=== PATIENT | female | born 1945 | race African-American/Black ===

== ENCOUNTER 2019-05-02 15:03 | Observation (INO) | payer OTHER ==
--- NOTE | 2019-05-02 17:39 | RAD REPORT ---
EXAM DESCRIPTION: US - Extremity Venous Uni Ltd - 05/02/2019 4:59 pm CLINICAL HISTORY: PAIN Leg swelling and edema. COMPARISON: <Comparisons> FINDINGS: Left lower extremity venous system was interrogated with Doppler technique. Thrombus is pr esent in the popliteal vein. Superficial venous thrombus is also present in the upper calf IMPRESSION: Positive for popliteal vein DVT. Superficial venous thrombus is also seen in the calf region the area of patient pain.
--- NOTE | 2019-05-02 17:57 | ER ---
Nurse's Notes [facility] Name: Patti Frey Age: 73 yrs Sex: Female : 1945 Arrival Date: 05/02/2019 Time: 15:03 Bed 8 Private MD: Jesu Vallecillo E Diagnosis: Acute embolism and thrombosis of other specified deep vein of right lower extremity Presentation: 05/02 15:59 Presenting complaint: Patient states: Pain and swelling to R posterior knee x 2-3 days, ph denies fever or injury. Transition of care: patient was not received from another setting of care. Onset of symptoms was May 02, 2019. Risk Assessment: Do you want to hurt yourself or someone else? Patient reports no desire to harm self or others. Initial Sepsis Screen: Does the patient meet any 2 criteria? No. Patient's initial sepsis screen is negative. Does the patient have a suspected source of infection? No. Patient's initial sepsis screen is negative. Care prior to arrival: None. 15:59 Method Of Arrival: Wheelchair ph 15:59 Acuity: EMELIA 4 ph Historical: - Allergies: 16:00 Codeine; ph 16:00 Iodine; ph - PMHx: 16:00 Arthritis; BURSITIS; Diabetes - NIDDM; Gout; Hypertension; ph - Immunization history:: Adult Immunizations up to date. - Social history:: Smoking status: Patient/guardian denies using tobacco. - Ebola Screening: : Patient negative for fever greater than or equal to 101.5 degrees Fahrenheit, and additional compatible Ebola Virus Disease symptoms Patient denies exposure to infectious person Patient denies travel to an Ebola-affected area in the 21 days before illness onset No symptoms or risks identified at this time. Screenin:20 Abuse screen: Denies threats or abuse. Denies injuries from another. Nutritional sg screening: No deficits noted. Tuberculosis screening: No symptoms or risk factors identified. Never had TB. Fall Risk None identified. Assessment: 18:20 Reassessment: Patient appears in no apparent distress at this time. Patient and/or sg family updated on plan of care and expected duration. Pain level reassessed. Patient is alert, oriented x 3, equal unlabored respirations, skin warm/dry/pink. General: Appears in no apparent distress. well groomed, well developed, well nourished, Behavior is calm, cooperative, appropriate for age. Pain: Complains of pain in posterior aspect of right knee and right calf. Neuro: Level of Consciousness is awake, alert, obeys commands, Oriented to person, place, time, situation, Speech is normal, Facial symmetry appears normal. Cardiovascular: Capillary refill is brisk in bilateral fingers Patient's skin is warm and dry. Chest pain is denied. Respiratory: Airway is patent Respiratory effort is even, unlabored, Respiratory pattern is regular, symmetrical. GI: Abdomen is round non-distended. : No signs and/or symptoms were reported regarding the genitourinary system. EENT: No signs and/or symptoms were reported regarding the EENT system. Derm: Skin is pink, warm \T\ dry. Musculoskeletal: Circulation, motion, and sensation intact. Range of motion: intact in all extremities, Swelling absent. 18:20 Reassessment: strict bed rest precautions implemented. sg 20:05 Reassessment: Dr. Craranza at bedside, will discuss if patient is ready to be tl2 transported to floor at this time. 20:09 Reassessment: Dr. Carranza reviewed lab results and stated that she could be sent to tl2 floor without further interventions in the ER. 20:23 Reassessment: Patient is alert, oriented x 3, equal unlabored respirations, skin bb warm/dry/pink. IV site intact with no erythema or edema noted, report called to Dipti BOOKER for room 416. Vital Signs: 16:00 BP 140 / 60; Pulse 67; Resp 18; Temp 97.4; Pulse Ox 100% on R/A; Weight 90.26 kg; ph Height 5 ft. 8 in. (172.72 cm); Pain 6/10; 20:06 BP 162 / 79; Pulse 65; Resp 18; Pulse Ox 100% on R/A; tl2 16:00 Body Mass Index 30.26 (90.26 kg, 172.72 cm) ph ED Course: 15:03 Patient arrived in ED. as 15:04 Jesu Vallecillo MD is Private Physician. as 16:00 Triage completed. ph 16:01 Arm band placed on Patient placed in waiting room, Patient notified of wait time. ph 16:23 Tessa Frey, ADE is Primary Nurse. iw 16:26 Vj Aldana MD is Attending Physician. snw 16:26 Mirna Juan FNP-C is PHCP. snw 16:59 US Extremity Venous Unilateral Ltd In Process Unspecified. EDMS 17:56 Lynne Greenberg MD is Hospitalizing Provider. snw 18:08 Chest Single View XRAY In Process Unspecified. EDMS 18:20 Patient has correct armband on for positive identification. Bed in low position. Call sg light in reach. Side rails up X2. Pulse ox on. NIBP on. Warm blanket given. Head of bed elevated. 18:20 No provider procedures requiring assistance completed. sg 18:28 CT Chest Wo Con In Process Unspecified. EDMS 19:00 unable to obtain labs, phlebotomy to be contacted. Inserted saline lock: 22 gauge in sg right antecubital area, using aseptic technique. IV inserted by Zoila BOOKER. 20:25 Patient admitted, IV remains in place. bb Administered Medications: 19:56 Drug: Xarelto 15 mg Route: PO; tl2 20:26 Follow up: Response: No adverse reaction bb Outcome: 17:56 Decision to Hospitalize by Provider. snw 20:24 Admitted to Tele accompanied by tech, via stretcher, room 416, with chart, Report bb called to Aziza BOOKER 20:24 Condition: stable 20:24 Instructed on the need for admit. 20:33 Patient left the ED. ao Signatures: Dispatcher [employer] EDDavid Barahona, RN ADE Mirna Juan FNP-C FNP-Arcelia Escalante Brenda, RN RN bb Williams, Irene, Radha Rand RN, RN RN ph Ortiz, Alex, RN RN ao Knox, Taylor, RN RN tl2
--- NOTE | 2019-05-02 17:57 | EDPHYS ---
Physician Documentation [facility] Name: Patti Frey Age: 73 yrs Sex: Female : 1945 Arrival Date: 05/02/2019 Time: 15:03 Bed 8 Private MD: Jesu Vallecillo E ED Physician Vj Aldana HPI: 05/02 16:44 This 73 yrs old Black Female presents to ER via Wheelchair with complaints of Leg Pain. snw 16:44 The patient presents with pain, that is acute. The complaints affect the right calf. snw Context: The problem was sustained at an unknown site, resulted from an unknown cause, the patient can partially bear weight, the patient is able to ambulate. Onset: The symptoms/episode began/occurred suddenly, this morning. Associated signs and symptoms: The patient has no apparent associated signs or symptoms. Severity of symptoms: At their worst the symptoms were moderate. The patient has not experienced similar symptoms in the past. The patient has not recently seen a physician, had A1C drawn per home health today. Historical: - Allergies: 16:00 Codeine; ph 16:00 Iodine; ph - PMHx: 16:00 Arthritis; BURSITIS; Diabetes - NIDDM; Gout; Hypertension; ph - Immunization history:: Adult Immunizations up to date. - Social history:: Smoking status: Patient/guardian denies using tobacco. - Ebola Screening: : Patient negative for fever greater than or equal to 101.5 degrees Fahrenheit, and additional compatible Ebola Virus Disease symptoms Patient denies exposure to infectious person Patient denies travel to an Ebola-affected area in the 21 days before illness onset No symptoms or risks identified at this time. ROS: 16:44 Constitutional: Negative for fever, chills, and weight loss, Eyes: Negative for injury, snw pain, redness, and discharge, ENT: Negative for injury, pain, and discharge, Neck: Negative for injury, pain, and swelling, Cardiovascular: Negative for chest pain, palpitations, and edema, Respiratory: Negative for shortness of breath, cough, wheezing, and pleuritic chest pain, Abdomen/GI: Negative for abdominal pain, nausea, vomiting, diarrhea, and constipation, Back: Negative for injury and pain, : Negative for injury, bleeding, discharge, and swelling, Skin: Negative for injury, rash, and discoloration, Neuro: Negative for headache, weakness, numbness, tingling, and seizure. 16:44 MS/extremity: Positive for pain, tenderness, of the right calf. Exam: 16:43 Constitutional: This is a well developed, well nourished patient who is awake, alert, snw and in no acute distress. Head/Face: Normocephalic, atraumatic. Eyes: Pupils equal round and reactive to light, extra-ocular motions intact. Lids and lashes normal. Conjunctiva and sclera are non-icteric and not injected. Cornea within normal limits. Periorbital areas with no swelling, redness, or edema. ENT: Nares patent. No nasal discharge, no septal abnormalities noted. Tympanic membranes are normal and external auditory canals are clear. Oropharynx with no redness, swelling, or masses, exudates, or evidence of obstruction, uvula midline. Mucous membranes moist. Neck: Trachea midline, no thyromegaly or masses palpated, and no cervical lymphadenopathy. Supple, full range of motion without nuchal rigidity, or vertebral point tenderness. No Meningismus. Chest/axilla: Normal chest wall appearance and motion. Nontender with no deformity. No lesions are appreciated. Cardiovascular: Regular rate and rhythm with a normal S1 and S2. No gallops, murmurs, or rubs. Normal PMI, no JVD. No pulse deficits. Respiratory: Lungs have equal breath sounds bilaterally, clear to auscultation and percussion. No rales, rhonchi or wheezes noted. No increased work of breathing, no retractions or nasal flaring. Abdomen/GI: Soft, non-tender, with normal bowel sounds. No distension or tympany. No guarding or rebound. No evidence of tenderness throughout. Back: No spinal tenderness. No costovertebral tenderness. Full range of motion. Skin: Warm, dry with normal turgor. Normal color with no rashes, no lesions, and no evidence of cellulitis. Neuro: Awake and alert, GCS 15, oriented to person, place, time, and situation. Cranial nerves II-XII grossly intact. Motor strength 5/5 in all extremities. Sensory grossly intact. Cerebellar exam normal. Normal gait. Psych: Awake, alert, with orientation to person, place and time. Behavior, mood, and affect are within normal limits. 16:43 Musculoskeletal/extremity: Extremities: grossly normal except: noted in the right calf: pain, tenderness, Circulation is intact in all extremities. Sensation intact. Vital Signs: 16:00 BP 140 / 60; Pulse 67; Resp 18; Temp 97.4; Pulse Ox 100% on R/A; Weight 90.26 kg; ph Height 5 ft. 8 in. (172.72 cm); Pain 6/10; 20:06 BP 162 / 79; Pulse 65; Resp 18; Pulse Ox 100% on R/A; tl2 16:00 Body Mass Index 30.26 (90.26 kg, 172.72 cm) ph MDM: 16:26 Patient medically screened. snw 17:54 Data reviewed: vital signs, nurses notes. Data interpreted: Pulse oximetry: on room air snw is 100 %. Interpretation: normal. Counseling: I had a detailed discussion with the patient and/or guardian regarding: the historical points, exam findings, and any diagnostic results supporting the discharge/admit diagnosis, the presence of at least one elevated blood pressure reading (>120/80) during this emergency department visit, radiology results, the need for outpatient follow up, to return to the emergency department if symptoms worsen or persist or if there are any questions or concerns that arise at home. Physician consultation: Lynne Greenberg MD was called at 17:55, was contacted at 17:55, regarding admission, to the telemetry unit. Special discussion:. 05/02 17:54 Order name: CBC with Diff; Complete Time: 12:17 snw 05/02 17:54 Order name: Chem 7; Complete Time: 12:17 snw 05/02 16:32 Order name: US Extremity Venous Unilateral Ltd; Complete Time: 17:42 snw 05/02 17:54 Order name: PT-INR; Complete Time: 12:17 snw 05/02 17:54 Order name: Ptt, Activated; Complete Time: 12:17 snw 05/02 17:54 Order name: Troponin (emerg Dept Use Only); Complete Time: 12:17 snw 05/02 17:54 Order name: Chest Single View XRAY; Complete Time: 12:17 snw 05/02 17:54 Order name: EKG; Complete Time: 17:55 snw 05/02 17:54 Order name: EKG - Nurse/Tech; Complete Time: 19:23 snw 05/02 17:54 Order name: SL; Complete Time: 19:19 snw 05/02 18:08 Order name: CT Chest Wo Con; Complete Time: 12:17 snw Administered Medications: 19:56 Drug: Xarelto 15 mg Route: PO; tl2 20:26 Follow up: Response: No adverse reaction bb Disposition: 05/03 07:53 Co-signature as Attending Physician, Vj Aldana MD I agree with the assessment and kdr plan of care. Disposition: 05/02/19 17:56 Hospitalization ordered by Lynne Greenberg for Observation. Preliminary diagnosis is Acute embolism and thrombosis of other specified deep vein of right lower extremity. - Bed requested for Telemetry/MedSurg (observation). - Status is Observation. ao - Condition is Stable. - Problem is new. - Symptoms are unchanged. UTI on Admission? No Signatures: Dispatcher [employer] EDMS David Lynch, RN RN Vj Aldana MD MD [facility] Mirna Juan, FLAKER OPERATOR-C FLAKER OPERATOR-Csnw Radha Soni, RN RN Judit Medina RN RN Ross Smart, RN RN Lizbet Magana RN RN tl2 Haley Bond RN bb Corrections: (The following items were deleted from the chart) 05/02 19:10 17:56 Hospitalization Ordered by Lynne Greenberg MD for Observation. Preliminary diagnosis cg is Acute embolism and thrombosis of other specified deep vein of right lower extremity. Bed requested for Telemetry/MedSurg (observation). Status is Observation. Condition is Stable. Problem is new. Symptoms are unchanged. UTI on Admission? No. snw 20:33 19:10 05/02/2019 17:56 Hospitalization Ordered by Lynne Greenberg MD for Observation. ao Preliminary diagnosis is Acute embolism and thrombosis of other specified deep vein of right lower extremity. Bed requested for Telemetry/MedSurg (observation). Status is Observation. Condition is Stable. Problem is new. Symptoms are unchanged. UTI on Admission? No. cg
--- NOTE | 2019-05-02 18:15 | RAD REPORT ---
EXAM DESCRIPTION: RAD - Chest Single View - 05/02/2019 6:08 pm CLINICAL HISTORY: DVT Chest pain. COMPARISON: <Comparisons> FINDINGS: Portable technique limits examination quality. The lungs are grossly clear. The heart is mildly enlarged in size. No displaced fractures.
--- NOTE | 2019-05-02 18:52 | RAD REPORT ---
EXAM DESCRIPTION: CT - Thorax Wo Con CLINICAL HISTORY: Chest pain +DVT/allergy to iodine COMPARISON: <Comparisons> FINDINGS: The lungs are clear. No pleural thickening or pleural effusion. No pneumothorax. No axillary, mediastinal or hilar adenopathy. Cardiac size is mildly prominent. No concerning bony finding. No gross upper abdominal finding. All CT scans are performed using dose optimization technique as appropriate and may include automated exposure control or mA/KV adjustment according to patient size. IMPRESSION: Negative study.
[2019-05-02 19:37] LABS: Absolute Lymphocytes (CBC) 2.3 K/uL (0.7-4.9); Basophils % 0.9 % (0-1.3); Eosinophils % 0.9 % (0-4.4); Hematocrit 32.5 % (36.0-45.0); Lymphocytes % 32.6 % (15.3-44.8); MPV 9.5 fL (7.6-11.3); Monocytes % 6.3 % (3.3-12.3); RBC Red Blood Cell Count 3.81 M/uL (3.86-4.86)
[2019-05-02 19:48] LABS: Protime INR 1.01
[2019-05-02 19:56] LABS: Potassium 5.4 mmol/L (3.5-5.1); Troponin (Emerg Dept Use Only) 0.03 ng/mL (0.0-0.045)
[2019-05-02] MEDS ORDERED: RIVAROXABAN 10 MG TABLET ONE (19:56)
[2019-05-02] MEDS ORDERED: TRAMADOL HCL 50 MG TAB PO PRN (20:23)
[2019-05-02] MEDS ORDERED: GLUCAGON 1 MG/VIAL IM PRN (20:23)
[2019-05-02] MEDS ORDERED: ONDANSETRON 4 MG/2 ML VIAL IV PRN (20:23)
[2019-05-02] MEDS ORDERED: SOD POLYSTYREN SUL 15 GM/60 ML UCUP PO ONE (20:23)
[2019-05-02] MEDS ORDERED: ACETAMINOPHEN 500 MG TAB PO PRN (20:23)
[2019-05-02] MEDS ORDERED: D50W 25 GM/50 ML SYRINGE IV PRN (20:23)
--- NOTE | 2019-05-02 20:28 | P.HP ---
Certification for Inpatient Patient admitted to: Observation With expected LOS: <2 Midnights Practitioner: I am a practitioner with admitting privileges, knowledge of patient current condition, hospital course, and medical plan of care. Services: Services provided to patient in accordance with Admission requirements found in Title 42 Section 412.3 of the Code of Federal Regulations Patient History Date of Service: 05/02/19 Reason for admission: DVT History of Present Illness: Ms Frey is a 73 years old woman with history of HTN, CKD, DM II, neuropahty , who start about 2-3 days ago with right calf pain, it was constant and mostly on the external area. She denied fever, chills, SOB, chest pain or dizziness. The patient says that she usually spent several hours in her couch. She has never had this symptoms in the past. Lab work remarkable for normal WBC count, mild hyperkalemia, elevated creatinine 2.31 which is worse than previous records. Venous Doppler of LE, was remarkable for DVT on popliteal vein of her right leg. Allergies codeine [Codeine] Allergy (Intermediate, Verified 08/29/13 03:21) SHAKY iodine Allergy (Unverified 08/30/17 17:15) Unknown Home medications list reviewed: Yes Home Medications: Linagliptin [Tradjenta] 5 mg PO DAILY 08/29/13 Tramadol HCl 50 mg PO Q6HR PRN 08/29/13 Amlodipine Besylate 5 mg PO BEDTIME 02/16/15 Aspirin [Yolande Chewable Aspirin] 81 mg PO DAILY 02/16/15 Atorvastatin Calcium [Lipitor*] 10 mg PO BEDTIME 02/16/15 Esomeprazole Magnesium [Nexium] 40 mg PO DAILY 02/16/15 Febuxostat [Uloric] 40 mg PO DAILY 02/16/15 Gabapentin 300 mg PO BID 02/16/15 Multivit with Calcium,Iron,Min [Women's One Daily] 1 tab PO DAILY 02/16/15 Nebivolol HCl [Bystolic] 10 mg PO BEDTIME 02/16/15 - Past Medical/Surgical History Diabetic: Yes -: [place] -: BACK PAIN -: GOUT -: HTN -: DM- NIDDM -: ARTHRITIS -: NEUROPATHY -: Surgical menopause -: Hysterectomy -: APPENDECTOMY -: EYE SURGERY- LEFT EYRITIS UVITIS Psychosocial/ Personal History: - Family History Father -: Hypertension, Lung disease, Cancer Mother -: Heart disease, Hypertension, Other (see notes) Notes: of heart attack Brother -: Diabetes Sister -: Diabetes, Other (see notes) Notes: 2 heart transplant - Social History Smoking Status: Former smoker Alcohol use: No CD- Drugs: No Caffeine use: Yes Place of Residence: Home Physical Examination - Physical Exam General: Alert, In no apparent distress HEENT: Atraumatic, PERRLA, Mucous membr. moist/pink, EOMI, Sclerae nonicteric Neck: Supple, 2+ carotid pulse no bruit, No LAD, Without JVD or thyroid abnormality Respiratory: Clear to auscultation bilaterally, Normal air movement Cardiovascular: Regular rate/rhythm, Normal S1 S2 Gastrointestinal: Normal bowel sounds, No tenderness Musculoskeletal: Tenderness (right calf) Integumentary: No rashes Neurological: Normal speech, Normal strength at 5/5 x4 extr, Normal tone, Normal affect Lymphatics: No axilla or inguinal lymphadenopathy Assessment and Plan - Problems (Diagnosis) (1) DVT (deep venous thrombosis) Current Visit: Yes Status: Acute Qualifiers: DVT location: lower extremity Affected thrombotic vein of extremity: unspecified lower extremity distal vein Chronicity: acute Laterality: right Qualified Code(s): I82.4Z1 - Acute embolism and thrombosis of unspecified deep veins of right distal lower extremity (2) HTN (hypertension) Current Visit: Yes Status: Acute Qualifiers: Hypertension type: essential hypertension Qualified Code(s): I10 - Essential (primary) hypertension (3) Diabetes mellitus Current Visit: Yes Status: Acute Qualifiers: Diabetes mellitus type: type 2 Diabetes mellitus alf insulin use: without anvilsmith use Diabetes mellitus complication status: with neurologic complications Diabetes mellitus complication detail: with polyneuropathy Qualified Code(s): E11.42 - Type 2 diabetes mellitus with diabetic polyneuropathy (4) Hyperkalemia Current Visit: Yes Status: Acute (5) CKD (chronic kidney disease) stage 3, GFR 30-59 ml/min Current Visit: Yes Status: Acute - Plan Will admit the patient for observation due to acute right lower extremity DVT. She already received a dose of Xarelto, however, due to her worsening kidney fuction, I think Eliquis will be better option. Will start in the morning. She may go home in AM if remain stable. No clinical signs of PE. - Advance Directives Does patient have a Living Will: No Does patient have a Durable POA for Healthcare: No - Code Status/Comfort Care Code Status Assessed: Yes Code Status: Full Code
[2019-05-02] MEDS: INSULIN -REGULAR HUMAN 50 UNIT/0.5 ML ML SQ SCH (21:00)
[2019-05-02] MEDS: NA CHLORIDE 0.9% 1,000 ML IV SCH (21:17)
[2019-05-02 22:32] VITALS: BMI 30.2
[2019-05-03 05:49] LABS: Basophils % 0.4 % (0-1.3); Eosinophils % 1.1 % (0-4.4); Lymphocytes % 33.5 % (15.3-44.8); MPV 9.7 fL (7.6-11.3); Monocytes % 6.7 % (3.3-12.3); RBC Red Blood Cell Count 3.47 M/uL (3.86-4.86)
[2019-05-03 06:00] LABS: Albumin 3.3 g/dL (3.4-5.0); Bilirubin Total 0.2 mg/dL (0.2-1.0); Potassium 4.3 mmol/L (3.5-5.1); Protein, Total 6.9 g/dL (6.4-8.2)
[2019-05-03] MEDS: NA CHLORIDE 0.9% 1,000 ML IV SCH (06:18)
[2019-05-03] MEDS: INSULIN -REGULAR HUMAN 50 UNIT/0.5 ML ML SQ SCH ×2 (07:30→11:30)
--- NOTE | 2019-05-03 07:34 | EKG ---
Test Date: 2019-05-02 Test Time: 19:02:41 Manager Mechanical: LIA MEASUREMENT RESULTS: Intervals: Rate: 59 MD: 170 QRSD: 120 QT: 450 QTc: 445 [place]: P: 18 MD: 170 QRS: -29 T: 5 INTERPRETIVE STATEMENTS: Sinus bradycardia Left ventricular hypertrophy with QRS widening Nonspecific T wave abnormality Abnormal ECG Compared to ECG 08/30/2017 12:34:48 T-wave abnormality now present Left-axis deviation no longer present Right bundle-branch block no longer present Electronically Signed On 05-03-19 07:33:57 CDT by Chapito Tesfaye
[2019-05-03] MEDS ORDERED: PNEUMOCOCCAL VACCINE 0.5 ML IMVAC ONE (08:00)
[2019-05-03 08:50] VITALS: O2SAT 96
[2019-05-03] MEDS ORDERED: APIXABAN 5 MG TABLET PO SCH (09:00)
[2019-05-03 10:21] VITALS: BP 150/70; TEMP 98.2
--- NOTE | 2019-05-04 05:12 | DS ---
Date of Discharge: 05/03/2019 Discharge Diagnoses: 1.Acute DVT, right lower extremity popliteal vein. 2.Essential hypertension. 3.Diabetes mellitus, type 2, without long-term use of insulin with polyneuropathy. 4.Hyperkalemia, corrected. 5.Chronic kidney disease, stage 3. 6.Obesity. 7.Hyperlipidemia, mixed. 8.Gout. 9.Osteoarthritis, generalized. 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 The pat ient was found to have acute DVT in the popliteal vein. She had significant amount of pain. CT yanelis o was negative for PE. The patient was started on anticoagulation and this was thought to be provoke d event as the patient is largely nonmobile due to her blindness. She denies any previous history of thromboembolism. The patient will need outpatient workup with Hematology for hypercoagulable studie s. She will need to be on anticoagulation for at least 3-4 months and to follow up with her PCP in H ematology for further continuation depending on her hypercoagulable workup. The patient did not have any shortness of breath. Her pain improved with treatment. Regarding her hyperkalemia, potassium i mproved as did her kidney function. She does have chronic kidney disease. She will need to follow u p with her traffic warehouse supervisor as scheduled. The patient was then cleared for discharge, sent home in a sta ble condition. Activity: As tolerated. Medications: As per medication reconciliation list. Followup: Follow up with primary care physician in 2-3 days. Follow up with traffic warehouse supervisor in 2 weeks . Follow up with Hematology in 1 week. Return to ER for worsening condition. Diet: Renal diet. Physical Examination: General: Awake, alert, oriented x3. Elderly female, obese. CV: S1, S2. Respiratory: Moving air well bilaterally. Abdomen: Soft, nontender, nondistended. Positive bowel sounds. Extremities: No clubbing, cyanosis. The patient has edema of the right lower extremity. Neuro: Nonfocal. Code Status: Full. SA/MODL Voice ID: [id number] Report ID: [id number]
== END 2019-05-03 15:46 | disposition home health service (06) ==
LOC: ER 15:03 → ERHOLD 18:32 → 4TH 20:23
PROVIDERS: ADMIT Family Medicine; ATTEND Family Medicine
DX: I82.431 Acute embolism and thrombosis of right popliteal vein (principal); E11.22 Type 2 diabetes mellitus with diabetic chronic kidney disease; I12.9 Hypertensive chronic kidney disease with stage 1 through stage 4 chronic kidney disease, or unspecified chronic kidney disease; N18.3 Chronic kidney disease, stage 3 (moderate); E11.42 Type 2 diabetes mellitus with diabetic polyneuropathy; E87.5 Hyperkalemia; E78.2 Mixed hyperlipidemia; M15.0 Primary generalized (osteo)arthritis; I25.2 Old myocardial infarction; M10.9 Gout, unspecified; I51.7 Cardiomegaly; R94.31 Abnormal electrocardiogram [ECG] [EKG]; R00.0 Tachycardia, unspecified; E66.9 Obesity, unspecified; Z68.30 Body mass index [BMI] 30.0-30.9, adult; Z79.82 Long term (current) use of aspirin; Z79.899 Other long term (current) drug therapy; Z87.891 Personal history of nicotine dependence
CPT/HCPCS: 93005; 85025 ×2; 80048; 36415; 85610; 82962 ×3; 85730; 84484; 80053; 71250; 71045; 93971; 94760 ×2; 99285; J7030 ×2; G0378 ×2; 83036

== ENCOUNTER 2019-06-15 12:44 | Observation (INO) | payer OTHER ==
[2019-06-15 13:49] LABS: Protime INR 1.2
[2019-06-15 14:08] LABS: ALT/SGPT 19 U/L (12-78); AST/SGOT 14 U/L (15-37); Albumin 3.9 g/dL (3.4-5.0); Alkaline Phosphatase 134 U/L (45-117); BUN Blood Urea Nitrogen 31 mg/dL (7-18); Bicarbonate 23 mmol/L (21-32); Bilirubin Direct < 0.1 mg/dL (0-0.2); Bilirubin Total 0.3 mg/dL (0.2-1.0); Glucose Level 115 mg/dL (74-106); Magnesium 1.9 mg/dL (1.8-2.4); NT PRO-BNP 179 pg/mL (<125); Potassium 4.7 mmol/L (3.5-5.1); Protein, Total 8.6 g/dL (6.4-8.2); Sodium Level 143 mmol/L (136-145); Troponin (Emerg Dept Use Only) < 0.02 ng/mL (0.0-0.045)
--- NOTE | 2019-06-15 14:22 | RAD REPORT ---
EXAM DESCRIPTION: RAD - Chest Single View - 06/15/2019 1:26 pm CLINICAL HISTORY: Chest pain COMPARISON: May 02, 2019 TECHNIQUE: AP portable chest image was obtained 1324 hours . FINDINGS: Lung volumes are low. Shallow inspiration and large body habitus accentuate chest findings on portable imaging. No peripheral mass or consolidations seen. Cardiac silhouette is enlarged, accentuated further by exam limitations in body habitus affects. Hear t size and mediastinum are not clearly different from the [place] imaging. A [place] CT chest study showed no mediastinal or hilar mass. Heart and vasculature are normal. No measurable pleural effusion and no pneumothorax. No acute bony abnormality seen. No acute aortic findings suspected. IMPRESSION: No acute cardiopulmonary process.
[2019-06-15] MEDS ORDERED: ACETAMINOPHEN 500 MG TAB ONE (14:44)
--- NOTE | 2019-06-15 15:38 | EKG ---
Test Date: 2019-06-15 Test Time: 12:47:45 Rn Maternal Child: GRISELDA MEASUREMENT RESULTS: Intervals: Rate: 61 SC: 160 QRSD: 134 QT: 446 QTc: 448 [place]: P: 31 SC: 160 QRS: -38 T: -58 INTERPRETIVE STATEMENTS: Normal sinus rhythm Left axis deviation Right bundle branch block Voltage criteria for left ventricular hypertrophy T wave abnormality, consider inferolateral ischemia Abnormal ECG Compared to ECG 05/02/2019 19:02:41 Left-axis deviation now present Right bundle-branch block now present Sinus bradycardia no longer present Electronically Signed On 06-15-19 15:37:37 CDT by Jalil Solis
--- NOTE | 2019-06-15 17:17 | RAD REPORT ---
EXAM DESCRIPTION: CT - Head Brain Wo Cont - 06/15/2019 4:58 pm CLINICAL HISTORY: Headache, weakness COMPARISON: August 2017 CT head TECHNIQUE: Axial 5 mm thick images of the head were obtained without IV contrast. All CT scans are performed using dose optimization technique as appropriate and may include automated exposure control or mA/KV adjustment according to patient size. FINDINGS: No intracranial hemorrhage, mass, edema or shift of mid-line structures. No acute cortical based infarction seen. No cortical edema or sulcal effacement. Atrophy changes are minimal. Ventricl es are normal. No abnormal extra-axial fluid collections. Chronic ischemic changes are present in the cerebral white matter most notable in the left parietal lobe. Arterial and physiologic calcification s are present. Intracranial findings are similar to comparison. Mastoid air cells and visualized portions of the paranasal sinuses are clear. No acute bony findings. IMPRESSION: No mass, hemorrhage or acute intracranial finding. Chronic ischemic changes are present similar to 2017.
--- NOTE | 2019-06-15 17:44 | EDPHYS ---
Physician Documentation [facility] Name: Patti Frey Age: 73 yrs Sex: Female : 1945 Arrival Date: 06/15/2019 Time: 12:47 Bed 8 Private MD: ED Physician Victor Hugo Lilly HPI: 06/15 13:07 This 73 yrs old Black Female presents to ER via EMS with complaints of chest pain. jmm 13:07 The patient or guardian reports chest pain that is located primarily in the substernal [facility] area. Onset: gradually, 2 day(s) ago. The pain does not radiate. Associated signs and symptoms: Pertinent positives: shortness of breath. The chest pain is described as aching. This is a 73 year old female with no chronic medical conditions that presents to the ED with complaints of chest pain shortness of breath. Patient was recently diagnosed with a DVT and is currently taking Eliquis. . Historical: - Allergies: 12:52 Codeine; rv 12:52 Iodine; rv - Home Meds: 12:52 amlodipine oral [Active]; Aspirin Oral [Active]; Bystolic Oral [Active]; trajenza rv [Active]; Nexium Oral [Active]; atorvastatin Oral [Active]; gabapentin Oral [Active]; Uloric Oral [Active]; Bystolic oral oral [Active]; Eliquis oral oral [Active]; Lorazepam Oral [Active]; meloxicam oral oral [Active]; Lisinopril Oral [Active]; - PMHx: 12:52 Arthritis; BURSITIS; Gout; Diabetes - NIDDM; Hypertension; rv - PSHx: 12:52 Unable to obtain; rv - Immunization history:: Adult Immunizations unknown. - Social history:: Smoking status: Patient/guardian denies using tobacco. - Ebola Screening: : No symptoms or risks identified at this time. ROS: 13:07 Constitutional: Negative for fever, chills, and weight loss. jmm 13:07 Cardiovascular: Positive for chest pain. 13:07 Respiratory: Positive for shortness of breath. 13:07 All other systems are negative. Exam: 13:07 Constitutional: This is a well developed, well nourished patient who is awake, alert, jmm and in no acute distress. Head/Face: atraumatic. Eyes: EOMI, no conjunctival erythema appreciated ENT: Moist Mucus Membranes Neck: Trachea midline, Supple Chest/axilla: Normal chest wall appearance and motion. 13:07 Abdomen/GI: Non distended, soft Back: Normal ROM Skin: General appearance color normal MS/ Extremity: Moves all extremities, no obvious deformities appreciated, no edema noted to the lower extremities Neuro: Awake and alert, normal gait Psych: Behavior is normal, Mood is normal, Patient is cooperative and pleasant 13:07 Cardiovascular: Rate: normal, Rhythm: regular. 13:07 Respiratory: the patient does not display signs of respiratory distress, Respirations: normal, Breath sounds: are clear throughout. Vital Signs: 12:48 BP 170 / 92; Pulse 67; Resp 16; Temp 97.9; Pulse Ox 100% on R/A; Weight 90.26 kg; rv Height 5 ft. (152.40 cm); Pain 7/10; 14:09 BP 150 / 100; Pulse 71; Resp 15; Pulse Ox 100% ; bp 15:00 BP 161 / 88; Pulse 71; Resp 18; Pulse Ox 99% on R/A; rv 16:00 BP 142 / 80; Pulse 61; Resp 20; Pulse Ox 96% on R/A; Pain 0/10; rv 17:31 BP 141 / 63; Pulse 78; Resp 15; Pulse Ox 98% ; bp 19:06 BP 138 / 81; Pulse 76; Resp 16; Pulse Ox 97% ; tl1 19:55 BP 144 / 74; Pulse 68; Resp 15; Pulse Ox 98% on R/A; Pain 0/10; tl1 21:18 BP 136 / 70; Pulse 70; Resp 17; Pulse Ox 100% ; Pain 0/10; tl1 22:22 BP 130 / 72; Pulse 68; Resp 18; Pulse Ox 100% on R/A; Pain 0/10; tl1 23:04 BP 127 / 64; Pulse 66; Resp 16; Temp 98; Pulse Ox 99% on R/A; Pain 0/10; tl1 12:48 Body Mass Index 38.86 (90.26 kg, 152.40 cm) rv MDM: 13:07 Patient medically screened. zaria 17:40 The patient was not given aspirin in the Emergency Department. Data reviewed: vital jmm signs, nurses notes, lab test result(s), EKG, radiologic studies, CT scan, plain films. ED course: I discussed the patient with Dr. Wynne whom accepted the patient for ACS rule out. . 06/15 12:54 Order name: Basic Metabolic Panel rv 06/15 12:54 Order name: CBC with Diff rv 06/15 12:54 Order name: LFT's; Complete Time: 14:36 06/15 12:54 Order name: Magnesium; Complete Time: 14:36 06/15 12:54 Order name: NT PRO-BNP; Complete Time: 14:36 06/15 12:54 Order name: PT-INR; Complete Time: 14:36 06/15 12:54 Order name: Troponin (emerg Dept Use Only); Complete Time: 14:36 06/15 12:54 Order name: XRAY Chest (1 view); Complete Time: 14:36 06/15 12:55 Order name: Basic Metabolic Panel; Complete Time: 14:36 EDMS 06/15 12:55 Order name: CBC with Automated Diff; Complete Time: 21:13 EDDC 06/15 16:41 Order name: CT Head Brain wo Cont; Complete Time: 17:31 [facility] 06/15 18:25 Order name: Troponin (emerg Dept Use Only) rv 06/15 21:00 Order name: Troponin (Emerg Dept Use Only); Complete Time: 21:13 EDMS 06/15 12:54 Order name: EKG; Complete Time: 12:56 06/15 12:54 Order name: Cardiac monitoring; Complete Time: 12:58 06/15 12:54 Order name: EKG - Nurse/Tech; Complete Time: 12:58 06/15 12:54 Order name: IV Saline Lock; Complete Time: 14:16 06/15 12:54 Order name: Labs collected and sent; Complete Time: 13:35 06/15 12:54 Order name: O2 Per Protocol; Complete Time: 12:58 06/15 12:54 Order name: O2 Sat Monitoring; Complete Time: 12:59 rv Administered Medications: 15:00 Drug: Tylenol 650 mg Route: PO; rv 16:07 Follow up: Response: Marked relief of symptoms rv 18:02 Drug: Zofran 4 mg Route: IVP; Site: right forearm; bp 18:32 Follow up: Response: No adverse reaction; Marked relief of symptoms; Nausea is decreasedtl1 18:03 Drug: morphine 2 mg Route: IVP; Site: right forearm; bp 18:45 Follow up: Response: No adverse reaction; Marked relief of symptoms; Pain is decreased tl1 Disposition: 06/15/19 17:42 Hospitalization ordered by Princess Wynne for Observation. Preliminary diagnosis is Chest pain, unspecified. - Bed requested for Telemetry/MedSurg (observation). - Status is Observation. tl1 - Condition is Stable. - Problem is new. - Symptoms have improved. UTI on Admission? No Addendum: 06/18/2019 08:30 Co-signature as Attending Physician, Victor Hugo Lilly MD I agree with the assessment and c lugo plan of care. Signatures: Dispatcher [employer] EDMS Victor Hugo Lilly MD MD cha Mickail, Joel, PA PA jmm Lasagna, Tonya, RN RN tl1 Judit Medina RN RN cg Mat Garay, RN RN bp Memo Arguelles, RN RN rv Corrections: (The following items were deleted from the chart) 06/15 22:53 17:42 Hospitalization Ordered by Princess Wynne MD for Observation. Preliminary diagnosis cg is Chest pain, unspecified. Bed requested for Telemetry/MedSurg (observation). Status is Observation. Condition is Stable. Problem is new. Symptoms have improved. UTI on Admission? No. [facility] 23:53 22:53 06/15/2019 17:42 Hospitalization Ordered by Princess Wynne MD for Observation. tl1 Preliminary diagnosis is Chest pain, unspecified. Bed requested for Telemetry/MedSurg (observation). Status is Observation. Condition is Stable. Problem is new. Symptoms have improved. UTI on Admission? No. cg
--- NOTE | 2019-06-15 17:44 | ER ---
Nurse's Notes [facility] Name: Patti Frey Age: 73 yrs Sex: Female : 1945 Arrival Date: 06/15/2019 Time: 12:47 Bed 8 Private MD: Diagnosis: Chest pain, unspecified Presentation: 06/15 12:47 Presenting complaint: EMS states: complaining of chest pain. she has been on pain for rv two days now. constant dull pain, 7/10. denies any SOB/. also complains of weakness, with history of DM. blood sugar was 146. Transition of care: patient was not received from another setting of care. Onset of symptoms was June 14, 2019 at 08:00. Risk Assessment: Do you want to hurt yourself or someone else? Patient reports no desire to harm self or others. Initial Sepsis Screen: Does the patient meet any 2 criteria? No. Patient's initial sepsis screen is negative. Does the patient have a suspected source of infection? No. Patient's initial sepsis screen is negative. Care prior to arrival: None. 12:47 Method Of Arrival: EMS: [facility] rv 12:47 Acuity: EMELIA 3 rv Triage Assessment: 12:50 General: Appears in no apparent distress. comfortable, Behavior is cooperative, bp appropriate for age, anxious. Pain: Complains of pain in chest. EENT: No deficits noted. Neuro: No deficits noted. Cardiovascular: Chest pain is described as Pain is 7 out of 10 on a pain scale. Respiratory: Reports shortness of breath. GI: No signs and/or symptoms were reported involving the gastrointestinal system. : No signs and/or symptoms were reported regarding the genitourinary system. Derm: No deficits noted. Musculoskeletal: No deficits noted. Historical: - Allergies: 12:52 Codeine; rv 12:52 Iodine; rv - Home Meds: 12:52 amlodipine oral [Active]; Aspirin Oral [Active]; Bystolic Oral [Active]; trajenza rv [Active]; Nexium Oral [Active]; atorvastatin Oral [Active]; gabapentin Oral [Active]; Uloric Oral [Active]; Bystolic oral oral [Active]; Eliquis oral oral [Active]; Lorazepam Oral [Active]; meloxicam oral oral [Active]; Lisinopril Oral [Active]; - PMHx: 12:52 Arthritis; BURSITIS; Gout; Diabetes - NIDDM; Hypertension; rv - PSHx: 12:52 Unable to obtain; rv - Immunization history:: Adult Immunizations unknown. - Social history:: Smoking status: Patient/guardian denies using tobacco. - Ebola Screening: : No symptoms or risks identified at this time. Screenin:53 Abuse screen: Denies threats or abuse. Denies injuries from another. Nutritional rv screening: No deficits noted. Tuberculosis screening: No symptoms or risk factors identified. Fall Risk None identified. Assessment: 12:52 General: Appears in no apparent distress. uncomfortable, Behavior is calm, cooperative. rv Pain: Complains of pain in chest. Pain: Pain does not radiate. Pain currently is 7 out of 10 on a pain scale. Quality of pain is described as dull, Pain began 2-3 days ago. Neuro: Level of Consciousness is awake, alert, obeys commands, Oriented to person, place, time, situation. Cardiovascular: Patient's skin is warm and dry. Cardiovascular: Rhythm is regular. Respiratory: Airway is patent. GI: No signs and/or symptoms were reported involving the gastrointestinal system. : No signs and/or symptoms were reported regarding the genitourinary system. EENT: No signs and/or symptoms were reported regarding the EENT system. Derm: Skin is intact. Musculoskeletal: No signs and/or symptoms reported regarding the musculoskeletal system. 14:09 Reassessment: ALL CURRENT ORDERS COMPLETED, RESULTS PENDING. bp 16:07 Reassessment: Patient appears in no apparent distress at this time. Patient and/or rv family updated on plan of care and expected duration. Pain level reassessed. Patient is alert, oriented x 3, equal unlabored respirations, skin warm/dry/pink. 17:31 Reassessment: VS STABLE ON MONITOR, DISPO PENDING. bp 17:58 Reassessment: ADMIT MD AT B/S, ADMIT IN PROCESS. bp 18:29 Reassessment: PHLEBOTOMY CONTACTED FOR REPEAT LABS. bp Vital Signs: 12:48 BP 170 / 92; Pulse 67; Resp 16; Temp 97.9; Pulse Ox 100% on R/A; Weight 90.26 kg; rv Height 5 ft. (152.40 cm); Pain 7/10; 14:09 BP 150 / 100; Pulse 71; Resp 15; Pulse Ox 100% ; bp 15:00 BP 161 / 88; Pulse 71; Resp 18; Pulse Ox 99% on R/A; rv 16:00 BP 142 / 80; Pulse 61; Resp 20; Pulse Ox 96% on R/A; Pain 0/10; rv 17:31 BP 141 / 63; Pulse 78; Resp 15; Pulse Ox 98% ; bp 19:06 BP 138 / 81; Pulse 76; Resp 16; Pulse Ox 97% ; tl1 19:55 BP 144 / 74; Pulse 68; Resp 15; Pulse Ox 98% on R/A; Pain 0/10; tl1 21:18 BP 136 / 70; Pulse 70; Resp 17; Pulse Ox 100% ; Pain 0/10; tl1 22:22 BP 130 / 72; Pulse 68; Resp 18; Pulse Ox 100% on R/A; Pain 0/10; tl1 23:04 BP 127 / 64; Pulse 66; Resp 16; Temp 98; Pulse Ox 99% on R/A; Pain 0/10; tl1 12:48 Body Mass Index 38.86 (90.26 kg, 152.40 cm) rv ED Course: 12:47 Patient arrived in ED. rv 12:48 Triage completed. rv 12:53 Patient has correct armband on for positive identification. Placed in gown. Bed in low rv position. Call light in reach. Side rails up X 1. playground monitor on. Pulse ox on. NIBP on. 12:53 Arm band placed on right wrist. Patient placed in the treatment room, on a stretcher, rv on quality assurance monitor body, on pulse oximetry, Patient notified of wait time. EKG completed in triage. Results shown to MD. 13:02 EKG done, by ED staff, reviewed by Victor Hugo Lilly MD. em1 13:05 Abdullahi Cooper PA is PHCP. jmm 13:05 Victor Hugo Lilly MD is Attending Physician. jmm 13:25 XRAY Chest (1 view) In Process Unspecified. EDMS 14:00 Inserted saline lock: 24 gauge in right forearm, using aseptic technique. Blood bp collected. 14:10 Mat Garay, RN is Primary Nurse. bp 16:57 CT completed. Patient tolerated procedure well. Patient moved back from CT. mw3 16:59 CT Head Brain wo Cont In Process Unspecified. EDMS 17:42 Princess Wnyne MD is Hospitalizing Provider. m 23:12 No provider procedures requiring assistance completed. Patient admitted, IV remains in tl1 place. Administered Medications: 15:00 Drug: Tylenol 650 mg Route: PO; rv 16:07 Follow up: Response: Marked relief of symptoms rv 18:02 Drug: Zofran 4 mg Route: IVP; Site: right forearm; bp 18:32 Follow up: Response: No adverse reaction; Marked relief of symptoms; Nausea is decreasedtl1 18:03 Drug: morphine 2 mg Route: IVP; Site: right forearm; bp 18:45 Follow up: Response: No adverse reaction; Marked relief of symptoms; Pain is decreased tl1 Outcome: 17:42 Decision to Hospitalize by Provider. m 23:11 Admitted to Tele accompanied by tech, via stretcher, with chart, Report called to tl1 Torrie BOOKER 23:11 Condition: stable 23:11 Instructed on the need for admit. 23:53 Patient left the ED. tl1 Signatures: Dispatcher [employer] EDMS Abdullahi Cooper PA PA jmm Martinez, Eric em1 Martha Shah RN RN tl1 Mat Garay RN RN Delfina George mw3 Memo Arguelles, RN RN rv Corrections: (The following items were deleted from the chart) 12:50 12:47 Presenting complaint: EMS states: complaining of chest pain. she has been on pain rv for two days now. constant dull pain, 05/01. denies any SOB/. rv
[2019-06-15] MEDS ORDERED: MORPHINE 2 MG/ML SYR ONE (17:52)
[2019-06-15] MEDS ORDERED: ONDANSETRON 4 MG/2 ML VIAL ONE (17:52)
--- NOTE | 2019-06-15 19:25 | P.HP ---
Certification for Inpatient Patient admitted to: Observation With expected LOS: <2 Midnights Practitioner: I am a practitioner with admitting privileges, knowledge of patient current condition, hospital course, and medical plan of care. Services: Services provided to patient in accordance with Admission requirements found in Title 42 Section 412.3 of the Code of Federal Regulations Patient History Date of Service: 06/15/19 Reason for admission: Chest pain History of Present Illness: This is a 73-year-old female with past medical history of hypertension, diabetes type 2, hyperlipidemia, gout, legal blindness, CKD stage 3 admitted for chest pain. Per patient, she has had constant dull substernal chest pain for the past 2-3 days. She denies any radiation of the pain. No alleviating or exacerbating factors. She rates it as 8/10 at its worst, currently 3/10. Associated with the headache. Patient was recently discharged about 2 weeks ago after a DVT. Denies any shortness of breath, nausea, vomiting, arm pain, numbness, tingling, dizziness, vision changes, speech changes, GI or complaints. In the ER, she was hemodynamically stable. Labs were fairly unremarkable, troponins negative x1. CT of the head was negative for any acute abnormalities. Chest x-ray was normal. At the time of my exam, she was alert oriented x3, in no acute distress. Stated chest pain had improved from her initial admission . She was hemodynamically stable. Allergies codeine [Codeine] Allergy (Intermediate, Verified 05/03/19 00:28) SHAKY iodine Allergy (Verified 05/03/19 00:28) Unknown Home medications list reviewed: Yes Home Medications: Linagliptin [Tradjenta] 5 mg PO DAILY 08/29/13 Tramadol HCl 50 mg PO Q6HR PRN 08/29/13 Amlodipine Besylate 5 mg PO BEDTIME 02/16/15 Aspirin [Yolande Chewable Aspirin] 81 mg PO DAILY 02/16/15 Atorvastatin Calcium [Lipitor*] 10 mg PO BEDTIME 02/16/15 Esomeprazole Magnesium [Nexium] 40 mg PO DAILY 02/16/15 Febuxostat [Uloric] 40 mg PO DAILY 02/16/15 Gabapentin 300 mg PO BID 02/16/15 Multivit with Calcium,Iron,Min [Women's One Daily] 1 tab PO DAILY 02/16/15 Nebivolol HCl [Bystolic] 10 mg PO BEDTIME 02/16/15 Apixaban [Eliquis] 10 mg PO BID #70 tablet 05/03/19 - Past Medical/Surgical History Diabetic: Yes -: [place] -: BACK PAIN -: GOUT -: HTN -: DM- NIDDM -: ARTHRITIS -: NEUROPATHY -: Surgical menopause -: Hysterectomy -: APPENDECTOMY -: EYE SURGERY- LEFT EYRITIS UVITIS Psychosocial/ Personal History: - Family History Father -: Hypertension, Lung disease, Cancer Mother -: Heart disease, Hypertension, Other (see notes) Notes: of heart attack Brother -: Diabetes, Other (see notes) Notes: heart defibrillator Sister -: Diabetes, Other (see notes) Notes: 2 heart transplant - Social History Alcohol use: No CD- Drugs: No Caffeine use: Yes Review of Systems 10-point ROS is otherwise unremarkable Physical Examination - Physical Exam General: Alert, In no apparent distress, Oriented x3 HEENT: Atraumatic, PERRLA, Mucous membr. moist/pink, Other (Legally blind), EOMI , Sclerae nonicteric Neck: Supple, 2+ carotid pulse no bruit, No LAD, Without JVD or thyroid abnormality Respiratory: Clear to auscultation bilaterally, Normal air movement Cardiovascular: Regular rate/rhythm, Normal S1 S2 Gastrointestinal: Normal bowel sounds, No tenderness Musculoskeletal: No tenderness Integumentary: No rashes Neurological: Normal gait, Normal speech, Normal strength at 5/5 x4 extr, Normal tone, Normal affect Lymphatics: No axilla or inguinal lymphadenopathy - Studies Laboratory Data (last 24 hrs) 06/15/19 13:38: PT 14.1 H, INR 1.20 06/15/19 13:38: Sodium 143, Potassium 4.7, BUN 31 H, Creatinine 1.76 H, Glucose 115 H, Magnesium 1.9, Total Bilirubin 0.3, AST 14 L, ALT 19, Alkaline Phosphatase 134 H Assessment and Plan - Problems (Diagnosis) (1) Chest pain Onset Date: 02/17/15 Current Visit: No Status: Acute Plan: Heart score of 4: Age greater than 65, greater than 3 risk factors. -Troponin negative x1 -EKG with no acute changes -Risk factors: Hypertension, hyperlipidemia, obesity, -Chest pain guidelines: Beta-negro, lisinopril, statin. -Nitro sublingual as needed for pain; morphine as needed for pain -Cardiology consult, awaiting recommendations Qualifiers: Chest pain type: unspecified Qualified Code(s): R07.9 - Chest pain, unspecified (2) CKD (chronic kidney disease) stage 3, GFR 30-59 ml/min Current Visit: No Status: Chronic (3) Diabetes mellitus Current Visit: No Status: Acute Qualifiers: Diabetes mellitus type: type 2 Diabetes mellitus detention insulin use: without detention use Diabetes mellitus complication status: with kidney complications Diabetes mellitus complication detail: with chronic kidney disease Chronic kidney disease stage: stage 3 (moderate) Qualified Code(s): E11.22 - Type 2 diabetes mellitus with diabetic chronic kidney disease; N18.3 - Chronic kidney disease, stage 3 (moderate) (4) HTN (hypertension) Current Visit: No Status: Chronic Plan: Stable, continue home medications once reconciled Qualifiers: Hypertension type: essential hypertension (5) DVT (deep venous thrombosis) Current Visit: No Status: Chronic Plan: Recent history of DVT. -Stable -will continue anticoagulation of Eliquis Qualifiers: DVT location: lower extremity Chronicity: chronic Laterality: right (6) Gout Current Visit: No Status: Chronic Qualifiers: Gout site: unspecified site Gout etiology: unspecified cause Chronicity: unspecified Qualified Code(s): M10.9 - Gout, unspecified (7) Osteoarthritis Current Visit: No Status: Chronic Qualifiers: Osteoarthritis location: unspecified site Osteoarthritis type: unspecified Qualified Code(s): M19.90 - Unspecified osteoarthritis, unspecified site (8) Legally blind Current Visit: No Status: Chronic - Plan DVT prophylaxis: Treated as above GI prophylaxis: Protonix Diet: Diabetic Disposition: Admit to floor, with tele. Pending symptomatic improvement and cardiology evaluation. - Advance Directives Does patient have a Living Will: No Does patient have a Durable POA for Healthcare: No
[2019-06-15 20:41] LABS: Absolute Lymphocytes (CBC) 2.4 K/uL (0.7-4.9); Basophils % 1.1 % (0-1.3); Hematocrit 36.5 % (36.0-45.0); Lymphocytes % 35.1 % (15.3-44.8); MPV 9.5 fL (7.6-11.3); RBC Red Blood Cell Count 4.25 M/uL (3.86-4.86)
[2019-06-15] MEDS ORDERED: NITROGLYCERIN 0.4 MG/TAB SL PRN (23:40)
[2019-06-15] MEDS: INSULIN -REGULAR HUMAN 50 UNIT/0.5 ML ML SQ SCH (23:40)
[2019-06-15] MEDS ORDERED: ATORVASTATIN 40 MG TAB PO SCH (23:40)
[2019-06-16] MEDS: APIXABAN 5 MG TABLET PO SCH ×2 (01:17→09:35)
[2019-06-16 01:32] VITALS: BMI 38.2
[2019-06-16] MEDS ORDERED: METOPROLOL TAR 25 MG TAB PO SCH (06:00)
[2019-06-16 07:09] LABS: Absolute Lymphocytes (CBC) 2.2 K/uL (0.7-4.9); Basophils % 0.8 % (0-1.3); Hematocrit 33.2 % (36.0-45.0); Lymphocytes % 35.6 % (15.3-44.8); MPV 9.7 fL (7.6-11.3); RBC Red Blood Cell Count 3.87 M/uL (3.86-4.86)
[2019-06-16 07:13] LABS: Potassium 4.5 mmol/L (3.5-5.1); Troponin I 0.02 ng/mL (0.0-0.045)
[2019-06-16] MEDS: INSULIN -REGULAR HUMAN 50 UNIT/0.5 ML ML SQ SCH ×2 (07:30→11:30)
[2019-06-16] MEDS ORDERED: LISINOPRIL 10 MG TAB PO SCH (09:00)
[2019-06-16] MEDS ORDERED: ASPIRIN EC 81 MG TAB PO SCH (09:00)
[2019-06-16 09:31] VITALS: TEMP 97
[2019-06-16 11:24] VITALS: O2SAT 98
--- NOTE | 2019-06-16 11:38 | P.SSS ---
Patient History Date of Service: 06/16/19 Reason for admission: Chest pain History of Present Illness: This is a 73-year-old female with past medical history of hypertension, diabetes type 2, hyperlipidemia, gout, legal blindness, CKD stage 3 admitted for chest pain. Per patient, she has had constant dull substernal chest pain for the past 2-3 days. She denies any radiation of the pain. No alleviating or exacerbating factors. She rates it as 8/10 at its worst, currently 3/10. Associated with the headache. Patient was recently discharged about 2 weeks ago after a DVT. Denies any shortness of breath, nausea, vomiting, arm pain, numbness, tingling, dizziness, vision changes, speech changes, GI or complaints. In the ER, she was hemodynamically stable. Labs were fairly unremarkable, troponins negative x1. CT of the head was negative for any acute abnormalities. Chest x-ray was normal. At the time of my exam, she was alert oriented x3, in no acute distress. Stated chest pain had improved from her initial admission . She was hemodynamically stable. Allergies codeine [Codeine] Allergy (Intermediate, Verified 05/03/19 00:28) SHAKY iodine Allergy (Verified 05/03/19 00:28) Unknown Home medications list reviewed: Yes - Past Medical/Surgical History Diabetic: Yes -: AR -: BACK PAIN -: GOUT -: HTN -: DM- NIDDM -: ARTHRITIS -: NEUROPATHY -: Surgical menopause -: Hysterectomy -: APPENDECTOMY -: EYE SURGERY- LEFT EYRITIS UVITIS Psychosocial/ Personal History: - Family History Father -: Hypertension, Lung disease, Cancer Mother -: Heart disease, Hypertension, Other (see notes) Notes: of heart attack Brother -: Diabetes, Other (see notes) Notes: heart defibrillator Sister -: Diabetes, Other (see notes) Notes: 2 heart transplant - Social History Smoking Status: Former smoker Alcohol use: No CD- Drugs: No Caffeine use: Yes Place of Residence: Home Review of Systems 10-point ROS is otherwise unremarkable Physical Examination - Vital Signs Temperature: 97 F Blood Pressure: 146/67 Pulse: 60 Respirations: 18 Pulse Ox (%): 96 - Physical Exam General: Alert, In no apparent distress, Oriented x3 HEENT: Atraumatic, PERRLA, Mucous membr. moist/pink, Other (Legally blind), EOMI , Sclerae nonicteric Neck: Supple, 2+ carotid pulse no bruit, No LAD, Without JVD or thyroid abnormality Respiratory: Clear to auscultation bilaterally, Normal air movement Cardiovascular: Regular rate/rhythm, Normal S1 S2 Gastrointestinal: Normal bowel sounds, No tenderness Musculoskeletal: No tenderness Integumentary: No rashes Neurological: Normal gait, Normal speech, Normal strength at 5/5 x4 extr, Normal tone, Normal affect Lymphatics: No axilla or inguinal lymphadenopathy - Studies Laboratory Data (last 24 hrs) 06/15/19 13:38: PT 14.1 H, INR 1.20 06/15/19 13:38: Sodium 143, Potassium 4.7, BUN 31 H, Creatinine 1.76 H, Glucose 115 H, Magnesium 1.9, Total Bilirubin 0.3, AST 14 L, ALT 19, Alkaline Phosphatase 134 H - Diagnosis (Problem(s)) (1) Chest pain Onset Date: 02/17/15 Current Visit: No Status: Acute Plan: chest pain resolved. States she is feeling great. No complaints prior to discharge. -Troponin negative x3, VSS, labs stable. -EKG with no acute changes -Cardiology cleared patient for discharge. 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 -Patient already on beta negro, statin, asa/eliquis. She is to continue on it after discharge. Qualifiers: Chest pain type: unspecified Qualified Code(s): R07.9 - Chest pain, unspecified (2) CKD (chronic kidney disease) stage 3, GFR 30-59 ml/min Current Visit: No Status: Chronic (3) Diabetes mellitus Current Visit: No Status: Acute Qualifiers: Diabetes mellitus type: type 2 Diabetes mellitus shelter insulin use: without shelter use Diabetes mellitus complication status: with kidney complications Diabetes mellitus complication detail: with chronic kidney disease Chronic kidney disease stage: stage 3 (moderate) Qualified Code(s): E11.22 - Type 2 diabetes mellitus with diabetic chronic kidney disease; N18.3 - Chronic kidney disease, stage 3 (moderate) (4) HTN (hypertension) Current Visit: No Status: Chronic Qualifiers: Hypertension type: essential hypertension (5) DVT (deep venous thrombosis) Current Visit: No Status: Chronic Plan: Recent history of DVT. -Stable -will continue anticoagulation of Eliquis Qualifiers: DVT location: lower extremity Chronicity: chronic Laterality: right (6) Gout Current Visit: No Status: Chronic Qualifiers: Gout site: unspecified site Gout etiology: unspecified cause Chronicity: unspecified Qualified Code(s): M10.9 - Gout, unspecified (7) Osteoarthritis Current Visit: No Status: Chronic Qualifiers: Osteoarthritis location: unspecified site Osteoarthritis type: unspecified Qualified Code(s): M19.90 - Unspecified osteoarthritis, unspecified site (8) Legally blind Current Visit: No Status: Chronic - Disposition Discharge Date: 06/16/19 Disposition: ROUTINE DISCHARGE Condition: GOOD Consultations: Cardiology Patient Discharge Instructions: Please follow up with your primary care physician in 2-3 days. Please follow up with cardiology in 2 weeks. Please return to the emergency room for worsening symptoms. Diet: AHA Activity: Ad cleopatra Time Spent Managing Pts Care (In Minutes): 45
[2019-06-16 15:12] VITALS: BP 127/59
--- NOTE | 2019-06-16 15:58 | CON ---
Age: A 73-year-old woman. Chief Complaint: Chest pain. History Of Present Illness: Mrs. Frey felt like she was having a sinus headache, took a double d ose of a sinus medication, later felt ill. There was some kind of chest discomfort she describes it vaguely. In the past, Mrs. Frey has had numerous workups for heart disease and have all been neg ative. She is normally a patient of Dr. Patel and she is being treated for diabetes, hypertension, dyslipidemia. She uses no tobacco. Never used illegal drugs. We do not seem to have an accurate l ist of her home medicines anywhere and in our chart. More than 4 years ago, she was in our hospital. At that time, she was taking tramadol, Tradjenta, atorvastatin, amlodipine, nebivolol, gabapentin, Nexium, aspirin, and Uloric. She has never used any tobacco. Physical Examination: General: She is 5 feet tall, 195 pounds, obese, alert, oriented, pleasant, not in distress. Vital signs: Blood pressure 146/67, pulse 60, O2 saturation 98% on room air. Lungs: Clear. No carotid bruit. Heart: Normal. Abdomen: Soft. Extremities: Normal. Impression: Mrs. Frey is probably not having an acute coronary syndrome. I believe she could be discharged and see Dr. Patel and see if another stress test might be needed. CHAD/ISA Voice ID: [id number] Report ID: [id number]
== END 2019-06-16 14:51 | disposition home or self-care (01) ==
LOC: ER 12:44 → ERHOLD 17:48 → 2ND 23:14
PROVIDERS: ADMIT Family Medicine; ATTEND Family Medicine
DX: R07.9 Chest pain, unspecified (principal); E78.5 Hyperlipidemia, unspecified; E66.9 Obesity, unspecified; N18.3 Chronic kidney disease, stage 3 (moderate); I12.9 Hypertensive chronic kidney disease with stage 1 through stage 4 chronic kidney disease, or unspecified chronic kidney disease; E11.22 Type 2 diabetes mellitus with diabetic chronic kidney disease; M10.9 Gout, unspecified; M19.90 Unspecified osteoarthritis, unspecified site; I82.501 Chronic embolism and thrombosis of unspecified deep veins of right lower extremity; H54.8 Legal blindness, as defined in USA; I25.2 Old myocardial infarction; Z87.891 Personal history of nicotine dependence; Z68.38 Body mass index [BMI] 38.0-38.9, adult
CPT/HCPCS: 36415; 70450; 71045; 80048; 80061; 80076; 82962; 83735; 83880; 84484; 85025; 85610; 93005; 96374; 96375; 99285; G0378; J2270; J2405

== ENCOUNTER 2019-11-28 11:09 | Emergency (ER) | payer OTHER ==
--- NOTE | 2019-11-28 12:30 | RAD REPORT ---
EXAM DESCRIPTION: CT - Head C Spine Mpr Wo Con - 11/28/2019 12:13 pm CLINICAL HISTORY: Head and neck injury status post fall. Head and neck pain COMPARISON: None. TECHNIQUE: Computed axial tomography of the head and cervical spine was obtained. Sagittal and coronal reconstruction was performed. All CT scans are performed using dose optimization technique as appropriate and may include automated exposure control or mA/KV adjustment according to patient size. FINDINGS: Low-density within the white matter of the left parietal lobe unchanged. This may be an ol d infarct or area of ischemia secondary to small vessel disease. An intracranial bleed is not seen. The ventricles are normal in caliber. An extra-axial fluid collect ion is not noted.Fluid within the visualized sinuses and mastoids is not seen A cervical fracture is not visualized. No dislocation is noted. IMPRESSION: No acute intracranial abnormality is seen. A cervical fracture is not visualized. If the patient continues to have symptoms to suggest intracra nial /spinal cord pathology then MRI would be recommended
--- NOTE | 2019-11-28 12:56 | RAD REPORT ---
EXAM DESCRIPTION: Shoulder Right 2 View - 11/28/2019 12:35 pm CLINICAL HISTORY: fall, right shoulder pain COMPARISON: Shoulder Right 2 View dated 04/17/2013 TECHNIQUE: Internal and external rotation views of the right shoulder were obtained. FINDINGS: There is no fracture or dislocation. No AC separation and no significant degenerative zaria nge at the AC joint. There is minimal degenerative change to the undersurface of the acromion. Acromi al humeral joint space is normal. Patient has minimal spurring at the articular margins of the humeru s. No acute or suspicious findings. IMPRESSION: Negative two-view right shoulder examination for acute finding. Minimal degenerative zaria nge present as detailed.
--- NOTE | 2019-11-28 12:57 | RAD REPORT ---
EXAM DESCRIPTION: RAD - Chest Single View - 11/28/2019 12:35 pm CLINICAL HISTORY: fall, chest, arm and shoulder pain COMPARISON: Chest Single View dated 06/15/2019 TECHNIQUE: AP portable chest image was obtained 11/28/2019 12:35 pm . FINDINGS: No pulmonary contusion, mass, infiltrate or focal lung parenchymal process. Cardiomegaly i s present not substantially different from comparison. Central vasculature and interstitial pattern i s increased fractionally. Trachea is midline. No measurable pleural effusion and no pneumothorax. No acute bony abnormality seen. No acute aortic findings suspected. IMPRESSION: No pneumothorax, focal lung parenchymal process or acute traumatic injury to the chest. Cardiomegaly is present similar to comparison. Lung markings and central vasculature are slightly inc reased. Patient can be evaluated for possible early failure or volume overload.
--- NOTE | 2019-11-28 13:01 | RAD REPORT ---
EXAM DESCRIPTION: RAD - Foot Right 3 View - 11/28/2019 12:35 pm CLINICAL HISTORY: fall, soft tissue laceration location not specified COMPARISON: No comparisons FINDINGS: No fracture, dislocation or periosteal reaction. No acute or destructive bone process is i dentifiable. Patient has large plantar and Achilles spurs. No air or foreign body in the soft tissues. IMPRESSION: Large plantar and Achilles spurs. No acute bone finding.
--- NOTE | 2019-11-28 13:57 | ER ---
Nurse's Notes [facility] Name: Patti Frey Age: 74 yrs Sex: Female : 1945 Arrival Date: 11/28/2019 Time: 11:10 Bed 25 Private MD: Diagnosis: Other sprain of shoulder joint;Laceration of foot Presentation: 11/28 11:23 Presenting complaint: Patient states: i fell on Monday, i busted my lip and i put a tw2 gash in my right foot, and from my neck and collar bone down my RIGHT arm it hurts real bad. i was trying to move something i had no business doing, im legally blind and it fell then i fell on top of it. i got sorer and sorer and my daughter has been taking care of my foot the best she can but since i am a diabetic i figured i better come in. Transition of care: patient was not received from another setting of care. Onset of symptoms was November 28, 2019. Risk Assessment: Do you want to hurt yourself or someone else? Patient reports no desire to harm self or others. Initial Sepsis Screen: Does the patient meet any 2 criteria? No. Patient's initial sepsis screen is negative. Does the patient have a suspected source of infection? No. Patient's initial sepsis screen is negative. Care prior to arrival: None. 11:23 Method Of Arrival: Wheelchair tw2 11:23 Acuity: EMELIA 3 tw2 Triage Assessment: 11:27 General: Appears in no apparent distress. obese, well groomed, Behavior is calm, tw2 cooperative, appropriate for age. Pain: Complains of pain in right side of neck, collar bone and down right arm. Musculoskeletal: Circulation, motion, and sensation intact. Range of motion: intact in all extremities. 11:49 General: Appears in no apparent distress. well groomed, Behavior is cooperative, tw2 appropriate for age. Historical: - Allergies: 11:27 Codeine; tw2 11:27 Iodine; tw2 - Home Meds: 11:27 amlodipine oral [Active]; Aspirin Oral [Active]; atorvastatin Oral [Active]; Bystolic tw2 Oral [Active]; Bystolic Oral [Active]; Eliquis Oral [Active]; gabapentin Oral [Active]; lisinopril Oral [Active]; Lorazepam Oral [Active]; meloxicam Oral [Active]; Nexium Oral [Active]; trajenza [Active]; Uloric Oral [Active]; Iron CR Oral [Active]; - PMHx: 11:27 Hypertension; Diabetes - NIDDM; BURSITIS; Arthritis; Gout; tw2 - Immunization history:: Adult Immunizations. - Coronavirus screen:: The patient has NOT traveled to [place], [place], or [place] in the past 14 days. - Social history:: Smoking status: . - Ebola Screening: : Patient denies travel to an Ebola-affected area in the 21 days before illness onset. Screenin:28 Abuse screen: Denies threats or abuse. Nutritional screening: No deficits noted. tw2 Tuberculosis screening: No symptoms or risk factors identified. Fall Risk Secondary diagnosis (15 points) impaired mobility, blindness. Assessment: 12:05 Reassessment: patient sent to ct scan. General: Appears in no apparent distress. mg2 comfortable, Behavior is calm, cooperative. Pain: Complains of pain in neck, shoulder. Neuro: Level of Consciousness is awake, alert, obeys commands, Oriented to person, place, time, situation. Cardiovascular: Capillary refill < 3 seconds Patient's skin is warm and dry. Respiratory: Airway is patent Respiratory effort is even, unlabored, Respiratory pattern is regular, symmetrical. GI: No signs and/or symptoms were reported involving the gastrointestinal system. : No signs and/or symptoms were reported regarding the genitourinary system. EENT: No signs and/or symptoms were reported regarding the EENT system. 12:05 Derm: Skin is intact, is healthy with good turgor, Skin is pink, warm \T\ dry. normal. mg2 Musculoskeletal: Circulation, motion, and sensation intact. Capillary refill < 3 seconds, Reports pain in shoulder, neck. Vital Signs: 11:24 BP 114 / 90; Pulse 74; Resp 16; Temp 97.9(TE); Pulse Ox 98% on R/A; Weight 87.54 kg tw2 (R); Height 5 ft. 0 in. (152.40 cm); Pain 9/10; 13:48 BP 154 / 70; Pulse 58; Resp 17; Temp 97.6(O); Pulse Ox 100% on R/A; mh5 11:24 Body Mass Index 37.69 (87.54 kg, 152.40 cm) tw2 ED Course: 11:10 Patient arrived in ED. rg4 11:24 Triage completed. tw2 11:24 Arm band placed on. tw2 11:50 Call light in reach. pt chooses to remain in w/c at this time with rollator in front of tw2 pt. 11:51 Abdullahi Cooper PA is PHCP. [facility] 11:51 Jax Ruvalcaba MD is Attending Physician. [facility] 12:03 Matheus Damon, RN is Primary Nurse. mg2 14:13 Patient did not have IV access during this emergency room visit. mg2 14:14 No provider procedures requiring assistance completed. mg2 Administered Medications: 14:10 Drug: Tetanus-Diphtheria Toxoid Adult 0.5 ml {Hand Ii Thermal Cutter: [employer]. Exp: mg2 11/07/2021. Lot #: [id number]. } Route: IM; Site: left deltoid; 14:11 Follow up: Response: No adverse reaction; Medication administered at discharge. mg2 Outcome: 13:56 Discharge ordered by MD. [facility] 14:13 Discharged to home via wheelchair. mg2 14:13 Condition: stable 14:13 Discharge instructions given to patient, family, Instructed on discharge instructions, follow up and referral plans. Demonstrated understanding of instructions, follow-up care. 14:14 Patient left the ED. mg2 Signatures: Abdullahi Cooper PA PA [facility] Nikki Leung, RN RN tw2 Cristina Medina rg4 Mamie Sams 5 Matheus Damon, RN RN mg2 Corrections: (The following items were deleted from the chart) 11:27 11:23 Presenting complaint: Patient states: i fell on Monday, i busted my lip and i tw2 put a gash in my right foot, and from my neck and collar bone down my RIGHT arm it hurts real bad. i was trying to move something i had no business doing, im legally blind and it fell then i fell on top of it. tw2
--- NOTE | 2019-11-28 13:58 | EDPHYS ---
Physician Documentation [facility] Name: Patti Frey Age: 74 yrs Sex: Female : 1945 Arrival Date: 11/28/2019 Time: 11:10 Bed 25 Private MD: ED Physician Jax Ruvalcaba HPI: 11/28 12:00 This 74 yrs old Black Female presents to ER via Wheelchair with complaints of Neck jmm Pain, <24hrs Old, Shoulder Pain, Foot Laceration. 12:00 The patient or guardian complains of an injury, pain. Onset: The symptoms/episode jmm began/occurred acutely, 2 day(s) ago. Associated signs and symptoms:. The pain does not radiate. This is a 74 year old female with a history of dm, htn, that presents to the ED with complaints of right shoulder pain, clavicular pain, right foot pain after a fall which occurred 2 days ago when a patient states she fell while moving a cabinet. Patient denies head injury but states she takes Eliquis. . Historical: - Allergies: 11:27 Codeine; tw2 11:27 Iodine; tw2 - Home Meds: 11:27 amlodipine oral [Active]; Aspirin Oral [Active]; atorvastatin Oral [Active]; Bystolic tw2 Oral [Active]; Bystolic Oral [Active]; Eliquis Oral [Active]; gabapentin Oral [Active]; lisinopril Oral [Active]; Lorazepam Oral [Active]; meloxicam Oral [Active]; Nexium Oral [Active]; trajenza [Active]; Uloric Oral [Active]; Iron CR Oral [Active]; - PMHx: 11:27 Hypertension; Diabetes - NIDDM; BURSITIS; Arthritis; Gout; tw2 - Immunization history:: Adult Immunizations. - Coronavirus screen:: The patient has NOT traveled to [place], [place], or [place] in the past 14 days. - Social history:: Smoking status: . - Ebola Screening: : Patient denies travel to an Ebola-affected area in the 21 days before illness onset. ROS: 12:00 Constitutional: Negative for fever, chills, and weight loss, Cardiovascular: Negative jmm for chest pain, palpitations, and edema, Respiratory: Negative for shortness of breath, cough, wheezing, and pleuritic chest pain. 12:00 MS/extremity: Positive for injury or acute deformity. 12:00 Skin: Positive for laceration(s). 12:00 Neuro: Negative for dizziness, headache. 12:00 All other systems are negative. Exam: 12:00 Constitutional: This is a well developed, well nourished patient who is awake, alert, jmm and in no acute distress. Head/Face: atraumatic. Eyes: EOMI, no conjunctival erythema appreciated ENT: Moist Mucus Membranes Neck: Trachea midline, Supple 12:00 Cardiovascular: Regular rate and rhythm. No edema appreciated Respiratory: Normal respirations, no respiratory distress appreciated Abdomen/GI: Non distended, soft Back: Normal ROM 12:00 Chest/axilla: right clavicular pain on palpation. 12:00 Musculoskeletal/extremity: Right shoulder is diffusely tender to palpation, full bulldogger strength, full radial pulse, compartments are soft, NVI. 12:00 Skin: stellate 2 cm laceration noted to the right dorsal surface of the foot. 12:00 Neuro: Orientation: is normal, Mentation: is normal, Memory: is normal. 12:00 Psych: Behavior/mood is pleasant, cooperative. Vital Signs: 11:24 BP 114 / 90; Pulse 74; Resp 16; Temp 97.9(TE); Pulse Ox 98% on R/A; Weight 87.54 kg tw2 (R); Height 5 ft. 0 in. (152.40 cm); Pain 9/10; 13:48 BP 154 / 70; Pulse 58; Resp 17; Temp 97.6(O); Pulse Ox 100% on R/A; mh5 11:24 Body Mass Index 37.69 (87.54 kg, 152.40 cm) tw2 MDM: 11:55 Patient medically screened. [facility] 13:55 Data reviewed: vital signs, nurses notes. Counseling: I had a detailed discussion with [facility] the patient and/or guardian regarding: the historical points, exam findings, and any diagnostic results supporting the discharge/admit diagnosis, radiology results, the need for outpatient follow up, to return to the emergency department if symptoms worsen or persist or if there are any questions or concerns that arise at home. ED course: Imaging studies are negative. Patient advised to follow up with pcp for reevaluation. Patient given wound infection return precautions. Patient understood and agrees with the plan of care. . 11/28 11:59 Order name: Shoulder Right (2 View) XRAY [facility] 11/28 11:59 Order name: Chest Single View XRAY [facility] 11/28 11:59 Order name: Foot Right 3 View XRAY [facility] 11/28 11:59 Order name: CT Head C Spine [facility] Administered Medications: 14:10 Drug: Tetanus-Diphtheria Toxoid Adult 0.5 ml {Design Agent: [employer]. Exp: mg2 11/07/2021. Lot #: [id number]. } Route: IM; Site: left deltoid; 14:11 Follow up: Response: No adverse reaction; Medication administered at discharge. mg2 Disposition: 16:34 Co-signature as Attending Physician, Jax Ruvalcaba MD. rn Disposition: 11/28/19 13:56 Discharged to Home. Impression: Other sprain of shoulder joint, Laceration of foot. - Condition is Stable. - Discharge Instructions: Nonsutured Laceration Care, Shoulder Sprain. - Medication Reconciliation Form, Thank You Letter, Antibiotic Education, Prescription Opioid Use form. - Follow up: Private Physician; When: 2 - 3 days; Reason: Recheck today's complaints, Continuance of care, Re-evaluation by your physician. Signatures: Dispatcher [employer] EDMS Abdullahi Cooper PA PA Jax Camarena MD MD rn Wise, Tara, RN RN tw2 Matheus Damon RN RN mg2 Corrections: (The following items were deleted from the chart) 14:14 13:56 11/28/2019 13:56 Discharged to Home. Impression: Other sprain of shoulder joint; mg2 Laceration of foot. Condition is Stable. Forms are Medication Reconciliation Form, Thank You Letter, Antibiotic Education, Prescription Opioid Use. Follow up: Private Physician; When: 2 - 3 days; Reason: Recheck today's complaints, Continuance of care, Re-evaluation by your physician. [facility]
[2019-11-28] MEDS ORDERED: TETANUS & DIPHTHERIA TOX,ADULT 0.5 ML VIAL ONE (14:09)
[2019-11-28 14:36] VITALS: BP 154/70; TEMP 97.6; O2SAT 100
== END 2019-11-28 14:14 | disposition home or self-care (01) ==
LOC: ER 11:09
DX: S43.401A Unspecified sprain of right shoulder joint, initial encounter (principal); S91.311A Laceration without foreign body, right foot, initial encounter; W18.30XA Fall on same level, unspecified, initial encounter; X50.0XXA Overexertion from strenuous movement or load, initial encounter; Y93.89 Activity, other specified; Y92.9 Unspecified place or not applicable; I10 Essential (primary) hypertension; E11.9 Type 2 diabetes mellitus without complications; Z88.6 Allergy status to analgesic agent; Z91.09 Other allergy status, other than to drugs and biological substances; Z23 Encounter for immunization
CPT/HCPCS: 70450; 71045; 72125; 90471; 90714; 99283

== ENCOUNTER 2019-12-21 10:11 | Emergency (ER) | payer OTHER ==
--- NOTE | 2019-12-21 10:57 | RAD REPORT ---
EXAM DESCRIPTION: RAD - Chest Single View - 12/21/2019 10:50 am CLINICAL HISTORY: epigastric pain Chest pain. COMPARISON: Chest Single View dated 11/28/2019; Chest Single View dated 06/15/2019; Chest Single View d ated 05/02/2019; Chest Single View dated 08/30/2017 FINDINGS: Portable technique limits examination quality. The lungs are grossly clear. The heart mildly enlarged in size. No displaced fractures. IMPRESSION: Mild cardiomegaly.
[2019-12-21 11:04] LABS: Absolute Lymphocytes (CBC) 1.9 K/uL (0.7-4.9); Basophils % 1.2 % (0-1.3); Hematocrit 32.8 % (36.0-45.0); Lymphocytes % 30.8 % (15.3-44.8); MPV 9.7 fL (7.6-11.3); RBC Red Blood Cell Count 3.94 M/uL (3.86-4.86)
[2019-12-21 11:12] LABS: ALT/SGPT 16 U/L (12-78); AST/SGOT 17 U/L (15-37); Albumin 3.7 g/dL (3.4-5.0); Alkaline Phosphatase 135 U/L (45-117); BUN Blood Urea Nitrogen 33 mg/dL (7-18); Bicarbonate 22 mmol/L (21-32); Bilirubin Direct < 0.1 mg/dL (0-0.2); Bilirubin Total 0.2 mg/dL (0.2-1.0); Glucose Level 116 mg/dL (74-106); Lipase 196 U/L (73-393); Magnesium 1.7 mg/dL (1.8-2.4); NT PRO-BNP 244 pg/mL (<125); Protein, Total 8.2 g/dL (6.4-8.2); Sodium Level 141 mmol/L (136-145); Troponin (Emerg Dept Use Only) 0.02 ng/mL (0.0-0.045)
--- NOTE | 2019-12-21 11:13 | RAD REPORT ---
EXAM DESCRIPTION: CT - Abdomen Pelvis Wo Contrast - 12/21/2019 11:01 am CLINICAL HISTORY: Abdominal pain. ABD PAIN COMPARISON: CT ABDOMEN PELVIS WO CONTRAST dated 08/28/2013 TECHNIQUE: CT imaging of the abdomen and pelvis was performed without contrast. Solid organ, bowel a nd vascular assessment is limited due to lack of IV and oral contrast. All CT scans are performed using dose optimization technique as appropriate and may include automated exposure control or mA/KV adjustment according to patient size. FINDINGS: The lower lung rivera are clear. The liver, spleen, pancreas, adrenal glands and kidneys are within normal limits for a limited non-co ntrast examination. No bowel obstruction, free air, free fluid or abscess. Mild sigmoid diverticulosis is present without diverticulitis. The appendix is normal. Moderate rectosigmoid fecal retention. The osseous structures are within normal limits. IMPRESSION: No acute intra-abdominal or pelvic findings. A limited non-contrast examination was performed as detailed.
[2019-12-21] MEDS ORDERED: ONDANSETRON 4 MG (ODT) TAB ONE (12:05)
[2019-12-21 12:45] LABS: Blood Morphology Comment NOT SEEN (NOT SEEN); Platelet Estimate ADEQ; Urine White Blood Cell Casts OK
--- NOTE | 2019-12-21 12:45 | ER ---
Nurse's Notes [facility] Name: Patti Frey Age: 74 yrs Sex: Female : 1945 Arrival Date: 12/21/2019 Time: 10:13 Bed 25 Private MD: Diagnosis: Abdominal and pelvic pain;Nausea and vomiting Presentation: 10:14 Chief complaint: Patient states: Epigastric pain, nausea, and dizziness since 0830 this aj1 morning. Denies V/D. Denies fever. Patient also reports headache. Coronavirus screen: The patient has NOT traveled to [place] in the past 14 days. Ebola Screen: Patient denies travel to an Ebola-affected area in the 21 days before illness onset. Initial Sepsis Screen: Does the patient meet any 2 criteria? No. Patient's initial sepsis screen is negative. Does the patient have a suspected source of infection? No. Patient's initial sepsis screen is negative. Risk Assessment: Do you want to hurt yourself or someone else? Patient reports no desire to harm self or others. 10:14 Method Of Arrival: EMS: [facility] aj1 10:14 Acuity: EMELIA 3 aj1 Triage Assessment: 10:19 General: Appears in no apparent distress. uncomfortable, Behavior is calm, cooperative, aj1 appropriate for age. Pain: Complains of pain in top of head and epigastric area Pain does not radiate. Pain currently is 8 out of 10 on a pain scale. Pain began 2 hours ago. Is continuous. EENT: No signs and/or symptoms were reported regarding the EENT system. Neuro: Level of Consciousness is awake, alert, obeys commands, Oriented to person, place, time, situation. Cardiovascular: Patient's skin is warm and dry. Respiratory: Airway is patent Respiratory effort is even, unlabored, Respiratory pattern is regular, symmetrical. GI: Abdomen is non-distended, Bowel sounds present X 4 quads. Abd is soft X 4 quads Abdomen is tender to palpation in right upper quadrant and left upper quadrant Reports nausea. : No signs and/or symptoms were reported regarding the genitourinary system. Derm: No signs and/or symptoms reported regarding the dermatologic system. Skin is pink, warm \T\ dry. normal. Musculoskeletal: No signs and/or symptoms reported regarding the musculoskeletal system. Circulation, motion, and sensation intact. Historical: - Allergies: 10:19 Codeine; aj1 10:19 Iodine; aj1 - Home Meds: 10:19 amlodipine oral [Active]; Aspirin Oral [Active]; atorvastatin Oral [Active]; Bystolic aj1 Oral [Active]; Eliquis Oral [Active]; gabapentin Oral [Active]; Iron CR Oral [Active]; lisinopril Oral [Active]; Lorazepam Oral [Active]; meloxicam Oral [Active]; Nexium Oral [Active]; trajenza [Active]; Uloric Oral [Active]; - PMHx: 10:19 Arthritis; BURSITIS; Diabetes - NIDDM; Gout; Hypertension; Atrial Fib; aj1 - Immunization history:: Flu vaccine is not up to date. - Social history:: Smoking status: Patient/guardian denies using tobacco. Screenin:23 Abuse screen: Denies threats or abuse. Denies injuries from another. Nutritional aj1 screening: No deficits noted. Tuberculosis screening: No symptoms or risk factors identified. Assessment: 10:23 Reassessment: see triage assessment. aj1 11:30 Reassessment: Patient appears in no apparent distress at this time. No changes from aj1 previously documented assessment. Patient and/or family updated on plan of care and expected duration. Pain level reassessed. Patient is alert, oriented x 3, equal unlabored respirations, skin warm/dry/pink. 12:34 Reassessment: Patient appears in no apparent distress at this time. No changes from aj1 previously documented assessment. Patient and/or family updated on plan of care and expected duration. Pain level reassessed. Patient is alert, oriented x 3, equal unlabored respirations, skin warm/dry/pink. Vital Signs: 10:14 BP 147 / 77; Pulse 60; Resp 18; Temp 97.6; Pulse Ox 98% on R/A; Weight 90.26 kg (R); aj1 Height 5 ft. 8 in. (172.72 cm) (R); Pain 8/10; 11:56 BP 152 / 70; Pulse 61; Resp 13; Pulse Ox 98% on R/A; aj1 12:34 BP 150 / 73; Pulse 63; Resp 18; Pulse Ox 100% on R/A; aj1 10:14 Body Mass Index 30.26 (90.26 kg, 172.72 cm) aj1 ED Course: 10:13 Patient arrived in ED. aj1 10:13 Jeremiah Tapia FNP-C [facility] la1 10:13 Victor Hugo Lilly MD is Attending Physician. la1 10:15 Triage completed. aj1 10:19 Arm band placed on. aj1 10:23 Patient has correct armband on for positive identification. Bed in low position. Call aj1 light in reach. Side rails up X 1. front desk monitor on. Pulse ox on. NIBP on. 10:23 No provider procedures requiring assistance completed. aj1 10:27 Ana Saldana, RN is Primary Nurse. aj1 10:33 EKG done, by ED staff, reviewed by Jeremiah LAMAS. jb1 10:36 Radiology exam delayed due to IV insertion attempt and/or patient not having mw3 appropriate IV at this time. 10:50 XRAY Chest (1 view) In Process Unspecified. EDMS 10:51 Missed attempt(s): 22 gauge in right forearm. Bleeding controlled, band aid applied, iw catheter tip intact. 11:01 CT completed. Patient tolerated procedure well. Patient moved back from CT. mw3 11:02 CT Abd/Pelvis - Without Contrast In Process Unspecified. EDMS 13:05 Patient did not have IV access during this emergency room visit. aj1 Administered Medications: 11:58 CANCELLED (Other Intervention Used): Zofran (Ondansetron) 4 mg IVP once; over 2 minutes aj1 11:59 CANCELLED (Other Intervention Used): NS 0.9% 500 ml IV at bolus once aj1 12:01 Drug: Ondansetron (Zofran) 4 mg Route: PO; aj1 Outcome: 12:44 Discharge ordered by . la1 13:05 Discharged to home ambulatory. aj1 13:05 Condition: good 13:05 Discharge instructions given to patient, Instructed on discharge instructions, follow up and referral plans. medication usage, Demonstrated understanding of instructions, follow-up care, medications, Prescriptions given X 1. 13:06 Patient left the ED. aj1 Signatures: Dispatcher [employer] EDMS Rashawn Mcmahon jb1 Ana Saldana RN RN aj1 Tessa Frey RN RN iw Jeremiah Tapia FNP-C [facility]NP-[facility] Delfina Turner mw3
--- NOTE | 2019-12-21 12:45 | EDPHYS ---
Physician Documentation [facility] Name: Patti Frey Age: 74 yrs Sex: Female : 1945 Arrival Date: 12/21/2019 Time: 10:13 Bed 25 Private MD: ED Physician Victor Hugo Lilly HPI: 10:43 This 74 yrs old Black Female presents to ER via EMS with complaints of Abdominal Pain. la1 10:43 The patient presents with abdominal pain in the epigastric area. Onset: The la1 symptoms/episode began/occurred this morning. The symptoms do not radiate. Associated signs and symptoms: Pertinent positives: nausea and vomiting, Pertinent negatives: blood in stools, chest pain, shortness of breath, vomiting blood. The symptoms are described as achy. Modifying factors: The symptoms are alleviated by nothing, the symptoms are aggravated by pressure. Severity of pain: At its worst the pain was moderate. The patient has not experienced similar symptoms in the past. Historical: - Allergies: 10:19 Codeine; aj1 10:19 Iodine; aj1 - Home Meds: 10:19 amlodipine oral [Active]; Aspirin Oral [Active]; atorvastatin Oral [Active]; Bystolic aj1 Oral [Active]; Eliquis Oral [Active]; gabapentin Oral [Active]; Iron CR Oral [Active]; lisinopril Oral [Active]; Lorazepam Oral [Active]; meloxicam Oral [Active]; Nexium Oral [Active]; trajenza [Active]; Uloric Oral [Active]; - PMHx: 10:19 Arthritis; BURSITIS; Diabetes - NIDDM; Gout; Hypertension; Atrial Fib; aj1 - Immunization history:: Flu vaccine is not up to date. - Social history:: Smoking status: Patient/guardian denies using tobacco. ROS: 10:44 Constitutional: Negative for fever, chills, and weight loss, Eyes: Negative for injury, la1 pain, redness, and discharge, ENT: Negative for injury, pain, and discharge, Neck: Negative for injury, pain, and swelling, Cardiovascular: Negative for chest pain, palpitations, and edema, Respiratory: Negative for shortness of breath, cough, wheezing, and pleuritic chest pain. 10:44 Back: Negative for injury and pain, : Negative for injury, bleeding, discharge, and swelling, MS/Extremity: Negative for injury and deformity, Skin: Negative for injury, rash, and discoloration, Neuro: Negative for headache, weakness, numbness, tingling, and seizure. 10:44 Abdomen/GI: Positive for abdominal pain, nausea and vomiting. Exam: 10:44 Constitutional: This is a well developed, well nourished patient who is awake, alert, la1 and in no acute distress. Head/Face: Normocephalic, atraumatic. Eyes: Pupils equal round and reactive to light, extra-ocular motions intact. Lids and lashes normal. Conjunctiva and sclera are non-icteric and not injected. Cornea within normal limits. Periorbital areas with no swelling, redness, or edema. ENT: Nares patent. No nasal discharge, no septal abnormalities noted. Tympanic membranes are normal and external auditory canals are clear. Oropharynx with no redness, swelling, or masses, exudates, or evidence of obstruction, uvula midline. Mucous membranes moist. Neck: Trachea midline, Supple, full range of motion without nuchal rigidity, or vertebral point tenderness. No Meningismus. Chest/axilla: Normal chest wall appearance and motion. Nontender with no deformity. No lesions are appreciated. Cardiovascular: Regular rate and rhythm with a normal S1 and S2. No gallops, murmurs, or rubs. Normal PMI, no JVD. No pulse deficits. Respiratory: Lungs have equal breath sounds bilaterally, clear to auscultation. No rales, rhonchi or wheezes noted. No increased work of breathing, no retractions or nasal flaring. 10:44 Back: No spinal tenderness. No costovertebral tenderness. Full range of motion. Skin: Warm, dry with normal turgor. Normal color with no rashes, no lesions, and no evidence of cellulitis. 10:44 Abdomen/GI: Inspection: obese Bowel sounds: Palpation: soft, in all quadrants, mild abdominal tenderness, in the epigastric area, right upper quadrant and left upper quadrant. Vital Signs: 10:14 BP 147 / 77; Pulse 60; Resp 18; Temp 97.6; Pulse Ox 98% on R/A; Weight 90.26 kg (R); aj1 Height 5 ft. 8 in. (172.72 cm) (R); Pain 8/10; 11:56 BP 152 / 70; Pulse 61; Resp 13; Pulse Ox 98% on R/A; aj1 12:34 BP 150 / 73; Pulse 63; Resp 18; Pulse Ox 100% on R/A; aj1 10:14 Body Mass Index 30.26 (90.26 kg, 172.72 cm) aj1 MDM: 10:14 Patient medically screened. zaria 12:42 Data reviewed: vital signs, nurses notes, lab test result(s), EKG, radiologic studies, la1 I have discussed the patient's presentation/case with the attending Emergency Department Physician; and as a result, I will discharge patient. Counseling: I had a detailed discussion with the patient and/or guardian regarding: the historical points, exam findings, and any diagnostic results supporting the discharge/admit diagnosis, the presence of at least one elevated blood pressure reading (>120/80) during this emergency department visit, lab results, radiology results, the need for outpatient follow up, a family practitioner, to return to the emergency department if symptoms worsen or persist or if there are any questions or concerns that arise at home. Medication response: Zofran relieved the patient's nausea. Special discussion: Based on the patient's Hx, exam, and Dx evaluation, there is no indication for emergent surgery or inpatient Tx. It is understood by the patient/guardian that if the Sx's persist or worsen they need to return immediately for re-evaluation. ED course: pt pain free and tolerating PO fluids, states she feels much better, renal function is elevated but no major interval change from visit in 2018. I believe pt is safe to FU with PCP. Strict return precautions given, pt verbalizes understanding. 10:25 Order name: Basic Metabolic Panel; Complete Time: 11:15 10:25 Order name: CBC with Diff 10:25 Order name: LFT's; Complete Time: 11:15 10:25 Order name: Magnesium; Complete Time: 11:15 10:25 Order name: NT PRO-BNP; Complete Time: 11:15 10:25 Order name: Troponin (emerg Dept Use Only); Complete Time: 11: 10:25 Order name: XRAY Chest (1 view); Complete Time: 11:15 10:25 Order name: Lipase; Complete Time: 11:15 10:25 Order name: CT Abd/Pelvis - Without Contrast; Complete Time: 11:15 12:45 Order name: CBC Smear Scan [facility] 10:25 Order name: EKG; Complete Time: 10: 10:25 Order name: Cardiac monitoring; Complete Time: 10: 10:25 Order name: EKG - Nurse/Tech; Complete Time: 10: 10:25 Order name: O2 Per Protocol; Complete Time: 10: 10:25 Order name: O2 Sat Monitoring; Complete Time: 10: 11:47 Order name: PO challenge; Complete Time: 12:02 nv Administered Medications: 11:58 CANCELLED (Other Intervention Used): Zofran (Ondansetron) 4 mg IVP once; over 2 minutes [facility] 11:59 CANCELLED (Other Intervention Used): NS 0.9% 500 ml IV at bolus once aj 12:01 Drug: Ondansetron (Zofran) 4 mg Route: PO; aj1 Disposition: 12/21/19 12:44 Discharged to Home. Impression: Abdominal and pelvic pain, Nausea and vomiting. - Condition is Stable. - Discharge Instructions: Abdominal Pain, Adult, Nausea and Vomiting, Adult, Abdominal Pain, Adult, [id number]. - Prescriptions for Zofran 4 mg Oral Tablet - take 1 tablet by ORAL route every 12 hours As needed; 6 tablet. - Medication Reconciliation Form, Thank You Letter form. - Follow up: Private Physician; When: 2 - 3 days; Reason: Recheck today's complaints, Re-evaluation by your physician. - Problem is new. - Symptoms have improved. Addendum: 12/22/2019 17:56 Co-signature as Attending Physician, Victor Hugo Lilly MD I agree with the assessment and c lugo plan of care. Signatures: Dispatcher [employer] [facility] Ana Saldana RN RN aj1 Victor Hugo Lilly MD MD cha Attema, Lee, PROPERTY ASSESSMENT MONITOR-C PROPERTY ASSESSMENT MONITOR-Cla1 Corrections: (The following items were deleted from the chart) 11:58 10:25 Zofran (Ondansetron) 4 mg IVP once; over 2 minutes ordered. la1 aj1 11:59 10:25 NS 0.9% 500 ml IV at bolus once ordered. la1 aj1 12:02 10:25 IV Saline Lock ordered. la1 aj1 12:03 10:25 Labs collected and sent ordered. la1 aj1 13:06 12:44 12/21/2019 12:44 Discharged to Home. Impression: Abdominal and pelvic pain; aj1 Nausea and vomiting. Condition is Stable. Forms are Medication Reconciliation Form, Thank You Letter, Antibiotic Education, Prescription Opioid Use. Follow up: Private Physician; When: 2 - 3 days; Reason: Recheck today's complaints, Re-evaluation by your physician. Problem is new. Symptoms have improved. la1
[2019-12-21 13:17] VITALS: TEMP 97.6
[2019-12-21 13:19] VITALS: BP 150/73; O2SAT 100
--- NOTE | 2019-12-23 15:39 | EKG ---
Test Date: 2019-12-21 Test Time: 10:17:44 Tie Up Worker: KOFFI MEASUREMENT RESULTS: Intervals: Rate: 63 SD: 184 QRSD: 140 QT: 452 QTc: 462 [place]: P: 49 SD: 184 QRS: -33 T: -69 INTERPRETIVE STATEMENTS: Sinus rhythm with premature supraventricular complexes Left axis deviation Right bundle branch block Cannot rule out Septal infarct, age undetermined T wave abnormality, consider inferolateral ischemia Abnormal ECG Compared to ECG 06/15/2019 12:47:45 Atrial premature complex(es) now present questionable Myocardial infarct finding now present Electronically Signed On 12-23-19 15:39:04 FOUNDER by Jalil Solis
== END 2019-12-21 13:06 | disposition home or self-care (01) ==
LOC: ER 10:11
DX: R11.2 Nausea with vomiting, unspecified (principal); R10.2 Pelvic and perineal pain; I10 Essential (primary) hypertension; E11.9 Type 2 diabetes mellitus without complications; I48.91 Unspecified atrial fibrillation; Z79.01 Long term (current) use of anticoagulants; Z79.82 Long term (current) use of aspirin; Z88.5 Allergy status to narcotic agent; Z91.048 Other nonmedicinal substance allergy status
CPT/HCPCS: 36415; 71045; 74176; 80048; 80076; 83690; 83735; 83880; 84484; 85025; 93005; 99285

== ENCOUNTER 2021-05-30 13:16 | Inpatient (IN) | payer OTHER ==
[2021-05-30 14:02] LABS: Basophils % 0.8 % (0-1.3); Hematocrit 25.1 % (36.0-45.0); Lymphocytes % 17.7 % (15.3-44.8); MPV 9.2 fL (7.6-11.3)
[2021-05-30 14:07] LABS: Protime INR 2.11
[2021-05-30 14:19] LABS: ALT/SGPT 33 U/L (12-78); AST/SGOT 25 U/L (15-37); Alkaline Phosphatase 93 U/L (45-117); BUN Blood Urea Nitrogen 58 mg/dL (7-18); Bicarbonate 22 mmol/L (21-32); Bilirubin Direct < 0.1 mg/dL (0-0.2); Bilirubin Total 0.2 mg/dL (0.2-1.0); Glucose Level 127 mg/dL (74-106); Lipase 233 U/L (73-393); Magnesium 2.3 mg/dL (1.8-2.4); NT PRO-BNP 282 pg/mL (<125); Protein, Total 8.1 g/dL (6.4-8.2); Sodium Level 141 mmol/L (136-145); Troponin (Emerg Dept Use Only) < 0.02 ng/mL (0.0-0.045)
[2021-05-30 14:21] LABS: Potassium 6.4 mmol/L (3.5-5.1)
[2021-05-30] MEDS ORDERED: NA CHLORIDE 0.9% 1,000 ML ONE ×2 (14:32→21:16)
[2021-05-30] MEDS ORDERED: ASPIRIN 81 MG CHEWABLE TABLET ONE (14:32)
--- NOTE | 2021-05-30 14:56 | EDPHYS ---
Physician Documentation [facility] Name: Patti Frey Age: 75 yrs Sex: Female : 1945 Arrival Date: 05/30/2021 Time: :22 Bed 3 Private MD: Victor Hugo Cullen HPI: 05/30 14:33 This 75 yrs old Black Female presents to ER via EMS with complaints of Chest Pain. zaria 14:33 The patient or guardian reports chest pain that is located primarily in the anterior [facility] chest wall, bilaterally. Onset: today. 14:33 The patient has shortness of breath with light activity. Onset: The symptoms/episode zaria began/occurred just prior to arrival. Duration: The symptoms are continuous, and are steadily getting worse. The patient's shortness of breath has no apparent modifying factors. The patient presents with abdominal pain in the upper abdomen, in the lower abdomen, abdominal distention in the upper abdomen, in the lower abdomen. Onset: The symptoms/episode began/occurred 2 month(s) ago. The patient presents with dizziness. Onset: The symptoms/episode began/occurred 2 day(s) ago. Context: occurred yarsani in the [facility]. Historical: - Allergies: 13:24 Codeine; zb 13:24 Iodine; zb - Home Meds: 13:24 amlodipine oral [Active]; Aspirin Oral [Active]; atorvastatin Oral [Active]; Bystolic zb Oral [Active]; Eliquis Oral [Active]; gabapentin Oral [Active]; Iron CR Oral [Active]; Lorazepam Oral [Active]; Uloric Oral [Active]; lisinopril Oral [Active]; meloxicam Oral [Active]; Nexium Oral [Active]; trajenza [Active]; - PMHx: 13:24 Arthritis; Atrial Fib; BURSITIS; Diabetes - NIDDM; Gout; Hypertension; zb - PSHx: 13:24 Total abdominal hysterectomy; zb - Immunization history:: Adult Immunizations up to date, Client reports receiving the 2nd dose of the Covid vaccine, Date received: December 2020. - Social history:: Smoking status: Patient/guardian denies using tobacco, but has a distant history of tobacco abuse. - Family history:: not pertinent. ROS: 14:33 Constitutional: Negative for fever, chills, and weight loss, Eyes: Negative for injury, zaria pain, redness, and discharge, ENT: Negative for injury, pain, and discharge, Neck: Negative for injury, pain, and swelling, Back: Negative for injury and pain, : Negative for injury, bleeding, discharge, and swelling, MS/Extremity: Negative for injury and deformity, Skin: Negative for injury, rash, and discoloration, Psych: Negative for depression, anxiety, suicide ideation, homicidal ideation, and hallucinations, Allergy/Immunology: Negative for hives, rash, and allergies, Endocrine: Negative for neck swelling, polydipsia, polyuria, polyphagia, and marked weight changes, Hematologic/Lymphatic: Negative for swollen nodes, abnormal bleeding, and unusual bruising. 14:33 Cardiovascular: Positive for chest pain, of the chest, palpitations. 14:33 Respiratory: Positive for cough, shortness of breath. 14:33 Abdomen/GI: Positive for abdominal pain, of the right upper quadrant, left upper quadrant, right lower quadrant and left lower quadrant. 14:33 Back: Negative for injury or acute deformity, decreased range of motion, pain at rest. 14:33 : Negative for injury or acute deformity. 14:33 MS/extremity: Negative for acute changes. 14:33 Skin: Negative for abrasions, diaphoresis, discoloration, erythema, pallor. Exam: 14:33 Constitutional: This is a well developed, well nourished patient who is awake, alert, zaria and in no acute distress. Head/Face: Normocephalic, atraumatic. Eyes: Pupils equal round and reactive to light, extra-ocular motions intact. Lids and lashes normal. Conjunctiva and sclera are non-icteric and not injected. Cornea within normal limits. Periorbital areas with no swelling, redness, or edema. ENT: Nares patent. No nasal discharge, no septal abnormalities noted. Tympanic membranes are normal and external auditory canals are clear. Oropharynx with no redness, swelling, or masses, exudates, or evidence of obstruction, uvula midline. Mucous membranes moist. Neck: Trachea midline, no thyromegaly or masses palpated, and no cervical lymphadenopathy. Supple, full range of motion without nuchal rigidity, or vertebral point tenderness. No Meningismus. Chest/axilla: Normal chest wall appearance and motion. Nontender with no deformity. No lesions are appreciated. Respiratory: Lungs have equal breath sounds bilaterally, clear to auscultation and percussion. No rales, rhonchi or wheezes noted. No increased work of breathing, no retractions or nasal flaring. Abdomen/GI: Soft, non-tender, with normal bowel sounds. No distension or tympany. No guarding or rebound. No evidence of tenderness throughout. Back: No spinal tenderness. No costovertebral tenderness. Full range of motion. Female : Normal external genitalia. Skin: Warm, dry with normal turgor. Normal color with no rashes, no lesions, and no evidence of cellulitis. MS/ Extremity: Pulses equal, no cyanosis. Neurovascular intact. Full, normal range of motion. Psych: Awake, alert, with orientation to person, place and time. Behavior, mood, and affect are within normal limits. 14:33 Cardiovascular: Rate: bradycardic, Rhythm: regular, Pulses: Pulses are 4+ in bilateral radial, brachial, femoral, popliteal, posterior tibial and and dorsalis pedis arteries.. Heart sounds: normal, normal S1and S2, no S3 or S4, no murmur, no rub, no gallop, Edema: is not appreciated, JVD: is not appreciated. 14:33 ECG was reviewed by the Attending Physician. Vital Signs: 13:22 BP 144 / 55; Pulse 47; Resp 15; Temp 98.8; Pulse Ox 100% on R/A; Weight 85.73 kg; zb Height 5 ft. 4 in. (162.56 cm); Pain 10/10; 13:30 BP 144 / 55; Pulse 43; Resp 17; Pulse Ox 100% ; kg 14:00 BP 146 / 60; Pulse 55; Resp 12; Pulse Ox 100% ; kg 15:00 BP 133 / 67; Pulse 56; Resp 16; Pulse Ox 100% ; kg 16:00 BP 146 / 65; Pulse 55; Resp 12; Pulse Ox 100% ; kg 17:00 BP 123 / 70; Pulse 65; Resp 16; Pulse Ox 100% on R/A; zb 19:58 BP 119 / 101; Pulse 68; Resp 13; Pulse Ox 99% on R/A; zb 13:22 Body Mass Index 32.44 (85.73 kg, 162.56 cm) zb MDM: 13:26 Patient medically screened. [facility] 14:37 Antibiotic administration: Not indicated. Differential diagnosis: Anemia Anxiety zaria Reaction Bronchitis abnormal EKG, anxiety, coronary artery disease chest wall pain, congestive heart failure pancreatitis, pulmonary embolus, unstable angina, cholecystitis, Cholelithiasis, diverticulitis, gastritis, Hepatitis, non-specific abd pain, pancreatitis, Peptic Ulcer Disease, urinary tract infection. HEART Score: History: Moderately Suspicious (1), ECG: Non specific repolarization disturbance / LBTB / PM (1), Age: > or = 65 years (2), Risk Factors: > or = 3 Risk factors for atherosclerotic disease (2), [Hypertension] [DM] [+ Family HX] [Obesity] Troponin: < or = 1 x Normal Limit (0). Differential diagnosis: cardiac arrhythmia, CVA, generalized weakness, hypovolemia, idiopathic dizziness, near-syncope, vertigo. The patient was not given aspirin in the Emergency Department. Not indicated due to patient's past medical history. The patient's deep vein thrombosis risk score was calculated as follows: Total Score: 0. This patient was found to be at low risk for a deep vein thrombosis by using the Well's assessment criteria Total Score: 0-2 Pts- Low Risk. The patient's pulmonary embolism risk score was calculated as follows: Total Score: 0-2 points. This patient was found to be at low risk for a pulmonary embolism by using the Well's assessment criteria Total Score: 0-2 points. This patient was found to be at low risk for a pulmonary embolism by using the Well's assessment criteria. JAMARCUS Risk Score: 1 - patient's age is greater or equal to 65 years, 1 - Three or more CAD risk factors, 1- Known CAD, 1 - ASA use in past 7 days, 1 - Recent [<24hrs] Severe Angina, TOTAL SCORE = 5. Immunization status: Pneumococcal vaccine: Influenza vaccine: Data reviewed: vital signs, nurses notes, lab test result(s), EKG, radiologic studies, CT scan, plain films. 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 Test interpretation: by ED physician or midlevel provider: ECG, plain radiologic studies. 05/30 13:25 Order name: Basic Metabolic Panel [facility] 05/30 13:25 Order name: CBC with Diff [facility] 05/30 13:25 Order name: LFT's [facility] 05/30 13:25 Order name: Magnesium [facility] 05/30 13:25 Order name: NT PRO-BNP [facility] 05/30 13:25 Order name: PT-INR [facility] 05/30 13:25 Order name: Troponin (emerg Dept Use Only); Complete Time: 14:24 [facility] 05/30 13:25 Order name: Lipase; Complete Time: 14:24 [facility] 05/30 13:26 Order name: Basic Metabolic Panel; Complete Time: 14:24 EDMS 05/30 14:31 Interpretation: Abnormal: K 6.4. [facility] 05/30 13:26 Order name: CBC with Automated Diff; Complete Time: 14:24 EDMS 05/30 13:26 Order name: Liver (Hepatic) Function; Complete Time: 14:24 EDMS 05/30 13:26 Order name: Magnesium; Complete Time: 14:24 EDMS 05/30 13:26 Order name: NT PRO-BNP; Complete Time: 14:24 EDMD 05/30 13:25 Order name: XRAY Chest (1 view); Complete Time: 16:39 [facility] 05/30 13:26 Order name: Protime (+INR); Complete Time: 16:00 EDMD 05/30 14:31 Order name: Potassium [facility] 05/30 14:31 Order name: CT Chest Abdomen Pelvis W/O Contrast: no iv, no oral; Complete Time: 16:00 [facility] 05/30 14:32 Order name: Type And Screen [facility] 05/30 14:32 Order name: Potassium [facility] 05/30 16:23 Order name: SARS-COV-2 RT PCR; Complete Time: 16:29 EDMD 05/30 18:55 Order name: Urine Dipstick-Ancillary; Complete Time: 19:42 [facility] 05/30 13:25 Order name: EKG; Complete Time: 13:26 [facility] 05/30 13:25 Order name: Cardiac monitoring; Complete Time: 14:05 [facility] 05/30 13:25 Order name: EKG - Nurse/Tech; Complete Time: 14:05 [facility] 05/30 13:25 Order name: IV Saline Lock; Complete Time: 14:05 [facility] 05/30 13:25 Order name: Labs collected and sent; Complete Time: 14:05 [facility] 05/30 13:25 Order name: O2 Per Protocol; Complete Time: 14:05 [facility] 05/30 13:25 Order name: O2 Sat Monitoring; Complete Time: 14:05 zaria 05/30 16:01 Order name: Dejesus; Complete Time: 19:52 zaria EC:33 Rate is 50 beats/min. Rhythm is regular. QRS [place] is Normal. [place] interval is normal. QRS zaria interval is normal. QT interval is normal. No Q waves. T waves are Normal. No ST changes noted. Clinical impression: Sinus bradycardia and No evidence of ischemia. Interpreted by me. Reviewed by me. Administered Medications: 14:00 Drug: Aspirin Chewable Tablet 162 mg Route: PO; zb 19:20 Follow up: Response: No adverse reaction zb 14:33 Drug: NS 0.9% 1000 ml Route: IV; Rate: 75 ml/hr; Site: left forearm; zb 18:00 Follow up: Response: No adverse reaction; IV Status: Completed infusion; IV Intake: zb 300ml 15:30 Drug: Pepcid (famotidine) 20 mg Route: IVP; Site: left forearm; zb 19:21 Follow up: Response: No adverse reaction zb 15:30 Drug: Albuterol - atroVENT (ipratropium) (3:1) (2.5 mg - 0.5 mg) 3 ml Route: Nebulizer; zb 19:20 Follow up: Response: No adverse reaction zb 15:30 Drug: Calcium Gluconate 1 grams Route: IVPB; Infused Over: 20 mins; Site: left forearm; zb 19:20 Follow up: IV Status: Completed infusion zb 15:30 Drug: Kayexalate (polystyrene) 30 grams Route: PO; zb 19:20 Follow up: Response: No adverse reaction zb 15:30 Drug: D50W 50 ml Route: IVP; Site: right forearm; zb 19:21 Follow up: Response: No adverse reaction zb 15:30 Drug: Insulin Regular Human 10 units {Co-Signature: kg (Charla Douglas RN).} Route: zb IVP; Site: left forearm; 19:21 Follow up: Response: No adverse reaction zb Disposition Summary: 05/30/21 14:55 Hospitalization Ordered Hospitalization Status: Inpatient Admission zaria Provider: Saul James cha Condition: Serious zaria Problem: new zaria Symptoms: have improved zaria Bed/Room Type: Standard zaria Location: Telemetry/MedSurg (Inpatient)(05/30/21 22:17) cg Room [facility]ignment: [facility](05/30/21 22:17) cg Diagnosis - Anemia, unspecified zaria - Acute kidney failure, unspecified - on Chronic zaria - Palpitations zaria - Type 2 diabetes mellitus with hyperglycemia zaria - Hyperkalemia zaria Forms: - Medication Reconciliation Form zaria - SBAR form zaria Signatures: Dispatcher [employer] EDVictor Hugo Valladares MD MD cha Attema, Lee, RECEPTIONIST NURSE-C RECEPTIONIST NURSE-Cla1 Judit Medina, RN RN cg Ashley Britton RN RN zb Charla Douglas RN kg Corrections: (The following items were deleted from the chart) 15:26 13:26 CORONAVIRUS+MR.LAB.BRZ ordered. [facility] EDMD 22:17 14:55 Telemetry/MedSurg (Inpatient) [facility] 22:17 14:55 zaria cg
--- NOTE | 2021-05-30 14:56 | ER ---
Nurse's Notes [facility] Name: Patti Frey Age: 75 yrs Sex: Female : 1945 Arrival Date: 05/30/2021 Time: 13:22 Bed 3 Private MD: Diagnosis: Anemia, unspecified;Acute kidney failure, unspecified-on Chronic;Palpitations;Type 2 diabetes mellitus with hyperglycemia;Hyperkalemia Presentation: 05/30 13:22 Chief complaint: EMS states: Patient called EMS c/o of chest pain, palpation, chest zb heaviness, dizziness, and nausea, and bradycardia heart rate within between 38-47. Coronavirus screen: At this time, the client does not indicate any symptoms associated with coronavirus-19. Ebola Screen: No symptoms or risks identified at this time. Initial Sepsis Screen: Does the patient meet any 2 criteria? No. Patient's initial sepsis screen is negative. Does the patient have a suspected source of infection? No. Patient's initial sepsis screen is negative. Risk Assessment: Do you want to hurt yourself or someone else? Patient reports no desire to harm self or others. Onset of symptoms was May 30, 2021. 13:22 Method Of Arrival: EMS: [facility] zb 13:22 Acuity: EMELIA 2 zb Triage Assessment: 13:27 General: Appears uncomfortable, Behavior is calm, cooperative. Pain: Complains of pain zb in xiphoid area and mid-sternal area Pain radiates to back, right supraclavicular area, right clavicle and anterior aspect of right upper chest Pain currently is 10 out of 10 on a pain scale. Quality of pain is described as dull, heavy. Neuro: Level of Consciousness is awake, alert, obeys commands, Oriented to person, place, time, situation. Cardiovascular: Reports chest pain, fatigue, lightheadedness, nausea, palpitations, shortness of breath, Heart tones S1 S2 present Patient's skin is warm and dry. Chest pain is described as severe, quality is heaviness, pressure, is located in right substernal area radiates to right back neck episodes are continuous. Respiratory: Airway is patent Respiratory effort is even, unlabored, Respiratory pattern is regular, symmetrical, Breath sounds are coarse in left posterior lower lobe and right posterior lower lobe. GI: Abdomen is flat, Derm: Skin is intact, is healthy with good turgor. Musculoskeletal:. Historical: - Allergies: 13:24 Codeine; zb 13:24 Iodine; zb - Home Meds: 13:24 amlodipine oral [Active]; Aspirin Oral [Active]; atorvastatin Oral [Active]; Bystolic zb Oral [Active]; Eliquis Oral [Active]; gabapentin Oral [Active]; Iron CR Oral [Active]; Lorazepam Oral [Active]; Uloric Oral [Active]; lisinopril Oral [Active]; meloxicam Oral [Active]; Nexium Oral [Active]; trajenza [Active]; - PMHx: 13:24 Arthritis; Atrial Fib; BURSITIS; Diabetes - NIDDM; Gout; Hypertension; zb - PSHx: 13:24 Total abdominal hysterectomy; zb - Immunization history:: Adult Immunizations up to date, Client reports receiving the 2nd dose of the Covid vaccine, Date received: December 2020. - Social history:: Smoking status: Patient/guardian denies using tobacco, but has a distant history of tobacco abuse. - Family history:: not pertinent. Screenin:30 Abuse screen: Denies threats or abuse. Denies injuries from another. Nutritional zb screening: No deficits noted. Tuberculosis screening: No symptoms or risk factors identified. Fall Risk No fall in past 12 months (0 pts). Secondary diagnosis (15 points) impaired mobility, IV access (20 points). Ambulatory Aid- Crutches/Cane/Walker (15 pts). Gait- Weak (10 pts.). Mental Status- Oriented to own ability (0 pts). Total Mahmood Fall Scale indicates High Risk Score (45 or more points). Fall prevention measures have been instituted. Side Rails Up X 2 Placed Close to Nursing Station Frequent Obs/Assessments Occuring As available patient and family educated on Fall Prevention Program and Strategies. Assessment: 13:30 Reassessment: see triage assessment. zb 13:30 Pain: Pain began suddenly, today. zb 14:30 Reassessment: Patient appears in no apparent distress at this time. Patient and/or zb family updated on plan of care and expected duration. Pain level reassessed. family at bedside. 15:30 Reassessment: Patient appears in no apparent distress at this time. Patient and/or zb family updated on plan of care and expected duration. Pain level reassessed. IV fluid infusing. 16:30 Reassessment: Patient appears in no apparent distress at this time. Patient and/or zb family updated on plan of care and expected duration. Pain level reassessed. 17:30 Reassessment: Patient appears in no apparent distress at this time. Patient and/or zb family updated on plan of care and expected duration. Pain level reassessed. 18:30 Reassessment: Patient appears in no apparent distress at this time. Patient and/or zb family updated on plan of care and expected duration. Pain level reassessed. 19:58 Reassessment: Patient appears in no apparent distress at this time. Patient and/or zb family updated on plan of care and expected duration. Pain level reassessed. Dejesus placed. patient tolerated well. assured comfort. 21:11 Reassessment: Ilana (daughter) [phone]. ea Vital Signs: 13:22 BP 144 / 55; Pulse 47; Resp 15; Temp 98.8; Pulse Ox 100% on R/A; Weight 85.73 kg; zb Height 5 ft. 4 in. (162.56 cm); Pain 10/10; 13:30 BP 144 / 55; Pulse 43; Resp 17; Pulse Ox 100% ; kg 14:00 BP 146 / 60; Pulse 55; Resp 12; Pulse Ox 100% ; kg 15:00 BP 133 / 67; Pulse 56; Resp 16; Pulse Ox 100% ; kg 16:00 BP 146 / 65; Pulse 55; Resp 12; Pulse Ox 100% ; kg 17:00 BP 123 / 70; Pulse 65; Resp 16; Pulse Ox 100% on R/A; zb 19:58 BP 119 / 101; Pulse 68; Resp 13; Pulse Ox 99% on R/A; zb 13:22 Body Mass Index 32.44 (85.73 kg, 162.56 cm) zb ED Course: 13:22 Patient arrived in ED. zb 13:24 Triage completed. zb 13:26 Victor Hugo Lilly MD is Attending Physician. zaria 13:30 Patient has correct armband on for positive identification. library monitor on. Pulse zb ox on. NIBP on. Door closed. Noise minimized. 13:30 Arm band placed on. zb 13:31 Inserted saline lock: 20 gauge in left forearm, using aseptic technique. Blood zb collected. Patient maintains SpO2 saturation greater than 95% on room air. 14:02 XRAY Chest (1 view) In Process Unspecified. EDMS 14:05 Ashley Britton, ADE is Primary Nurse. zb 14:40 Saul James DO is Hospitalizing Provider. zaria 14:53 CT Chest Abdomen Pelvis W/O Contrast: no iv, no oral In Process Unspecified. EDMS 19:53 Dejesus cath inserted, using sterile technique, 16 Fr., by pr, balloon inflated, to zb gravity drainage, Patient tolerated well. 20:00 No provider procedures requiring assistance completed. Patient admitted, IV remains in zb place. 08 00:05 Potassium Sent. zb Administered Medications: 08 14:00 Drug: Aspirin Chewable Tablet 162 mg Route: PO; zb 19:20 Follow up: Response: No adverse reaction zb 14:33 Drug: NS 0.9% 1000 ml Route: IV; Rate: 75 ml/hr; Site: left forearm; zb 18:00 Follow up: Response: No adverse reaction; IV Status: Completed infusion; IV Intake: zb 300ml 15:30 Drug: Pepcid (famotidine) 20 mg Route: IVP; Site: left forearm; zb 19:21 Follow up: Response: No adverse reaction zb 15:30 Drug: Albuterol - atroVENT (ipratropium) (3:1) (2.5 mg - 0.5 mg) 3 ml Route: Nebulizer; zb 19:20 Follow up: Response: No adverse reaction zb 15:30 Drug: Calcium Gluconate 1 grams Route: IVPB; Infused Over: 20 mins; Site: left forearm; zb 19:20 Follow up: IV Status: Completed infusion zb 15:30 Drug: Kayexalate (polystyrene) 30 grams Route: PO; zb 19:20 Follow up: Response: No adverse reaction zb 15:30 Drug: D50W 50 ml Route: IVP; Site: right forearm; zb 19:21 Follow up: Response: No adverse reaction zb 15:30 Drug: Insulin Regular Human 10 units {Co-Signature: kg (Charla Douglas RN).} Route: zb IVP; Site: left forearm; 19:21 Follow up: Response: No adverse reaction zb Intake: 18:00 IV: 300ml; Total: 300ml. zb Outcome: 14:55 Decision to Hospitalize by Provider. zaria 20:00 Admitted to ER Hold. Please see [facility] for further documentation. zb 20:00 Condition: stable 20:00 Instructed on the need for admit, Demonstrated understanding of instructions. 22:56 Patient left the ED. gordo Signatures: Dispatcher [employer] Victor Hugo Gilman MD MD cha Antunez, Elena, RN Ashley Rangel ea RN RN Charla Azul RN RN kg Charla Douglas RN kg
[2021-05-30] MEDS ORDERED: ALBUTEROL 2.5 MG/3 ML NEB SOL ONE (15:03)
--- NOTE | 2021-05-30 15:03 | RAD REPORT ---
EXAM DESCRIPTION: CT - Chest Abd Pelvis Wo Con - 05/30/2021 2:53 pm CLINICAL HISTORY: Chest and abdomen pain. Cough;Abdominal distention COMPARISON: <Comparisons> TECHNIQUE: Approximately 100 mL nonionic IV contrast was administered to the patient. All CT scans are performed using dose optimization technique as appropriate and may include automated exposure control or mA/KV adjustment according to patient size. FINDINGS: The lungs are clear.No pleural or pericardial effusion.No intrathoracic adenopathy.17 mill imeter low-density left thyroid nodule. Multi-vessel coronary artery disease. Mild cardiomegaly. Aort ic valve calcifications. Multiple renal lesion which is likely a cyst. No focal liver lesions are identified. Pancreas spleen unremarkable. No bowel obstruction is identified. No evidence of appendicitis. Atherosclerosis. Diver ticulosis without diverticulitis. No worrisome osseous finding. IMPRESSION: No acute findings within the chest, abdomen, or pelvis. Incidental findings as noted abo ve.
[2021-05-30] MEDS ORDERED: IPRATROPIUM BROM 0.5MG/2.5ML ONE (15:04)
[2021-05-30] MEDS ORDERED: SOD POLYSTYREN SUL 15 GM/60 ML UCUP ONE (15:04)
[2021-05-30] MEDS ORDERED: CALCIUM GLUCONATE 1 GM IVPB 1 GM/50 ML BAG IV ONE (15:04)
[2021-05-30] MEDS ORDERED: INSULIN -REGULAR HUMAN 50 UNIT/0.5 ML ML ONE (15:04)
[2021-05-30] MEDS ORDERED: FAMOTIDINE 20 MG/2 ML VIAL IV ONE (15:04)
[2021-05-30] MEDS ORDERED: D50W 25 GM/50 ML SYRINGE IV ONE (15:05)
--- NOTE | 2021-05-30 16:33 | RAD REPORT ---
EXAM DESCRIPTION: RAD - Chest Single View - 05/30/2021 2:02 pm CLINICAL HISTORY: CHEST PAIN COMPARISON: No comparisonsChest Single View dated 12/21/2019; Chest Single View dated 11/28/2019; Chest Single View dated 06/15/2019; Chest Single View dated 05/02/2019 FINDINGS: No evidence of edema or pneumonia. Cardiomegaly.No acute osseous abnormality. No significa nt pleural effusions or pneumothorax. IMPRESSION: No acute cardiopulmonary disease.
[2021-05-30] MEDS ORDERED: ONDANSETRON 4 MG/2 ML VIAL IV PRN (18:15)
[2021-05-30] MEDS ORDERED: ACETAMINOPHEN 500 MG TAB PO PRN (18:15)
[2021-05-30] MEDS ORDERED: HYDROCODONE/APAP 5/325 MG TAB PO PRN (18:30)
--- NOTE | 2021-05-30 18:35 | P.HP ---
Certification for Inpatient Patient admitted to: Inpatient With expected LOS: >2 Midnights Patient will require the following post-hospital care: None Practitioner: I am a practitioner with admitting privileges, knowledge of patient current condition, hospital course, and medical plan of care. Services: Services provided to patient in accordance with Admission requirements found in Title 42 Section 412.3 of the Code of Federal Regulations Patient History Date of Service: 05/30/21 Reason for admission: JERRY, chest pain History of Present Illness: Patient is a 75-year-old female with a past medical history significant for A. fib, DC, DM 2 neuropathy, gout, hypertension, CKD who presents with complaint of chest pain located in the left chest area. Patient rated pain as 10/10 and described pain as pressure in quality. Patient also reports epigastric pain that has been going for the past 2 months but became worse in the 2 days ago. Patient rated pain as 7/10 in severity and described pain as aching in quality. Patient reports associated signs and symptoms of diaphoresis, palpitations, shortness of breath, dizziness and lightheadedness. Patient denies any other signs or symptoms. Symptoms are aggravated or relieved by nothing. Patient decided to present to the ER due to worsening symptoms. Allergies codeine [Codeine] Allergy (Intermediate, Verified 05/03/19 00:28) SHAKY iodine Allergy (Verified 05/03/19 00:28) Unknown Home medications list reviewed: Yes Home Medications: Apixaban [Eliquis] 2.5 mg PO BID 06/16/19 Atorvastatin Calcium [Lipitor*] 10 mg PO BEDTIME 06/16/19 Esomeprazole Mag Trihydrate [Nexium] 40 mg PO DAILY 06/16/19 Febuxostat [Uloric] 40 mg PO DAILY 06/16/19 Gabapentin 300 mg PO BID PRN 06/16/19 LORazepam [Ativan*] 0.5 mg PO BID 06/16/19 Linagliptin [Tradjenta] 5 mg PO DAILY 06/16/19 Meloxicam [Mobic*] 7.5 mg PO DAILY 06/16/19 Nebivolol HCl [Bystolic*] 5 mg PO DAILY 06/16/19 - Past Medical/Surgical History Has patient received pneumonia vaccine in the past: Yes Diabetic: Yes -: DC -: BACK PAIN -: GOUT -: HTN -: DM- NIDDM -: ARTHRITIS -: NEUROPATHY -: Surgical menopause -: Hysterectomy -: APPENDECTOMY -: EYE SURGERY- LEFT EYRITIS UVITIS Psychosocial/ Personal History: - Family History Father -: Hypertension, Lung disease, Cancer Mother -: Heart disease, Hypertension, Other (see notes) Notes: of heart attack Brother -: Diabetes, Other (see notes) Notes: heart defibrillator Sister -: Diabetes, Other (see notes) Notes: 2 heart transplant - Social History Smoking Status: Never smoker Alcohol use: No CD- Drugs: No Caffeine use: Yes Review of Systems General: Other (diaphoresis) Eyes: Unremarkable ENT: Unremarkable Respiratory: Shortness of Breath, SOB with Excertion Cardiovascular: Chest Pain, Palpitations Gastrointestinal: Abdominal Pain Genitourinary: Unremarkable Musculoskeletal: Unremarkable Integumentary: Unremarkable Neurological: Other (Dizziness lightheadness ) Physical Examination - Physical Exam General: Alert, In no apparent distress, Oriented x3 HEENT: Atraumatic, PERRLA, Mucous membr. moist/pink, EOMI, Sclerae nonicteric Neck: Supple, 2+ carotid pulse no bruit, No LAD, Without JVD or thyroid abnormality Respiratory: Clear to auscultation bilaterally, Normal air movement Cardiovascular: Normal pulses, Normal S1 S2 Capillary refill: <2 Seconds Gastrointestinal: Normal bowel sounds, No tenderness Musculoskeletal: No clubbing, No tenderness Integumentary: No rashes Neurological: Normal gait, Normal speech, Normal tone, Normal affect Lymphatics: No axilla or inguinal lymphadenopathy - Studies Laboratory Data (last 24 hrs) 05/30/21 13:50: PT 24.4 H, INR 2.11 05/30/21 13:50: WBC 5.80, Hgb 8.0 L, Hct 25.1 L, Plt Count 156 05/30/21 13:50: Sodium 141, Potassium 6.4 H*, BUN 58 H, Creatinine 3.27 H, Glucose 127 H, Magnesium 2.3 D, Total Bilirubin 0.2, AST 25, ALT 33, Alkaline Phosphatase 93, Lipase 233 Assessment and Plan - Plan --JERRY on CKD 4. Nephrology consulted. Patient reports poor p.o. intake. Patient placed on IV hydration. Will await further recommendation from marriage therapist. --Hyperkalemia. Calcium gluconate, insulin\D50 and nebulizer treatment given in the ER. Will reassess levels in a.m. Further management per marriage therapist. --Chest pain. Telemetry to monitor for any significant arrhythmia. Echocardiogram pending. Cardiology consulted. We will continue to trend troponins. --Abdominal pain. CT abdomen does not indicate any acute abnormality. We will manage pain with current medication regimen. --GERD. Continue home medications. --Anemia. Anemia work-up pending. H&H stable. We will continue to monitor hemoglobin and transfuse if less than 7.0. --Atrial fibrillation. Continue Eliquis.. --History of DC. Continue aspirin --DM2 with neuropathy. BS monitoring with sliding scale insulin. Continue jimmy apentin for neuropathy. --Hypertension. Continue home medications. --HLD. Continue statin. --Gout. Continue home medications. --DVT prophylaxis with heparin subQ I have had discussion about advanced directives with the patient and during this hospital admission. Addressed code status and /or goals of care. Spent more than 15 minutes. Case discussed with patient and nurse. Discharge disposition. Continue hospital stay. The following document was completed using voice recognition software. This can produce operations lead errors that can at times significantly distort words and phrases. Please interpret any aspect of the note that is nonsensical in light of this fact. Discharge Plan: Home Plan to discharge in: 48 Hours - Advance Directives Does patient have a Living Will: No Does patient have a Durable POA for Healthcare: No - Code Status/Comfort Care Code Status Assessed: Yes Code Status: Full Code Physician Review: Patient Assessed, Agree with Above Assessment and Plan Critical Care: No
[2021-05-30 18:54] LABS: Urine Blood Negative (Negative); Urine Glucose Trace (Negative); Urine Protein Negative (Negative); Urine pH 6.5 (5.0-7.0)
[2021-05-30] MEDS: NA CHLORIDE 0.9% 1,000 ML IV SCH (19:00)
[2021-05-30] MEDS ORDERED: ASPIRIN 81 MG CHEWABLE TABLET PO ONE (20:32)
[2021-05-30 20:34] VITALS: BMI 32.4
[2021-05-30] MEDS ORDERED: GLUCAGON 1 MG/VIAL IM PRN (20:50)
[2021-05-30] MEDS ORDERED: LABETALOL 20 MG/4ML SYRINGE IV PRN (20:50)
[2021-05-30] MEDS ORDERED: D50W 25 GM/50 ML SYRINGE IV PRN (20:50)
[2021-05-30] MEDS: APIXABAN 2.5 MG TABLET PO SCH (21:00)
[2021-05-30] MEDS: INSULIN -REGULAR HUMAN 50 UNIT/0.5 ML ML SQ SCH (21:00)
[2021-05-30] MEDS ORDERED: APIXABAN 5 MG TABLET ONE (21:16)
[2021-05-30 23:53] LABS: Ferritin 12.8 ng/mL (8-388); Folic Acid, (Folate) > 20.0 ng/mL (3.1-17.5); Transferrin 273 mg/dL (200-360)
[2021-05-31] MEDS ORDERED: HEPARIN 5000 UNIT/ML 1 ML VIAL SQ SCH (01:00)
[2021-05-31] MEDS: NA CHLORIDE 0.9% 1,000 ML IV SCH (05:00)
[2021-05-31 06:33] LABS: Absolute Lymphocytes (CBC) 1.7 K/uL (0.7-4.9); Basophils % 1.2 % (0-1.3); Hematocrit 23.2 % (36.0-45.0); Lymphocytes % 28.8 % (15.3-44.8); RBC Red Blood Cell Count 2.81 M/uL (3.86-4.86)
[2021-05-31 06:58] LABS: Potassium 4.9 mmol/L (3.5-5.1)
[2021-05-31] MEDS: INSULIN -REGULAR HUMAN 50 UNIT/0.5 ML ML SQ SCH ×4 (07:30→20:40)
[2021-05-31] MEDS: APIXABAN 2.5 MG TABLET PO SCH ×2 (10:28→20:38)
[2021-05-31] MEDS: ASPIRIN 81 MG CHEWABLE TABLET PO SCH (10:28)
[2021-05-31] MEDS ORDERED: D5W 1,000 ML IV SCH (11:00)
--- NOTE | 2021-05-31 13:27 | CON ---
Date of Consultation: 05/31/2021 Reason For Consultation: Atypical chest pain, acute kidney injury. History Of Present Illness: Ms. Frey is a 75-year-old black woman. She sees Dr. Patel for mul tiple medical problems including atrial fibrillation. She also has a history of hypertension, dyslip idemia, neuropathy, gastroesophageal reflux disease, diabetes, gout, and bursitis. She came in with mid-epigastric chest pain radiating to the abdomen down to the chest with some shortness of breath. No nausea, vomiting, diaphoresis, PND, orthopnea, pedal edema, palpitations, or syncope. Has been sl ightly dizzy. Has seen Dr. Patel recently and had a negative echocardiogram according to her. She does need left knee surgery in the near future and she is seeing Dr. Almazan tomorrow. She is on Eliquis. Past Medical History: As stated above. Allergies: SHE IS ALLERGIC TO CODEINE AND IODINE. Review of Systems: Negative. Social History: Negative. Family History: Negative. Medications: Include Norvasc, aspirin, Lipitor, Eliquis, gabapentin, lorazepam, lisinopril, Nexium. Physical Examination: Vital Signs: Stable, afebrile, sinus rhythm. HEENT: Negative. Neck: Supple with no bruit. Chest: Clear to auscultation and percussion. Cardiac: Revealed a regular rhythm and rate. No murmurs, gallops, or rubs. Abdomen: Benign. Extremities: Revealed no clubbing, cyanosis, or edema. Neurological: She was nonfocal. Skin: Dry and intact. Pulses were present bilaterally in the lower extremities. Diagnostic Data: Creatinine was 3.27. Her hemoglobin was 8.0. She had a potassium of 6.4 that was corrected to 4.9. Her glucose was 127. Troponin was negative. BNP was 282. Chest x-ray was negati ve. CT of the abdomen and pelvis was negative. Impression And Plan: 1.Acute renal failure. 2.Anemia. 3.Hyperkalemia secondary to renal failure. 4.Shortness of breath. 5.Atypical chest pain. 6.Diabetes. 7.Hypertension. 8.Dyslipidemia. 9.Gout. 10.Paroxysmal atrial fibrillation, on Eliquis. Ms. Frey had a workup by Dr. Patel including a n echocardiogram recently. I do not intend to repeat any cardiac workup at this point and she will s ee me in the near future. Nephrology has been consulted for kidney injury. I think her creatinine m ay be the cause of her renal failure, may be the cause of her shortness of breath. Her chest x-ray i s clear. I agree with her present regimen now. I think she can go home and follow up with Dr. Shy ware whenever it is okay with her admitting physicians. She needs to continue her medication that she takes at home. As far as Kimberley is concerned, her Bystolic needs to be continued. She should not b e on any MUKUL inhibitor or angiotensin receptor blockers. JASMEET/ISA Voice ID: [id number] Report ID: [id number]
[2021-05-31] MEDS ORDERED: EPOETIN ALFA-EPBX 4,000 UNIT/ML VIAL SQ ONE (16:00)
--- NOTE | 2021-05-31 16:57 | CON ---
The patient is seen in Room 208 at [facility]. History Of Present Illness: The patient is alert, awake, able to communicate. She is legally blind, able to give answers to some questions. States that she had some palpitations yesterday. She felt like her heart was running fast, had a little bit of fluttering in the chest that she describes and p resented to the hospital with that. She has a history of atrial fibrillation, currently is in atrial fibrillation, but rate is well controlled, rate on current examination is about 65. The patient sta montrell that she is feeling somewhat better currently. Her breathing is stable. She denies any shortnes s of breath. Denies any headache, nausea, vomiting currently. She still has a sensation of tingling or flutter in her heart at times that it has been her only concern on asking for any complaints. Soo willis has past medical history significant for atrial fibrillation, for gout, hypertension, question of C KD even though the patient does not recall seeing a kidney doctor and does not recall being told that she has any significant kidney disease. She has a history of diabetes. She states that she has had that for several years. She states that she is legally blind. She has a daughter, who helps her ou t and also stated that she will share her information with the daughter, so they can make appointment for followup once the patient is discharged from the hospital. Medications: In the chart reviewed. The patient had been on Eliquis. She had been on Uloric, gabap entin, and also was taking meloxicam in the past, even though the patient states that she is not on a ny ibuprofen, Aleve, Motrin, or any other NSAIDs currently. She only uses Tylenol on occasion for pa in. Past Medical History: History of CO, history of diabetes, appendectomy, and hysterectomy. Family History: No history of end-stage renal disease documented. Brother did have diabetes and sis ter had diabetes. Otherwise noncontributory. Social History: The patient does not smoke. Does not drink alcohol. Does not use any drugs. Physical Examination: General: The patient is alert, awake, able to answer questions. She states she is unable to read an d see. She is legally blind. Vital Signs: Blood pressure 128/58, pulse 62 and irregular, respirations around 16 and comfortable, the patient is afebrile. Lungs: Clear to auscultation anteriorly. Abdomen: Soft. Extremities: Do not reveal any edema. Laboratory Data: Reviewed. Labs show WBC count of 5.9, hemoglobin 7.4, hematocrit 23.2, platelet co unt of 152. Chemistries show sodium 145, potassium 4.9, chloride 116, bicarb 23, BUN 29, creatinine 2.6. This is significantly improved compared to yesterday when her creatinine was 3.27. Triglycerid es at 117, cholesterol at 180, LDL 101, HDL 56. Assessment And Plan: The patient with history of diabetes, hypertension, question of chronic kidney disease, presents with some chest fluttering with a history of atrial fibrillation. The patient is c urrently rate controlled. She is in atrial fibrillation. Has been evaluated by comprehensive advisor in the past. The patient denies any chest pain currently. She seems to be breathing comfortably. She does not seem to be having any volume overload. In fact, she seems to be slightly volume depleted. She was given normal saline overnight and has improved with that with creatinine going down to 2.6 range. At this point, her sodium is 145. She will benefit likely from some more fluid repletion, but we w ill change her IV fluids to gentle D5W at 50 mL an hour for 1 L, reassess tomorrow with BMP. Once ac rupa issues are resolved, we will monitor and check her baseline kidney status and residual kidney fun ction and plan going forward to prevent worsening of her kidney disease. I have advised her not to t angela any NSAIDs including Mobic, ibuprofen, Aleve, Motrin, naproxen. She seems to understand that. A lso discussed with her about salt restriction and following up with a comprehensive advisor. The patient also has been given information of our office and how to make appointment and she explained understanding. BLANCA Voice ID: [id number] Report ID: [id number]
--- NOTE | 2021-05-31 16:59 | P.PN ---
Subjective Date of Service: 05/31/21 Chief Complaint: JERRY, chest pain Subjective: Improving (feels better, still with slight chest pain, weakness, denies bleeding) Review of Systems 10-point ROS is otherwise unremarkable Physical Examination - Vital Signs Temperature: 98.5 F Blood Pressure: 135/64 Pulse: 60 Respirations: 16 Pulse Ox (%): 98 Assessment & Plan Physician Review Additional Text: Physical Exam General: AAOx3 HEENT: normal conjunctiva, sclera anicteric Respiratory: Clear to auscultation bilaterally, Normal air movement Cardiovascular: Normal pulses, Normal S1 S2 Gastrointestinal: soft, nontender, nondistended Integumentary: No rashes Neurological: normal speech and affect Problem List JERRY on CKD 4 Hyperkalemia Chest pain Abdominal pain GERD Anemia of chronic disease, iron deficiency CAD s/p UT DM2 with neuropathy HTN -on IVF with some improvement. nephrology consulted -suspect due prerenal -with hyperkalemia, improved after treatment -chest pain improved but persists -cardiology consulted, trend trop -anemia workup ordered -continue eliquis, bystolic -continue gabapentin, statin Code: full Dispo: anticipate dc home in ~1-2 days Time Spent Managing Pts Care (In Minutes): 35
[2021-06-01 05:50] LABS: Hematocrit 23.4 % (36.0-45.0); MPV 8.5 fL (7.6-11.3); RBC Red Blood Cell Count 2.84 M/uL (3.86-4.86)
[2021-06-01 06:03] LABS: Phosphorus 2.8 mg/dL (2.5-4.9); Potassium 3.9 mmol/L (3.5-5.1)
[2021-06-01] MEDS: INSULIN -REGULAR HUMAN 50 UNIT/0.5 ML ML SQ SCH ×2 (07:30→11:30)
[2021-06-01] MEDS ORDERED: POTASSIUM CL SA 10 MEQ TAB PO ONE (09:00)
[2021-06-01] MEDS ORDERED: NEBIVOLOL HCL 5 MG TAB PO SCH (09:00)
[2021-06-01] MEDS: APIXABAN 2.5 MG TABLET PO SCH (09:50)
[2021-06-01] MEDS: ASPIRIN 81 MG CHEWABLE TABLET PO SCH (09:51)
[2021-06-01 10:01] VITALS: O2SAT 99
[2021-06-01 13:07] VITALS: BP 149/63; TEMP 97.9
--- NOTE | 2021-06-01 13:39 | P.DS ---
Admission Date: 05/30/21 Discharge Date: 06/01/21 Disposition: DC HOME/HOME HEALTH CARE Discharge Condition: FAIR Reason for Admission: JERRY, chest pain Consultations: Nephrology-Dr. Nirav Lemons Cardiology-Dr. Tesfaye - Problems (1) Acute worsening of stage 3 chronic kidney disease Current Visit: Yes Status: Acute (2) Atrial fibrillation Current Visit: Yes Status: Acute (3) Chest pain Onset Date: 02/17/15 Current Visit: No Status: Acute Qualifiers: Chest pain type: unspecified Qualified Code(s): R07.9 - Chest pain, unspecified (4) Diabetes mellitus Current Visit: No Status: Acute Qualifiers: Diabetes mellitus type: type 2 Diabetes mellitus halfway insulin use: without rat exterminator use Diabetes mellitus complication status: with kidney complications Diabetes mellitus complication detail: with chronic kidney disease Chronic kidney disease stage: stage 3 (moderate) Qualified Code(s): E11.22 - Type 2 diabetes mellitus with diabetic chronic kidney disease; N18.3 - Chronic kidney disease, stage 3 (moderate) Brief History of Present Illness: 75-year-old female with a past medical history significant for A. fib, MD, DM 2 neuropathy, gout, hypertension, CKD who presented to the ED with complaint of a 10/10 chest pain located in the left chest area. Patient also reported epigastric pain that has been going for the past 2 months but became worse in the 2 days ago. Symptoms associated with diaphoresis, palpitations, shortness of breath, dizziness and lightheadedness. Initial troponin negative. Patient hospitalized for further management. Hospital Course: Patient admitted to the medical floor. Troponin trended negative. She developed transient atrial fibrillation. Patient seen and evaluated by cardiology. She is already on anticoagulation with Eliquis which was continued. He was hydrated with IV fluid. JERRY improved with treatment and serum creatinine has improved close to baseline. Hemoglobin home run between 8 and 7. No blood transfusion given. Nephrology saw and evaluated patient and give her a dose of Procrit. Patient has clinically improved, no chest pain today, she has no complain and deemed stable for discharge. Vital Signs/Physical Exam: Temp Pulse Resp BP Pulse Ox 97.9 F 65 18 149/63 H 99 06/01/21 12:00 06/01/21 12:00 06/01/21 12:00 06/01/21 12:00 06/01/21 12:00 General: Alert, In no apparent distress, Oriented x3 HEENT: Mucous membr. moist/pink Neck: Supple, JVD not distended Respiratory: Clear to auscultation bilaterally, Normal air movement Cardiovascular: No edema, Regular rate/rhythm, Normal S1 S2 Capillary refill: <2 Seconds Gastrointestinal: Soft and benign Musculoskeletal: No swelling Integumentary: No breakdown Neurological: Normal strength at 5/5 x4 extr Lymphatics: No axilla or inguinal lymphadenopathy Laboratory Data at Discharge: WBC 4.30 K/uL (4.3-10.9) D 06/01/21 05:37 Hgb 7.6 g/dL (12.0-15.0) L 06/01/21 05:37 Hct 23.4 % (36.0-45.0) L 06/01/21 05:37 Plt Count 173 K/uL (152-406) 06/01/21 05:37 PT 24.4 SECONDS (9.5-12.5) H 05/30/21 13:50 INR 2.11 05/30/21 13:50 Sodium 143 mmol/L (136-145) 06/01/21 05:37 Sodium Cancelled 06/01/21 05:37 Potassium 3.9 mmol/L (3.5-5.1) 06/01/21 05:37 Potassium Cancelled 06/01/21 05:37 BUN 33 mg/dL (7-18) H 06/01/21 05:37 BUN Cancelled 06/01/21 05:37 Creatinine 2.02 mg/dL (0.55-1.3) H 06/01/21 05:37 Creatinine Cancelled 06/01/21 05:37 Glucose 98 mg/dL (74-106) 06/01/21 05:37 Glucose Cancelled 06/01/21 05:37 Phosphorus 2.8 mg/dL (2.5-4.9) 06/01/21 05:37 Magnesium 2.0 mg/dL (1.8-2.4) 06/01/21 05:37 Total Bilirubin 0.2 mg/dL (0.2-1.0) 05/30/21 13:50 AST 25 U/L (15-37) 05/30/21 13:50 ALT 33 U/L (12-78) 05/30/21 13:50 Alkaline Phosphatase 93 U/L (45-117) 05/30/21 13:50 Troponin I < 0.02 ng/mL (0.0-0.045) 05/31/21 12:15 Triglycerides 117 mg/dL (<150) 05/31/21 06:20 Cholesterol 180 mg/dL (<200) 05/31/21 06:20 HDL Cholesterol 56 mg/dL (40-60) 05/31/21 06:20 Cholesterol/HDL Ratio 3.21 05/31/21 06:20 Lipase 233 U/L (73-393) 05/30/21 13:50 Home Medications: Apixaban [Eliquis *] 2.5 mg PO BID 06/16/19 Atorvastatin Calcium [Lipitor*] 10 mg PO BEDTIME 06/16/19 Esomeprazole Mag Trihydrate [Nexium] 40 mg PO DAILY 06/16/19 Febuxostat [Uloric] 40 mg PO DAILY 06/16/19 Gabapentin 300 mg PO BID PRN 06/16/19 LORazepam [Ativan*] 0.5 mg PO BID 06/16/19 Linagliptin [Tradjenta] 5 mg PO DAILY 06/16/19 Nebivolol HCl [Bystolic*] 5 mg PO DAILY 06/16/19 Diet: ADA Activity: Ad cleopatra Followup: NONE,NONE [Primary Care Provider] - RAVI GALE [UNKNOWN] - 1-2 Weeks Time spent managing pt's care (in minutes): 37
--- NOTE | 2021-06-01 16:26 | PN ---
Date of Progress Note: 06/01/2021 Subjective: The patient is alert, awake and comfortable. She denies any headache, nausea, or vomiti ng. She recognizes me from my visit yesterday. She is in regular rhythm. Objective: Vital Signs: Currently on my exam, her heart rate is about 60, her breathing is about 14 and comfortable. Her blood pressures have been in the 120-130 systolic range. Last blood pressure was elevated at 165/70, but all other blood pressure readings have been 129/60, last one before that 135/64, before that 134/58, before that 123/70, pulse 60 and regular. The patient is afebrile, O2 sa ts are 99% on room. Lungs: Clear to auscultation bilaterally. Abdomen: Soft. Bowel sounds are heard. Extremities: Reveal no edema. Laboratory Data: Reviewed. WBC count 4.3; hemoglobin 7.6, this is stable compared to yesterday when it was 7.4, before that it was 8.0; hematocrit 23.4; platelet counts of 173. Chemistries show sodiu m 143, potassium 3.9, chloride 113, bicarb is 25, BUN 33, creatinine 2.02. Creatinine seems to have improved from 3.27 on admission. Assessment And Plan: The patient is with acute kidney injury in the setting of volume depletion in t he setting of atrial fibrillation, now in regular rhythm, comfortable, alert, awake. Volume status s eems to be close to her baseline. The patient is advised to keep fluid intake adequate and balanced. Follow up with Dr. Patel who has worked her up recently for her atrial fibrillation and is follow ing her. The patient also has an appointment with Dr. Almazan for her knee evaluation. The patien t will follow up with her orthopedic doctor, with her gold wheel blocker and polisher. Also, advised her to follow up w ith primary care physician. I have given her information to make appointment to follow up with us fr om her kidneys point of view and evaluation for that. I have advised her that her creatinine is stil l elevated, her kidney function is still not back to perhaps her baseline, and she would need evaluat ion of her residual kidney function and monitoring and treatment for not going forward. Also, her he moglobin is on the lower side. She has been on anticoagulation for atrial fibrillation. She will ne ed a repeat lab work to assess and monitor diet. I have advised her to make sure she is following up with the primary care physician and also with the gold wheel blocker and polisher so that this gets followed. I also d iscussed the case with Dr. Aparicio, the hospitalist. /ISA Voice ID: [id number] Report ID: [id number]
== END 2021-06-01 14:16 | disposition home health service (06) | DRG 684 ==
LOC: ER 13:16 → ERHOLD 17:22 → 2ND 22:23
PROVIDERS: ADMIT Hospitalist; ATTEND Internal Medicine
DX: N17.9 Acute kidney failure, unspecified (principal); E87.5 Hyperkalemia; I12.9 Hypertensive chronic kidney disease with stage 1 through stage 4 chronic kidney disease, or unspecified chronic kidney disease; N18.30 Chronic kidney disease, stage 3 unspecified; E11.22 Type 2 diabetes mellitus with diabetic chronic kidney disease; E11.65 Type 2 diabetes mellitus with hyperglycemia; E11.40 Type 2 diabetes mellitus with diabetic neuropathy, unspecified; K21.9 Gastro-esophageal reflux disease without esophagitis; I48.0 Paroxysmal atrial fibrillation; H54.8 Legal blindness, as defined in USA; E78.5 Hyperlipidemia, unspecified; D50.9 Iron deficiency anemia, unspecified; E86.9 Volume depletion, unspecified; I25.10 Atherosclerotic heart disease of native coronary artery without angina pectoris; M10.9 Gout, unspecified; I25.2 Old myocardial infarction; D63.8 Anemia in other chronic diseases classified elsewhere; R10.9 Unspecified abdominal pain; R07.9 Chest pain, unspecified; R00.2 Palpitations; Z88.5 Allergy status to narcotic agent; Z88.8 Allergy status to other drugs, medicaments and biological substances; Z79.82 Long term (current) use of aspirin; Z79.01 Long term (current) use of anticoagulants; Z79.899 Other long term (current) drug therapy; Z90.710 Acquired absence of both cervix and uterus; Z87.891 Personal history of nicotine dependence; Z20.822 Contact with and (suspected) exposure to COVID-19
CPT/HCPCS: 36415; 51702; 71045; 71250; 74176; 80048; 80061; 80076; 81003; 82607; 82728; 82746; 82947; 83010; 83036; 83540; 83615; 83690; 83735; 83880; 84100; 84132; 84466; 84484; 85025; 85027; 85610; 86850; 86900; 86901; 93005; 99285; J0610; J7030; Q5106; U0003

== ENCOUNTER 2022-01-27 12:09 | Emergency (ER) | payer OTHER ==
[2022-01-27] MEDS ORDERED: TRAMADOL HCL 50 MG TAB ONE (14:48)
[2022-01-27 14:53] LABS: Absolute Lymphocytes (CBC) 1.7 K/uL (0.7-4.9); Hematocrit 30.3 % (36.0-45.0); Lymphocytes % 34.9 % (15.3-44.8); MPV 8.6 fL (7.6-11.3); RBC Red Blood Cell Count 3.64 M/uL (3.86-4.86)
[2022-01-27 14:55] LABS: Protime INR 1.2
--- NOTE | 2022-01-27 15:21 | RAD REPORT ---
EXAM DESCRIPTION: US - Extremity Venous Uni Ltd - 01/27/2022 3:04 pm CLINICAL HISTORY: Pain;Swelling COMPARISON: None. TECHNIQUE: Real-time sonographic evaluation of the right lower extremity deep venous systems was per formed. FINDINGS: Normal compressibility, flow augmentation, phasic flow and spontaneous flow are identified in the right lower extremity common femoral, superficial femoral, popliteal and posterior tibial vei ns. No intraluminal filling defects seen. IMPRESSION: No DVT in the right lower extremity.
[2022-01-27 15:33] LABS: Albumin 3.4 g/dL (3.4-5.0); Bilirubin Total 0.2 mg/dL (0.2-1.0); Potassium 4.3 mmol/L (3.5-5.1); Protein, Total 7.6 g/dL (6.4-8.2)
--- NOTE | 2022-01-27 16:18 | EDPHYS ---
Physician Documentation [facility] Name: Patti Frey Age: 76 yrs Sex: Female : 1945 Arrival Date: 01/27/2022 Time: 12:17 Bed 19 Private MD: Jesu Vallecillo E ED Physician Vj Aldana HPI: 01/27 17:17 This 76 yrs old Black Female presents to ER via Ambulatory with complaints of Leg kdr Swelling, Leg Pain. 17:17 The patient presents with pain, that is acute, swelling, tenderness. The complaints kdr affect the lateral aspect of right calf and right calf. Context: The problem was sustained at home, resulted from an unknown cause, the patient can fully bear weight, the patient is able to ambulate, Problem is a result from a previous injury: No. Onset: The symptoms/episode began/occurred suddenly, just prior to arrival, this morning. Modifying factors: The symptoms are alleviated by nothing. the symptoms are aggravated by movement, weight bearing. Associated signs and symptoms: The patient has no apparent associated signs or symptoms. Treatment prior to arrival includes: no previous treatment. Severity of symptoms: At their worst the symptoms were mild, in the emergency department the symptoms are unchanged. The patient has not experienced similar symptoms in the past. The patient has not recently seen a physician. Denies anyPatient states that this morning when she got out of the shower she had Prezas lotion on her legs, she noted that her right calf was tender and swollen. She has not had this before. She also had pain in her toes. No other focal or global symptoms. She is nontoxic-appearing and otherwise stable in the ED.. Historical: - Allergies: 12:40 Codeine; ab2 12:40 Iodine; ab2 - PMHx: 12:40 Arthritis; Atrial Fib; BURSITIS; Diabetes - NIDDM; Gout; Hypertension; ab2 - PSHx: 12:40 Total abdominal hysterectomy; ab2 - Immunization history:: Adult Immunizations up to date. - Social history:: Smoking status: Patient denies any tobacco usage or history of. ROS: 17:17 Constitutional: Negative for fever, chills, and weight loss, Eyes: Negative for injury, kdr pain, redness, and discharge, Neck: Negative for injury, pain, and swelling, Cardiovascular: Negative for chest pain, palpitations, and edema, Respiratory: Negative for shortness of breath, cough, wheezing, and pleuritic chest pain, Abdomen/GI: Negative for abdominal pain, nausea, vomiting, diarrhea, and constipation, Back: Negative for injury and pain, : Negative for injury, bleeding, discharge, and swelling, Skin: Negative for injury, rash, and discoloration, Neuro: Negative for headache, weakness, numbness, tingling, and seizure activity. Psych: Negative for depression, anxiety, suicide ideation, homicidal ideation, and hallucinations, Allergy/Immunology: Negative for hives, rash, and allergies, Endocrine: Negative for neck swelling, polydipsia, polyuria, polyphagia, and marked weight changes, Hematologic/Lymphatic: Negative for swollen nodes, abnormal bleeding, and unusual bruising. 17:17 MS/extremity: Positive for pain, swelling, tenderness, of the right calf. Exam: 17:17 Constitutional: This is a well developed, well nourished patient who is awake, alert, kdr and in no acute distress. Head/Face: Normocephalic, atraumatic. Eyes: Pupils equal round and reactive to light, extra-ocular motions intact. Lids and lashes normal. Conjunctiva and sclera are non-icteric and not injected. Cornea within normal limits. Periorbital areas with no swelling, redness, or edema. Neck: Trachea midline, no thyromegaly or masses palpated, and no cervical lymphadenopathy. Supple, full range of motion without nuchal rigidity, or vertebral point tenderness. No Meningismus. Chest/axilla: Normal chest wall appearance and motion. Nontender with no deformity. No lesions are appreciated. Cardiovascular: Regular rate and rhythm with a normal S1 and S2. No gallops, murmurs, or rubs. Normal PMI, no JVD. No pulse deficits. Respiratory: Lungs have equal breath sounds bilaterally, clear to auscultation and percussion. No rales, rhonchi or wheezes noted. No increased work of breathing, no retractions or nasal flaring. Abdomen/GI: Soft, non-tender, with normal bowel sounds. No distension or tympany. No guarding or rebound. No evidence of tenderness throughout. Back: No spinal tenderness. No costovertebral tenderness. Full range of motion. Skin: Warm, dry with normal turgor. Normal color with no rashes, no lesions, and no evidence of cellulitis. Neuro: Awake and alert, GCS 15, oriented to person, place, time, and situation. Cranial nerves II-XII grossly intact. Motor strength 5/5 in all extremities. Sensory grossly intact. Cerebellar exam normal. Normal gait. Psych: Awake, alert, with orientation to person, place and time. Behavior, mood, and affect are within normal limits. 17:17 Musculoskeletal/extremity: ROM: no acute changes, Circulation is intact in all extremities. Calves: are tender, on right. Vital Signs: 12:36 BP 179 / 74; Pulse 58; Resp 16; Temp 97.3(TE); Pulse Ox 98% on R/A; Weight 85.73 kg; ab2 Height 5 ft. 0 in. (152.40 cm); Pain 6/10; 14:00 BP 160 / 89; Pulse 52; Resp 15; Pulse Ox 100% ; bp 15:00 BP 176 / 70; Pulse 55; Resp 12; Pulse Ox 99% ; bp 16:35 BP 168 / 70; Pulse 55; Resp 13; Pulse Ox 100% ; bp 12:36 Body Mass Index 36.91 (85.73 kg, 152.40 cm) ab2 MDM: 16:17 Patient medically screened. kdr 17:17 Data reviewed: vital signs, nurses notes, lab test result(s), radiologic studies. kdr Counseling: I had a detailed discussion with the patient and/or guardian regarding: the historical points, exam findings, and any diagnostic results supporting the discharge/admit diagnosis, lab results, radiology results, the need for outpatient follow up. 01/27 13:57 Order name: CBC with Diff; Complete Time: 15:59 kdr 01/27 13:57 Order name: CMP; Complete Time: 15:59 kdr 01/27 13:57 Order name: PT-INR; Complete Time: 14:59 kdr 01/27 13:57 Order name: D-Dimer; Complete Time: 14:59 kdr 01/27 13:57 Order name: US Extremity Venous Unilateral Ltd; Complete Time: 15:59 kdr Administered Medications: 14:20 Drug: traMADol 50 mg Route: PO; bp 15:17 Follow up: Response: No adverse reaction; Pain is decreased bp Disposition Summary: 01/27/22 16:17 Discharge Ordered Location: Home kdr Problem: new kdr Symptoms: have improved kdr Condition: Stable kdr Diagnosis - Lower extremity pain and swelling, right calf kdr Followup: kdr - With: Jesu Vallecillo MD - When: 2 - 3 days - Reason: If symptoms return, Further diagnostic work-up, Recheck today's complaints, Continuance of care, Re-evaluation by your physician Discharge Instructions: - Discharge Summary Sheet kdr - Leg Cramps kdr - Paresthesia, Cbia-or-Hisc kdr Forms: - Medication Reconciliation Form kdr - Thank You Letter kdr Prescriptions: - Tylenol 325 mg Oral Tablet - take 2 tablets by ORAL route every 6 hours as needed; 1 bottle; Refills: 0, kdr Product Selection Permitted Signatures: Dispatcher [employer] EDMS Vj Aldana MD MD kdr Mat Garay, ADE RN Blu Ocampo
--- NOTE | 2022-01-27 16:18 | ER ---
Nurse's Notes [facility] Name: Patti Frey Age: 76 yrs Sex: Female : 1945 Arrival Date: 01/27/2022 Time: 12:17 Bed 19 Private MD: Jesu Vallecillo E Diagnosis: Lower extremity pain and swelling, right calf Presentation: 01/27 12:36 Chief complaint: Patient states: "This morning I was putting lotion on my legs and ab2 noticed my right calf was swollen and now my toes are hurting.". Coronavirus screen: Vaccine status: Patient reports receiving the 2nd dose of the covid vaccine. Client denies travel out of the [place] in the last 14 days. At this time, the client does not indicate any symptoms associated with coronavirus-19. Ebola Screen: Patient negative for fever greater than or equal to 101.5 degrees Fahrenheit, and additional compatible Ebola Virus Disease symptoms Patient denies exposure to infectious person. Patient denies travel to an Ebola-affected area in the 21 days before illness onset. No symptoms or risks identified at this time. Initial Sepsis Screen: Does the patient meet any 2 criteria? No. Patient's initial sepsis screen is negative. Does the patient have a suspected source of infection? No. Patient's initial sepsis screen is negative. Risk Assessment: Do you want to hurt yourself or someone else? Patient reports no desire to harm self or others. Onset of symptoms is unknown. 12:36 Method Of Arrival: Ambulatory ab2 12:36 Acuity: EMELIA 3 ab2 Triage Assessment: 12:40 General: Appears in no apparent distress. uncomfortable, Behavior is calm, cooperative, ab2 appropriate for age. Pain: Complains of pain in right foot and right leg. 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 Gait is steady. Cardiovascular: No deficits noted. Denies chest pain, shortness of breath, Patient's skin is warm and dry. Respiratory: No deficits noted. Airway is patent Respiratory effort is even, unlabored, Respiratory pattern is regular, symmetrical. GI: No deficits noted. No signs and/or symptoms were reported involving the gastrointestinal system. Derm:. Musculoskeletal: Reports pain in right foot and right leg. Historical: - Allergies: 12:40 Codeine; ab2 12:40 Iodine; ab2 - PMHx: 12:40 Arthritis; Atrial Fib; BURSITIS; Diabetes - NIDDM; Gout; Hypertension; ab2 - PSHx: 12:40 Total abdominal hysterectomy; ab2 - Immunization history:: Adult Immunizations up to date. - Social history:: Smoking status: Patient denies any tobacco usage or history of. Screenin:00 Abuse screen: Denies threats or abuse. Denies injuries from another. Nutritional bp screening: No deficits noted. Tuberculosis screening: No symptoms or risk factors identified. Fall Risk None identified. Assessment: 12:40 General: SEE TRIAGE NOTE. bp 14:00 Reassessment: No changes from previously documented assessment. Patient and/or family bp updated on plan of care and expected duration. Pain level reassessed. 15:00 Reassessment: No changes from previously documented assessment. Patient and/or family bp updated on plan of care and expected duration. Pain level reassessed. U/S COMPLETE. 16:35 Reassessment: PT D/C HOME VIA W/C, DX WITH RIGHT CALF PAIN/SWELLING. bp Vital Signs: 12:36 BP 179 / 74; Pulse 58; Resp 16; Temp 97.3(TE); Pulse Ox 98% on R/A; Weight 85.73 kg; ab2 Height 5 ft. 0 in. (152.40 cm); Pain 6/10; 14:00 BP 160 / 89; Pulse 52; Resp 15; Pulse Ox 100% ; bp 15:00 BP 176 / 70; Pulse 55; Resp 12; Pulse Ox 99% ; bp 16:35 BP 168 / 70; Pulse 55; Resp 13; Pulse Ox 100% ; bp 12:36 Body Mass Index 36.91 (85.73 kg, 152.40 cm) ab2 ED Course: 12:17 Patient arrived in ED. am2 12:17 Jesu Vallecillo MD is Private Physician. am2 12:39 Triage completed. ab2 12:40 Arm band placed on right wrist. ab2 13:04 jV Aldana MD is Attending Physician. kdr 13:40 Mat Garay, ADE is Primary Nurse. bp 14:00 Patient has correct armband on for positive identification. Bed in low position. Call bp light in reach. Side rails up X2. 14:00 Inserted saline lock: 22 gauge in right antecubital area, using aseptic technique. bp Blood collected. 15:06 US Extremity Venous Unilateral Ltd In Process Unspecified. EDMS 16:16 Jesu Vallecillo MD is Referral Physician. kdr 16:35 No provider procedures requiring assistance completed. IV discontinued, intact, bp bleeding controlled, No redness/swelling at site. Pressure dressing applied. Administered Medications: 14:20 Drug: traMADol 50 mg Route: PO; bp 15:17 Follow up: Response: No adverse reaction; Pain is decreased bp Outcome: 16:17 Discharge ordered by . kdr 16:35 Discharged to home via wheelchair. bp 16:35 Condition: stable 16:35 Discharge instructions given to patient, Instructed on discharge instructions, follow up and referral plans. medication usage, Demonstrated understanding of instructions, follow-up care, medications, Prescriptions given X 1. 16:37 Patient left the ED. bp Signatures: Dispatcher [employer] EDTN Vj Aldana MD MD kdr Luiza Cai am2 Mat Garay, RN RN bp Blu Ann2
[2022-01-27 20:16] VITALS: TEMP 97.3
[2022-01-27 20:21] VITALS: BP 168/70; O2SAT 100
--- NOTE | 2022-01-28 07:47 | EKG ---
Test Date: 2022-01-27 Test Time: 14:11:37 Curriculum Manager: JEN MEASUREMENT RESULTS: Intervals: Rate: 53 OR: 186 QRSD: 148 QT: 522 QTc: 489 [place]: P: 54 OR: 186 QRS: -39 T: 33 INTERPRETIVE STATEMENTS: Sinus bradycardia Left axis deviation Left ventricular hypertrophy with QRS widening Abnormal ECG Compared to ECG 05/30/2021 13:28:29 Sinus arrhythmia no longer present Electronically Signed On 01-28-22 07:46:01 CDT by Chapito Tesfaye
== END 2022-01-27 16:37 | disposition home or self-care (01) ==
LOC: ER 12:09
DX: M79.661 Pain in right lower leg (principal); R22.41 Localized swelling, mass and lump, right lower limb; E11.9 Type 2 diabetes mellitus without complications; I10 Essential (primary) hypertension; Z88.5 Allergy status to narcotic agent; Z91.048 Other nonmedicinal substance allergy status
CPT/HCPCS: 36415; 80053; 85025; 85379; 85610; 93005; 93971; 99284

== ENCOUNTER 2022-09-05 08:40 | Emergency (ER) | payer OTHER ==
--- NOTE | 2022-09-05 09:31 | RAD REPORT ---
EXAM DESCRIPTION: CT - Head C Spine Mpr Wo Con - 09/05/2022 9:14 am CLINICAL HISTORY: Head and neck injury status post fall. Head and neck pain COMPARISON: 2019 TECHNIQUE: Computed axial tomography of the head and cervical spine was obtained. Sagittal and coronal reconstruction was performed. All CT scans are performed using dose optimization technique as appropriate and may include automated exposure control or mA/KV adjustment according to patient size. FINDINGS: An intracranial bleed is not seen. Mild to moderate low-density areas within periventricul ar, deep and subcortical white matter likely ischemic changes secondary to small vessel disease The ventricles are normal in caliber. An extra-axial fluid collection is not noted.Fluid within the v isualized sinuses and mastoids is not seen 1.8 centimeter nodule left lobe thyroid gland Fullness right base tongue./right oropharynx A cervical fracture is not visualized. No dislocation is noted. IMPRESSION: No acute intracranial abnormality is seen. A cervical fracture is not visualized. If the patient continues to have symptoms to suggest intracra nial /spinal cord pathology then MRI would be recommended Fullness right base of tongue/right oropharynx may be secondary to a mass. Direct visualization recom mended 1.8 centimeter nodule left lobe thyroid gland. Nonemergent thyroid ultrasound recommended
--- NOTE | 2022-09-05 09:35 | RAD REPORT ---
EXAM DESCRIPTION: CT - Facial Bones W/ Mpr - 09/05/2022 9:14 am CLINICAL HISTORY: Facial injury status post fall COMPARISON: None TECHNIQUE: Computed axial tomography of the face was obtained. Coronal and sagittal reconstruction w as performed. All CT scans are performed using dose optimization technique as appropriate and may include automated exposure control or mA/KV adjustment according to patient size. FINDINGS: A fracture is not seen. A TMJ dislocation is not noted. The globes are intact. Right preseptal swelling Fluid within the sinuses is not seen. IMPRESSION: Negative for a facial fracture.
--- NOTE | 2022-09-05 10:01 | RAD REPORT ---
EXAM DESCRIPTION: RAD - Shoulder Right 2 View - 09/05/2022 9:53 am CLINICAL HISTORY: Right shoulder pain FINDINGS: No fracture or dislocation is seen.
--- NOTE | 2022-09-05 10:02 | RAD REPORT ---
EXAM DESCRIPTION: RAD - Knee Right 3 View - 09/05/2022 9:53 am CLINICAL HISTORY: Right knee pain status post injury FINDINGS: No fracture or dislocation is seen. Moderate to marked osteoarthritis medial compartment
--- NOTE | 2022-09-05 10:03 | RAD REPORT ---
EXAM DESCRIPTION: RAD - Knee Left 3 View - 09/05/2022 9:53 am CLINICAL HISTORY: Left knee pain FINDINGS: No fracture or dislocation is seen. Moderate to marked osteoarthritis medial compartment
--- NOTE | 2022-09-05 10:28 | EDPHYS ---
Physician Documentation [facility] Name: Patti Frey Age: 76 yrs Sex: Female : 1945 Arrival Date: 09/05/2022 Time: 08:42 Bed 2 Private MD: ED Physician Jax Ruvalcaba HPI: 09/05 08:47 This 76 yrs old Black Female presents to ER via Unassigned with complaints of facial rn injury, fall. 08:47 The patient or guardian reports pain, swelling, tenderness. The complaints affect the rn right eye and right cheek. Onset: The symptoms/episode began/occurred 5 day(s) ago. Associated signs and symptoms: Loss of consciousness: This patient did not experience any loss of consciousness. Pertinent positives: headache, Pertinent negatives: seizure, shortness of breath, vomiting. Severity of symptoms: At their worst the symptoms were moderate, in the emergency department the symptoms are unchanged. The patient has not experienced similar symptoms in the past. The patient has not recently seen a physician. Pt reports fell last , from standing, hit face on floor, no LOC, no vomiting, + ALVARADO, no seizure. Takes eliquis. Seen by her gear and spline grinder after the fall and told eye ok, is in line for corneal transplant on right eye and just had surgery on left eye. Reports headache worse today, right face still swollen, right shoulder and knees hurting so came in for evaluation.. Historical: - Allergies: 09:03 Codeine; ph 09:03 Iodine; ph - PMHx: 09:03 Arthritis; Atrial Fib; BURSITIS; Diabetes - NIDDM; Gout; Hypertension; ph - PSHx: 09:03 Total abdominal hysterectomy; ph - Immunization history:: Adult Immunizations unknown. - Social history:: Smoking status: Patient denies any tobacco usage or history of. - Immunization history: Last tetanus immunization: unknown. - Family history:: not pertinent. - Hospitalizations: : No recent hospitalization is reported. ROS: 08:47 Constitutional: Negative for fever, chills, and weight loss, Eyes: + right periocular rn swelling and injury ENT: Negative for injury, pain, and discharge, Neck: Negative for injury, pain, and swelling, Cardiovascular: Negative for chest pain, palpitations, and edema, Respiratory: Negative for shortness of breath, cough, wheezing, and pleuritic chest pain, Abdomen/GI: Negative for abdominal pain, nausea, vomiting, diarrhea, and constipation, Back: Negative for injury and pain, MS/Extremity: + right shoulder and both knees hurt from fall Skin: Negative for injury, rash, and discoloration, Neuro: + headache, no focal weakness or numbness Exam: 08:47 Constitutional: This is a well developed, well nourished patient who is awake, alert, rn and in no acute distress. Head/Face: + right facial swelling and ecchymosis around right eye Eyes: + right periorbital swelling and ecchymosis, no hyphema, no open globe. ENT: No oral injury. Neck: Trachea midline. Supple, full range of motion without nuchal rigidity, or vertebral point tenderness. No Meningismus. Cardiovascular: Regular rate and rhythm. No pulse deficits. Respiratory: No increased work of breathing, no retractions or nasal flaring. Abdomen/GI: Soft, non-tender Back: No spinal tenderness. Skin: Warm, dry MS/ Extremity: Pulses equal, no cyanosis. Neurovascular intact. Full, normal range of motion. Equal circumference. Neuro: Awake and alert, GCS 15 10:51 ECG was reviewed by the Attending Physician. rn Vital Signs: 08:59 BP 166 / 64; Pulse 50; Resp 18; Temp 98.4; Pulse Ox 98% on R/A; Weight 85.73 kg; Height ph 5 ft. 0 in. (152.40 cm); 09:51 BP 160 / 64; Pulse 60; Resp 17; Pulse Ox 100% on R/A; tw2 10:34 BP 177 / 77; Pulse 54; Resp 18; Temp 97.9; Pulse Ox 99% on R/A; ph 08:59 Body Mass Index 36.91 (85.73 kg, 152.40 cm) ph [place] Coma Score: 08:47 Eye Response: spontaneous(4). Verbal Response: oriented(5). Motor Response: obeys rn commands(6). Total: 15. 09:07 Eye Response: spontaneous(4). Verbal Response: oriented(5). Motor Response: obeys ph commands(6). Total: 15. 10:24 Eye Response: spontaneous(4). Verbal Response: oriented(5). Motor Response: obeys rn commands(6). Total: 15. 10:34 Eye Response: spontaneous(4). Verbal Response: oriented(5). Motor Response: obeys ph commands(6). Total: 15. Trauma Score (Adult): 09:07 Eye Response: spontaneous(1); Verbal Response: oriented(1); Motor Response: obeys ph commands(2); Systolic BP: > 89 mm Hg(4); Respiratory Rate: 10 to 29 per min(4); [place] Score: 15; Trauma Score: 12 10:34 Eye Response: spontaneous(1); Verbal Response: oriented(1); Motor Response: obeys ph commands(2); Systolic BP: > 89 mm Hg(4); Respiratory Rate: 10 to 29 per min(4); [place] Score: 15; Trauma Score: 12 MDM: 08:42 Patient medically screened. rn 10:24 Differential diagnosis: Contusion of Hematoma on Intracranial bleed- Concussion rn cerebral contusion. Data reviewed: vital signs, nurses notes, radiologic studies, CT scan, plain films. Counseling: I had a detailed discussion with the patient and/or guardian regarding: the historical points, exam findings, and any diagnostic results supporting the discharge/admit diagnosis, radiology results, the need for outpatient follow up, to return to the emergency department if symptoms worsen or persist or if there are any questions or concerns that arise at home. Response to treatment: the patient's symptoms have mildly improved after treatment, and as a result, I will discharge patient. Special discussion: Based on the patient's history, exam and DX evaluation, there is no indication for emergent intervention or inpatient [place]. It is understood by the patient/guardian that if the SXs persist or worsen they need to return immediately for re-evaluation. I discussed with the patient/guardian in detail that at this point there is no indication for admission to the hospital. It is understood, however, that if the symptoms persist or worsen the patient needs to return immediately for re-evaluation. Based on the history and exam findings, there is no indication for further emergent testing or inpatient evaluation. I discussed with the patient/guardian the need to see the ENT specialist for further evaluation of the symptoms. ED course: Pt with neg plain films and CT head/cspine/face. Unable to obtain blood but patient really just here for pain and swelling. Notified of incidental mass at base of tongue and need to f/u with ENT. Return precautions given and understood. . 09/05 08:44 Order name: CT Head C Spine; Complete Time: 10: rn 09/05 08:44 Order name: CT Facial Bones W/O Con; Complete Time: 10: rn 09/05 08:44 Order name: XRAY Shoulder RIGHT 2 view; Complete Time: 10: rn 09/05 08:44 Order name: XRAY Knee LEFT 3 view; Complete Time: 10: rn 09/05 08:44 Order name: XRAY Knee RIGHT 3 view; Complete Time: 10: rn 09/05 08:44 Order name: Cardiac monitoring; Complete Time: 10: rn 09/05 08:44 Order name: EKG; Complete Time: 08:45 rn 09/05 08:44 Order name: EKG - Nurse/Tech; Complete Time: 10: rn EC:51 Rate is 60 beats/min. Rhythm is regular. QRS [place] is Normal. OR interval is normal. QRS rn interval is normal. QT interval is normal. No Q waves. T waves are Normal. No ST changes noted. Clinical impression: NSR w/ Non-specific ST/T Changes. Interpreted by me. Reviewed by me. Administered Medications: 10:50 Drug: Ondansetron 4 mg Route: PO; tw2 10:54 Follow up: Response: No adverse reaction tw2 10:50 Drug: morphine 4 mg {Note: RASS 0. pt states "i have had this before".} Route: IM; tw2 Site: right deltoid; 10:54 Follow up: Response: No adverse reaction tw2 Disposition Summary: 09/05/22 10:27 Discharge Ordered Location: Home rn Problem: new rn Symptoms: have improved rn Condition: Stable rn Diagnosis - Contusion of unspecified part of head, initial encounter rn - Strain of other muscles, fascia and tendons at shoulder and upper arm level, right rn arm - Contusion of left knee rn - Contusion of right knee rn Followup: rn - With: Zoila Tejada MD - When: 5 - 6 days - Reason: Further diagnostic work-up, Recheck today's complaints, Re-evaluation by your physician Discharge Instructions: - Discharge Summary Sheet rn - Contusion rn - Facial or Scalp Contusion rn Forms: - Medication Reconciliation Form rn - Thank You Letter rn - Antibiotic family law attorney - Prescription Opioid Use rn Signatures: Dispatcher [employer] Jax [place] MD MD rn Hall, Patricia, RN RN ph Wise, Tara, ADE RN tw2 Corrections: (The following items were deleted from the chart) 10:28 08:44 IV Saline Lock ordered. rn tw2
--- NOTE | 2022-09-05 10:28 | ER ---
Nurse's Notes [facility] Name: Patti Frey Age: 76 yrs Sex: Female : 1945 Arrival Date: 09/05/2022 Time: 08:42 Bed 2 Private MD: Diagnosis: Contusion of unspecified part of head, initial encounter;Strain of other muscles, fascia and tendons at shoulder and upper arm level, right arm;Contusion of left knee;Contusion of right knee Presentation: 09/05 08:59 Chief complaint: EMS states: Pt reports that she tripped and fell on of last ph week but did not seek medical attention at that time. C/O pain to R shoulder and headache to R side of head, R eye swelling, denies LOC, also denies vomiting but reports nausea. Does take eliquis. Patch to L eye s/p eye sx approx 1 week ago. Coronavirus screen: Vaccine status: Patient reports receiving the 2nd dose of the covid vaccine. Ebola Screen: No symptoms or risks identified at this time. Initial Sepsis Screen: Does the patient meet any 2 criteria? No. Patient's initial sepsis screen is negative. Does the patient have a suspected source of infection? No. Patient's initial sepsis screen is negative. Risk Assessment: Do you want to hurt yourself or someone else? Patient reports no desire to harm self or others. Onset of symptoms was September 05, 2022. 08:59 Method Of Arrival: EMS: [facility] 08:59 Acuity: EMELIA 3 ph 09:07 Care prior to arrival: None. Mechanism of Injury: Fall from standing position. Trauma ph event details: Injury occurred in the [facility], Injury occurred: at home. Injury occurred: September 01, 2022. Triage Assessment: 09:04 General: Appears in no apparent distress. uncomfortable, Behavior is calm, cooperative, ph appropriate for age. Pain: Complains of pain in right cheek and right eye. Pain: Complains of pain in anterior aspect of right shoulder and posterior aspect of right shoulder. Neuro: Level of Consciousness is awake, alert, obeys commands, Oriented to person, place, time, situation, Reports headache in right parietal area, frontal area. Cardiovascular: Capillary refill < 3 seconds in bilateral fingers Patient's skin is warm and dry. Respiratory: Airway is patent Respiratory effort is even, unlabored. GI: Reports nausea, Patient currently denies abdominal pain, vomiting. Derm: Skin is pink, warm \\T\\ dry. Bruising that is bright red, on right eye. Musculoskeletal: Circulation, motion, and sensation intact. Swelling present in right eye. Trauma Activation: Not Applicable Physician: ED Physician; Name: ; Notified At: ; Arrived At: Physician: General Surgeon; Name: ; Notified At: ; Arrived At: Physician: Radiology; Name: ; Notified At: ; Arrived At: Physician: Respiratory; Name: ; Notified At: ; Arrived At: Physician: Lab; Name: ; Notified At: ; Arrived At: Historical: - Allergies: 09:03 Codeine; ph 09:03 Iodine; ph - PMHx: 09:03 Arthritis; Atrial Fib; BURSITIS; Diabetes - NIDDM; Gout; Hypertension; ph - PSHx: 09:03 Total abdominal hysterectomy; ph - Immunization history:: Adult Immunizations unknown. - Social history:: Smoking status: Patient denies any tobacco usage or history of. - Immunization history: Last tetanus immunization: unknown. - Family history:: not pertinent. - Hospitalizations: : No recent hospitalization is reported. Screenin:02 Abuse screen: Denies threats or abuse. Denies injuries from another. Nutritional ph screening: No deficits noted. Tuberculosis screening: No symptoms or risk factors identified. Fall Risk None identified. Primary Survey: 09:06 NO uncontrolled hemorrhage observed. A: The client is awake and alert. The airway is ph patent. Breathing/Chest: Spontaneous respiratory effort, equal unlabored respirations, breath sounds clear bilaterally, regular pattern, symmetrical chest rise and fall. Circulation: No external hemorrhage present. Regular and strong central pulse, skin warm/dry/normal color. Disability Client is alert. Exposure/Environment: Obvious injury(ies) are noted at this time: swelling and bruising to R eye. 10:35 Reassessment Alertness and Airway: Awake and alert. The airway is patent. Breathing: ph Spontaneous respiratory effort, equal unlabored respirations, breath sounds clear bilaterally, regular pattern with symmetrical chest rise and fall. Circulation: No external hemorrhage noted. Regular and strong central pulse, skin warm/dry/normal color. Disability: Alert. Secondary Survey: 09:07 HEENT: Eyes: Edema noted right eye. Ecchymosis noted right eye. Gastrointestinal: ph Patient reports Nausea. Musculoskeletal: Circulation, motion, and sensation intact. Range of motion: intact in all extremities, Reports pain in posterior aspect of right shoulder and anterior aspect of right shoulder. Assessment: 09:00 Reassessment: Pt taken to CT via stretcher. ph 09:05 General: SEE TRIAGE ASSESSMENT. ph 10:19 Reassessment: provider at bedside. aware of 4 unsuccessful attempts to get blood/iv. tw2 provider cancelled blood work at this time. pt agreeable. 10:34 Reassessment: Patient appears in no apparent distress at this time. Patient and/or ph family updated on plan of care and expected duration. Pain level reassessed. Patient is alert, oriented x 3, equal unlabored respirations, skin warm/dry/pink. Vital Signs: 08:59 BP 166 / 64; Pulse 50; Resp 18; Temp 98.4; Pulse Ox 98% on R/A; Weight 85.73 kg; Height ph 5 ft. 0 in. (152.40 cm); 09:51 BP 160 / 64; Pulse 60; Resp 17; Pulse Ox 100% on R/A; tw2 10:34 BP 177 / 77; Pulse 54; Resp 18; Temp 97.9; Pulse Ox 99% on R/A; ph 08:59 Body Mass Index 36.91 (85.73 kg, 152.40 cm) ph [place] Coma Score: 08:47 Eye Response: spontaneous(4). Verbal Response: oriented(5). Motor Response: obeys rn commands(6). Total: 15. 09:07 Eye Response: spontaneous(4). Verbal Response: oriented(5). Motor Response: obeys ph commands(6). Total: 15. 10:24 Eye Response: spontaneous(4). Verbal Response: oriented(5). Motor Response: obeys rn commands(6). Total: 15. 10:34 Eye Response: spontaneous(4). Verbal Response: oriented(5). Motor Response: obeys ph commands(6). Total: 15. Trauma Score (Adult): 09:07 Eye Response: spontaneous(1); Verbal Response: oriented(1); Motor Response: obeys ph commands(2); Systolic BP: > 89 mm Hg(4); Respiratory Rate: 10 to 29 per min(4); [place] Score: 15; Trauma Score: 12 10:34 Eye Response: spontaneous(1); Verbal Response: oriented(1); Motor Response: obeys ph commands(2); Systolic BP: > 89 mm Hg(4); Respiratory Rate: 10 to 29 per min(4); [place] Score: 15; Trauma Score: 12 ED Course: 08:42 Patient arrived in ED. rn 08:42 Jax Ruvalcaba MD is Attending Physician. rn 08:59 Radha Soni RN is Primary Nurse. ph 09:02 Triage completed. ph 09:02 Arm band placed on Patient placed in an exam room, on a stretcher, on monitor technician, ph on pulse oximetry. 09:03 Patient has correct armband on for positive identification. Bed in low position. Call ph light in reach. Side rails up X 1. Pulse ox on. NIBP on. 09:08 Patient maintains SpO2 saturation greater than 95% on room air. Thermoregulation: warm ph blanket given to patient. 09:16 CT Head C Spine In Process Unspecified. EDMS 09:16 CT Facial Bones W/O Con In Process Unspecified. EDMS 09:55 XRAY Shoulder RIGHT 2 view In Process Unspecified. EDMS 09:55 XRAY Knee LEFT 3 view In Process Unspecified. EDMS 09:55 XRAY Knee RIGHT 3 view In Process Unspecified. EDMS 10:10 Missed attempt(s): 22 gauge in right antecubital area. Bleeding controlled, band aid ph applied, catheter tip intact. Missed attempt(s): 22 gauge in right antecubital area. Bleeding controlled, band aid applied, catheter tip intact. 10:18 Missed attempt(s): 24 gauge in left hand. Bleeding controlled, band aid applied, tw2 catheter tip intact. Missed attempt(s): 24 gauge in left forearm. Bleeding controlled, band aid applied, catheter tip intact. 10:27 Zoila Tejada MD is Referral Physician. rn 10:35 No provider procedures requiring assistance completed. Patient did not have IV access ph during this emergency room visit. Administered Medications: 10:50 Drug: Ondansetron 4 mg Route: PO; tw2 10:54 Follow up: Response: No adverse reaction tw2 10:50 Drug: morphine 4 mg {Note: RASS 0. pt states "i have had this before".} Route: IM; tw2 Site: right deltoid; 10:54 Follow up: Response: No adverse reaction tw2 Medication: 09:04 VIS not applicable for this client. ph Intake: 10:35 PO: 0ml; Total: 0ml. ph Output: 10:35 Urine: 0ml; Total: 0ml. ph Outcome: 10:27 Discharge ordered by . rn 10:54 Discharged to home via wheelchair, with family. tw2 10:54 Condition: stable 10:54 Discharge instructions given to patient, family, Instructed on discharge instructions, follow up and referral plans. Demonstrated understanding of instructions, follow-up care. 10:54 Patient's length of stay in the Emergency Department was greater than 2 hours. d/t tw2 imaging and iv attemptsPatient's length of stay extended due to 10:55 Patient left the ED. tw2 Signatures: Dispatcher [employer] EDJax Almanza MD MD rn Hall, Patricia, RN RN ph Wise, Tara, RN RN tw2
[2022-09-05] MEDS ORDERED: MORPHINE 4 MG/ML SYR ONE (10:42)
[2022-09-05] MEDS ORDERED: ONDANSETRON 4 MG (ODT) TAB ONE (10:42)
[2022-09-05 11:02] VITALS: BP 177/77; TEMP 97.9; O2SAT 99
--- NOTE | 2022-09-06 08:24 | EKG ---
Test Date: 2022-09-05 Test Time: 09:59:12 [employer] Stitcher: JOHN MEASUREMENT RESULTS: Intervals: Rate: 60 AR: 208 QRSD: 168 QT: 520 QTc: 520 [place]: P: 53 AR: 208 QRS: -47 T: 82 INTERPRETIVE STATEMENTS: Normal sinus rhythm Right bundle branch block Left anterior fascicular block Bifascicular block Left ventricular hypertrophy with repolarization abnormality Cannot rule out Septal infarct, age undetermined Abnormal ECG Compared to ECG 01/27/2022 14:11:37 Right bundle-branch block now present Left anterior fascicular block now present Left-axis deviation no longer present Electronically Signed On 09-06-22 08:20:25 NUCLEAR OPERATIONS SPECIALIST by Chapito Tesfaye
== END 2022-09-05 10:55 | disposition home or self-care (01) ==
LOC: ER 08:40
DX: S46.811A Strain of other muscles, fascia and tendons at shoulder and upper arm level, right arm, initial encounter (principal); S00.83XA Contusion of other part of head, initial encounter; S80.02XA Contusion of left knee, initial encounter; S80.01XA Contusion of right knee, initial encounter; I10 Essential (primary) hypertension; Z88.5 Allergy status to narcotic agent; Z91.048 Other nonmedicinal substance allergy status
CPT/HCPCS: 93005; 70450; 72125; 70486; 76377; 73030; 73562 ×2; 96372; 99284; Q0162

== ENCOUNTER → 2023-11-10 | Emergency (ER) | payer OTHER ==
[~2023-11-10] MED LIST: NA CHLORIDE 0.9% 1,000 ML ONE; ONDANSETRON 4 MG/2 ML VIAL ONE
--- OUTSIDE RECORDS SUMMARY | 2023-11-10 11:30 | XMS REPORT | Continuity of Care Document ---
Author Name Unknown Address [address] [facility] [address] [place] [address] [facility] thconnect Address [address] [facility] [address] [place] [address] Care Team Providers Care Brush Maker Machine Name Role Phone Jesu Sheehan Primary Care Physician [phone] BRADFORD ZHOU Attending Clinician Unavailable Bradford Zhou DO Attending Clinician [phone] Lorena Mcnair RN Attending Clinician [phone] Viv Butterfield Attending Clinician [phone] Piper Cuevas DO Attending Clinician [phone] Lennox Carvalho MD Attending Clinician [phone] LENNOX CARVALHO Attending Clinician Unavailable Piper Cuevas DO Admitting Clinician [phone] PIPER CUEVAS Admitting Clinician Unavailable Payers Payer Name Policy Type Policy Number Effective Date Expirati on Date Source MEDICARE PART A AND B [id number] 2012 00:00:00 MEDICARE PART A \\T\\ B [id number] 2012 00:00:00 MEDICAID OF [place] [id number] 2022 00:00:00 Problems Condition Name Condition Details Condition Category Status Onset Date Resolution Date Last Treatment Date Treating Clinician Comments Source PAEZ (dyspnea on exertion) PAEZ (dyspnea on exertion) Disease Active 217 00:00: 00 [facility] Essential hypertensi on Essential hypertensi on Disease Active 217 00:00: 00 [facility] Dyslipidem ia Dyslipidem ia Disease Active 217 00:00: 00 [facility] PAF (paroxysma l atrial fibrillati on) PAF (paroxysma l atrial fibrillati on) Disease Active 17 00:00: 00 [facility] 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 12-09 00:00: 00 [facility] Stage 4 chronic kidney disease Stage 4 chronic kidney disease Disease Active 12-09 00:00: 00 [facility] Atypical chest pain Atypical chest pain Disease Active 16 00:00: 00 [facility] Chest pain in adult Chest pain in adult Disease Active 12-08 00:00: 00 [facility] Allergies, Adverse Reactions, Alerts Allergy Name Allergy Type Status Severity Reaction(s) Onset Date Inactive Date Treating Clinician Comments Source Codeine Propensi ty to adverse reaction s Active Anxiety 16 00:00: 00 [facility] Iodine Propensi ty to adverse reaction s Active Other - See comments 16 00:00: 00 Burning [facility] Shrimp Propensi ty to adverse reaction s Active Itching 16 00:00: 00 [facility] CODEINE DRUG INGREDI Active Anxiety 2-16 00:00: 00 [facility] IODINE DRUG INGREDI Active Other-Cmnt -16 00:00: 00 [facility] SHRIMP DRUG INGREDI Active High ITCHING -16 00:00: 00 [facility] NO KNOWN ALLERGIE S Drug Class Active [facility] Social History Social Habit Start Date Stop Date Quantity Comments Source History of tobacco use Current smoker [facility] Exposure to SARS-CoV-2 (event) 2022-11-22 00:00:00 2022-12-02 13:14:00 Not sure [facility] Tobacco use and exposure 2021-12-08 00:00:00 2021-12-08 00:00:00 Smokeless tobacco non-user [facility] Alcohol intake 2021-12-08 00:00:00 2021-12-08 00:00:00 Ex-drinker (finding) [facility] Tobacco Comment 2021-12-08 00:00:00 2021-12-08 00:00:00 back the 80's [facility] Sex Assigned At 1945 00:00:00 1945 00:00:00 [facility] Smoking Status Start Date Stop Date Source Ex-smoker 2021-12-08 00:00:00 2021[facility]ations Ordered Medication Name Filled Medication Name Start Date Stop Date Current Medication? Ordering Clinician Indication Dosage Frequency Signature (SIG) Comments Components Source methocarbam oL 500 mg tablet 12-02 00:00: 00 12-08 05:59 :00 No [id number] 500mg Take 1 tablet by mouth in the morning and 1 tablet at noon and 1 tablet in the evening. Do all this for 5 days. [facility] lactulose (CEPHULAC) solution 30 mL 12-10 15:00: 00 Yes 30mL 30 mL, Oral, DAILY, First dose on Mon12/10/21 at 0900, Until Discontinu ed, Routine [facility] atorvastati n (LIPITOR) tablet 40 mg 12-10 03:00: 00 Yes 40mg 40 mg, Oral, QHS, First dose (after last modificati on) on Mon12/09/21 at 2100, Until Discontinu ed, Routine [facility] epoetin bharti-epbx (RETACRIT) injection 10,000 Units 12-10 02:00: 00 12-10 13:59 :00 No [id number] 10,000 Units, Subcutaneo us, ONCE AT 1999, 1 dose, On Mon22 at 2000, Routine
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 [facility] aspirin 81 mg chewable tablet 2021-0 2-18 00:00: 00 01-10 04:59 :00 No [id number] 81mg Take 1 tablet by mouth daily for 30 days. [facility] omeprazole 40 mg capsule 2021-0 2-18 00:00: 00 01-10 04:59 :00 No [id number] 40mg Take 1 capsule by mouth daily for 30 days. [facility] SITagliptin 25 mg tablet 2021-0 2-18 00:00: 00 01-10 04:59 :00 No [id number] 25mg Take 1 tablet by mouth daily for 30 days. [facility] amLODIPine 10 mg tablet 2021-0 2-18 00:00: 00 01-10 04:59 :00 No [id number] 10mg Take 1 tablet by mouth daily for 30 days. [facility] aspirin 81 mg chewable tablet 2021-0 2-18 00:00: 00 01-10 04:59 :00 No [id number] 81mg Take 1 tablet by mouth daily for 30 days. [facility] omeprazole 40 mg capsule 2021-0 2-18 00:00: 00 01-10 04:59 :00 No [id number] 40mg Take 1 capsule by mouth daily for 30 days. [facility] SITagliptin 25 mg tablet 2021-0 2-18 00:00: 00 01-10 04:59 :00 No [id number] 25mg Take 1 tablet by mouth daily for 30 days. [facility] prednisoLON E acetate, PF, 1 % DrpS 2021- 2-17 18:06: 32 Yes 1[drp] Place 1 Drop in each eye 2 (two) times daily. Both eyes [facility] bromfenac (PROLENSA) 0.07 % drops 12-09 18:06: 32 Yes 1[drp] Place 1 Drop in left eye daily. PRN for pain [facility] LORazepam 0.5 mg tablet 12-09 18:06: 32 Yes .5mg Take 0.5 mg by mouth 2 (two) times daily. [facility] traMADoL 50 mg tablet 12-09 18:06: 32 Yes 50mg Take 50 mg by mouth 2 (two) times daily. [facility] febuxostat 40 mg tablet 12-09 18:06: 32 Yes 40mg Take 40 mg by mouth daily. [facility] gabap[facility] 300 mg capsule 12-09 18:06: 32 Yes 300mg Take 300 mg by mouth 2 (two) times daily. [facility] prednisoLON E acetate, PF, 1 % DrpS 12-09 18:06: 32 Yes 1[drp] Place 1 Drop in each eye 2 (two) times daily. Both eyes [facility] bromfenac (PROLENSA) 0.07 % drops 12-09 18:06: 32 Yes 1[drp] Place 1 Drop in left eye daily. PRN for pain [facility] LORazepam 0.5 mg tablet 12-09 18:06: 32 Yes .5mg Take 0.5 mg by mouth 2 (two) times daily. [facility] traMADoL 50 mg tablet 12-09 18:06: 32 Yes 50mg Take 50 mg by mouth 2 (two) times daily. [facility] febuxostat 40 mg tablet 12-09 18:06: 32 Yes 40mg Take 40 mg by mouth daily. [facility] gabapentin 300 mg capsule 12-09 18:06: 32 Yes 300mg Take 300 mg by mouth 2 (two) times daily. [facility] prednisoLON E acetate, PF, 1 % DrpS 12-09 18:06: 32 Yes 1[drp] Place 1 Drop in each eye 2 (two) times daily. Both eyes [facility] bromfenac (PROLENSA) 0.07 % drops 12-09 18:06: 32 Yes 1[drp] Place 1 Drop in left eye daily. PRN for pain [facility] LORazepam 0.5 mg tablet 12-09 18:06: 32 Yes .5mg Take 0.5 mg by mouth 2 (two) times daily. [facility] traMADoL 50 mg tablet 12-09 18:06: 32 Yes 50mg Take 50 mg by mouth 2 (two) times daily. [facility] febuxostat 40 mg tablet 12-09 18:06: 32 Yes 40mg Take 40 mg by mouth daily. [facility] gabapentin 300 mg capsule 12-09 18:06: 32 Yes 300mg Take 300 mg by mouth 2 (two) times daily. [facility] nebivoloL (BYSTOLIC) 5 mg tablet 12-09 16:42: 30 12-09 00:00 :00 No 5mg Take 5 mg by mouth daily. [facility] apixaban (ELIQUIS) 2.5 mg tablet 12-09 16:42: 30 12-09 00:00 :00 No 2.5mg Take 2.5 mg by mouth 2 (two) times daily. [facility] esomeprazol e 40 mg capsule 12-09 16:42: 30 12-09 00:00 :00 No 40mg Take 40 mg by mouth daily. [facility] lisinopriL 10 mg tablet 12-09 16:42: 30 12-09 00:00 :00 No 10mg Take 10 mg by mouth daily. [facility] linaGLIPtin (TRADJENTA) 5 mg tablet 12-09 16:42: 30 12-09 00:00 :00 No 1{tbl} Take 1 tablet by mouth daily. [facility] amLODIPine 5 mg tablet 12-09 16:42: 30 12-09 00:00 :00 No 5mg Take 5 mg by mouth daily. [facility] atorvastati n 10 mg tablet 12-09 16:42: 30 12-09 00:00 :00 No 10mg Take 10 mg by mouth at bedtime. [facility] amLODIPine (NORVASC) tablet 10 mg 12-09 15:00: 00 Yes 10mg 10 mg, Oral, DAILY, First dose (after last modificati on) on Mon12/09/21 at 0900, Until Discontinu ed, Routine [facility] omeprazole (PRILOSEC) capsule 40 mg 12-09 15:00: 00 Yes 40mg 40 mg, Oral, DAILY, First dose on Mon12/09/21 at 0900, Until Discontinu ed [facility] aspirin chewable tablet 81 mg 12-09 15:00: 00 Yes 81mg 81 mg, Oral, DAILY, First dose on Mon12/09/21 at 0900, Until Discontinu ed, Routine [facility] Sliding Scale Insulin - Lispro (HumaLOG) + Fsbg Testing 12-09 14:00: 00 Yes Subcutaneo us, TID MEALS, First dose on Mon12/09/21 at 0800, Until Discontinu ed, Routine [facility] apixaban (ELIQUIS) tablet 2.5 mg 12-09 14:00: 00 Yes 2.5mg 2.5 mg, Oral, BID, First dose on Mon12/09/21 at 0800, Until Discontinu ed, Routine
Indicatio ns: Non-Valvul ar Atrial Fibrillati on [facility] NaCl 0.9% (NS) IV infusion 1,000 mL 12-09 06:15: 00 Yes 1000mL at 50 mL/hr, IV Infusion, CONTINUOUS , Starting on Mon12/09/21 at 0015, Until Discontinu ed, Routine [facility] SITagliptin (JANUVIA) tablet 25 mg 12-09 06:15: 00 Yes 25mg 25 mg, Oral, DAILY, First dose on Mon12/09/21 at 0015, Until Discontinu ed [facility] gabapentin (NEURONTIN) capsule 300 mg 12-09 06:15: 00 Yes 300mg 300 mg, Oral, BID, First dose on Mon12/09/21 at 0015, Until Discontinu ed, Routine [facility] traMADoL (ULTRAM) tablet 50 mg 12-09 05:59: 13 Yes 50mg 50 mg, Oral, Q8HPRN, Starting on Mon12/08/21 at 2359, Until Discontinu ed, Routine, Pain (scale 4-6), Pain (scale 7-10) [facility] LORazepam (ATIVAN) tablet 0.5 mg 12-09 05:58: 50 Yes .5mg 0.5 mg, Oral, BIDPRN, Starting on Mon12/08/21 at 2358, Until Discontinu ed, Routine, Anxiety [facility] heparin (porcine) injection 5,000 Units 12-09 04:00: 00 12-09 06:11 :35 No 5000U 5,000 Units, Subcutaneo us, Q8H, First dose on Mon12/08/21 at 2200, Until Discontinu ed, Routine [facility] NaCl 0.9% (NS) IV infusion 1,000 mL 12-09 01:00: 00 12-09 06:12 :07 No 1000mL at 75 mL/hr, IV Infusion, CONTINUOUS , Starting on Mon12/08/21 at 1900, Until Mon12/09/21 at 0012, Routine [facility] ondansetron (ZOFRAN (PF)) injection 4 mg 12-09 00:51: 57 Yes 4mg 4 mg, Slow IV Push, Q6HPRN, Starting on Mon12/08/21 at 1851, Until Discontinu ed, Routine, Nausea and Vomiting (N/V) [facility] acetaminoph en (TYLENOL) tablet 650 mg 12-09 00:51: 45 Yes 650mg 650 mg, Oral, Q6HPRN, Starting on Mon12/08/21 at 1851, Until Discontinu ed, Routine, Pain (scale 1-3) [facility] apixaban (ELIQUIS) 2.5 mg tablet 12-09 00:00: 00 01-09 04:59 :00 No [id number] 2.5mg Take 1 tablet by mouth 2 (two) times daily for 30 days. Indication s: atrial fibrillati on [facility] atorvastati n 40 mg tablet 12-09 00:00: 00 01-09 04:59 :00 No [id number] 40mg Take 1 tablet by mouth at bedtime for 30 days. [facility] lisinopriL 10 mg tablet 12-09 00:00: 00 01-09 04:59 :00 No [id number] 10mg Take 1 tablet by mouth daily for 30 days. [facility] apixaban (ELIQUIS) 2.5 mg tablet 12-09 00:00: 00 01-09 04:59 :00 No [id number] 2.5mg Take 1 tablet by mouth 2 (two) times daily for 30 days. Indication s: atrial fibrillati on [facility] atorvastati n 40 mg tablet 12-09 00:00: 00 01-09 04:59 :00 No [id number] 40mg Take 1 tablet by mouth at bedtime for 30 days. [facility] lisinopriL 10 mg tablet 12-09 00:00: 00 01-09 04:59 :00 No [id number] 10mg Take 1 tablet by mouth daily for 30 days. [facility] sulfur hexafluorid e microsphr (LUMASON) injection 5 mL 12-08 20:45: 00 12-08 20:45 :00 No [id number] 5mL 5 mL, Intravenou s, ONCE, 1 dose, On Mon12/08/21 at 1445, Routine
space studies faculty member approving Restricted medication : ALANIS BOSS [facility] aspirin E.C. (ECOTRIN) tablet 325 mg 12-08 20:30: 00 12-08 19:36 :00 No 325mg 325 mg, Oral, ONCE, 1 dose, On Mon12/08/21 at 1430, STAT [facility] Vital Signs Vital Name Observation Time Observation Value Comments S ource Systolic blood pressure 2022-12-02 19:15:00 158 mm[Hg] [facility] Diastolic blood pressure 2022-12-02 19:15:00 68 mm[Hg] [facility] Heart rate 2022-12-02 19:15:00 64 /min [facility] Body temperature 2022-12-02 19:15:00 36.61 Dena [facility] Respiratory rate 2022-12-02 19:15:00 20 /min [facility] Body height 2022-12-02 19:15:00 157.5 cm [facility] Body weight 2022-12-02 19:15:00 [facility] 2022-12-02 19:15:00 33.47 kg/m2 [facility] Oxygen saturation in Arterial blood by Pulse oximetry 2022-12-02 19:15:00 100 /min [facility] Systolic blood pressure 2021-12-09 21:12:00 170 mm[Hg] [facility] Diastolic blood pressure 2021-12-09 21:12:00 74 mm[Hg] [facility] Heart rate 2021-12-09 21:12:00 52 /min [facility] Body temperature 2021-12-09 21:12:00 36.72 Dena [facility] Respiratory rate 2021-12-09 21:12:00 18 /min [facility] Oxygen saturation in Arterial blood by Pulse oximetry 2021-12-09 21:12:00 97 /min [facility] Body height 2021-12-08 19:58:00 152.4 cm [facility] Body weight 2021-12-08 19:58:00 86.183 [facility] BMI 2021-12-08 19:58:00 37.11 kg/m2 [facility] Procedures Procedure Date / Time Performed Performing Clinician Source CONSENT/REFUSAL FOR DIAGNOSIS AND TREATMENT 2022-12-02 18:58:46 Doctor Unassigned, [place] [facility] POCT GLUCOSE (AUTOMATED) 2021-12-09 23:09:00 Eva Carvalho [facility] TROPONIN I 2021-12-09 18:57:00 Piper Cuevas [facility] POCT GLUCOSE (AUTOMATED) 2021-12-09 17:13:00 Adolfo Cuevas [facility] MR BRAIN WO CONTRAST 2021-12-09 15:22:00 Piper Cuevas [facility] POCT GLUCOSE (AUTOMATED) 2021-12-09 13:30:00 [facility] CREATININE, URINE RANDOM 2021-12-09 11:38:00 [facility] SODIUM, URINE RANDOM 2021-12-09 11:38:00 Piper Cuevas [facility] URINALYSIS 2021-12-09 11:37:00 Piper Cuevas [facility] PHOSPHORUS 2021-12-09 10:20:00 Anne-Marie Tenorio [facility] CREATINE KINASE 2021-12-09 10:20:00 Anne-Marie Tenorio [facility] URIC ACID 2021-12-09 10:20:00 Anne-Marie Tenorio [facility] MAGNESIUM 2021-12-09 10:20:00 Piper Cuevas [facility] TROPONIN I 2021-12-09 10:20:00 Anne-Marie Tenorio [facility] COMP. METABOLIC PANEL ([id number]) 2021-12-09 10:20:00 Anne-Marie Tenorio [facility] CBC WITH DIFF 2021-12-09 10:20:00 Piper Cuevas [facility] N-TERMINAL PRO-BNP 2021-12-09 10:20:00 Anne-Marie Tenorio [facility] PROCALCITONIN 2021-12-09 10:20:00 Anne-Marie Tenorio [facility] PROTHROMBIN TIME / INR 2021-12-09 10:19:00 Iam Tenorio [facility] XR CHEST 1 VW 2021-12-09 08:02:00 Anne-Marie Tenorio [facility] XR SHOULDER 2+ VW LEFT 2021-12-09 08:02:00 Iam Tenorio [facility] CREATINE KINASE 2021-12-09 05:01:00 Anne-Marie Tenorio [facility] URIC ACID 2021-12-09 05:01:00 Anne[facility]Marie [facility] TROPONIN I 2021-12-09 05:01:00 Piper Cuevas [facility] THYROID STIMULATING HORMONE 2021-12-09 05:01:00 Piper Cuevas [facility] BASIC METABOLIC PANEL (NA, K, CL, CO2, GLUCOSE, BUN, CREATININE, CA) 2021-12-09 05:01:00 Anne-Marie Tenorio [facility] LIPID PANEL (30702)(TOTAL CHOLESTEROL, TRIGLYCERIDES, HDL) 2021-12-09 05:01:00 Piper Cuevas [facility] GLYCOSYLATED HEMOGLOBIN (A1C) 2021-12-09 05:01:00 Piper Cuevas [facility] POCT GLUCOSE (AUTOMATED) 2021-12-08 22:37:00 Adolfo Cuevas [facility] COVID-19 (ID NOW RAPID TESTING) 2021-12-08 19:36:00 Viv Marcelo [facility] LAB ONLY COVID INTERPRETATION 2021-12-08 19:36:00 Viv Marcelo [facility] CT HEAD WO CONTRAST 2021-12-08 18:48:07 Pura Marcelo [facility] SEDIMENTATION RATE 2021-12-08 18:11:00 Lm Marcelo [facility] C-REACTIVE PROTEIN 2021-12-08 18:10:00 Lm Marcelo [facility] LIPID PANEL ([id number])(TOTAL CHOLESTEROL, TRIGLYCERIDES, HDL) 2021-12-08 18:10:00 Anne-Marie Tenorio [facility] LIPASE 2021-12-08 18:09:00 Viv Marcelo [facility] TROPONIN I 2021-12-08 18:09:00 Viv Marcelo [facility] COMP. METABOLIC PANEL ([id number]) 2021-12-08 18:09:00 Viv Marcelo [facility] CBC WITH DIFF 2021-12-08 18:09:00 Viv Mareclo [facility] N-TERMINAL PRO-BNP 2021-12-08 18:09:00 Lm Marcelo [facility] HB ECG ROUTINE & RHYTHM STRIP 2021-12-08 17:23:34 Viv Marcelo [facility] NOTICE OF PRIVACY PRACTICES 2021-12-08 17:02:32 Doctor Unassigned, [place] [facility] Encounters Start Date/Time End Date/Time Encounter Type Admission Type Attending Clinicians Care Facility Care Department Encounter ID Source 2022-08-01 11:34:[address] [facility] [id number] [facility] 2022-07-29 10:16:[address] [facility] [id number] [facility] 2022-12-02 13:17:00 2022-12-02 14:13:00 Emergency X BRADFORD ZHOU [facility] ERT [id number] [facility] 2022-12-02 13:17:00 2022-12-02 14:13:00 Emergency Bradford Zhou [facility] [id number] [facility] 2021-12-10 00:00:00 2021-12-10 00:00:00 Transition of Care Lorena Mcnair [id number] [facility] 2021-12-08 11:18:00 2021-12-09 17:55:00 Emergency Viv Marcelo David [facility]villeLennox [facility] [id number] [facility] 2021-12-08 11:18:00 2021-12-09 17:55:00 Outpatient X LENNOX CARVALHO [facility] [id number] [facility] Results Test Description Test Time Test Comments Results Result Co mments Source [id number] 19:34:40* Test Item Value Reference Range Interpretation Comments TROPONIN I (test code = 4106062531) 0.063 ng/mL See_Comment H [Automated message] The system which generated this result transmitted reference range: <=0.034. The reference range was not used to interpret this result as normal/abnormal. IZABELA (test code = IZABELA) Reference (Normal) Range (defined by the 99th percentile reference limit): <= 0.034 ng/mL Note: Cardiac troponin begins to rise 3-4 hours after the onset of ischemia. Repeat in 4-6 hours if the sample was drawn within 3-4 hours of the onset of the symptom and found normal. Diagnosis of myocardial injury is made with acute changes in cTn concentrations with at least one serial sample above the 99th percentile upper reference limit (URL), taken together with the patient's clinical presentation. Biotin has been reported to cause a negative bias, interpret results relative to patient's use of biotin. Lab Interpretation (test code = 12772-1) [facility]normal [facility]-12-09 17:54:18* Test Item Value Reference Range Interpretation Comme nts POCT GLU (test code = 9291823863) 212 mg/dL 70-110 H Lab Interpretation (test cod e = 12016-4) Abnormal [facility]17 17:06:20* Test Item Value Reference Range Interpretation Comme nts Procalcitonin (test code = 0428021110) 0.05 ng/mL <0.07 IZABELA (test code = IZABELA) INTERPRETATION OF PROCALCITONIN RESULTS IN ADULTS >= 18 YEARS OF AGE Initiation and discontinuation of antibiotics on patients with suspected or confirmed Lower Respiratory Tract Infection in Adults >= 18 years of age. + +-------- --------+ + -----+|Procalcitonin |Interpretation ?|Antibiotic ? ? |Considerations ? |ng/mL ? | ?|recommendation | ? + +-------- --------+ + -----+| <0.1 ? | Bacterial ? ? ?| Strongly ? ? ?| ? | ?| infection very | discouraged ? | Overruling: ? | ?| unlikely ? ? ? | ? | ? Clinically unstable ? ? ? + +-------- --------+ + ? High risk for adverse ? ? | <0.25 ?| Bacterial ? ? ?| Discouraged ? | ? outcome ? | ?| infection ? ? ?| ? | ? SEE IMPORTANT NOTE ?| ?| unlikely ? ? ? | ? | ? + +-------- --------+ + -----+| >=0.25 ? ? ? | Bacterial ? ? ?| Encouraged ? ?| ? | ?| infection ? ? ?| ? | ? | ?| likely ? | ? | Consider treatment failure ?+ +------- ---------+ -+ if levels does not decrease | >0.5 ? | Bacterial ? ? ?| Strongly ? ? ?| appropriately ? | ?| infection very | encouraged ? ?| ? | ?| likely ? | ? | ? + +-------- --------+ + -----+ Discontinuation of antibiotics in high-acuity patients with suspected or confirmed sepsis in Adults >= 18 years of age. + +-------- --------+ + -----+|Procalcitonin |Interpretation ?|Antibiotic ? ? |Considerations ? |ng/mL ? | ?|recommendation | ? + +-------- --------+ + -----+| <0.25 ?| Bacterial ? ? ?| Strongly ? ? ?| ? | ?| infection very | discouraged ? | Overruling: ? | ?| unlikely ? ? ? | ? | ? Clinically unstable ? ? ? + +-------- --------+ + ? High risk for adverse ? ? | <0.5 or drop | Bacterial ? ? ?| Discouraged ? | ? outcome ? | >80% from ? ?| infection ? ? ?| ? | ? SEE IMPORTANT NOTE ?| highest PCT ?| unlikely ? ? ? | ? | ? | level ?| ?| ? | ? + +-------- --------+ + -----+| >=0.5 ?| Bacterial ? ? ?| Encouraged ? ?| ? | ?| infection ? ? ?| ? | ? | ?| likely ? | ? | Consider treatment failure ?+ +------- ---------+ -+ if levels does not decrease | >1.0 ? | Bacterial ? ? ?| Strongly ? ? ?| appropriately ? | ?| infection very | encouraged ? ?| ? | ?| likely ? | ? | ? + +-------- --------+ + -----+ Percentage of drop of Procalcitonin calculation for Discontinuation of antibiotics in high-acuity patients with suspected or confirmed sepsis in Adults >= 18 years of age. ? Procalcitonin highest{}-Procalcitonin current{}Delta Procalcitonin = x100% ? Procalcitonin current {} IMPORTANT NOTE: Procalcitonin may be elevated without bacterial infection by physiologic stress related to trauma, sheehan, chronic dialysis, metastatic cancer, surgery in the past seven days, malaria, some fungal infections, and some forms of vasculitis. The interpretation algorithm may not apply to patients with immunosuppression (equivalent of >10 mg of prednisone daily), HIV with CD4 cell count < 350 cells/mm3, active malignancy on systemic chemotherapy, solid organ transplant or hematopoietic stem cell transplantation, or hospital acquired pneumonia. Additionally, some clinical trials of procalcitonin have excluded patients with shock requiring vasopressor use, acute respiratory failure requiring mechanical ventilation, or those with known lung abscess/empyema. For further information please refer to:[email or web address] Lab Interpretation (test code = 60200-3) [facility] [id number] 16:15:47* Test Item Value Reference Range Interpretation Comme nts CRP (test code = 4423769511) 1.1 mg/dL <0.8 H Lab Interpretation (test cod e = 04436-1) [facility] with [id number] 16:07:33* Test Item Value Reference Range Interpretation Comme nts WBC (test code = 6690-2) See_Comment L [Automated messa ge] The system which generated this result transmitted reference range: 4.30 - 11.10 10*3/?L. The reference range was not used to interpret this result as normal/abnormal. RBC (test code = 789-8) See_Comment L [Automated messa ge] The system which generated this result transmitted reference range: 3.93 - 5.25 10*6/?L. The reference range was not used to interpret this result as normal/abnormal. HGB (test code = 718-7) 9.4 g/dL 11.6-15.0 L HCT (test code = 4544-3) 29.3 % 35.7-45.2 L MCV (test code = 787-2) 85.4 fL 80.6-95.5 MCH (test code = 785-6) 27.4 pg 25.9-32.8 MCHC (test code = 786-4) 32.1 g/dL 31.6-35.1 RDW-SD (test code = 30670-1) 49.2 fL 39.0-49.9 RDW-CV (test code = 788-0) 15.9 % 12.0-15.5 H PLT (test code = 777-3) See_Comment L [Automated messa ge] The system which generated this result transmitted reference range: 166 - 358 10*3/?L. The reference range was not used to interpret this result as normal/abnormal. MPV (test code = 94911-1) 11.8 fL 9.5-12.9 NRBC/100 WBC (test code = 4463598130) See_Comment [Automated [employer] ssage] The system which generated this result transmitted reference range: 0.0 - 10.0 /100 WBCs. The reference range was not used to interpret this result as normal/abnormal. NRBC x10^3 (test code = 4095953095) <0.01 See_Comment [Automated messa ge] The system which generated this result transmitted reference range: 10*3/?L. The reference range was not used to interpret this result as normal/abnormal. GRAN MAT (NEUT) % (test code = 770-8) 46.8 % IMM GRAN % (test code = 6166819655) 0.30 % LYMPH % (test code = 736-9) 39.3 % MONO % (test code = 5905-5) 10.0 % EOS % (test code = 713-8) 2.8 % BASO % (test code = 706-2) 0.8 % GRAN MAT x10^3(ANC) (test code = 9724592593) 1.87 10*3/uL 1.88-7.09 L IMM GRAN x10^3 (test code = 0143714809) <0.03 0.00-0.06 LYMPH x10^3 (test code = 731-0) 1.57 10*3/uL 1.32-3.29 MONO x10^3 (test code = 742-7) 0.40 10*3/uL 0.33-0.92 EOS x10^3 (test code = 711-2) 0.11 10*3/uL 0.03-0.39 BASO x10^3 (test code = 704-7) 0.03 10*3/uL 0.01-0.07 JENNA CELLS (test code = 7790-9) 2+ See_Comment A [Automated messa ge] The system which generated this result transmitted reference range: (none). The reference range was not used to interpret this result as normal/abnormal. ELLIPTO/OVAL (test code = 36022-0) 2+ See_Comment A [Automated Bolt] The system which generated this result transmitted reference range: (none). The reference range was not used to interpret this result as normal/abnormal. Lab Interpretation (test code = 52583-2) [facility]2021-12-09 14:06:00* Test Item Value Reference Range Interpretation Comme [facility] POCT GLU (test code = 8944149354) 111 mg/dL 70-110 H Lab Interpretation (test cod e = 74915-1) [facility] CenterPROTHROMBIN TIME / [id number] 11:31:47* Test Item Value Reference Range Interpretation Comme [facility] PROTIME PATIENT (test code = 5964-2) See_Comment [Automated Bolt] The system which generated this result transmitted reference range: 12.0 - 14.7 Seconds. The reference range was not used to interpret this result as normal/abnormal. INR (test code = 6301-6) Normal INR <1.1; Warfarin Therapeutic range 2.0 to 3.0 or 2.5 to 3.5, depending upon the indications. Lab Interpretation (test code = 28841-7) [facility] CenterTROPONIN [id number] 11:18:45* Test Item Value Reference Range Interpretation Comments TROPONIN I (test code = 8261451312) 0.061 ng/mL See_Comment H [Automated message] The system which generated this result transmitted reference range: <=0.034. The reference range was not used to interpret this result as normal/abnormal. IZABELA (test code = IZABELA) Reference (Normal) Range (defined by the 99th percentile reference limit): <= 0.034 ng/mL Note: Cardiac troponin begins to rise 3-4 hours after the onset of ischemia. Repeat in 4-6 hours if the sample was drawn within 3-4 hours of the onset of the symptom and found normal. Diagnosis of myocardial injury is made with acute changes in cTn concentrations with at least one serial sample above the 99th percentile upper reference limit (URL), taken together with the patient's clinical presentation. Biotin has been reported to cause a negative bias, interpret results relative to patient's use of biotin. Lab Interpretation (test code = 04630-0) [facility] CenterN-TERMINAL [id number] 11:15:23* Test Item Value Reference Range Interpretation Comme nts NT-proBNP (test code = 8715554108) 657 pg/mL See_Comment H [Automated message] The system which generated this result transmitted reference range: <=125. The reference range was not used to interpret this result as normal/abnormal. IZABELA (test code = IZABELA) Biotin has been reported to cause a negative bias, interpret results relative to patient's use of biotin. Lab Interpretation (test code = 84583-7) [facility] CenterMagnesium [id number] 11:10:21* Test Item Value Reference Range Interpretation Comme nts MAGNESIUM (test code = 4177632580) 1.9 mg/dL 1.7-2.4 Lab Interpretation (test cod e = 51983-0) Normal [facility]. METABOLIC PANEL (75961)2021-12-09 11:10:20* Test Item Value Reference Range Interpretation Comme nts NA (test code = 7917809928) 141 mmol/L 135-145 K (test code = 0489144326) 4.3 mmol/L 3.5-5.0 CL (test code = 1183259119) 116 mmol/L 98-108 H CO2 TOTAL (test code = 4908303818) 23 mmol/L 23-31 AGAP (test code = 2781162229) 2-16 BUN (test code = 9428721403) 43 mg/dL 7-23 H GLUCOSE (test code = 7732010775) 107 mg/dL 70-110 CREATININE (test code = 2615969763) 2.16 mg/dL 0.50-1.04 H TOTAL BILI (test code = 3720876144) 0.3 mg/dL 0.1-1.1 CALCIUM (test code = 9797111460) 10.0 mg/dL 8.6-10.6 T PROTEIN (test code = 5930471475) 6.8 g/dL 6.3-8.2 ALBUMIN (test code = 8372540380) 3.8 g/dL 3.5-5.0 ALK PHOS (test code = 8979217560) 89 U/L 34-122 ALTv (test code = 1742-6) 22 U/L 5-35 AST(SGOT) (test code = 8716437774) 27 U/L 13-40 eGFR (test code = 6818486314) mL/min/1.73m2 IZABELA (test code = IZABELA) Association of Glomerular Filtration Rate (GFR) and Staging of Kidney Disease* + --+ --+ ------+| GFR (mL/min/1.73 m2) ?| With Kidney Damage ?| ?Without Kidney Damage+ --------+ --------+ +| ?>90 ?| ?Stage one ?| ? Normal ?+ ---+ ---+ -------+| ?60-89 ?| ?Stage two ?| ? Decreased GFR ? + --+ --+ ------+| ?30-59 ?| ?Stage three ?| ? Stage three ? + --+ --+ ------+| ?15-29 ?| ?Stage four ? | ? Stage four ?+ ---+ ---+ -------+| ?<15 (or dialysis) ? ?| ?Stage five ? | ? Stage five ?+ ---+ ---+ -------+ *Each stage assumes the associated GFR level has been in effect for at least three months. ?Stages 1 to 5, with or without kidney disease, indicate chronic kidney disease. Notes: Determination of stages one and two (with eGFR >59mL/min/1.73 m2) requires estimation of kidney damage for at least three months as defined by structural or functional abnormalities of the kidney, manifested by either:Pathological abnormalities or Markers of kidney damage (including abnormalities in the composition of the blood or urine or abnormalities in imaging tests). Lab Interpretation (test code = 49029-0) [facility] CenterPHOSPHORUS2022-02-17 11:09:40* Test Item Value Reference Range Interpretation Comme nts PHOSPHORUS (test code = 5151166867) 2.9 mg/dL 2.5-5.0 Lab Interpretation (test cod e = 65918-7) Normal [facility] CenterURIC [id number] 11:09:40* Test Item Value Reference Range Interpretation Comme nts URIC ACID (test code = 4336081137) 3.0 mg/dL 2.9-6.0 Lab Interpretation (test cod e = 64776-1) Normal [facility] CenterCREATINE [id number] 11:09:20* Test Item Value Reference Range Interpretation Comme nts CK (test code = 3677163893) 77 U/L 33-194 Lab Interpretation (test cod e = 08379-1) [facility] CenterLIPID PANEL (37598)(TOTAL CHOLESTEROL, TRIGLYCERIDES, HDL)2021-12-09 07:07:05* Test Item Value Reference Range Interpretation Comme nts CHOL (test code = 3899299647) 219 mg/dL 120-200 H HDL (test code = 2532884136) 56 mg/dL >50 HDLC RATIO (test code = 3828397817) See_Comment [Automated [employer]] The system which generated this result transmitted reference range: <=4.5. The reference range was not used to interpret this result as normal/abnormal. TRIG (test code = 3615151230) 117 mg/dL 30-170 LDL CHOL (test code = 05274-6) 140 mg/dL See_Comment [Automated Bolt] The system which generated this result transmitted reference range: <=160. The reference range was not used to interpret this result as normal/abnormal. VLDL (test code = 8136308713) 23 mg/dL 5-60 Lab Interpretation (test code = 64491-9) [facility]normal [facility] CenterURIC [id number] 06:45:44* Test Item Value Reference Range Interpretation Comme nts URIC ACID (test code = 5033284369) 3.1 mg/dL 2.9-6.0 Lab Interpretation (test cod e = 68333-8) [facility] CenterBASI METABOLIC PANEL (NA, K, CL, CO2, GLUCOSE, BUN, CREATININE, CA)2021-12-09 06:45:44* Test Item Value Reference Range Interpretation Comme nts NA (test code = 2681088971) 140 mmol/L 135-145 K (test code = 8693319086) 4.7 mmol/L 3.5-5.0 CL (test code = 5257666703) 114 mmol/L 98-108 H CO2 TOTAL (test code = 0801588032) 23 mmol/L 23-31 AGAP (test code = 6441166095) 2-16 BUN (test code = 1978243401) 45 mg/dL 7-23 H GLUCOSE (test code = 2137292144) 110 mg/dL 70-110 CREATININE (test code = 6624721022) 2.29 mg/dL 0.50-1.04 H CALCIUM (test code = 0263136513) 10.1 mg/dL 8.6-10.6 eGFR (test code = 7117457215) mL/min/1.73m2 IZABELA (test code = IZABELA) Association of Glomerular Filtration Rate (GFR) and Staging of Kidney Disease* + --+ --+ ------+| GFR (mL/min/1.73 m2) ?| With Kidney Damage ?| ?Without Kidney Damage+ --------+ --------+ +| ?>90 ?| ?Stage one ?| ? Normal ?+ ---+ ---+ -------+| ?60-89 ?| ?Stage two ?| ? Decreased GFR ? + --+ --+ ------+| ?30-59 ?| ?Stage three ?| ? Stage three ? + --+ --+ ------+| ?15-29 ?| ?Stage four ? | ? Stage four ?+ ---+ ---+ -------+| ?<15 (or dialysis) ? ?| ?Stage five ? | ? Stage five ?+ ---+ ---+ -------+ *Each stage assumes the associated GFR level has been in effect for at least three months. ?Stages 1 to 5, with or without kidney disease, indicate chronic kidney disease. Notes: Determination of stages one and two (with eGFR >59mL/min/1.73 m2) requires estimation of kidney damage for at least three months as defined by structural or functional abnormalities of the kidney, manifested by either:Pathological abnormalities or Markers of kidney damage (including abnormalities in the composition of the blood or urine or abnormalities in imaging tests). Lab Interpretation (test code = 18052-7) Abnormal [facility] CenterCREATINE [id number] 06:44:43* Test Item Value Reference Range Interpretation Comme [facility] CK (test code = 5237396271) 89 U/L 33-194 Lab Interpretation (test cod e = 11582-7) Normal [facility] CenterGlycosylated Hemoglobin (A1C)2021-12-09 06:41:28* Test Item Value Reference Range Interpretation Comme [facility] HGB A1C (test code = 4548-4) 5.8 % 4.0-5.7 H IZABELA (test code = IZABELA) Reference RangesNormal: <5.7%Prediabetes: 5.7 - 6.4%Diabetes: > 6.5% Lab Interpretation (test code = 53332-8) [facility]normal [facility] CenterThyroid Stimulating Hormone (TSH)2021-12-09 06:08:03* Test Item Value Reference Range Interpretation Comme nts TSH (test code = 8669354365) See_Comment [Automated Bolt] The system which generated this result transmitted reference range: 0.45 - 4.70 mIU/L. The reference range was not used to interpret this result as normal/abnormal. Lab Interpretation (test code = 53605-9) Normal [facility] CenterTroponin [id number] 05:49:19* Test Item Value Reference Range Interpretation Comments TROPONIN I (test code = 6191718559) 0.061 ng/mL See_Comment H [Automated message] The system which generated this result transmitted reference range: <=0.034. The reference range was not used to interpret this result as normal/abnormal. IZABELA (test code = IZABELA) Reference (Normal) Range (defined by the 99th percentile reference limit): <= 0.034 ng/mL Note: Cardiac troponin begins to rise 3-4 hours after the onset of ischemia. Repeat in 4-6 hours if the sample was drawn within 3-4 hours of the onset of the symptom and found normal. Diagnosis of myocardial injury is made with acute changes in cTn concentrations with at least one serial sample above the 99th percentile upper reference limit (URL), taken together with the patient's clinical presentation. Biotin has been reported to cause a negative bias, interpret results relative to patient's use of biotin. Lab Interpretation (test code = 02148-3) [facility]normal [facility] CenterLipid Panel (Total Cholesterol, Triglycerides, HDL)2021-12-09 05:36:42* Test Item Value Reference Range Interpretation Comme nts CHOL (test code = 6061809653) 200 mg/dL 120-200 HDL (test code = 7297140218) 59 mg/dL >50 HDLC RATIO (test code = 1484867811) See_Comment [Automated Bolt] The system which generated this result transmitted reference range: <=4.5. The reference range was not used to interpret this result as normal/abnormal. TRIG (test code = 7488916324) 121 mg/dL 30-170 LDL CHOL (test code = 79339-0) 117 mg/dL See_Comment [Automated [employer]] The system which generated this result transmitted reference range: <=160. The reference range was not used to interpret this result as normal/abnormal. VLDL (test code = 0779443792) 24 mg/dL 5-60 Lab Interpretation (test code = 93303-1) [facility] CenterPOCT GLUCOSE (AUTOMATED)2021-12-08 22:40:15* Test Item Value Reference Range Interpretation Comme nts POCT GLU (test code = 7360663323) 105 mg/dL 70-110 Lab Interpretation (test cod e = 54321-5) Normal [facility] CenterSEDIMENTATION [id number] 19:08:56* Test Item Value Reference Range Interpretation Comme nts ESR (test code = 4448979352) See_Comment H [Automated Bolt] The system which generated this result transmitted reference range: 0 - 20 mm/HR. The reference range was not used to interpret this result as normal/abnormal. Lab Interpretation (test code = 02164-2) [facility]normal [facility] CenterTROPONIN [id number] 19:05:34* Test Item Value Reference Range Interpretation Comments TROPONIN I (test code = 9184164938) 0.058 ng/mL See_Comment H [Automated message] The system which generated this result transmitted reference range: <=0.034. The reference range was not used to interpret this result as normal/abnormal. IZABELA (test code = IZABELA) Reference (Normal) Range (defined by the 99th percentile reference limit): <= 0.034 ng/mL Note: Cardiac troponin begins to rise 3-4 hours after the onset of ischemia. Repeat in 4-6 hours if the sample was drawn within 3-4 hours of the onset of the symptom and found normal. Diagnosis of myocardial injury is made with acute changes in cTn concentrations with at least one serial sample above the 99th percentile upper reference limit (URL), taken together with the patient's clinical presentation. Biotin has been reported to cause a negative bias, interpret results relative to patient's use of biotin. Lab Interpretation (test code = 00036-9) [facility]normal [facility] CenterN-TERMINAL [id number] 19:02:16* Test Item Value Reference Range Interpretation Comme nts NT-proBNP (test code = 5926750210) 330 pg/mL See_Comment H [Automated message] The system which generated this result transmitted reference range: <=125. The reference range was not used to interpret this result as normal/abnormal. IZABELA (test code = IZABELA) Biotin has been reported to cause a negative bias, interpret results relative to patient's use of biotin. Lab Interpretation (test code = 29986-7) [facility] CenterCOMP. METABOLIC PANEL (59657)2021-12-08 18:53:28* Test Item Value Reference Range Interpretation Comme nts NA (test code = 7996684512) 141 mmol/L 135-145 K (test code = 9904830488) 5.2 mmol/L 3.5-5.0 H CL (test code = 8028000451) 115 mmol/L 98-108 H CO2 TOTAL (test code = 4947051987) 19 mmol/L 23-31 L AGAP (test code = 1383652101) 2-16 BUN (test code = 8213502138) 49 mg/dL 7-23 H GLUCOSE (test code = 4890103155) 115 mg/dL 70-110 H CREATININE (test code = 5758036973) 2.22 mg/dL 0.50-1.04 H TOTAL BILI (test code = 9834183719) 0.4 mg/dL 0.1-1.1 CALCIUM (test code = 3508308733) 10.4 mg/dL 8.6-10.6 T PROTEIN (test code = 1386625166) 8.0 g/dL 6.3-8.2 ALBUMIN (test code = 9262650969) 4.6 g/dL 3.5-5.0 ALK PHOS (test code = 1591102944) 106 U/L 34-122 ALTv (test code = 1742-6) 26 U/L 5-35 AST(SGOT) (test code = 4280346152) 31 U/L 13-40 eGFR (test code = 9364651331) mL/min/1.73m2 IZABELA (test code = IZABELA) Association of Glomerular Filtration Rate (GFR) and Staging of Kidney Disease* + --+ --+ ------+| GFR (mL/min/1.73 m2) ?| With Kidney Damage ?| ?Without Kidney Damage+ --------+ --------+ +| ?>90 ?| ?Stage one ?| ? Normal ?+ ---+ ---+ -------+| ?60-89 ?| ?Stage two ?| ? Decreased GFR ? + --+ --+ ------+| ?30-59 ?| ?Stage three ?| ? Stage three ? + --+ --+ ------+| ?15-29 ?| ?Stage four ? | ? Stage four ?+ ---+ ---+ -------+| ?<15 (or dialysis) ? ?| ?Stage five ? | ? Stage five ?+ ---+ ---+ -------+ *Each stage assumes the associated GFR level has been in effect for at least three months. ?Stages 1 to 5, with or without kidney disease, indicate chronic kidney disease. Notes: Determination of stages one and two (with eGFR >59mL/min/1.73 m2) requires estimation of kidney damage for at least three months as defined by structural or functional abnormalities of the kidney, manifested by either:Pathological abnormalities or Markers of kidney damage (including abnormalities in the composition of the blood or urine or abnormalities in imaging tests). Lab Interpretation (test code = 30191-4) [facility] CenterLIPASE2022-02-16 18:53:07* Test Item Value Reference Range Interpretation Comme nts LIPASE (test code = 5439796066) 334 U/L 0-220 H Lab Interpretation (test cod e = 28913-6) [facility]normal [facility] CenterCBC WITH [id number] 18:41:07* Test Item Value Reference Range Interpretation Comme nts WBC (test code = 6690-2) See_Comment [Automated Bolt] The system which generated this result transmitted reference range: 4.30 - 11.10 10*3/?L. The reference range was not used to interpret this result as normal/abnormal. RBC (test code = 789-8) See_Comment [Automated Bolt] The system which generated this result transmitted reference range: 3.93 - 5.25 10*6/?L. The reference range was not used to interpret this result as normal/abnormal. HGB (test code = 718-7) 11.0 g/dL 11.6-15.0 L HCT (test code = 4544-3) 35.0 % 35.7-45.2 L MCV (test code = 787-2) 86.4 fL 80.6-95.5 MCH (test code = 785-6) 27.2 pg 25.9-32.8 MCHC (test code = 786-4) 31.4 g/dL 31.6-35.1 L RDW-SD (test code = 58793-7) 49.6 fL 39.0-49.9 RDW-CV (test code = 788-0) 15.7 % 12.0-15.5 H PLT (test code = 777-3) See_Comment [Automated Share0[employer] ge] The system which generated this result transmitted reference range: 166 - 358 10*3/?L. The reference range was not used to interpret this result as normal/abnormal. MPV (test code = 62158-0) 11.5 fL 9.5-12.9 NRBC/100 WBC (test code = 0160671678) See_Comment [Automated [employer] ssage] The system which generated this result transmitted reference range: 0.0 - 10.0 /100 WBCs. The reference range was not used to interpret this result as normal/abnormal. NRBC x10^3 (test code = 9371377380) <0.01 See_Comment [Automated Share0a ge] The system which generated this result transmitted reference range: 10*3/?L. The reference range was not used to interpret this result as normal/abnormal. GRAN MAT (NEUT) % (test code = 770-8) 51.1 % IMM GRAN % (test code = 1725030460) 0.30 % LYMPH % (test code = 736-9) 34.8 % MONO % (test code = 5905-5) 10.9 % EOS % (test code = 713-8) 2.2 % BASO % (test code = 706-2) 0.7 % GRAN MAT x10^3(ANC) (test code = 6571353524) 3.01 10*3/uL 1.88-7.09 IMM GRAN x10^3 (test code = 1731873357) <0.03 0.00-0.06 LYMPH x10^3 (test code = 731-0) 2.05 10*3/uL 1.32-3.29 MONO x10^3 (test code = 742-7) 0.64 10*3/uL 0.33-0.92 EOS x10^3 (test code = 711-2) 0.13 10*3/uL 0.03-0.39 BASO x10^3 (test code = 704-7) 0.04 10*3/uL 0.01-0.07 Lab Interpretation (test code = 88825-3) Abnormal [facility]"
--- NOTE | 2023-11-10 12:31 | RAD REPORT ---
EXAM DESCRIPTION: Catracho Fuentes And Lat (2 Views)11/10/2023 11:56 am CLINICAL HISTORY: Cough COMPARISON: None FINDINGS: The lungs appear clear of acute infiltrate. The heart is mildly enlarged. Aorta is tortuo us/ectatic IMPRESSION: No acute abnormalities displayed
[2023-11-10 12:38] LABS: SARS-CoV-2 Antigen Rapid Res Negative (Negative)
--- NOTE | 2023-11-10 12:40 | RAD REPORT ---
EXAM DESCRIPTION: CT - Abdomen Pelvis Wo Contrast - 11/10/2023 12:12 pm CLINICAL HISTORY: abd pain, RLQ, allergic to iodine COMPARISON: Abdomen Pelvis Wo Contrast dated 06/16/2020; Abdomen Pelvis Wo Contrast dated 12/21/19 20; CT ABDOMEN PELVIS WO CONTRAST dated 08/28/2013; CT ABD PELVIS W CONTRAST dated 06/22/2012 TECHNIQUE: Thin cut axial CT imaging of the abdomen and pelvis was performed without IV contrast. Mu ltiplanar reformats were generated and reviewed. All CT scans are performed using dose optimization technique as appropriate and may include automated exposure control or mA/KV adjustment according to patient size. FINDINGS: No suspicious findings in the lung bases. The liver, spleen, adrenal glands, and pancreas show no suspicious findings. Gallbladder shows layeri ng hyperdense material suggestive of sludge with no radiopaque calculi. Symmetric renal contour, small cortical hypoattenuating lesion and a single hyperattenuating lesion o n the right, suggestive of cysts. The largest is at the right superior pole measured 1.9 cm. These ar e favored to be benign, although not well characterized. No other suspicious parenchymal findings wit hin limits of noncontrast technique. No evidence of radiopaque calculi or hydroureteronephrosis. No dilated bowel loops or bowel wall thickening. Colonic diverticulosis. No free air, free fluid or i nflammatory stranding. No hernia, mass or bulky lymphadenopathy. The urinary bladder is without signi ficant finding. No suspicious bony findings. IMPRESSION: No acute intra-abdominal process. Incidental findings as above.
[2023-11-10 14:35] LABS: Absolute Lymphocytes (CBC) 1.9 K/uL (0.7-4.9); Hematocrit 33.9 % (36.0-45.0); Lymphocytes % 45.9 % (15.3-44.8); MCV 86.1 fL (80-100); MPV 8.9 fL (7.6-11.3); Platelets 167 thou/uL (152-406); RBC Red Blood Cell Count 3.94 M/uL (3.86-4.86)
[2023-11-10 14:59] LABS: Bilirubin Total 0.3 mg/dL (0.2-1.0); Potassium 5.6 mEq/L (3.5-5.1); Protein, Total 8.6 g/dL (6.4-8.2)
[2023-11-10 16:15] LABS: Urine Bacteria <20 /HPF (<20); Urine Bilirubin NEGATIVE (Negative); Urine Blood Negative (Negative); Urine Clarity Turbid (Clear); Urine Color Colorless (Yellow); Urine Glucose NEGATIVE (Negative); Urine Protein TRACE (Negative); Urine RBC <5 /HPF (None Seen); Urine Urobilinogen Normal (Normal); Urine pH 6.5 (5.0-7.0)
--- NOTE | 2023-11-10 16:28 | EDPHYS ---
Physician Documentation [facility] Name: Patti Frey Age: 78 yrs Sex: Female : 1945 Arrival Date: 11/10/2023 Time: 11:26 Bed DIS3 Private MD: ED Physician Jax Ruvalcaba HPI: 11/10 13:23 This 78 yrs old Black Female presents to ER via Wheelchair with complaints of Flu rn Symptoms. 13:23 The patient or guardian reports cough, flu symptoms. Onset: The symptoms/episode rn began/occurred 1 week(s) ago. Severity of symptoms: At their worst the symptoms were mild, in the emergency department the symptoms are unchanged. Modifying factors: The symptoms are alleviated by nothing, the symptoms are aggravated by nothing. Associated signs and symptoms: Pertinent positives: nausea, rhinorrhea, Pertinent negatives: chest pain. The patient has not experienced similar symptoms in the past. Patient reports cough, congestion, flulike symptoms for 1 week. Now having right lower quadrant abdominal pain. Did have diarrhea and nausea x 1. No blood in stool. Denies shortness of breath or chest pain.. Historical: - Allergies: 12:01 Codeine; hb 12:01 Iodine; hb - PMHx: 12:01 Arthritis; Diabetes - NIDDM; BURSITIS; Atrial Fib; Gout; Hypertension; hb - PSHx: 12:01 Total abdominal hysterectomy; hb - Immunization history:: Adult Immunizations unknown. - Family history:: not pertinent. - Social history:: Smoking status: unknown. - Hospitalizations: : No recent hospitalization is reported. ROS: 13:23 Constitutional: Positive for fever and chills Cardiovascular: Negative for chest pain, rn palpitations, and edema, Respiratory: Positive for cough, negative for shortness of breath Abdomen/GI: Positive for right lower quadrant abdominal pain/nausea/vomiting/diarrhea MS/Extremity: Negative for injury and deformity, Skin: Negative for injury, rash, and discoloration, Neuro: Positive for generalized weakness and malaise Exam: 13:23 Constitutional: This is a well developed, well nourished patient who is awake, alert, rn and in no acute distress. Head/Face: Normocephalic, atraumatic. ENT: Dry mucous membranes. No stridor Cardiovascular: Regular rate and rhythm. No pulse deficits. Respiratory: No increased work of breathing, no retractions or nasal flaring. Abdomen/GI: Soft, mild right lower quadrant tenderness without guarding or rebound. No masses. MS/ Extremity: Pulses equal, no cyanosis. Neuro: Awake and alert, GCS 15 Vital Signs: 11:59 BP 152 / 90; Pulse 72; Resp 18; Temp 98.1(O); Pulse Ox 100% on R/A; Weight 88.45 kg; hb Height 5 ft. 0 in. ; Pain 8/10; 15:19 BP 171 / 70; Pulse 65; Resp 18; Pulse Ox 100% ; nj1 16:31 BP 158 / 76; Pulse 63; Resp 18; Pulse Ox 99% on R/A; nj1 11:59 Body Mass Index 38.08 (88.45 kg, 152.4 cm) hb 11:59 Pain Scale: Adult hb MDM: 11:37 Patient medically screened. rn 16:25 Differential Diagnosis: Bronchitis Influenza Upper Respiratory Infection Sinusitis rn Viral Syndrome Pneumonia. Data reviewed: vital signs, nurses notes, lab test result(s), radiologic studies, CT scan, and as a result, I will discharge patient. Counseling: I had a detailed discussion with the patient and/or guardian regarding the historical points, exam findings, and any diagnostic results supporting the discharge/admit diagnosis, lab results, radiology results, the need for outpatient follow up, to return to the emergency department if symptoms worsen or persist or if there are any questions or concerns that arise at home. Response to treatment: the patient's symptoms have mildly improved after treatment, and as a result, I will discharge patient. Special discussion: I discussed with the patient/guardian in detail that at this point there is no indication for admission to the hospital. It is understood, however, that if the symptoms persist or worsen the patient needs to return immediately for re-evaluation. ED course: No acute findings and workup today. Symptoms most consistent with viral syndrome with mild dehydration. Patient with chronic renal failure. Stable vitals.. 11/10 11:37 Order name: SARS RAPID; Complete Time: 12:42 rn 11/10 11:37 Order name: Flu; Complete Time: 13:09 rn 11/10 12:03 Order name: Urinalysis w/ reflexes; Complete Time: 16:16 rn 11/10 12:03 Order name: CBC with Diff; Complete Time: 14:41 rn 11/10 12:03 Order name: CMP; Complete Time: 15:12 rn 11/10 12:03 Order name: Lipase; Complete Time: 15:12 rn 11/10 11:37 Order name: XRAY Chest Pa And Lat (2 Views); Complete Time: 12:42 rn 11/10 12:03 Order name: CT Abd/Pelvis - Without Contrast; Complete Time: 12:42 rn 11/10 12:03 Order name: IV Start; Complete Time: 14:32 rn 11/10 12:03 Order name: Labs collected and sent; Complete Time: 14:32 rn Administered Medications: 15:10 Drug: NS 0.9% IV 500 ml IV at bolus once Route: IV; Rate: bolus; Site: right forearm; nj1 16:55 Follow up: Response: No adverse reaction; IV Status: Completed infusion; IV Intake: nj1 500ml 15:17 Not Given (Patient Refused): ondansetron 4 mg IVP once; over 2 minutes nj1 Disposition Summary: 11/10/23 16:27 Discharge Ordered Notes: Location: Home rn Problem: new rn Symptoms: have improved rn Condition: Stable rn Diagnosis - Disease of upper respiratory tract, unspecified rn - Acute upper respiratory infection, unspecified rn - Dehydration rn Followup: rn - With: Private Physician - When: As needed - Reason: Recheck today's complaints, Re-evaluation by your physician Discharge Instructions: - Discharge Summary Sheet rn - Dehydration, Adult rn - Upper Respiratory Infection, Adult rn Forms: - Medication Reconciliation Form rn - Thank You Letter rn - Antibiotic bar turner - Prescription Opioid Use rn - Patient Portal Instructions rn - Leadership Thank You Letter rn Prescriptions: - Augmentin 875-125 mg Oral Tablet - take 1 tablet ORAL route every 12 hours for 10 days; 20 tablet; Refills: 0, rn Product Selection Permitted Signatures: Dispatcher [employer] Jax Dallas MD MD rn Baxter, Heather, RN RN hb Jaco, Norma RN RN nj1
--- NOTE | 2023-11-10 16:28 | ER ---
Nurse's Notes [facility] Name: Patti Frey Age: 78 yrs Sex: Female : 1945 Arrival Date: 11/10/2023 Time: 11:26 Bed DIS3 Private MD: Diagnosis: Disease of upper respiratory tract, unspecified;Acute upper respiratory infection, unspecified;Dehydration Presentation: 11/10 11:59 Chief complaint: headache, cough, congestion, SOB, N/D, right sided abdominal pain, hb malaise, and generalized weakness x 1 week. Coronavirus screen: Client presents with at least one sign or symptom that may indicate coronavirus-19. Standard/surgical mask placed on the client. Provider contacted for isolation considerations. Ebola Screen: No symptoms or risks identified at this time. Initial Sepsis Screen: Does the patient meet any 2 criteria? No. Patient's initial sepsis screen is negative. Does the patient have a suspected source of infection? No. Patient's initial sepsis screen is negative. Risk Assessment: Do you want to hurt yourself or someone else? Patient reports no desire to harm self or others. Onset of symptoms was November 03, 2023. 11:59 Method Of Arrival: Wheelchair hb 11:59 Acuity: EMELIA 3 hb Historical: - Allergies: 12:01 Codeine; hb 12:01 Iodine; hb - PMHx: 12:01 Arthritis; Diabetes - NIDDM; BURSITIS; Atrial Fib; Gout; Hypertension; hb - PSHx: 12:01 Total abdominal hysterectomy; hb - Immunization history:: Adult Immunizations unknown. - Family history:: not pertinent. - Social history:: Smoking status: unknown. - Hospitalizations: : No recent hospitalization is reported. Screenin:18 [facility] ED Fall Risk Assessment (Adult) Score/Fall Risk Level 0 - 2 = Low Risk nj1 Oriented to surroundings, Maintained a safe environment, Hourly rounding (assess needs \T\ fall precautionary measures) done. Abuse screen: Denies threats or abuse. Denies injuries from another. Nutritional screening: No deficits noted. Tuberculosis screening: No symptoms or risk factors identified. Assessment: 15:10 General: Appears in no apparent distress. uncomfortable, Behavior is calm, cooperative, nj1 appropriate for age. 15:10 Pain: Complains of pain in head Quality of pain is described as aching. Neuro: Level of nj1 Consciousness is awake, alert, obeys commands, Oriented to person, place, situation. Neuro: Reports headache. Cardiovascular: Patient's skin is warm and dry. Respiratory: Airway is patent Respiratory effort is even, unlabored. GI: Patient currently denies nausea. 16:00 Reassessment: Patient appears in no apparent distress at this time. Patient and/or nj1 family updated on plan of care and expected duration. Pain level reassessed. Patient is alert, oriented x 3, equal unlabored respirations, skin warm/dry/pink. 16:33 Reassessment: IVF infusing. nj1 16:55 Reassessment: Patient appears in no apparent distress at this time. Patient is alert, nj1 oriented x 3, equal unlabored respirations, skin warm/dry/pink. Vital Signs: 11:59 BP 152 / 90; Pulse 72; Resp 18; Temp 98.1(O); Pulse Ox 100% on R/A; Weight 88.45 kg; hb Height 5 ft. 0 in. ; Pain 8/10; 15:19 BP 171 / 70; Pulse 65; Resp 18; Pulse Ox 100% ; nj1 16:31 BP 158 / 76; Pulse 63; Resp 18; Pulse Ox 99% on R/A; nj1 11:59 Body Mass Index 38.08 (88.45 kg, 152.4 cm) hb 11:59 Pain Scale: Adult hb ED Course: 11:32 Patient arrived in ED. mg5 11:37 Jax Ruvalcaba MD is Attending Physician. rn 11:57 XRAY Chest Pa And Lat (2 Views) In Process Unspecified. EDMS 12:01 Triage completed. hb 12:02 Arm band placed on. hb 12:05 Flu Sent. hb 12:05 SARS RAPID Sent. hb 12:13 CT Abd/Pelvis - Without Contrast In Process Unspecified. EDMS 14:32 Lipase Sent. em1 14:32 CMP Sent. em1 14:32 CBC with Diff Sent. em1 14:32 Initial lab(s) drawn, by me, sent to lab. Inserted saline lock: 24 gauge in right em1 forearm, using aseptic technique. 14:41 Julia Ferrari, RN is Primary Nurse. nj1 15:10 Patient has correct armband on for positive identification. Bed in low position. Call nj1 light in reach. Adult w/ patient. 15:10 Provided Education on: call light, fall precautions. nj1 16:54 No provider procedures requiring assistance completed. IV discontinued, intact, nj1 bleeding controlled. Administered Medications: 15:10 Drug: NS 0.9% IV 500 ml IV at bolus once Route: IV; Rate: bolus; Site: right forearm; nj1 16:55 Follow up: Response: No adverse reaction; IV Status: Completed infusion; IV Intake: nj1 500ml 15:17 Not Given (Patient Refused): ondansetron 4 mg IVP once; over 2 minutes nj1 Medication: 16:55 VIS not applicable for this client. nj1 Intake: 16:55 IV: 500ml; Total: 500ml. nj1 Outcome: 16:27 Discharge ordered by . rn 16:54 Discharged to home ambulatory, with family, nj1 16:54 Condition: stable 16:54 Discharge instructions given to patient, family, Instructed on discharge instructions, follow up and referral plans. medication usage, Demonstrated understanding of instructions, follow-up care, medications, Prescriptions given X 1, 17:00 Patient left the ED. nj1 Signatures: Dispatcher [employer] EDMS Jax Ruvalcaba MD MD rn Martinez, Eric em1 Katie Bhatti RN RN hb Jaco, Norma, RN RN nj1 Liya Tinajero mg5 Corrections: (The following items were deleted from the chart) 12:02 11:59 Chief complaint: Cough, congestion, SOB, N/D, right sided abdominal pain, hb malaise, and generalized weakness x 1 week. hb 12:02 11:59 BP 152 / 90; Pulse 72bpm; Resp 18bpm; Pulse Ox 100% RA; Temp 98.1F Oral; hb hb 16:33 16:00 Reassessment: Patient appears in no apparent distress at this time. Patient nj1 and/or family updated on plan of care and expected duration. Pain level reassessed. Patient is alert, oriented x 3, equal unlabored respirations, skin warm/dry/pink. nj1 17:46 17:45 Patient left the ED. nj1 nj1
[2023-11-10 18:29] VITALS: TEMP 98.1
[2023-11-10 18:45] VITALS: BP 158/76; O2SAT 99
== END ==
LOC: ER 11:26
DX: J06.9 Acute upper respiratory infection, unspecified (principal); E86.0 Dehydration; E11.9 Type 2 diabetes mellitus without complications; I10 Essential (primary) hypertension; I48.91 Unspecified atrial fibrillation; Z88.5 Allergy status to narcotic agent; Z88.8 Allergy status to other drugs, medicaments and biological substances; Z11.52 Encounter for screening for COVID-19
CPT/HCPCS: 96361; 85025; 81001; 36415; 83690; 80053; 87804 ×2; 74176; 71046; 96360; 99284; 87811; J2405; J7030

== ENCOUNTER 2024-08-12 11:54 | Emergency (ER) | payer OTHER ==
--- OUTSIDE RECORDS SUMMARY | 2024-08-12 11:57 | XMS REPORT | Continuity of Care Document ---
Author Name Unknown Address [address] [facility] [address] [place] [address] [facility] thconnect Address [address] [facility] [address] [place] [address] Care Team Providers Care [employer] Service Technician Name Role Phone Jesu Sheehan Primary Care Physician + [phone] BRADFORD ZHOU Attending Clinician Unavailable Bradford Zhou DO Attending Clinician [phone] Lorena Mcnair RN Attending Clinician [phone] Viv Butterfield Attending Clinician [phone] Piper Cuevas DO Attending Clinician [phone] Lennox Carvalho MD Attending Clinician [phone] LENNOX CARVALHO Attending Clinician Unavailable Piper Cuevas DO Admitting Clinician [phone] PIPER CUEVAS Admitting Clinician Unavailable Payers Payer Name Policy Type Policy Number Effective Date Expirati on Date Source MEDICARE PART A AND B [id number] 2012 00:00:00 MEDICARE PART A \\T\\ B [id number] 2012 00:00:00 [place] [id number] 2022 00:00:00 Problems Condition Name Condition Details Condition Category Status Onset Date Resolution Date Last Treatment Date Treating Clinician Comments Source PAEZ (dyspnea on exertion) PAEZ (dyspnea on exertion) Disease Active 217 00:00: 00 [facility] Essential hypertensi on Essential hypertensi on Disease Active 17 00:00: 00 [facility] Dyslipidem ia Dyslipidem ia Disease Active 217 00:00: 00 [facility] PAF (paroxysma l atrial fibrillati on) PAF (paroxysma l atrial fibrillati on) Disease Active 17 00:00: 00 [facility] 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 12-09 00:00: 00 [facility] Stage 4 chronic kidney disease Stage 4 chronic kidney disease Disease Active 12-09 00:00: 00 [facility] Atypical chest pain Atypical chest pain Disease Active 16 00:00: 00 [facility] Chest pain in adult Chest pain in adult Disease Active 12-08 00:00: 00 [facility] Allergies, Adverse Reactions, Alerts Allergy Name Allergy Type Status Severity Reaction(s) Onset Date Inactive Date Treating Clinician Comments Source Codeine Propensi ty to adverse reaction s Active Anxiety 16 00:00: 00 [facility] Iodine Propensi ty to adverse reaction s Active Other - See comments 16 00:00: 00 Burning [facility] Shrimp Propensi ty to adverse reaction s Active Itching 16 00:00: 00 [facility] CODEINE DRUG INGREDI Active Anxiety 2-16 00:00: 00 [facility] IODINE DRUG INGREDI Active Other-Cmnt -16 00:00: 00 [facility] SHRIMP DRUG INGREDI Active High ITCHING 16 00:00: 00 [facility] NO KNOWN ALLERGIE S Drug Class Active [facility] Social History Social Habit Start Date Stop Date Quantity Comments Source History of tobacco use Current smoker [facility] Exposure to SARS-CoV-2 (event) 2022-11-22 00:00:00 2022-12-02 13:14:00 Not sure [facility] Tobacco use and exposure 2021-12-08 00:00:00 2021-12-08 00:00:00 Smokeless tobacco non-user [facility] Alcohol intake 2021-12-08 00:00:00 2021-12-08 00:00:00 Ex-drinker (finding) [facility] Tobacco Comment 2021-12-08 00:00:00 2021-12-08 00:00:00 back the 80's [facility] Sex Assigned At 1945 00:00:00 1945 00:00:00 [facility] Smoking Status Start Date Stop Date Source Ex-smoker 2021-12-08 00:00:00 2021-[facility]08 [facility] Ordered Medication Name Filled Medication Name Start Date Stop Date Current Medication? Ordering Clinician Indication Dosage Frequency Signature (SIG) Comments Components Source methocarbam oL 500 mg tablet 12-02 00:00: 00 12-08 05:59 :00 No [id number] 500mg Take 1 tablet by mouth in the morning and 1 tablet at noon and 1 tablet in the evening. Do all this for 5 days. [facility] lactulose (CEPHULAC) solution 30 mL 12-10 15:00: 00 Yes 30mL 30 mL, Oral, DAILY, First dose on Mon12/10/21 at 0900, Until Discontinu ed, Routine [facility] atorvastati n (LIPITOR) tablet 40 mg 12-10 03:00: 00 Yes 40mg 40 mg, Oral, QHS, First dose (after last modificati on) on Mon12/09/21 at 2100, Until Discontinu ed, Routine [facility] epoetin bharti-epbx (RETACRIT) injection 10,000 Units 12-10 02:00: 00 12-10 13:59 :00 No [id number] 10,000 Units, Subcutaneo us, ONCE AT 1999, 1 dose, On Becca 12/09/21 at 1999, Routine
juice bar team member approving Restricted medication : AMBER CANELA [facility] amLODIPine 10 mg tablet 12-10 00:00: 00 01-10 04:59 :00 No [id number] 10mg Take 1 tablet by mouth daily for 30 days. [facility] aspirin 81 mg chewable tablet 12-10 00:00: 00 01-10 04:59 :00 No [id number] 81mg Take 1 tablet by mouth daily for 30 days. [facility] omeprazole 40 mg capsule 12-10 00:00: 00 01-10 04:59 :00 No [id number] 40mg Take 1 capsule by mouth daily for 30 days. [facility] SITagliptin 25 mg tablet 12-10 00:00: 00 01-10 04:59 :00 No [id number] 25mg Take 1 tablet by mouth daily for 30 days. [facility] prednisoLON E acetate, PF, 1 % DrpS 12-09 18:06: 32 Yes 1[drp] Place 1 Drop in each eye 2 (two) times daily. Both eyes [facility] bromfenac (PROLENSA) 0.07 % drops 12-09 18:06: 32 Yes 1[drp] Place 1 Drop in left eye daily. PRN for pain [facility] LORazepam 0.5 mg tablet 12-09 18:06: 32 Yes .5mg Take 0.5 mg by mouth 2 (two) times daily. [facility] traMADoL 50 mg tablet 12-09 18:06: 32 Yes 50mg Take 50 mg by mouth 2 (two) times daily. [facility] febuxostat 40 mg tablet 12-09 18:06: 32 Yes 40mg Take 40 mg by mouth daily. [facility] gabapentin 300 mg capsule 12-09 18:06: 32 Yes 300mg Take 300 mg by mouth 2 (two) times daily. [facility] amLODIPine 5 mg tablet 12-09 16:42: 30 12-09 00:00 :00 No 5mg Take 5 mg by mouth daily. [facility] atorvastati n 10 mg tablet 12-09 16:42: 30 12-09 00:00 :00 No 10mg Take 10 mg by mouth at bedtime. [facility] nebivoloL (BYSTOLIC) 5 mg tablet 12-09 16:42: 30 12-09 00:00 :00 No 5mg Take 5 mg by mouth daily. [facility] apixaban (ELIQUIS) 2.5 mg tablet 12-09 16:42: 30 12-09 00:00 :00 No 2.5mg Take 2.5 mg by mouth 2 (two) times daily. [facility] esomeprazol e 40 mg capsule 12-09 16:42: 30 12-09 00:00 :00 No 40mg Take 40 mg by mouth daily. [facility] lisinopriL 10 mg tablet 12-09 16:42: 30 12-09 00:00 :00 No 10mg Take 10 mg by mouth daily. [facility] linaGLIPtin (TRADJENTA) 5 mg tablet 12-09 16:42: 30 12-09 00:00 :00 No 1{tbl} Take 1 tablet by mouth daily. [facility] amLODIPine (NORVASC) tablet 10 mg 12-09 15:00: 00 Yes 10mg 10 mg, Oral, DAILY, First dose (after last modificati on) on Becca 12/09/21 at 0900, Until Discontinu ed, Routine [facility] omeprazole (PRILOSEC) capsule 40 mg 12-09 15:00: 00 Yes 40mg 40 mg, Oral, DAILY, First dose on Becca 12/09/21 at 0900, Until Discontinu ed [facility] aspirin chewable tablet 81 mg 12-09 15:00: 00 Yes 81mg 81 mg, Oral, DAILY, First dose on Mon12/09/21 at 0900, Until Discontinu ed, Routine [facility] Sliding Scale Insulin - Lispro (HumaLOG) + Fsbg Testing 12-09 14:00: 00 Yes Subcutaneo us, TID MEALS, First dose on Mon12/09/21 at 0800, Until Discontinu ed, Routine [facility] apixaban (ELIQUIS) tablet 2.5 mg 12-09 14:00: 00 Yes 2.5mg 2.5 mg, Oral, BID, First dose on Mon12/09/21 at 0800, Until Discontinu ed, Routine
Indicatio ns: Non-Valvul ar Atrial Fibrillati on [facility] NaCl 0.9% (NS) IV infusion 1,000 mL 12-09 06:15: 00 Yes 1000mL at 50 mL/hr, IV Infusion, CONTINUOUS , Starting on Mon12/09/21 at 0015, Until Discontinu ed, Routine [facility] SITagliptin (JANUVIA) tablet 25 mg 12-09 06:15: 00 Yes 25mg 25 mg, Oral, DAILY, First dose on Mon12/09/21 at 0015, Until Discontinu ed [facility] gabapentin (NEURONTIN) capsule 300 mg 12-09 06:15: 00 Yes 300mg 300 mg, Oral, BID, First dose on Mon12/09/21 at 0015, Until Discontinu ed, Routine [facility] traMADoL (ULTRAM) tablet 50 mg 12-09 05:59: 13 Yes 50mg 50 mg, Oral, Q8HPRN, Starting on Mon12/08/21 at 2359, Until Discontinu ed, Routine, Pain (scale 4-6), Pain (scale 7-10) [facility] LORazepam (ATIVAN) tablet 0.5 mg 12-09 05:58: 50 Yes .5mg 0.5 mg, Oral, BIDPRN, Starting on Mon12/08/21 at 2358, Until Discontinu ed, Routine, Anxiety [facility] heparin (porcine) injection 5,000 Units 12-09 04:00: 00 12-09 06:11 :35 No 5000U 5,000 Units, Subcutaneo us, Q8H, First dose on Mon12/08/21 at 2200, Until Discontinu ed, Routine [facility] NaCl 0.9% (NS) IV infusion 1,000 mL 12-09 01:00: 00 12-09 06:12 :07 No 1000mL at 75 mL/hr, IV Infusion, CONTINUOUS , Starting on Mon12/08/21 at 1900, Until Becca 12/09/21 at 0012, Routine [facility] ondansetron (ZOFRAN (PF)) injection 4 mg 12-09 00:51: 57 Yes 4mg 4 mg, Slow IV Push, Q6HPRN, Starting on Mon12/08/21 at 1851, Until Discontinu ed, Routine, Nausea and Vomiting (N/V) [facility] acetaminoph en (TYLENOL) tablet 650 mg 12-09 00:51: 45 Yes 650mg 650 mg, Oral, Q6HPRN, Starting on Mon12/08/21 at 1851, Until Discontinu ed, Routine, Pain (scale 1-3) [facility] apixaban (ELIQUIS) 2.5 mg tablet 12-09 00:00: 00 01-09 04:59 :00 No [id number] 2.5mg Take 1 tablet by mouth 2 (two) times daily for 30 days. Indication s: atrial fibrillati on [facility] atorvastati n 40 mg tablet 12-09 00:00: 00 01-09 04:59 :00 No [id number] 40mg Take 1 tablet by mouth at bedtime for 30 days. [facility] lisinopriL 10 mg tablet 12-09 00:00: 00 01-09 04:59 :00 No [id number] 10mg Take 1 tablet by mouth daily for 30 days. [facility] sulfur hexafluorid e microsphr (LUMASON) injection 5 mL 12-08 20:45: 00 12-08 20:45 :00 No [id number] 5mL 5 mL, Intravenou s, ONCE, 1 dose, On Mon12/08/21 at 1445, Routine
juice bar team member approving Restricted medication : ALANIS BOSS [facility] aspirin E.C. (ECOTRIN) tablet 325 mg 12-08 20:30: 00 12-08 19:36 :00 No 325mg 325 mg, Oral, ONCE, 1 dose, On Mon12/08/21 at 1430, STAT [facility] Vital Signs Vital Name Observation Time Observation Value Comments S ource Systolic blood pressure 2022-12-02 19:15:00 158 mm[Hg] [facility] Diastolic blood pressure 2022-12-02 19:15:00 68 mm[Hg] [facility] Heart rate 2022-12-02 19:15:00 64 /min [facility] Body temperature 2022-12-02 19:15:00 36.61 Dena [facility] Respiratory rate 2022-12-02 19:15:00 20 /min [facility] Body height 2022-12-02 19:15:00 157.5 cm [facility] Body weight 2022-12-02 19:15:00 83.008 kg [facility] BMI 2022-12-02 19:15:00 33.47 kg/m2 [facility] Oxygen saturation in Arterial blood by Pulse oximetry 2022-12-02 19:15:00 100 /min [facility] Systolic blood pressure 2021-12-09 21:12:00 170 mm[Hg] [facility] Diastolic blood pressure 2021-12-09 21:12:00 74 mm[Hg] [facility] Heart rate 2021-12-09 21:12:00 52 /min [facility] Body temperature 2021-12-09 21:12:00 36.72 Dena [facility] Respiratory rate 2021-12-09 21:12:00 18 /min [facility] Oxygen saturation in Arterial blood by Pulse oximetry 2021-12-09 21:12:00 97 /min [facility] Body height 2021-12-08 19:58:00 152.4 cm [facility] Body weight 2021-12-08 19:58:00 86.183 kg [facility] BMI 2021-12-08 19:58:00 37.11 kg/m2 [facility] Procedures Procedure Date / Time Performed Performing Clinician Source CONSENT/REFUSAL FOR DIAGNOSIS AND TREATMENT 2022-12-02 18:58:46 Doctor Unassigned, [place] [facility] POCT GLUCOSE (AUTOMATED) 2021-12-09 23:09:00 Eva Carvalho [facility] TROPONIN I 2021-12-09 18:57:00 Piper Cuevas [facility] POCT GLUCOSE (AUTOMATED) 2021-12-09 17:13:00 Melissa Cuevas [facility] MR BRAIN WO CONTRAST 2021-12-09 15:22:00 Piper Cuevas [facility] POCT GLUCOSE (AUTOMATED) 2021-12-09 13:30:00 Melissa Cuevas [facility] CREATININE, URINE RANDOM 2021-12-09 11:38:00 Melissa Cuevas [facility] SODIUM, URINE RANDOM 2021-12-09 11:38:00 Piper Cuevas [facility] URINALYSIS 2021-12-09 11:37:00 Piper Cuevas [facility] PHOSPHORUS 2021-12-09 10:20:00 Anne-Marie Tenorio [facility] CREATINE KINASE 2021-12-09 10:20:00 Anne-Marie Tenorio [facility] URIC ACID 2021-12-09 10:20:00 Anne-Marie Tenorio [facility] MAGNESIUM 2021-12-09 10:20:00 Piper Cuevas [facility] TROPONIN I 2021-12-09 10:20:00 Anne-Marie Tenorio [facility] COMP. METABOLIC PANEL ([id number]) 2021-12-09 10:20:00 Anne-Marie Tenorio [facility] CBC WITH DIFF 2021-12-09 10:20:00 Piper Cuevas [facility] N-TERMINAL PRO-BNP 2021-12-09 10:20:00 Anne-Marie Tenorio [facility] PROCALCITONIN 2021-12-09 10:20:00 Anne-Marie Tenorio [facility] PROTHROMBIN TIME / INR 2021-12-09 10:19:00 Iam Tenorio [facility] XR CHEST 1 VW 2021-12-09 08:02:00 Anne-Marie Tenorio [facility] XR SHOULDER 2+ VW LEFT 2021-12-09 08:02:00 Iam Tenorio [facility] CREATINE KINASE 2021-12-09 05:01:00 Anne-Marie Tenorio [facility] URIC ACID 2021-12-09 05:01:00 Anne-Marie Tenorio [facility] TROPONIN I 2021-12-09 05:01:00 Piper Cuevas [facility] THYROID STIMULATING HORMONE 2021-12-09 05:01:00 Piper Cuevas [facility] BASIC METABOLIC PANEL (NA, K, CL, CO2, GLUCOSE, BUN, CREATININE, CA) 2021-12-09 05:01:00 Anne-Marie Tenorio [facility] LIPID PANEL (12346)(TOTAL CHOLESTEROL, TRIGLYCERIDES, HDL) 2021-12-09 05:01:00 Piper Cuevas [facility] GLYCOSYLATED HEMOGLOBIN (A1C) 2021-12-09 05:01:00 Piper Cuevas [facility] POCT GLUCOSE (AUTOMATED) 2021-12-08 22:37:00 Melissa Cuevas [facility] COVID-19 (ID NOW RAPID TESTING) 2021-12-08 19:36:00 Viv Marcelo [facility] LAB ONLY COVID INTERPRETATION 2021-12-08 19:36:00 Viv Marcelo [facility] CT HEAD WO CONTRAST 2021-12-08 18:48:07 Pura Marcelo [facility] SEDIMENTATION RATE 2021-12-08 18:11:00 Lm Marcelo [facility] C-REACTIVE PROTEIN 2021-12-08 18:10:00 Lm Marcelo [facility] LIPID PANEL (31942)(TOTAL CHOLESTEROL, TRIGLYCERIDES, HDL) 2021-12-08 18:10:00 Anne-Marie Tenorio [facility] LIPASE 2021-12-08 18:09:00 Viv Marcelo [facility] TROPONIN I 2021-12-08 18:09:00 Viv Marcelo [facility] COMP. METABOLIC PANEL (24689) 2021-12-08 18:09:00 Viv Marcelo [facility] CBC WITH DIFF 2021-12-08 18:09:00 Viv Marcelo [facility] N-TERMINAL PRO-BNP 2021-12-08 18:09:00 Lm Marcelo [facility] HB ECG ROUTINE & RHYTHM STRIP 2021-12-08 17:23:34 Viv Marcelo [facility] NOTICE OF PRIVACY PRACTICES 2021-12-08 17:02:32 Doctor Unassigned, [place] [facility] Encounters Start Date/Time End Date/Time Encounter Type Admission Type Attending Clinicians Care Facility Care Department Encounter ID Source 2022-08-01 11:34:12 Outpatient [facility] [id number] [facility] 2022-07-29 10:16:55 Outpatient [facility] [id number] [facility] 2022-12-02 13:17:00 2022-12-02 14:13:00 Emergency X BRADFORD ZHOU [facility] ERT [id number] [facility] 2022-12-02 13:17:00 2022-12-02 14:13:00 Emergency Bradford Zhou [facility] [id number] [facility] 2021-12-10 00:00:00 2021-12-10 00:00:00 Transition of Care Lorena Mcnair [id number] [facility] 2021-12-08 11:18:00 2021-12-09 17:55:00 Emergency Viv Marcelo [place], Jelani [facility] [id number] [facility] 2021-12-08 11:18:00 2021-12-09 17:55:00 Outpatient X LENNOX CARVALHO [facility] [id number] [facility] Results Test Description Test Time Test Comments Results Result Co mments Source [facility] [id number] 19:34:40* Test Item Value Reference Range Interpretation Comments TROPONIN I (test code = 6917617070) 0.063 ng/mL See_Comment H [Automated message] The [...] of biotin. Lab Interpretation (test code = 25417-0) Abnormal [facility]2021-12-09 17:54:18* Test Item Value Reference Range Interpretation Comme nts POCT GLU (test code = 0827021416) 212 mg/dL 70-110 H Lab Interpretation (test cod e = 66968-9) Abnormal [facility]2022-02-17 17:06:20* Test Item Value Reference Range Interpretation Comme gerardo Procalcitonin (test code = 5497948527) 0.05 ng/mL <0.07 IZABELA (test code = [...] lung abscess/empyema. For further information please refer to:[email or web address] Lab Interpretation (test code = 59683-4) Normal [facility]-REACTIVE [id number] 16:15:47* Test Item Value Reference Range Interpretation Comme nts CRP (test code = 3746693201) 1.1 mg/dL <0.8 H Lab Interpretation (test cod e = 83593-8) Abnormal [facility] with [id number] 16:07:33* Test Item Value Reference Range Interpretation Comme nts WBC (test code = 6690-2) See_Comment L [Automated Push IOa ge] The system which generated this result transmitted reference range: 4.30 - 11.10 10*3/?L. The reference range was not used to interpret this result as normal/abnormal. RBC (test code = 789-8) See_Comment L [Automated Push IOa ge] The system which generated this result [...] 32.1 g/dL 31.6-35.1 RDW-SD (test code = 84361-0) 49.2 fL 39.0-49.9 RDW-CV (test code = 788-0) 15.9 % 12.0-15.5 H PLT (test code = 777-3) See_Comment L [Automated messa ge] The system which generated this result transmitted reference range: 166 - 358 10*3/?L. The reference range was not used to interpret this result as normal/abnormal. MPV (test code = 97594-2) 11.8 fL 9.5-12.9 NRBC/100 WBC (test code = 1029459689) See_Comment [Automated me ssage] The system which generated this result transmitted reference range: 0.0 - 10.0 /100 WBCs. The reference range was not used to interpret this result as normal/abnormal. NRBC x10^3 (test code = 3966588245) <0.01 See_Comment [Automated messa ge] The system which generated this result transmitted reference range: 10*3/?L. The reference range was not used to interpret this result as normal/abnormal. GRAN MAT (NEUT) % (test code = 770-8) 46.8 % IMM GRAN % (test code = 9769678847) 0.30 % LYMPH % (test code = 736-9) 39.3 % MONO % (test code = 5905-5) 10.0 % EOS % (test code = 713-8) 2.8 % BASO % (test code = 706-2) 0.8 % GRAN MAT x10^3(ANC) (test code = 0232218879) 1.87 10*3/uL 1.88-7.09 L IMM GRAN x10^3 (test code = 8231141695) <0.03 0.00-0.06 LYMPH x10^3 (test code = [...] result as normal/abnormal. ELLIPTO/OVAL (test code = 28973-7) 2+ See_Comment A [Automated messa ge] The system which generated this result transmitted reference range: (none). The reference range was not used to interpret this result as normal/abnormal. Lab Interpretation (test code = 44027-9) Abnormal [facility]2021-12-09 14:06:00* Test Item Value Reference Range Interpretation Comme [facility] POCT GLU (test code = 7951611012) 111 mg/dL 70-110 H Lab Interpretation (test cod e = 78141-7) Abnormal [facility]PROT[facility] / [id number] 11:31:47* Test Item Value Reference Range Interpretation Comme [facility] PROTIME PATIENT (test code = 5964-2) See_Comment [Automated messa ge] The system which generated this result transmitted reference range: 12.0 - 14.7 Seconds. The reference range was not used to interpret this result as normal/abnormal. INR (test code = 6301-6) Normal INR <1.1; Warfarin Therapeutic range 2.0 to 3.0 or 2.5 to 3.5, depending upon the indications. Lab Interpretation (test code = 30779-8) Normal [facility] [id number] 11:18:45* Test Item Value Reference Range Interpretation Comments TROPONIN I (test code = 2458257602) 0.061 ng/mL See_Comment H [Automated message] The [...] of biotin. Lab Interpretation (test code = 88968-4) Abnormal [facility]MINAL [id number] 11:15:23* Test Item Value Reference Range Interpretation Comme nts NT-proBNP (test code = 2966597357) 657 pg/mL See_Comment H [Automated message] The system which generated this result transmitted reference range: <=125. The reference range was not used to interpret this result as normal/abnormal. IZABELA (test code = IZABELA) Biotin has been reported to cause a negative bias, interpret results relative to patient's use of biotin. Lab Interpretation (test code = 27429-9) Abnormal [facility] HospitalMagnesium [id number] 11:10:21* Test Item Value Reference Range Interpretation Comme nts MAGNESIUM (test code = 7874571343) 1.9 mg/dL 1.7-2.4 Lab Interpretation (test cod e = 14285-7) Normal [facility]. METABOLIC PANEL (90670)2021-12-09 11:10:20* Test Item Value Reference Range Interpretation Comme nts NA (test code = 5853298468) 141 mmol/L 135-145 K (test code = 2219526355) 4.3 mmol/L 3.5-5.0 CL (test code = 9828953282) 116 mmol/L 98-108 H CO2 TOTAL (test code = 6395112068) 23 mmol/L 23-31 AGAP (test code = 2917117142) 2-16 BUN (test code = 4245703920) 43 mg/dL 7-23 H GLUCOSE (test code = 4221998652) 107 mg/dL 70-110 CREATININE (test code = 8849433269) 2.16 mg/dL 0.50-1.04 H TOTAL BILI (test code = 9780713947) 0.3 mg/dL 0.1-1.1 CALCIUM (test code = 1055829504) 10.0 mg/dL 8.6-10.6 T PROTEIN (test code = 9017100485) 6.8 g/dL 6.3-8.2 ALBUMIN (test code = 3234990796) 3.8 g/dL 3.5-5.0 ALK PHOS (test code = 2660673093) 89 U/L 34-122 ALTv (test code = 1742-6) 22 U/L 5-35 AST(SGOT) (test code = 1638533544) 27 U/L 13-40 eGFR (test code = 8782684826) mL/min/1.73m2 IZABELA (test code = IZABELA) Association [...] imaging tests). Lab Interpretation (test code = 31454-0) Abnormal [facility]2022-02-17 11:09:40* Test Item Value Reference Range Interpretation Comme nts PHOSPHORUS (test code = 1804583877) 2.9 mg/dL 2.5-5.0 Lab Interpretation (test cod e = 66361-8) [facility] [id number] 11:09:40* Test Item Value Reference Range Interpretation Comme nts URIC ACID (test code = 6135107453) 3.0 mg/dL 2.9-6.0 Lab Interpretation (test cod e = 50081-0) [facility] HospitalCREATINE [id number] 11:09:20* Test Item Value Reference Range Interpretation Comme nts CK (test code = 9019852732) 77 U/L 33-194 Lab Interpretation (test cod e = 77084-1) Normal [facility] HospitalLIPID PANEL (87931)(TOTAL CHOLESTEROL, TRIGLYCERIDES, HDL)2021-12-09 07:07:05* Test Item Value Reference Range Interpretation Comme nts CHOL (test code = 3022662157) 219 mg/dL 120-200 H HDL (test code = 2173789137) 56 mg/dL >50 HDLC RATIO (test code = 8519687465) See_Comment [Fitfully] The system which generated this result transmitted reference range: <=4.5. The reference range was not used to interpret this result as normal/abnormal. TRIG (test code = 2160075978) 117 mg/dL 30-170 LDL CHOL (test code = 76287-8) 140 mg/dL See_Comment [Fitfully] The system which generated this result transmitted reference range: <=160. The reference range was not used to interpret this result as normal/abnormal. VLDL (test code = 8954834239) 23 mg/dL 5-60 Lab Interpretation (test code = 22364-8) [facility]normal [facility] [id number] 06:45:44* Test Item Value Reference Range Interpretation Comme nts URIC ACID (test code = 5532286610) 3.1 mg/dL 2.9-6.0 Lab Interpretation (test cod e = 28033-6) [facility]I METABOLIC PANEL (NA, K, CL, CO2, GLUCOSE, BUN, CREATININE, CA)2021-12-09 06:45:44* Test Item Value Reference Range Interpretation Comme nts NA (test code = 9477952089) 140 mmol/L 135-145 K (test code = 7473550090) 4.7 mmol/L 3.5-5.0 CL (test code = 5304571665) 114 mmol/L 98-108 H CO2 TOTAL (test code = 6774258248) 23 mmol/L 23-31 AGAP (test code = 8833316965) 2-16 BUN (test code = 9786013321) 45 mg/dL 7-23 H GLUCOSE (test code = 1843145800) 110 mg/dL 70-110 CREATININE (test code = 8711707506) 2.29 mg/dL 0.50-1.04 H CALCIUM (test code = 9825826404) 10.1 mg/dL 8.6-10.6 eGFR (test code = 2534737090) mL/min/1.73m2 IZABELA (test code = IZABELA) Association [...] imaging tests). Lab Interpretation (test code = 38075-0) Abnormal [facility] HospitalCREATINE [id number] 06:44:43* Test Item Value Reference Range Interpretation Comme nts CK (test code = 7454517950) 89 U/L 33-194 Lab Interpretation (test cod e = 46595-6) Normal [facility] HospitalGlycosylated Hemoglobin (A1C)2021-12-09 06:41:28* Test Item Value Reference Range Interpretation Comme nts HGB A1C (test code = 4548-4) 5.8 % 4.0-5.7 H IZABELA (test code = IZABELA) Reference RangesNormal: <5.7%Prediabetes: 5.7 - 6.4%Diabetes: > 6.5% Lab Interpretation (test code = 68215-6) Abnormal [facility] HospitalThyroid Stimulating Hormone (TSH)2021-12-09 06:08:03* Test Item Value Reference Range Interpretation Comme nts TSH (test code = 5940647249) See_Comment [Automated Push IOa ge] The system which generated this result transmitted reference range: 0.45 - 4.70 mIU/L. The reference range was not used to interpret this result as normal/abnormal. Lab Interpretation (test code = 87739-9) Normal [facility] HospitalTroponin [id number] 05:49:19* Test Item Value Reference Range Interpretation Comments TROPONIN I (test code = 4140191378) 0.061 ng/mL See_Comment H [Automated message] The [...] of biotin. Lab Interpretation (test code = 97413-3) Abnormal [facility] HospitalLipid Panel (Total Cholesterol, Triglycerides, HDL)2021-12-09 05:36:42* Test Item Value Reference Range Interpretation Comme nts CHOL (test code = 6263861191) 200 mg/dL 120-200 HDL (test code = 2262796962) 59 mg/dL >50 HDLC RATIO (test code = 6240401655) See_Comment [Automated Push IOa ge] The system which generated this result transmitted reference range: <=4.5. The reference range was not used to interpret this result as normal/abnormal. TRIG (test code = 8708485574) 121 mg/dL 30-170 LDL CHOL (test code = 34426-9) 117 mg/dL See_Comment [Automated messa ge] The system which generated this result transmitted reference range: <=160. The reference range was not used to interpret this result as normal/abnormal. VLDL (test code = 8329420591) 24 mg/dL 5-60 Lab Interpretation (test code = 98626-5) Normal [facility] HospitalPOCT GLUCOSE (AUTOMATED)2021-12-08 22:40:15* Test Item Value Reference Range Interpretation Comme nts POCT GLU (test code = 2751707720) 105 mg/dL 70-110 Lab Interpretation (test cod e = 62429-5) Normal [facility] HospitalSEDIMENTATION [id number] 19:08:56* Test Item Value Reference Range Interpretation Comme nts ESR (test code = 3332575005) See_Comment H [Automated Push IOa ByteActive] The system which generated this result transmitted reference range: 0 - 20 mm/HR. The reference range was not used to interpret this result as normal/abnormal. Lab Interpretation (test code = 50783-4) Abnormal [facility] HospitalTROPONIN [id number] 19:05:34* Test Item Value Reference Range Interpretation Comments TROPONIN I (test code = 2104142879) 0.058 ng/mL See_Comment H [Automated message] The [...] of biotin. Lab Interpretation (test code = 62400-0) Abnormal [facility] HospitalN-TERMINAL [id number] 19:02:16* Test Item Value Reference Range Interpretation Comme nts NT-proBNP (test code = 4246445447) 330 pg/mL See_Comment H [Automated message] The system which generated this result transmitted reference range: <=125. The reference range was not used to interpret this result as normal/abnormal. IZABELA (test code = IZABELA) Biotin has been reported to cause a negative bias, interpret results relative to patient's use of biotin. Lab Interpretation (test code = 28452-5) Abnormal [facility] HospitalCOMP. METABOLIC PANEL (95760)2021-12-08 18:53:28* Test Item Value Reference Range Interpretation Comme nts NA (test code = 8380949852) 141 mmol/L 135-145 K (test code = 9383494719) 5.2 mmol/L 3.5-5.0 H CL (test code = 9524581915) 115 mmol/L 98-108 H CO2 TOTAL (test code = 8538950662) 19 mmol/L 23-31 L AGAP (test code = 2200930313) 2-16 BUN (test code = 5491049103) 49 mg/dL 7-23 H GLUCOSE (test code = 1986236736) 115 mg/dL 70-110 H CREATININE (test code = 7567716553) 2.22 mg/dL 0.50-1.04 H TOTAL BILI (test code = 2463223654) 0.4 mg/dL 0.1-1.1 CALCIUM (test code = 4578613768) 10.4 mg/dL 8.6-10.6 T PROTEIN (test code = 1032381208) 8.0 g/dL 6.3-8.2 ALBUMIN (test code = 6604999900) 4.6 g/dL 3.5-5.0 ALK PHOS (test code = 4181809799) 106 U/L 34-122 ALTv (test code = 1742-6) 26 U/L 5-35 AST(SGOT) (test code = 2818862131) 31 U/L 13-40 eGFR (test code = 5207012610) mL/min/1.73m2 IZABELA (test code = IZABELA) Association [...] imaging tests). Lab Interpretation (test code = 95059-6) Abnormal [facility] HospitalLIPASE2022-02-16 18:53:07* Test Item Value Reference Range Interpretation Comme nts LIPASE (test code = 4721154148) 334 U/L 0-220 H Lab Interpretation (test cod e = 29630-7) Abnormal [facility] HospitalCB WITH [id number] 18:41:07* Test Item Value Reference Range Interpretation Comme nts WBC (test code = 6690-2) See_Comment [Automated messa ge] The system which generated this result transmitted reference range: 4.30 - 11.10 10*3/?L. The reference range was not used to interpret this result as normal/abnormal. RBC (test code = 789-8) See_Comment [Automated messa ge] The system which [...] g/dL 31.6-35.1 L RDW-SD (test code = 61010-0) 49.6 fL 39.0-49.9 RDW-CV (test code = 788-0) 15.7 % 12.0-15.5 H PLT (test code = 777-3) See_Comment [Automated Push IOa ge] The system which generated this result transmitted reference range: 166 - 358 10*3/?L. The reference range was not used to interpret this result as normal/abnormal. MPV (test code = 92865-3) 11.5 fL 9.5-12.9 NRBC/100 WBC (test code = 9983981276) See_Comment [Automated Bionatur[employer] ssage] The system which generated this result transmitted reference range: 0.0 - 10.0 /100 WBCs. The reference range was not used to interpret this result as normal/abnormal. NRBC x10^3 (test code = 2858919903) <0.01 See_Comment [Automated messa ge] The system which generated this result transmitted reference range: 10*3/?L. The reference range was not used to interpret this result as normal/abnormal. GRAN MAT (NEUT) % (test code = 770-8) 51.1 % IMM GRAN % (test code = 5178918849) 0.30 % LYMPH % (test code = 736-9) 34.8 % MONO % (test code = 5905-5) 10.9 % EOS % (test code = 713-8) 2.2 % BASO % (test code = 706-2) 0.7 % GRAN MAT x10^3(ANC) (test code = 1406627981) 3.01 10*3/uL 1.88-7.09 IMM GRAN x10^3 (test code = 3689478039) <0.03 0.00-0.06 LYMPH x10^3 (test code = 731-0) 2.05 10*3/uL 1.32-3.29 MONO x10^3 (test code = 742-7) 0.64 10*3/uL 0.33-0.92 EOS x10^3 (test code = 711-2) 0.13 10*3/uL 0.03-0.39 BASO x10^3 (test code = 704-7) 0.04 10*3/uL 0.01-0.07 Lab Interpretation (test code = 62613-5) Abnormal [facility]"
[2024-08-12] MEDS ORDERED: ACETAMINOPHEN 325 MG TABLET ONE (12:22)
[2024-08-12 12:50] LABS: Absolute Basophils 0.1 K/uL (0-0.5); Absolute Eosinophils 0.1 K/uL (0-0.5); Absolute Lymphocytes (CBC) 1.3 K/uL (0.7-4.9); Absolute Monocytes 0.5 K/uL (0.1-1.3); Absolute Neutrophil 4.2 K/uL (1.8-8.0); Basophils % 0.9 % (0-1.3); Eosinophils % 1.5 % (0-4.4); Hematocrit 26.6 % (36.0-45.0); Hemoglobin 8.5 g/dL (12.0-15.0); Lymphocytes % 21.7 % (15.3-44.8); MCH 26.5 pg (27.0-35.0); MCHC 32.1 g/dL (32.0-36.0); MCV 82.6 fL (80-100); MPV 8.7 fL (7.6-11.3); Monocytes % 7.9 % (3.3-12.3); Platelets 249 thou/uL (152-406); RBC Red Blood Cell Count 3.22 M/uL (3.86-4.86); Red Cell Distribution Width 16.1 % (12.1-15.2)
[2024-08-12 12:56] LABS: PT Prothrombin Time 13.7 SECONDS (9.4-12.5); Protime INR 1.23
[2024-08-12 13:09] LABS: AST/SGOT 13 U/L (15-37); Albumin 3.2 g/dL (3.4-5.0); Albumin/Globulin Ratio 0.7 (1.1-1.8); Alkaline Phosphatase 123 U/L (45-117); Anion Gap 8.7 mEq/L (5.0-15.0); BUN Blood Urea Nitrogen 28 mg/dL (7-18); Bicarbonate 21 mEq/L (21-32); Bilirubin Total 0.3 mg/dL (0.2-1.0); Globulin 4.8 g/dL (2.3-3.5); Glomerular Filtration Rate 30 ml/min (=/>90); Glucose Level 98 mg/dL (74-106); Magnesium 1.7 mg/dL (1.6-2.4); NT PRO-BNP 549 pg/mL (<450); Potassium 4.7 mEq/L (3.5-5.1); Sodium Level 140 mEq/L (136-145)
[2024-08-12 13:12] LABS: Sqamous Epithelial <5 /HPF (None Seen); Urine Bacteria <20 /HPF (<20); Urine Bilirubin NEGATIVE (Negative); Urine Blood Negative (Negative); Urine Clarity Turbid (Clear); Urine Color Colorless (Yellow); Urine Culture Reflex Order NOT NEEDED; Urine Glucose NEGATIVE (Negative); Urine Ketones NEGATIVE (Negative); Urine Micro Reflex YN NO BILL MICROSCOPIC; Urine Mucus Slight /HPF (None Seen); Urine Nitrite NEGATIVE (Negative); Urine Protein NEGATIVE (Negative); Urine RBC <5 /HPF (None Seen); Urine Urobilinogen Normal (Normal); Urine WBC <5 /HPF (<5); Urine pH 5.5 (5.0-7.0)
--- NOTE | 2024-08-12 13:13 | RAD REPORT ---
Procedure: Chest Single View HISTORY: Chest pain COMPARISON: October 2023 FINDINGS: The lungs appear clear of acute infiltrate. No significant pleural effusion noted. The heart is mildly enlarged. IMPRESSION: No acute abnormality is displayed.
[2024-08-12 13:15] LABS: ALT/SGPT < 14 U/L (13-56); Bilirubin Direct < 0.2 mg/dL (0-0.2); Bilirubin Indirect, Calculated 0.1 mg/dL (0.2-0.8)
[2024-08-12 13:17] LABS: Troponin High Sensitivity 145.5 pg/mL (<58.9)
[2024-08-12 14:36] LABS: SARS-CoV-2 Antigen CONTROL BLUE LINE VIS/BG OK; SARS-CoV-2 Antigen Rapid Res Negative (Negative)
--- NOTE | 2024-08-12 14:55 | EDPHYS ---
Physician Documentation [facility] Name: Patti Frey Age: 78 yrs Sex: Female : 1945 Arrival Date: 08/12/2024 Time: 11:54 Bed 12 Private MD: ED Physician Mumtaz Marquez HPI: 08/12 12:54 This 78 yrs old Black Female presents to ER via EMS with complaints of Palpitations. sb4 12:54 Patient states she woke up this morning experiencing weakness and palpitations. She sb4 denies any chest pain. States that she does feel shortness of breath when the palpitations come on. She states that her symptoms have improved but are still lingering. States that she had an NSTEMI back in April and has stent placed. States that things have been okay since. She is on eliquis but is unsure of her other medication. Historical: - Allergies: 12:06 Codeine; hb 12:06 Iodine; hb - PMHx: 12:06 BURSITIS; Arthritis; Diabetes - NIDDM; Atrial Fib; Gout; Hypertension; hb - PSHx: 12:06 Total abdominal hysterectomy; hb - Immunization history:: Adult Immunizations up to date. - Infectious Disease History:: Denies. - Social history:: Smoking status: unknown. ROS: 12:54 Constitutional: Negative for fever, chills, and weight loss, sb4 12:54 Cardiovascular: Positive for palpitations, 12:54 Neuro: Positive for weakness, 12:54 All other systems are negative, Exam: 12:55 Head/Face: Normocephalic, atraumatic. Eyes: Extra-ocular motions intact. Periorbital sb4 areas with no swelling, redness, or edema. ENT: Mucous membranes moist. Cardiovascular: Regular rate and rhythm with a normal S1 and S2. Respiratory: No increased work of breathing, no retractions or nasal flaring. Abdomen/GI: Soft, non-tender, no distension. Skin: Warm, dry with normal turgor. Normal color with no rashes, no lesions, and no evidence of cellulitis. 12:55 Constitutional: The patient appears in no acute distress, alert, awake, Vital Signs: 11:56 BP 147 / 73; Pulse 70; Resp 15; Temp 97.4(TE); Pulse Ox 100% on R/A; Weight 83.91 kg; hb Height 4 ft. 11 in. ; Pain 0/10; 12:13 BP 161 / 67; Pulse 70; Resp 20; Pulse Ox 100% on R/A; ar6 14:55 BP 169 / 81; Pulse 71; Resp 18; Pulse Ox 97% on R/A; ar6 16:48 BP 160 / 77; Pulse 77; Resp 18; Pulse Ox 99% on R/A; ar6 11:56 Body Mass Index 37.37 (83.91 kg, 149.86 cm) hb 11:56 Pain Scale: Adult hb MDM: 11:57 Medical Screening Exam initiated sb4 15:10 Data reviewed: vital signs, nurses notes, EMS record, lab test result(s), EKG, sb4 radiologic studies. 15:15 ED course: patient requests to be transferred to where she can be seen by Dr. Patel. sb4 I spoke with Dr. Patel who states he will consult on the patient if she is transferred to [facility]. 08/12 12:16 Order name: Basic Metabolic Panel; Complete Time: 13:17 sb4 08/12 12:16 Order name: CBC with Diff; Complete Time: 13:12 sb4 08/12 12:16 Order name: LFT's; Complete Time: 13:17 sb4 08/12 12:16 Order name: Magnesium; Complete Time: 13:17 sb4 08/12 12:16 Order name: NT PRO-BNP; Complete Time: 13:17 sb4 08/12 12:16 Order name: PT-INR; Complete Time: 12:56 sb4 08/12 12:16 Order name: Troponin HS; Complete Time: 13:17 sb4 08/12 12:16 Order name: SARS RAPID; Complete Time: 14:42 sb4 08/12 12:16 Order name: Flu; Complete Time: 14:42 sb4 08/12 12:16 Order name: UAM; Complete Time: 14:47 sb4 08/12 12:16 Order name: XRAY Chest (1 view); Complete Time: 13:14 sb4 08/12 12:16 Order name: Cardiac monitoring; Complete Time: 12:21 sb4 08/12 12:16 Order name: EKG - Nurse/Tech; Complete Time: 14:38 sb4 08/12 12:16 Order name: IV Saline Lock; Complete Time: 12:48 sb4 08/12 12:16 Order name: Labs collected and sent; Complete Time: 12:48 sb4 08/12 12:16 Order name: O2 Per Protocol; Complete Time: 12:21 sb4 08/12 12:16 Order name: O2 Sat Monitoring; Complete Time: 12:21 sb4 EC:12 Rate is 65 beats/min. Rhythm is irregular, Sinus Rhythm with PACs, Right bundle branch sb4 block. Left axis deviation noted. DC interval is normal at 162 msec. QRS interval is normal at 144 msec. QT interval is normal at 450 msec. No Q waves. T waves are Normal. No ST changes noted. Clinical impression: Abnormal EKG without significant change. Interpreted by me. Reviewed by me. Administered Medications: 12:23 Drug: Acetaminophen PO 650 mg PO once Route: PO; ar6 14:37 Follow up: Response: No adverse reaction ar6 16:53 Follow up: Response: No adverse reaction ar6 Disposition: 17:47 Co-signature as Attending Physician, Mumtaz Marquez MD I reviewed the patient's care rt provided by the Advanced Practice Provider and agree with the diagnosis and treatment plan. Disposition Summary: 08/12/24 14:54 Transfer Ordered Notes: Reason: Patient request sb4 Condition: Fair sb4 Problem: new sb4 Symptoms: are unchanged sb4 Transfer Location: [facility] System(08/12/24 15:15) sb4 Accepting Physician: cardiology(08/12/24 17:15) ar6 Diagnosis - Subsequent non-ST elevation (NSTEMI) myocardial infarction sb4 - Palpitations sb4 Forms: - Medication Reconciliation Form sb4 - SBAR form sb4 Signatures: Dispatcher [employer] EDKatie Crooks RN RN Rose Tyson PA-C PAJudeC sb4 Mumtaz Marquez MD MD rt Annette Landrum RN RN ar6 Corrections: (The following items were deleted from the chart) 12:17 12:16 BASIC METABOLIC PANEL+C.LAB.BRZ ordered. EDMS EDMS 12:17 12:16 CBC+H.LAB.BRZ ordered. EDMS EDMS 12:17 12:16 HEPATIC FUNCTION+C.LAB.BRZ ordered. EDMS EDMS 12:17 12:16 MAGNESIUM+C.LAB.BRZ ordered. EDMS EDMS 12:17 12:16 PROBNP+C.LAB.BRZ ordered. EDMS EDMS 12:17 12:16 PROTIME (+INR)+COAG.LAB.BRZ ordered. EDMS EDMS 12:17 12:16 Troponin High Sensitivity+C.LAB.BRZ ordered. EDMS EDMS 12:17 12:16 SARS-COV-2 Antigen Rapid+I.LAB.BRZ ordered. EDMS EDMS 12:17 12:16 Influenza Screen (A \T\ B)+BA.LAB.BRZ ordered. EDMS EDMS 12:17 12:17 Chest Single View+RAD.RAD.BRZ ordered. EDMS EDMS 12:17 12:17 Urinalysis W/Microscopic+U.LAB.BRZ ordered. EDMS EDMS 13:15 13:12 Rate is 65 beats/min. Rhythm is irregular, Sinus Rhythm with PACs, Right bundle sb4 branch block. Left axis deviation noted. DC interval is normal at 162 msec. QRS interval is normal at 144 msec. QT interval is normal at 450 msec. No Q waves. T waves are Normal. No ST changes noted. Interpreted by me. Reviewed by me. sb4 15:15 14:54 cardiology sb4 sb4 15:15 14:54 [facility]-System sb4 sb4 17:15 15:15 cardiology sb4 ar6
--- NOTE | 2024-08-12 14:55 | ER ---
Nurse's Notes [facility] Name: Patti Frey Age: 78 yrs Sex: Female : 1945 Arrival Date: 08/12/2024 Time: 11:54 Bed 12 Private MD: Diagnosis: Subsequent non-ST elevation (NSTEMI) myocardial infarction;Palpitations Presentation: 08/12 11:56 Chief complaint: EMS states: Palpitations since this morning. Coronavirus screen: At this time, the client does not indicate any symptoms associated with coronavirus-19. Ebola Screen: No symptoms or risks identified at this time. Initial Sepsis Screen: Does the patient meet any 2 criteria? No. Patient's initial sepsis screen is negative. Does the patient have a suspected source of infection? No. Patient's initial sepsis screen is negative. Risk Assessment: Do you want to hurt yourself or someone else? Patient reports no desire to harm self or others. Onset of symptoms was August 12, 2024. 11:56 Method Of Arrival: EMS: [facility] 11:56 Acuity: EMELIA 3 hb Historical: - Allergies: 12:06 Codeine; hb 12:06 Iodine; hb - PMHx: 12:06 BURSITIS; Arthritis; Diabetes - NIDDM; Atrial Fib; Gout; Hypertension; hb - PSHx: 12:06 Total abdominal hysterectomy; hb - Immunization history:: Adult Immunizations up to date. - Infectious Disease History:: Denies. - Social history:: Smoking status: unknown. Screenin:13 [facility] ED Fall Risk Assessment (Adult) History of falling in the last 3 months, ar6 including since admission No falls in past 3 months (0 pts) Confusion or Disorientation No (0 pts) Intoxicated or Sedated No (0 pts) Impaired Gait Yes (1 pt) Mobility Assist Device Used Yes (1 pt) Altered Elimination No (0 pt) Score/Fall Risk Level 0 - 2 = Low Risk Oriented to surroundings, Maintained a safe environment, Educated pt \T\ family on fall prevention, incl call for assistance when getting out of bed, Hourly rounding (assess needs \T\ fall precautionary measures) done. Abuse screen: Denies threats or abuse. Denies injuries from another. Nutritional screening: No deficits noted. Tuberculosis screening: No symptoms or risk factors identified. Assessment: 12:13 General: Appears in no apparent distress. uncomfortable, Behavior is calm, cooperative. ar6 Pain: Denies pain. Pain: Complains of pain in left leg Pain began gradually. Neuro: Level of Consciousness is awake, alert, obeys commands, Oriented to person, place, time, situation. Cardiovascular: Reports palpitations, shortness of breath, pt. reports hx of a-flutter and left groin pain. Respiratory: Airway is patent. GI: Abdomen is round non-distended, Bowel sounds present X 4 quads. : No signs and/or symptoms were reported regarding the genitourinary system. EENT: Oral mucosa is moist. Derm: Skin is intact, is healthy with good turgor, Skin is dry, Skin is pink, warm \T\ dry. Musculoskeletal: No signs and/or symptoms reported regarding the musculoskeletal system. 17:14 Reassessment: report given to [facility] to ADE Bates. ar6 Vital Signs: 11:56 BP 147 / 73; Pulse 70; Resp 15; Temp 97.4(TE); Pulse Ox 100% on R/A; Weight 83.91 kg; hb Height 4 ft. 11 in. ; Pain 0/10; 12:13 BP 161 / 67; Pulse 70; Resp 20; Pulse Ox 100% on R/A; ar6 14:55 BP 169 / 81; Pulse 71; Resp 18; Pulse Ox 97% on R/A; ar6 16:48 BP 160 / 77; Pulse 77; Resp 18; Pulse Ox 99% on R/A; ar6 11:56 Body Mass Index 37.37 (83.91 kg, 149.86 cm) hb 11:56 Pain Scale: Adult hb ED Course: 11:56 Patient arrived in ED. sb4 11:56 Rose Britton PA-C is PHCP. sb4 11:57 Mumtaz Marquez MD is Attending Physician. sb4 11:57 Annette Landrum, RN is Primary Nurse. ar6 12:06 Triage completed. hb 12:07 Arm band placed on. hb 12:13 Patient has correct armband on for positive identification. Bed in low position. Call ar6 light in reach. Side rails up X2. Provided Education on: plan of care. Client placed on continuous cardiac and pulse oximetry monitoring. NIBP monitoring applied. 12:13 Door closed. Moved to private room. Warm blanket given. ar6 12:39 Initial lab(s) drawn, by me, sent to lab. COVID swab sent to lab. Flu and/or RSV swab hb sent to lab. Inserted saline lock: 20 gauge in right antecubital area, using aseptic technique. Blood collected. Flushed with 10 mL NS. 12:48 Flu Sent. hb 12:48 SARS RAPID Sent. hb 12:48 Basic Metabolic Panel Sent. hb 12:48 CBC with Diff Sent. hb 12:48 LFT's Sent. hb 12:48 Magnesium Sent. hb 12:48 NT PRO-BNP Sent. hb 12:48 PT-INR Sent. hb 12:48 Troponin HS Sent. hb 12:57 UAM Sent. ar6 12:57 Flu Sent. ar6 12:57 SARS RAPID Sent. ar6 12:57 Basic Metabolic Panel Sent. ar6 12:57 CBC with Diff Sent. ar6 12:57 LFT's Sent. ar6 12:57 Magnesium Sent. ar6 12:57 NT PRO-BNP Sent. ar6 12:58 Troponin HS Sent. ar6 13:02 XRAY Chest (1 view) In Process Unspecified. EDMS 13:11 No apparent distress. ar6 13:11 No provider procedures requiring assistance completed. IV is patent, is intact. ar6 Administered Medications: 12:23 Drug: Acetaminophen PO 650 mg PO once Route: PO; ar6 14:37 Follow up: Response: No adverse reaction ar6 16:53 Follow up: Response: No adverse reaction ar6 Medication: 12:13 VIS not applicable for this client. ar6 Outcome: 14:54 ER care complete, transfer ordered by MD. tran 17:15 Patient left the ED. ar6 Signatures: Dispatcher [employer] EDMS Katie Bhatti, RN RN Rose Tyson PA-C PAAnnette Posey RN RN ar6
[2024-08-12 21:52] VITALS: TEMP 97.4
[2024-08-12 22:14] VITALS: BP 160/77; O2SAT 99
--- NOTE | 2024-08-13 12:52 | EKG ---
Test Date: 2024-08-12 Test Time: 13:02:10 Gate Watch: [place] MEASUREMENT RESULTS: Intervals: Rate: 65 VT: 162 QRSD: 144 QT: 450 QTc: 468 Maynard: P: 37 VT: 162 QRS: -41 T: 6 INTERPRETIVE STATEMENTS: Sinus rhythm with premature atrial complexes Left axis deviation Right bundle branch block Voltage criteria for left ventricular hypertrophy Abnormal ECG Compared to ECG 05/16/2024 15:20:53 No significant changes Electronically Signed On 08-13-24 12:50:04 CDT by Rodger Locke
== END 2024-08-12 17:15 | disposition short-term general hospital (02) ==
LOC: ER 11:54
DX: I22.2 Subsequent non-ST elevation (NSTEMI) myocardial infarction (principal); I21.9 Acute myocardial infarction, unspecified; I10 Essential (primary) hypertension; I48.91 Unspecified atrial fibrillation; Z95.818 Presence of other cardiac implants and grafts; Z11.52 Encounter for screening for COVID-19
CPT/HCPCS: 36415; 71045; 80048; 80076; 81001; 83735; 83880; 84484; 85025; 85610; 87804; 87811; 93005; 99284

== ENCOUNTER 2024-11-05 07:26 | Emergency (ER) | payer OTHER ==
--- OUTSIDE RECORDS SUMMARY | 2024-11-05 07:30 | XMS REPORT | Continuity of Care Document ---
Author Name Unknown Address [address] [place] [address] [facility] thconnect Address [address] [place] [address] Care Team Providers Care Inspector Final Assembly Conveyor Line Name Role Phone Avel Jesu Irizarry Primary Care Physician [phone] Miguelito Calixto Attending Clinician Unavailable Lianna Soto Attending Clinician Unavailable BRADFORD ZHOU Attending Clinician Unavailable Bradford Zhou DO Attending Clinician [phone] Lorena Mcnair RN Attending Clinician [phone] Viv Butterfield Attending Clinician [phone] Piper Cuevas DO Attending Clinician [phone] Lennox Carvalho MD Attending Clinician [phone] LENNOX CARVALHO Attending Clinician Unavailable Miguelito Calixto Admitting Clinician Unavailable Lianna Soto Admitting Clinician Unavailable Piper Cuevas DO Admitting Clinician [phone] PIPER CUEVAS Admitting Clinician Unavailable Payers Payer Name Policy Type Policy Number Effective Date Expirati on Date Source MEDICARE PART A AND B [id number] 2012 00:00:00 MEDICARE PART A \\T\\ B [id number] 2012 00:00:00 MEDICAID OF [place] [id number] 2022 00:00:00 Problems Condition Name Condition Details Condition Category Status Onset Date Resolution Date Last Treatment Date Treating Clinician Comments Source PAEZ (dyspnea on exertion) PAEZ (dyspnea on exertion) Disease Active 12-09 00:00: 00 [facility] Essential hypertensi on Essential hypertensi on Disease Active 17 00:00: 00 [facility] Dyslipidem ia Dyslipidem ia Disease Active 12-09 00:00: 00 [facility] PAF (paroxysma l atrial fibrillati on) PAF (paroxysma l atrial fibrillati on) Disease Active 12-09 00:00: 00 [facility] 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 17 00:00: 00 [facility] Stage 4 chronic kidney disease Stage 4 chronic kidney disease Disease Active -17 00:00: 00 [facility] Atypical chest pain Atypical chest pain Disease Active -16 00:00: 00 [facility] Chest pain in adult Chest pain in adult Disease Active 16 00:00: 00 [facility] Allergies, Adverse Reactions, Alerts Allergy Name Allergy Type Status Severity Reaction(s) Onset Date Inactive Date Treating Clinician Comments Source No Known Allergie s DA Active U 2023-10 0- 00:00: 00 [facility] SHRIMP DRUG INGREDI Active High ITCHING -16 00:00: 00 [facility] Codeine Propensi ty to adverse reaction s Active Anxiety -16 00:00: 00 [facility] Iodine Propensi ty to adverse reaction s Active Other - See comments -16 00:00: 00 Burning [facility] Shrimp Propensi ty to adverse reaction s Active Itching 12-08 00:00: 00 [facility] CODEINE DRUG INGREDI Active Anxiety 12-08 00:00: 00 [facility] IODINE DRUG INGREDI Active Other-Cmnt 12-08 00:00: 00 [facility] NO KNOWN ALLERGIE S Drug Class Active [facility] Social History Social Habit Start Date Stop Date Quantity Comments Source History of tobacco use Current smoker [facility] Exposure to SARS-CoV-2 (event) 2022-11-22 00:00:00 2022-12-02 13:14:00 Not sure [facility] Tobacco use and exposure 2021-12-08 00:00:00 2021-12-08 00:00:00 Smokeless tobacco non-user [facility] Alcohol intake 2021-12-08 00:00:00 2021-12-08 00:00:00 Ex-drinker (finding) [facility] Tobacco Comment 2021-12-08 00:00:00 2021-12-08 00:00:00 back the 80's [facility] Sex Assigned At 1945 00:00:00 1945 00:00:00 [facility] Smoking Status Start Date Stop Date Source Ex-smoker 2021-12-08 00:00:00 [facility] Ordered Medication Name Filled Medication Name Start Date Stop Date Current Medication? Ordering Clinician Indication Dosage Frequency Signature (SIG) Comments Components Source methocarbam oL 500 mg tablet 12-02 00:00: 00 12-08 05:59 :00 No [id number] 500mg Take 1 tablet by mouth in the morning and 1 tablet at noon and 1 tablet in the evening. Do all this for 5 days. [facility] lactulose (CEPHULAC) solution 30 mL 12-10 15:00: 00 Yes 30mL 30 mL, Oral, DAILY, First dose on Mon12/10/21 at 0900, Until Discontinu ed, Routine [facility] atorvastati n (LIPITOR) tablet 40 mg 12-10 03:00: 00 Yes 40mg 40 mg, Oral, QHS, First dose (after last modificati on) on Becca 12/09/21 at 2100, Until Discontinu ed, Routine [facility] epoetin bharti-epbx (RETACRIT) injection 10,000 Units 12-10 02:00: 00 12-10 13:59 :00 No [id number] 10,000 Units, Subcutaneo us, ONCE AT 1999, 1 dose, On Becca 12/09/21 at 2000, Routine
store team member approving Restricted medication : AMBER CANELA [facility] amLODIPine 10 mg tablet 12-10 00:00: 00 01-10 04:59 :00 No [id number] 10mg Take 1 tablet by mouth daily for 30 days. [facility] aspirin 81 mg chewable tablet 12-10 00:00: 00 01-10 04:59 :00 No [id number] 81mg Take 1 tablet by mouth daily for 30 days. [facility] omeprazole 40 mg capsule 12-10 00:00: 00 01-10 04:59 :00 No [id number] 40mg Take 1 capsule by mouth daily for 30 days. [facility] SITagliptin 25 mg tablet 12-10 00:00: 00 01-10 04:59 :00 No [id number] 25mg Take 1 tablet by mouth daily for 30 days. [facility] prednisoLON E acetate, PF, 1 % DrpS 12-09 18:06: 32 Yes 1[drp] Place 1 Drop in each eye 2 (two) times daily. Both eyes [facility] bromfenac (PROLENSA) 0.07 % drops 12-09 18:06: 32 Yes 1[drp] Place 1 Drop in left eye daily. PRN for pain [facility] LORazepam 0.5 mg tablet 12-09 18:06: 32 Yes .5mg Take 0.5 mg by mouth 2 (two) times daily. [facility] traMADoL 50 mg tablet 12-09 18:06: 32 Yes 50mg Take 50 mg by mouth 2 (two) times daily. [facility] febuxostat 40 mg tablet 12-09 18:06: 32 Yes 40mg Take 40 mg by mouth daily. [facility] gabapentin 300 mg capsule 12-09 18:06: 32 Yes 300mg Take 300 mg by mouth 2 (two) times daily. [facility] amLODIPine 5 mg tablet 12-09 16:42: 30 12-09 00:00 :00 No 5mg Take 5 mg by mouth daily. [facility] atorvastati n 10 mg tablet 12-09 16:42: 30 12-09 00:00 :00 No 10mg Take 10 mg by mouth at bedtime. [facility] nebivoloL (BYSTOLIC) 5 mg tablet 12-09 16:42: 30 12-09 00:00 :00 No 5mg Take 5 mg by mouth daily. [facility] apixaban (ELIQUIS) 2.5 mg tablet 12-09 16:42: 30 12-09 00:00 :00 No 2.5mg Take 2.5 mg by mouth 2 (two) times daily. [facility] esomeprazol e 40 mg capsule 12-09 16:42: 30 12-09 00:00 :00 No 40mg Take 40 mg by mouth daily. [facility] lisinopriL 10 mg tablet 12-09 16:42: 30 12-09 00:00 :00 No 10mg Take 10 mg by mouth daily. [facility] linaGLIPtin (TRADJENTA) 5 mg tablet 12-09 16:42: 30 12-09 00:00 :00 No 1{tbl} Take 1 tablet by mouth daily. [facility] amLODIPine (NORVASC) tablet 10 mg 12-09 15:00: 00 Yes 10mg 10 mg, Oral, DAILY, First dose (after last modificati on) on Mon12/09/21 at 0900, Until Discontinu ed, Routine [facility] omeprazole (PRILOSEC) capsule 40 mg 12-09 15:00: 00 Yes 40mg 40 mg, Oral, DAILY, First dose on Mon12/09/21 at 0900, Until Discontinu ed [facility] aspirin chewable tablet 81 mg 12-09 15:00: 00 Yes 81mg 81 mg, Oral, DAILY, First dose on Mon12/09/21 at 0900, Until Discontinu ed, Routine [facility] Sliding Scale Insulin - Lispro (HumaLOG) + Fsbg Testing 12-09 14:00: 00 Yes Subcutaneo us, TID MEALS, First dose on Mon12/09/21 at 0800, Until Discontinu ed, Routine [facility] apixaban (ELIQUIS) tablet 2.5 mg 12-09 14:00: 00 Yes 2.5mg 2.5 mg, Oral, BID, First dose on Mon12/09/21 at 0800, Until Discontinu ed, Routine
Indicatio ns: Non-Valvul ar Atrial Fibrillati on [facility] NaCl 0.9% (NS) IV infusion 1,000 mL 12-09 06:15: 00 Yes 1000mL at 50 mL/hr, IV Infusion, CONTINUOUS , Starting on Mon12/09/21 at 0015, Until Discontinu ed, Routine [facility] SITagliptin (JANUVIA) tablet 25 mg 12-09 06:15: 00 Yes 25mg 25 mg, Oral, DAILY, First dose on Mon12/09/21 at 0015, Until Discontinu ed [facility] gabapentin (NEURONTIN) capsule 300 mg 12-09 06:15: 00 Yes 300mg 300 mg, Oral, BID, First dose on Mon12/09/21 at 0015, Until Discontinu ed, Routine [facility] traMADoL (ULTRAM) tablet 50 mg 12-09 05:59: 13 Yes 50mg 50 mg, Oral, Q8HPRN, Starting on Mon12/08/21 at 2359, Until Discontinu ed, Routine, Pain (scale 4-6), Pain (scale 7-10) [facility] LOR[facility] (ATIVAN) tablet 0.5 mg 12-09 05:58: 50 Yes .5mg 0.5 mg, Oral, BIDPRN, Starting on Mon12/08/21 at 2358, Until Discontinu ed, Routine, Anxiety [facility] heparin (porcine) injection 5,000 Units 12-09 04:00: 00 12-09 06:11 :35 No 5000U 5,000 Units, Subcutaneo us, Q8H, First dose on Mon12/08/21 at 2200, Until Discontinu ed, Routine [facility] NaCl 0.9% (NS) IV infusion 1,000 mL 12-09 01:00: 00 12-09 06:12 :07 No 1000mL at 75 mL/hr, IV Infusion, CONTINUOUS , Starting on Mon12/08/21 at 1900, Until Becca 12/09/21 at 0012, Routine [facility] ondansetron (ZOFRAN (PF)) injection 4 mg 12-09 00:51: 57 Yes 4mg 4 mg, Slow IV Push, Q6HPRN, Starting on Mon12/08/21 at 1851, Until Discontinu ed, Routine, Nausea and Vomiting (N/V) [facility] acetaminoph en (TYLENOL) tablet 650 mg 12-09 00:51: 45 Yes 650mg 650 mg, Oral, Q6HPRN, Starting on Mon12/08/21 at 1851, Until Discontinu ed, Routine, Pain (scale 1-3) [facility] apixaban (ELIQUIS) 2.5 mg tablet 12-09 00:00: 00 01-09 04:59 :00 No [id number] 2.5mg Take 1 tablet by mouth 2 (two) times daily for 30 days. Indication s: atrial fibrillati on [facility] atorvastati n 40 mg tablet 12-09 00:00: 00 01-09 04:59 :00 No [id number] 40mg Take 1 tablet by mouth at bedtime for 30 days. [facility] lisinopriL 10 mg tablet 12-09 00:00: 00 01-09 04:59 :00 No [id number] 10mg Take 1 tablet by mouth daily for 30 days. [facility] sulfur hexafluorid e microsphr (LUMASON) injection 5 mL 12-08 20:45: 00 12-08 20:45 :00 No [id number] 5mL 5 mL, Intravenou s, ONCE, 1 dose, On Mon12/08/21 at 1445, Routine
store team member approving Restricted medication : ALANIS BOSS [facility] aspirin E.C. (ECOTRIN) tablet 325 mg 12-08 20:30: 00 12-08 19:36 :00 No 325mg 325 mg, Oral, ONCE, 1 dose, On Mon12/08/21 at 1430, STAT [facility] Vital Signs Vital Name Observation Time Observation Value Comments S ource Systolic blood pressure 2022-12-02 19:15:00 158 mm[Hg] [facility] Diastolic blood pressure 2022-12-02 19:15:00 68 mm[Hg] [facility] Heart rate 2022-12-02 19:15:00 64 /min [facility] Body temperature 2022-12-02 19:15:00 36.61 Dena [facility] Respiratory rate 2022-12-02 19:15:00 20 /min [facility] Body height 2022-12-02 19:15:00 157.5 cm [facility] Body weight 2022-12-02 19:15:00 83.008 kg [facility] BMI 2022-12-02 19:15:00 33.47 kg/m2 [facility] Oxygen saturation in Arterial blood by Pulse oximetry 2022-12-02 19:15:00 100 /min [facility] Systolic blood pressure 2021-12-09 21:12:00 170 mm[Hg] [facility] Diastolic blood pressure 2021-12-09 21:12:00 74 mm[Hg] [facility] Heart rate 2021-12-09 21:12:00 52 /min [facility] Body temperature 2021-12-09 21:12:00 36.72 Dena [facility] Respiratory rate 2021-12-09 21:12:00 18 /min [facility] Oxygen saturation in Arterial blood by Pulse oximetry 2021-12-09 21:12:00 97 /min [facility] Body height 2021-12-08 19:58:00 152.4 cm [facility] Body weight 2021-12-08 19:58:00 86.183 kg [facility] BMI 2021-12-08 19:58:00 37.11 kg/m2 [facility] Procedures Procedure Date / Time Performed Performing Clinician Source CONSENT/REFUSAL FOR DIAGNOSIS AND TREATMENT 2022-12-02 18:58:46 Doctor Unassigned, [place] [facility] POCT GLUCOSE (AUTOMATED) 2021-12-09 23:09:00 Eva Carvalho [facility] TROPONIN I 2021-12-09 18:57:00 Piper Cuevas [facility] POCT GLUCOSE (AUTOMATED) 2021-12-09 17:13:00 Melissa Cuevas [facility] MR BRAIN WO CONTRAST 2021-12-09 15:22:00 Piper Cuevas [facility] POCT GLUCOSE (AUTOMATED) 2021-12-09 13:30:00 Melissa Cuevas [facility] CREATININE, URINE RANDOM 2021-12-09 11:38:00 Melissa Cuevas [facility] SODIUM, URINE RANDOM 2021-12-09 11:38:00 Piper Cuevas [facility] URINALYSIS 2021-12-09 11:37:00 Piper Cuevas [facility] PHOSPHORUS 2021-12-09 10:20:00 Anne-Marie Tenorio [facility] CREATINE KINASE 2021-12-09 10:20:00 Anne-Marie Tenorio [facility] URIC ACID 2021-12-09 10:20:00 Anne-Marie Tenorio [facility] MAGNESIUM 2021-12-09 10:20:00 Piper Cuevas [facility] TROPONIN I 2021-12-09 10:20:00 Anne-Marie Tenorio [facility] COMP. METABOLIC PANEL (01102) 2021-12-09 10:20:00 Anne-Marie Tenorio [facility] CBC WITH DIFF 2021-12-09 10:20:00 Piper Cuevas [facility] N-TERMINAL PRO-BNP 2021-12-09 10:20:00 Anne-Marie Tenorio [facility] PROCALCITONIN 2021-12-09 10:20:00 Anne-Marie Tenorio [facility] PROTHROMBIN TIME / INR 2021-12-09 10:19:00 Iam Tenorio [facility] XR CHEST 1 VW 2021-12-09 08:02:00 [facility] XR SHOULDER 2+ VW LEFT 2021-12-09 08:02:00 Iam Tenorio [facility] CREATINE KINASE 2021-12-09 05:01:00 Anne-Marie Tenorio [facility] URIC ACID 2021-12-09 05:01:00 Anne-Marie Tenorio [facility] TROPONIN I 2021-12-09 05:01:00 Piper Cuevas [facility] THYROID STIMULATING HORMONE 2021-12-09 05:01:00 Piper Cuevas [facility] BASIC METABOLIC PANEL (NA, K, CL, CO2, GLUCOSE, BUN, CREATININE, CA) 2021-12-09 05:01:00 Anne-Marie Tenorio [facility] LIPID PANEL ([id number])(TOTAL CHOLESTEROL, TRIGLYCERIDES, HDL) 2021-12-09 05:01:00 Wallace [facility] GLYCOSYLATED HEMOGLOBIN (A1C) 2021-12-09 05:01:00 Wallace [facility] POCT GLUCOSE (AUTOMATED) 2021-12-08 22:37:00 Melissa Cuevas [facility] COVID-19 (ID NOW RAPID TESTING) 2021-12-08 19:36:00 Viv Marcelo [facility] LAB ONLY COVID INTERPRETATION 2021-12-08 19:36:00 Viv Marcelo [facility] CT HEAD WO CONTRAST 2021-12-08 18:48:07 Pura Marcelo [facility] SEDIMENTATION RATE 2021-12-08 18:11:00 Lm Marcelo [facility] C-REACTIVE PROTEIN 2021-12-08 18:10:00 Lm Marcelo [facility] LIPID PANEL (28035)(TOTAL CHOLESTEROL, TRIGLYCERIDES, HDL) 2021-12-08 18:10:00 Anne-Marie Tenorio [facility] LIPASE 2021-12-08 18:09:00 Viv Marcelo [facility] TROPONIN I 2021-12-08 18:09:00 Viv Marcelo [facility] COMP. METABOLIC PANEL (20089) 2021-12-08 18:09:00 Viv Marcelo [facility] CBC WITH DIFF 2021-12-08 18:09:00 Viv Marcelo [facility] N-TERMINAL PRO-BNP 2021-12-08 18:09:00 Lm Marcelo [facility] HB ECG ROUTINE & RHYTHM STRIP 2021-12-08 17:23:34 Viv Marcelo [facility] NOTICE OF PRIVACY PRACTICES 2021-12-08 17:02:32 Doctor Unassigned, [place] [facility] Encounters Start Date/Time End Date/Time Encounter Type Admission Type Attending Clinicians Care Facility Care Department Encounter ID Source 2024-08-13 15:45:00 Inpatient Miguelito Rosado [facility] 3DAY [id number] 42 [facility] 2022-08-01 11:34:12 Outpatient [facility] [id number] [facility] 2022-07-29 10:16:55 Outpatient [facility] [id number] [facility] 2024-08-12 23:45:00 2024-08-14 14:45:00 Inpatient Lianna Zamora [facility] INTE.02 [id number] [facility] 2022-12-02 13:17:00 2022-12-02 14:13:00 Emergency X [facility] ERT [id number] [facility] 2022-12-02 13:17:00 2022-12-02 14:13:00 Emergency Bradford Zhou [facility] [id number] [facility] 2021-12-10 00:00:00 2021-12-10 00:00:00 Transition of Care Lorena Mcnair [id number] [facility] 2021-12-08 11:18:00 2021-12-09 17:55:00 Emergency Viv Marcelo [place], Jelani [facility] [id number] [facility] 2021-12-08 11:18:00 2021-12-09 17:55:00 Outpatient LENNOX CHENEY [facility] [id number] [facility] Results Test Description Test Time Test Comments Results Result Co mments Source GLUCOSE BEDSIDE [id number] 07:57:00* Test Item Value Reference Range Interpretation Comme [facility] GLUCOSE BEDSIDE TESTING (montrell t code = GLUBED) 110 MG/DL 60-99 H GLUCOSE BEDSIDE [id number] 18:29:00* Test Item Value Reference Range Interpretation Comme nts GLUCOSE BEDSIDE TESTING (montrell t code = GLUBED) 121 MG/DL 60-99 H GLUCOSE BEDSIDE [id number] 16:15:00* Test Item Value Reference Range Interpretation Comme nts GLUCOSE BEDSIDE TESTING (montrell t code = GLUBED) 120 MG/DL 60-99 H GLUCOSE BEDSIDE [id number] 11:05:00* Test Item Value Reference Range Interpretation Comme nts GLUCOSE BEDSIDE TESTING (montrell t code = GLUBED) 98 MG/DL 60-99 N [id number] 09:08:00* Test Item Value Reference Range Interpretation Comme nts TROPONIN-I (test code = TROPI) 0.058 NG/ML 0.012-0.033 H "Please be aware that bias results for Troponin may occurfor patients who are taking Biotin supplements, causingfalsely low troponin results. Please screen for routineBiotin (Vitamin B7) supplements taken in rizwana doses (greaterthan 100-300mg/day) or beauty supplements." GLUCOSE BEDSIDE [id number] 07:40:00* Test Item Value Reference Range Interpretation Comme nts GLUCOSE BEDSIDE TESTING (montrell t code = GLUBED) 98 MG/DL 60-99 N LIPID PROFILE (CORONARY RISK)2024-08-13 07:12:00* Test Item Value Reference Range Interpretation Comme nts TRIGLYCERIDES (test code = TRIG) 118 MG/DL 150-199 L TRIGLYCERIDES REFERENCE RANGE:Normal: <150 mg/dLBorderline High: 150-199 mg/dLHigh: 200-499 mg/dLVery High: >=500 mg/dL CHOLESTEROL (test code = CHOL) 182 MG/DL <200 HDL CHOLESTEROL (test code = HDL) 44 MG/DL 40-59 N LIPOPROTEIN LDL (test code = LDL) 93 MG/DL 0-99 N OPTIMAL......... <100 mg/dLNEAR OPTIMAL/ABOVE OPTIMAL.........100-12 9 mg/dL BORDERLINE HIGH.........130-159 mg/dL HIGH.........160-189 mg/dL VERY HIGH.........>/= 190 mg/dL [id number] 07:12:00* Test Item Value Reference Range Interpretation Comme nts PHOSPHOROUS (test code = PHOS) 2.9 MG/DL 2.5-4.5 N [id number] 07:12:00* Test Item Value Reference Range Interpretation Comme [facility] MAGNESIUM (test code = MAG) 1.7 MG/DL 1.6-2.3 N THYROID STIMULATING [id number] 07:12:00* Test Item Value Reference Range Interpretation Comme [facility] THYROID STIMULATING HORMONE (test code = TSH) 0.559 MIU/L 0.465-4.68 N Please be aware that bias results for TSH may occur forpatient who are taking Biotin supplements. [id number] 07:12:00* Test Item Value Reference Range Interpretation Comme [facility] TROPONIN-I (test code = TROPI) 0.049 NG/ML 0.012-0.033 H "Please be aware that bias results for Troponin may occurfor patients who are taking Biotin supplements, causingfalsely low troponin results. Please screen for routineBiotin (Vitamin B7) supplements taken in rizwana doses (greaterthan 100-300mg/day) or beauty supplements." LIPOPROTEIN LDL [id number] 07:12:00* Test Item Value Reference Range Interpretation [facility] LIPOPROTEIN LDL DIRECT (test code = LDLDIR) 100 mg/dL 100-129 N ========= R eference Interval: mg/dL mmol/L -----Optimal <100 <2.6Near/above optimal 100-129 2.6-3.3Borderline High 130-159 3.4-4.1High 160-189 4.1-4.9Very High >=190 >=4.9========= This LDL result is a direct measurement.======== = GLYCOSYLATED HEMOGLOBIN [id number] 04:59:00* Test Item Value Reference Range Interpretation Comme nts GLYCOSYLATED HEMOGLOBIN (HA1C) (test code = GLYHGB) 6.0 % 4.8-5.9 H Any condition th at shortens erythocyte survival or decreasesmean erythrocyte age (e.g., recovery from acute blood loss,hemolytic anemia) will falsely lower HGBA1c resultsregardless of the method used. HGBA1c results from patientswith HbSS, HbCC, and HbSc must be interpreted with cautiongiven the pathological processes, including anemia,increased red cell turnover, transfusion requirements, thatadversely impact HGBA1c as a marker of long-term glycemiccontrol. Alternative forms of testing such as fructosamineshould be considered for these patients. MEAN BLOOD GLUCOSE (test code = MBG) 126 MG/DL 70-110 H COMPREHENSIVE METABOLIC [id number] 22:59:00* Test Item Value Reference Range Interpretation Comme nts SODIUM (test code = NA) 142 MMOL/L 137-145 N POTASSIUM (test code = K) 4.6 MMOL/L 3.5-5.1 N CHLORIDE (test code = CL) 113 MMOL/L 98-107 H CARBON DIOXIDE (test code = CO2) 20 MMOL/L 22-30 L GLUCOSE (test code = GLU) 101 MG/DL 74-106 N BLOOD UREA NITROGEN (test code = BUN) 26 MG/DL 7-17 H GLOMERULAR FILTRATION RATE (test code = GFR) 33 The Glomerular Filtration Rate is a calculated parameterbased on serum Creatinine, patient age and sex. GFR valuesless than 60 mL/min/1.73 square meters are indicative ofChronic Kidney Disease. Values less than 15 mL/min/1.73square meters indicate Kidney failure. The calculation forGFR is based on the CKD-EPI (202) calculation. This formulais race indifferent and is the recommended formula for GFRby the National Kidney Foundation for Adults.The GFR will not calculate if the sex is unknown or if thepatient's age is <18 years. CREATININE (test code = CREAT) 1.60 MG/DL 0.52-1.04 H TOTAL PROTEIN (test code = PROT) 8.6 G/DL 6.3-8.2 H Ortho Clinical D iagnostic has made us aware of newinformation regarding the potential interference ofEltrombopag (a bone marrow stimulant used to treatthrombocytonmenia and aplastic anemia) with specific assayson the Vitros 5600 of which Total Protein is one of thoseassays performed in our lab.Interference testing performed at [facility] determined thatEltrombopag does interfere with Vitros Total Protein asfollowsEltrombopag Interference for Vitros Product Total Protein: Eltrombopag Max Observed Avg. BiasConcentration Concentration Concentration 2.5 mg/dl 6.0 g/dl +0.41 +0.34 3.5 mg/dl 6.0 g/dl +0.50 +0.45 5 mg/dl 6.0 g/dl +0.73 +0.65 2.5 mg/dl 8.0 g/dl +0.44 +0.41 3.5 mg/dl 8.0 g/dl +0.55 +0.52 5 mg/dl 8.0 g/dl +0.86 +0.77 ALBUMIN (test code = ALB) 4.3 G/DL 3.5-5.0 N CALCIUM (test code = CA) 11.5 MG/DL 8.4-10.2 H BILIRUBIN TOTAL (test code = BILT) 0.4 MG/DL 0.2-1.3 N Eltrombopag Inte rference for Vitros Product TBil, BuBc: Assay Eltrombopag Analyte/ Max Observed Avg. Bias Concentration Concentration Concentration TBil 7mg/dl TBil/ 1.2mg/dl +0.23mg.dl +0.20mg/dlBuBc 3.5mg/dl Bu/0.8mg/dl +0.25mg/dl +0.24mg/dlBuBc 7 mg/dl Bu/14.2mg/dl +0.38mg/dl +0.25mg/dlBuBc 5mg/dl Bc/0mg/dl +0.25mg/dl +0.15mg/dlBuBc 3.5mg/dl Bc/2.8mg/dl +0.25mg/dl +0.23mg/dl SGOT/AST (test code = AST) 21 UNITS/L 14-36 N SGPT/ALT (test code = ALT) 10 UNITS/L 0-34 N ALKALINE PHOSPHATASE (test code = ALKP) 142 UNITS/L 38-126 H [id number] 22:59:00* Test Item Value Reference Range Interpretation Comme nts TROPONIN-I (test code = TROPI) 0.045 NG/ML 0.012-0.033 H "Please be aware that bias results for Troponin may occurfor patients who are taking Biotin supplements, causingfalsely low troponin results. Please screen for routineBiotin (Vitamin B7) supplements taken in rizwana doses (greaterthan 100-300mg/day) or beauty supplements." CBC W/AUTO [id number] 22:22:00* Test Item Value Reference Range Interpretation Comme nts WHITE BLOOD CELL (test code = WBC) 5.7 K/MM3 3.8-9.8 N RED BLOOD CELL (test code = RBC) 3.62 M/MM3 3.58-4.97 N HEMOGLOBIN (test code = HGB) 9.4 G/DL 11.2-14.9 L HEMATOCRIT (test code = HCT) 29.8 % 33.2-43.5 L MEAN CELL VOLUME (test code = MCV) 82 fL 80.7-99.1 N MEAN CELL HGB (test code = MCH) 26.0 pg 27.0-34.1 L MEAN CELL HGB CONCETRATION (test code = MCHC) 31.5 % 32.2-35.7 L RED CELL DISTRIBUTION WIDTH (test code = RDW) 15.0 % 12.1-15.2 N PLATELET COUNT (test code = PLT) 194 K/MM3 129-368 N MEAN PLATELET VOLUME (test c ode = MPV) 11.1 fl 7.4-10.4 H NEUTROPHIL % (test code = NT%) 60.7 % 43-75 N IMMATURE GRANULOCYTE % (test code = IG%) 0.5 % 0.0-2.0 N LYMPHOCYTE % (test code = LY%) 29.5 % 14-44 N MONOCYTE % (test code = MO%) 7.4 % 4-13 N EOSINOPHIL % (test code = EO%) 1.4 % 0-6 N BASOPHIL % (test code = BA%) 0.5 % 0-2 N NUCLEATED RBC % (test code = NRBC%) 0.0 % 0-1.0 N NEUTROPHIL # (test code = NT#) 3.43 K/mm3 2.0-7.6 N IMMATURE GRANULOCYTE # (test code = IG#) 0.03 x10 3/uL 0-0.03 N LYMPHOCYTE # (test code = LY#) 1.67 K/mm3 1.0-3.8 N MONOCYTE # (test code = MO#) 0.42 K/mm3 0.1-0.8 N EOSINOPHIL # (test code = EO#) 0.08 K/mm3 0.0-0.2 N BASOPHIL # (test code = BA#) 0.03 K/mm3 0.0-0.2 N NUCLEATED RBC # (test code = NRBC#) 0.00 K/mm3 0.0-0.1 N POCT GLUCOSE (AUTOMATED)2021-12-09 23:17:01* Test Item Value Reference Range Interpretation Comme nts POCT GLU (test code = 0383895054) 93 mg/dL 70-110 Lab Interpretation (test cod e = 91770-3) [facility] [id number] 19:34:40* Test Item Value Reference Range Interpretation Comments TROPONIN I (test code = 5119181577) 0.063 ng/mL See_Comment H [Automated message] The [...] of biotin. Lab Interpretation (test code = 93452-5) [facility]2021-12-09 17:54:18* Test Item Value Reference Range Interpretation Comme [facility] POCT GLU (test code = 1943904285) 212 mg/dL 70-110 H Lab Interpretation (test cod e = 90048-0) [facility]ALCITONIN2022-02-17 17:06:20* Test Item Value Reference Range Interpretation Comme [facility] Procalcitonin (test code = 5168804147) 0.05 ng/mL <0.07 IZABELA (test code = [...] lung abscess/empyema. For further information please refer to:[email or web address] Lab Interpretation (test code = 17146-7) Normal [facility]-REACTIVE [id number] 16:15:47* Test Item Value Reference Range Interpretation Comme nts CRP (test code = 0007183832) 1.1 mg/dL <0.8 H Lab Interpretation (test cod e = 87578-9) [facility] HeightsCBC with [id number] 16:07:33* Test Item Value Reference Range Interpretation [...] 32.1 g/dL 31.6-35.1 RDW-SD (test code = 15789-9) 49.2 fL 39.0-49.9 RDW-CV (test code = 788-0) 15.9 % 12.0-15.5 H PLT (test code = 777-3) See_Comment L [Automated messa ge] The system which generated this result transmitted reference range: 166 - 358 10*3/?L. The reference range was not used to interpret this result as normal/abnormal. MPV (test code = 48421-5) 11.8 fL 9.5-12.9 NRBC/100 WBC (test code = 5748357657) See_Comment [Automated me ssage] The system which generated this result transmitted reference range: 0.0 - 10.0 /100 WBCs. The reference range was not used to interpret this result as normal/abnormal. NRBC x10^3 (test code = 3368038776) <0.01 See_Comment [Automated messa ge] The system which generated this result transmitted reference range: 10*3/?L. The reference range was not used to interpret this result as normal/abnormal. GRAN MAT (NEUT) % (test code = 770-8) 46.8 % IMM GRAN % (test code = 4889040519) 0.30 % LYMPH % (test code = 736-9) 39.3 % MONO % (test code = 5905-5) 10.0 % EOS % (test code = 713-8) 2.8 % BASO % (test code = 706-2) 0.8 % GRAN MAT x10^3(ANC) (test code = 4870932636) 1.87 10*3/uL 1.88-7.09 L IMM GRAN x10^3 (test code = 1622964326) <0.03 0.00-0.06 LYMPH x10^3 (test code = [...] result as normal/abnormal. ELLIPTO/OVAL (test code = 76580-7) 2+ See_Comment A [Automated messa ge] The system which generated this result transmitted reference range: (none). The reference range was not used to interpret this result as normal/abnormal. Lab Interpretation (test code = 01994-1) [facility]2021-12-09 14:06:00* Test Item Value Reference Range Interpretation Comme [facility] POCT GLU (test code = 0611286446) 111 mg/dL 70-110 H Lab Interpretation (test cod e = 11536-7) [facility] HeightsPROTHROMBIN TIME / [id number] 11:31:47* Test Item Value Reference Range Interpretation Comme nts PROTIME PATIENT (test code = 5964-2) See_Comment [Automated messa ge] The system which generated this result transmitted reference range: 12.0 - 14.7 Seconds. The reference range was not used to interpret this result as normal/abnormal. INR (test code = 6301-6) Normal INR <1.1; Warfarin Therapeutic range 2.0 to 3.0 or 2.5 to 3.5, depending upon the indications. Lab Interpretation (test code = 98510-7) [facility] HeightsTROPONIN [id number] 11:18:45* Test Item Value Reference Range Interpretation Comments TROPONIN I (test code = 9672714913) 0.061 ng/mL See_Comment H [Automated message] The [...] of biotin. Lab Interpretation (test code = 52957-7) [facility] HeightsN-TERMINAL [id number] 11:15:23* Test Item Value Reference Range Interpretation Comme nts NT-proBNP (test code = 7136367632) 657 pg/mL See_Comment H [Automated message] The system which generated this result transmitted reference range: <=125. The reference range was not used to interpret this result as normal/abnormal. IZABELA (test code = IZABELA) Biotin has been reported to cause a negative bias, interpret results relative to patient's use of biotin. Lab Interpretation (test code = 25039-4) [facility] HeightsMagnesium [id number] 11:10:21* Test Item Value Reference Range Interpretation Comme nts MAGNESIUM (test code = 4674857451) 1.9 mg/dL 1.7-2.4 Lab Interpretation (test cod e = 48462-6) Normal [facility]. METABOLIC PANEL (39441)2021-12-09 11:10:20* Test Item Value Reference Range Interpretation Comme nts NA (test code = 4455461589) 141 mmol/L 135-145 K (test code = 1747077900) 4.3 mmol/L 3.5-5.0 CL (test code = 0456349264) 116 mmol/L 98-108 H CO2 TOTAL (test code = 3040481103) 23 mmol/L 23-31 AGAP (test code = 3265547390) 2-16 BUN (test code = 5464165836) 43 mg/dL 7-23 H GLUCOSE (test code = 1023324350) 107 mg/dL 70-110 CREATININE (test code = 9121330369) 2.16 mg/dL 0.50-1.04 H TOTAL BILI (test code = 1441519368) 0.3 mg/dL 0.1-1.1 CALCIUM (test code = 3689304750) 10.0 mg/dL 8.6-10.6 T PROTEIN (test code = 8797967360) 6.8 g/dL 6.3-8.2 ALBUMIN (test code = 1394491898) 3.8 g/dL 3.5-5.0 ALK PHOS (test code = 5006419059) 89 U/L 34-122 ALTv (test code = 1742-6) 22 U/L 5-35 AST(SGOT) (test code = 8215059754) 27 U/L 13-40 eGFR (test code = 7253644613) mL/min/1.73m2 IZABELA (test code = IZABELA) Association [...] imaging tests). Lab Interpretation (test code = 19664-7) [facility] HeightsPHOSPHORUS2022-02-17 11:09:40* Test Item Value Reference Range Interpretation Comme nts PHOSPHORUS (test code = 5523210191) 2.9 mg/dL 2.5-5.0 Lab Interpretation (test cod e = 66631-0) [facility] HeightsURIC [id number] 11:09:40* Test Item Value Reference Range Interpretation Comme nts URIC ACID (test code = 1161943203) 3.0 mg/dL 2.9-6.0 Lab Interpretation (test cod e = 05474-5) [facility] HeightsCREATINE [id number] 11:09:20* Test Item Value Reference Range Interpretation Comme nts CK (test code = 1963116500) 77 U/L 33-194 Lab Interpretation (test cod e = 21112-1) [facility] HeightsLIPID PANEL (67160)(TOTAL CHOLESTEROL, TRIGLYCERIDES, HDL)2021-12-09 07:07:05* Test Item Value Reference Range Interpretation Comme nts CHOL (test code = 1882606699) 219 mg/dL 120-200 H HDL (test code = 3352369587) 56 mg/dL >50 HDLC RATIO (test code = 0855877302) See_Comment [Automated Enabled Employment] The system which generated this result transmitted reference range: <=4.5. The reference range was not used to interpret this result as normal/abnormal. TRIG (test code = 2658819881) 117 mg/dL 30-170 LDL CHOL (test code = 88867-7) 140 mg/dL See_Comment [Automated [employer]] The system which generated this result transmitted reference range: <=160. The reference range was not used to interpret this result as normal/abnormal. VLDL (test code = 6440374814) 23 mg/dL 5-60 Lab Interpretation (test code = 29388-9) [facility] HeightsURIC [id number] 06:45:44* Test Item Value Reference Range Interpretation Comme nts URIC ACID (test code = 3178468243) 3.1 mg/dL 2.9-6.0 Lab Interpretation (test cod e = 50244-4) [facility] (NA, K, CL, CO2, GLUCOSE, BUN, CREATININE, CA)2021-12-09 06:45:44* Test Item Value Reference Range Interpretation Comme nts NA (test code = 7005602909) 140 mmol/L 135-145 K (test code = 0858291939) 4.7 mmol/L 3.5-5.0 CL (test code = 5153983784) 114 mmol/L 98-108 H CO2 TOTAL (test code = 2412427442) 23 mmol/L 23-31 AGAP (test code = 4917635364) 2-16 BUN (test code = 5923916998) 45 mg/dL 7-23 H GLUCOSE (test code = 2097399177) 110 mg/dL 70-110 CREATININE (test code = 4803010339) 2.29 mg/dL 0.50-1.04 H CALCIUM (test code = 4758113523) 10.1 mg/dL 8.6-10.6 eGFR (test code = 1952461368) mL/min/1.73m2 IZABELA (test code = IZABELA) Association [...] imaging tests). Lab Interpretation (test code = 56978-0) [facility] HeightsCREATINE [id number] 06:44:43* Test Item Value Reference Range Interpretation Comme [facility] CK (test code = 1185833255) 89 U/L 33-194 Lab Interpretation (test cod e = 94140-5) [facility] HeightsGlycosylated Hemoglobin (A1C)2021-12-09 06:41:28* Test Item Value Reference Range Interpretation Comme [facility] HGB A1C (test code = 4548-4) 5.8 % 4.0-5.7 H IZABELA (test code = IZABELA) Reference RangesNormal: <5.7%Prediabetes: 5.7 - 6.4%Diabetes: > 6.5% Lab Interpretation (test code = 41575-6) [facility] HeightsThyroid Stimulating Hormone (TSH)2021-12-09 06:08:03* Test Item Value Reference Range Interpretation Comme [facility] TSH (test code = 0936185693) See_Comment [Automated Enabled [employer]] The system which generated this result transmitted reference range: 0.45 - 4.70 mIU/L. The reference range was not used to interpret this result as normal/abnormal. Lab Interpretation (test code = 50280-6) [facility] HeightsTroponin [id number] 05:49:19* Test Item Value Reference Range Interpretation Comments TROPONIN I (test code = 0198886971) 0.061 ng/mL See_Comment H [Automated message] The [...] of biotin. Lab Interpretation (test code = 81352-0) [facility] Heights[facility] (Total Cholesterol, Triglycerides, HDL)2021-12-09 05:36:42* Test Item Value Reference Range Interpretation Comme nts CHOL (test code = 9873259536) 200 mg/dL 120-200 HDL (test code = 0267775344) 59 mg/dL >50 HDLC RATIO (test code = 3237552968) See_Comment [Automated [employer]] The system which generated this result transmitted reference range: <=4.5. The reference range was not used to interpret this result as normal/abnormal. TRIG (test code = 9578914756) 121 mg/dL 30-170 LDL CHOL (test code = 92339-1) 117 mg/dL See_Comment [Automated [employer]abled [employer]] The system which generated this result transmitted reference range: <=160. The reference range was not used to interpret this result as normal/abnormal. VLDL (test code = 2805953722) 24 mg/dL 5-60 Lab Interpretation (test code = 72507-5) [facility]POCT GLUCOSE (AUTOMATED)2021-12-08 22:40:15* Test Item Value Reference Range Interpretation Comme nts POCT GLU (test code = 6048732614) 105 mg/dL 70-110 Lab Interpretation (test cod e = 02981-9) [facility] HeightsSEDIMENTATION [id number] 19:08:56* Test Item Value Reference Range Interpretation Comme nts ESR (test code = 2707119764) See_Comment H [Automated Who is [employer]cover [employer] ge] The system which generated this result transmitted reference range: 0 - 20 mm/HR. The reference range was not used to interpret this result as normal/abnormal. Lab Interpretation (test code = 16625-6) [facility]TROPONIN [id number] 19:05:34* Test Item Value Reference Range Interpretation Comments TROPONIN I (test code = 8627513956) 0.058 ng/mL See_Comment H [Automated message] The [...] of biotin. Lab Interpretation (test code = 45622-4) [facility] HeightsN-TERMINAL [id number] 19:02:16* Test Item Value Reference Range Interpretation Comme nts NT-proBNP (test code = 1832200214) 330 pg/mL See_Comment H [Automated message] The system which generated this result transmitted reference range: <=125. The reference range was not used to interpret this result as normal/abnormal. IZABELA (test code = IZABELA) Biotin has been reported to cause a negative bias, interpret results relative to patient's use of biotin. Lab Interpretation (test code = 67872-6) [facility] HeightsCOMP. METABOLIC PANEL (78126)2021-12-08 18:53:28* Test Item Value Reference Range Interpretation Comme nts NA (test code = 0033565266) 141 mmol/L 135-145 K (test code = 9311182568) 5.2 mmol/L 3.5-5.0 H CL (test code = 9779175635) 115 mmol/L 98-108 H CO2 TOTAL (test code = 1450574482) 19 mmol/L 23-31 L AGAP (test code = 0137035247) 2-16 BUN (test code = 5016908735) 49 mg/dL 7-23 H GLUCOSE (test code = 2581878803) 115 mg/dL 70-110 H CREATININE (test code = 2372206600) 2.22 mg/dL 0.50-1.04 H TOTAL BILI (test code = 1709686266) 0.4 mg/dL 0.1-1.1 CALCIUM (test code = 8292549232) 10.4 mg/dL 8.6-10.6 T PROTEIN (test code = 4940372345) 8.0 g/dL 6.3-8.2 ALBUMIN (test code = 6381906820) 4.6 g/dL 3.5-5.0 ALK PHOS (test code = 7426255170) 106 U/L 34-122 ALTv (test code = 1742-6) 26 U/L 5-35 AST(SGOT) (test code = 7624603360) 31 U/L 13-40 eGFR (test code = 2185743693) mL/min/1.73m2 IZABELA (test code = IZABELA) Association [...] imaging tests). Lab Interpretation (test code = 17384-6) [facility] HeightsLIPASE2022-02-16 18:53:07* Test Item Value Reference Range Interpretation Comme nts LIPASE (test code = 5251012628) 334 U/L 0-220 H Lab Interpretation (test cod e = 54674-4) Abnormal [facility] WITH [id number] 18:41:07* Test Item Value Reference Range Interpretation Comme nts WBC (test code = 6690-2) See_Comment [Automated Enabled Employment] The system which generated this result transmitted reference range: 4.30 - 11.10 10*3/?L. The reference range was not used to interpret this result as normal/abnormal. RBC (test code = 789-8) See_Comment [Automated Enabled Employment] The system which generated this result transmitted [...] g/dL 31.6-35.1 L RDW-SD (test code = 00795-0) 49.6 fL 39.0-49.9 RDW-CV (test code = 788-0) 15.7 % 12.0-15.5 H PLT (test code = 777-3) See_Comment [Automated messa ge] The system which generated this result transmitted reference range: 166 - 358 10*3/?L. The reference range was not used to interpret this result as normal/abnormal. MPV (test code = 28645-0) 11.5 fL 9.5-12.9 NRBC/100 WBC (test code = 1354750003) See_Comment [Automated [employer] ssage] The system which generated this result transmitted reference range: 0.0 - 10.0 /100 WBCs. The reference range was not used to interpret this result as normal/abnormal. NRBC x10^3 (test code = 2757530872) <0.01 See_Comment [Automated messa ge] The system which generated this result transmitted reference range: 10*3/?L. The reference range was not used to interpret this result as normal/abnormal. GRAN MAT (NEUT) % (test code = 770-8) 51.1 % IMM GRAN % (test code = 1355567412) 0.30 % LYMPH % (test code = 736-9) 34.8 % MONO % (test code = 5905-5) 10.9 % EOS % (test code = 713-8) 2.2 % BASO % (test code = 706-2) 0.7 % GRAN MAT x10^3(ANC) (test code = 5115918560) 3.01 10*3/uL 1.88-7.09 IMM GRAN x10^3 (test code = 5412683898) <0.03 0.00-0.06 LYMPH x10^3 (test code = 731-0) 2.05 10*3/uL 1.32-3.29 MONO x10^3 (test code = 742-7) 0.64 10*3/uL 0.33-0.92 EOS x10^3 (test code = 711-2) 0.13 10*3/uL 0.03-0.39 BASO x10^3 (test code = 704-7) 0.04 10*3/uL 0.01-0.07 Lab Interpretation (test code = 99584-8) [facility]
--- NOTE | 2024-11-05 08:17 | EDPHYS ---
Physician Documentation [facility] Name: Patti Frey Age: 79 yrs Sex: Female : 1945 Arrival Date: 11/05/2024 Time: 07:26 Bed 20 Private MD: ED Physician Mumtaz Marquez HPI: 11/05 08:17 This 79 yrs old Black Female presents to ER via Wheelchair with complaints of joint rt pain. 08:17 Patient presents to the ED with musculoskeletal pain for the past week. Patient reports rt the pain to the shoulders, hips, joints. Denies any abdominal pain to me. Denies specific injury. Denies other acute complaints, symptoms are moderate in severity, aching nature, nonradiating, no other aggravating alleviating factors.. Historical: - Allergies: 08:10 Codeine; hb 08:10 Iodine; hb - PMHx: 08:10 Arthritis; Atrial Fib; BURSITIS; Diabetes - NIDDM; Gout; Hypertension; hb - PSHx: 08:10 Total abdominal hysterectomy; hb - Immunization history:: Adult Immunizations up to date. - Infectious Disease History:: Denies. - Social history:: Smoking status: Patient denies any tobacco usage or history of. - Family history:: not pertinent. ROS: 08:17 Constitutional: Negative for fever, chills, and weight loss, Cardiovascular: Negative rt for chest pain, palpitations, and edema, Respiratory: Negative for shortness of breath, cough, wheezing, and pleuritic chest pain, Abdomen/GI: Negative for abdominal pain, nausea, vomiting, diarrhea, and constipation, Skin: Negative for injury, rash, and discoloration, Neuro: Negative for headache, weakness, numbness, tingling, and seizure, 08:17 MS/extremity: Positive for pain, Negative for injury or acute deformity, Exam: 08:17 Constitutional: This is a well developed, well nourished patient who is awake, alert, rt and in no acute distress. Head/Face: Normocephalic, atraumatic. Chest/axilla: Normal chest wall appearance and motion. Nontender with no deformity. No lesions are appreciated. Cardiovascular: Regular rate and rhythm with a normal S1 and S2. No gallops, murmurs, or rubs. Normal PMI, no JVD. No pulse deficits. Respiratory: Lungs have equal breath sounds bilaterally, clear to auscultation and percussion. No rales, rhonchi or wheezes noted. No increased work of breathing, no retractions or nasal flaring. Abdomen/GI: Soft, non-tender, with normal bowel sounds. No distension or tympany. No guarding or rebound. No evidence of tenderness throughout. Skin: Warm, dry with normal turgor. Normal color with no rashes, no lesions, and no evidence of cellulitis. Psych: Awake, alert, with orientation to person, place and time. Behavior, mood, and affect are within normal limits. Vital Signs: 08:07 BP 166 / 71; Pulse 68; Resp 16; Temp 97.8(TE); Pulse Ox 100% on R/A; Pain 10/10; hb 08:35 BP 176 / 71; Pulse 59; Resp 18; Pulse Ox 97% on R/A; Pain 9/10; ld1 08:07 Pain Scale: Adult hb 08:35 Pain Scale: Adult ld1 MDM: 07:59 Medical Screening Exam initiated rt 08:19 Differential Diagnosis Musculoskeletal pain, gout. Data reviewed: vital signs, nurses rt notes. I considered the following discharge prescriptions or medication management in the emergency department Medications were administered in the Emergency Department. See MAR. Test considered but Not performed: Other Details Denies chest pain, abdominal pain, stable vital signs, labs, EKG are not indicated. Care significantly affected by the following chronic conditions: Diabetes, Discussed risks of Toradol, steroid with patient with regards to her diabetes, cardiovascular risk factors, without low-dose, one-time not likely on patient, was informed of risks of hyperglycemia, patient understands wishes to proceed.. Counseling: I had a detailed discussion with the patient and/or guardian regarding the historical points, exam findings, and any diagnostic results supporting the discharge/admit diagnosis, the need for outpatient follow up. Administered Medications: 08:34 Drug: Ketorolac IM 15 mg IM once Route: IM; Site: left deltoid; ld1 08:34 Follow up: Response: No adverse reaction ld1 08:34 Drug: Dexamethasone IM 8 mg IM once Route: IM; Site: right deltoid; ld1 08:34 Follow up: Response: No adverse reaction ld1 Disposition Summary: 11/05/24 08:16 Discharge Ordered Notes: Location: Home rt Problem: an ongoing problem rt Symptoms: are unchanged rt Condition: Stable rt Diagnosis - Musculoskeletal pain rt Followup: rt - With: Private Physician - When: 2 - 3 days - Reason: Discharge Instructions: - Discharge Summary Sheet rt - Musculoskeletal Pain rt Forms: - Medication Reconciliation Form rt - Antibiotic Education rt - Prescription Opioid Use rt - Patient Portal Instructions rt - Leadership Thank You Letter rt Prescriptions: - Cyclobenzaprine 5 mg Oral Tablet - take 1 tablet ORAL route 3 times per day As needed; 15 tablet; Refills: 0, rt Product Selection Permitted Signatures: Katie Bhatti, RN RN Anny Brownlee RN RN ld1 Mumtaz Marquez MD MD rt
--- NOTE | 2024-11-05 08:17 | ER ---
Nurse's Notes [facility] Name: Patti Frey Age: 79 yrs Sex: Female : 1945 Arrival Date: 11/05/2024 Time: 07:26 Bed 20 Private MD: Diagnosis: Musculoskeletal pain Presentation: 11/05 08:07 Chief complaint: Patient states: "My arthritis pain in my neck, shoulders, and groin is hb really bad, I need a pain and steroid shot.". Coronavirus screen: At this time, the client does not indicate any symptoms associated with coronavirus-19. Ebola Screen: No symptoms or risks identified at this time. Initial Sepsis Screen: Does the patient meet any 2 criteria? No. Patient's initial sepsis screen is negative. Does the patient have a suspected source of infection? No. Patient's initial sepsis screen is negative. Risk Assessment: Do you want to hurt yourself or someone else? Patient reports no desire to harm self or others. Onset of symptoms was November 01, 2024. 08:07 Method Of Arrival: Wheelchair hb 08:07 Acuity: EMELIA 3 hb Historical: - Allergies: 08:10 Codeine; hb 08:10 Iodine; hb - PMHx: 08:10 Arthritis; Atrial Fib; BURSITIS; Diabetes - NIDDM; Gout; Hypertension; hb - PSHx: 08:10 Total abdominal hysterectomy; hb - Immunization history:: Adult Immunizations up to date. - Infectious Disease History:: Denies. - Social history:: Smoking status: Patient denies any tobacco usage or history of. - Family history:: not pertinent. Screenin:35 [facility] ED Fall Risk Assessment (Adult) History of falling in the last 3 months, ld1 including since admission No falls in past 3 months (0 pts) Confusion or Disorientation No (0 pts) Intoxicated or Sedated No (0 pts) Impaired Gait No (0 pts) Mobility Assist Device Used No (0 pt) Altered Elimination No (0 pt) Score/Fall Risk Level 0 - 2 = Low Risk Oriented to surroundings, Maintained a safe environment, Educated pt \\T\\ family on fall prevention, incl call for assistance when getting out of bed, Assessed \\T\\ reinforced patient's understanding of fall precautions, Provided non-skid footwear, Hourly rounding (assess needs \\T\\ fall precautionary measures) done, Used ambulatory aids as needed (educated on \\T\\ assisted with), Used gait belt as appropriate. Abuse screen: Denies threats or abuse. Denies injuries from another. Nutritional screening: No deficits noted. Tuberculosis screening: No symptoms or risk factors identified. Assessment: 08:35 General: Appears in no apparent distress. comfortable, Behavior is calm, cooperative, ld1 appropriate for age. Pain: Complains of pain in abdomen and pelvis Pain does not radiate. Pain currently is 8 out of 10 on a pain scale. Quality of pain is described as throbbing, Pain began suddenly. Neuro: Level of Consciousness is awake, alert, obeys commands, Oriented to person, place, time, situation, Appropriate for age. Cardiovascular: Capillary refill < 3 seconds Patient's skin is warm and dry. Respiratory: Airway is patent Respiratory effort is even, unlabored. GI: Abdomen is round non-distended, Bowel sounds present X 4 quads. Abd is soft Abd is non tender. : No signs and/or symptoms were reported regarding the genitourinary system. EENT: No signs and/or symptoms were reported regarding the EENT system. Derm: No signs and/or symptoms reported regarding the dermatologic system. Musculoskeletal: No signs and/or symptoms reported regarding the musculoskeletal system. Vital Signs: 08:07 BP 166 / 71; Pulse 68; Resp 16; Temp 97.8(TE); Pulse Ox 100% on R/A; Pain 10/10; hb 08:35 BP 176 / 71; Pulse 59; Resp 18; Pulse Ox 97% on R/A; Pain 9/10; ld1 08:07 Pain Scale: Adult hb 08:35 Pain Scale: Adult ld1 ED Course: 07:30 Patient arrived in ED. sj2 07:31 Mumtaz Marquez MD is Attending Physician. rt 08:10 Triage completed. hb 08:10 Arm band placed on. hb 08:13 Anny Brownlee, RN is Primary Nurse. ld1 08:35 Patient has correct armband on for positive identification. Placed in gown. Bed in low ld1 position. Call light in reach. Side rails up X2. court recording monitor on. Pulse ox on. NIBP on. Door closed. Noise minimized. Warm blanket given. 08:35 No provider procedures requiring assistance completed. Patient did not have IV access ld1 during this emergency room visit. Administered Medications: 08:34 Drug: Ketorolac IM 15 mg IM once Route: IM; Site: left deltoid; ld1 08:34 Follow up: Response: No adverse reaction ld1 08:34 Drug: Dexamethasone IM 8 mg IM once Route: IM; Site: right deltoid; ld1 08:34 Follow up: Response: No adverse reaction ld1 Medication: 08:35 VIS not applicable for this client. ld1 Outcome: 08:16 Discharge ordered by . rt 09:00 Discharged to home via wheelchair, ld1 09:00 Condition: stable 09:00 Discharge instructions given to patient, Instructed on discharge instructions, follow ld1 up and referral plans. medication usage, Demonstrated understanding of instructions, follow-up care, medications, Prescriptions given X 1, :28 Patient left the ED. ld1 Signatures: Katie Bhatti RN RN Anny Brownlee RN RN ld1 Mumtaz Marquez MD MD rt Abraham Callahan 2
[2024-11-05] MEDS ORDERED: dexAMETHasone 10 MG/ML VIAL ONE (08:20)
[2024-11-05] MEDS ORDERED: KETOROLAC 30 MG/ML INJ ONE (08:20)
[2024-11-08 01:12] VITALS: BP 176/71; TEMP 97.8; O2SAT 97
== END 2024-11-05 09:28 | disposition home or self-care (01) ==
LOC: ER 07:26
DX: M79.18 Myalgia, other site (principal)
CPT/HCPCS: 96372; 99284; J1100

== ENCOUNTER 2024-11-13 19:18 | Inpatient (IN) | payer OTHER ==
--- OUTSIDE RECORDS SUMMARY | 2024-11-13 19:22 | XMS REPORT | Continuity of Care Document ---
Author Name Unknown Address [address] [place] [address] [facility] thconnect Address [address] [place] [address] Care Team Providers Care Health Information Administrator Name Role Phone Jesu Sheehan Lazaro Primary Care Physician [phone]- [phone] Miguelito Calixto Attending Clinician Unavailable Lianna Soto Attending Clinician Unavailable BRADFORD ZHOU Attending Clinician Unavailable Bradford Zhou DO Attending Clinician [phone] Lorena Mcnair RN Attending Clinician [phone] Viv Butterfield Attending Clinician [phone] Piper Cuevas DO Attending Clinician [phone] Lennox Carvalho MD Attending Clinician [phone] LENNOX CARVALHO Attending Clinician Unavailable Miguelito Calixto Admitting Clinician Unavailable Lianna Soto Admitting Clinician Unavailable Piper Cuevas DO Admitting Clinician [phone] PIPER CUEVAS Admitting Clinician Unavailable Payers Payer Name Policy Type Policy Number Effective Date Expirati on Date Source MEDICARE PART A AND B [id number] 2012 00:00:00 MEDICARE PART A \\T\\ B [id number] 2012 00:00:00 MEDICAID OF [place] [id number] 2022 00:00:00 Problems Condition Name Condition Details Condition Category Status Onset Date Resolution Date Last Treatment Date Treating Clinician Comments Source PAEZ (dyspnea on exertion) PAEZ (dyspnea on exertion) Disease Active 12-09 00:00: 00 [facility] Essential hypertensi on Essential hypertensi on Disease Active 17 00:00: 00 [facility] Dyslipidem ia Dyslipidem ia Disease Active 12-09 00:00: 00 [facility] PAF (paroxysma l atrial fibrillati on) PAF (paroxysma l atrial fibrillati on) Disease Active 12-09 00:00: 00 [facility] 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 17 00:00: 00 [facility] Stage 4 chronic kidney disease Stage 4 chronic kidney disease Disease Active 17 00:00: 00 [facility] Atypical chest pain Atypical chest pain Disease Active 16 00:00: 00 [facility] Chest pain in adult Chest pain in adult Disease Active 12-08 00:00: 00 [facility] Allergies, Adverse Reactions, Alerts Allergy Name Allergy Type Status Severity Reaction(s) Onset Date Inactive Date Treating Clinician Comments Source No Known Allergie s DA Active U 2023-10 0-21 00:00: 00 [facility] SHRIMP DRUG INGREDI Active High ITCHING -16 00:00: 00 [facility] Codeine Propensi ty to adverse reaction s Active Anxiety -16 00:00: 00 [facility] Iodine Propensi ty to adverse reaction s Active Other - See comments -16 00:00: 00 Burning [facility] Shrimp Propensi ty to adverse reaction s Active Itching 12-08 00:00: 00 [facility] CODEINE DRUG INGREDI Active Anxiety 12-08 00:00: 00 [facility] IODINE DRUG INGREDI Active Other-Cmnt 12-08 00:00: 00 [facility] NO KNOWN ALLERGIE S Drug Class Active [facility] Social History Social Habit Start Date Stop Date Quantity Comments Source History of tobacco use Current smoker [facility] Exposure to SARS-CoV-2 (event) 2022-11-22 00:00:00 2022-12-02 13:14:00 Not sure [facility] Tobacco use and exposure 2021-12-08 00:00:00 2021-12-08 00:00:00 Smokeless tobacco non-user [facility] Alcohol intake 2021-12-08 00:00:00 2021-12-08 00:00:00 Ex-drinker (finding) [facility] Tobacco Comment 2021-12-08 00:00:00 2021-12-08 00:00:00 back the 80's [facility] Sex Assigned At 1945 00:00:00 1945 00:00:00 [facility] Smoking Status Start Date Stop Date Source Ex-smoker 2021-12-08 00:00:00 2021[facility] Ordered Medication Name Filled Medication Name Start Date Stop Date Current Medication? Ordering Clinician Indication Dosage Frequency Signature (SIG) Comments Components Source methocarbam oL 500 mg tablet 12-02 00:00: 00 12-08 05:59 :00 No [id number] 500mg Take 1 tablet by mouth in the morning and 1 tablet at noon and 1 tablet in the evening. Do all this for 5 days. [facility] lactulose (CEPHULAC) solution 30 mL 12-10 15:00: 00 Yes 30mL 30 mL, Oral, DAILY, First dose on Mon12/10/21 at 0900, Until Discontinu ed, Routine [facility] atorvastati n (LIPITOR) tablet 40 mg 12-10 03:00: 00 Yes 40mg 40 mg, Oral, QHS, First dose (after last modificati on) on Becca 12/09/21 at 2100, Until Discontinu ed, Routine [facility] epoetin bharti-epbx (RETACRIT) injection 10,000 Units 12-10 02:00: 00 12-10 13:59 :00 No [id number] 10,000 Units, Subcutaneo us, ONCE AT 1999, 1 dose, On Becca 12/09/21 at 2000, Routine
administrative appeals tribunal member approving Restricted medication : AMBER CANELA [facility] amLODIPine 10 mg tablet 12-10 00:00: 00 01-10 04:59 :00 No [id number] 10mg Take 1 tablet by mouth daily for 30 days. [facility] aspirin 81 mg chewable tablet 12-10 00:00: 00 01-10 04:59 :00 No [id number] 81mg Take 1 tablet by mouth daily for 30 days. [facility] omeprazole 40 mg capsule 12-10 00:00: 00 01-10 04:59 :00 No [id number] 40mg Take 1 capsule by mouth daily for 30 days. [facility] SITagliptin 25 mg tablet 12-10 00:00: 00 01-10 04:59 :00 No [id number] 25mg Take 1 tablet by mouth daily for 30 days. [facility] prednisoLON E acetate, PF, 1 % DrpS 12-09 18:06: 32 Yes 1[drp] Place 1 Drop in each eye 2 (two) times daily. Both eyes [facility] bromfenac (PROLENSA) 0.07 % drops 12-09 18:06: 32 Yes 1[drp] Place 1 Drop in left eye daily. PRN for pain [facility] LORazepam 0.5 mg tablet 12-09 18:06: 32 Yes .5mg Take 0.5 mg by mouth 2 (two) times daily. [facility] traMADoL 50 mg tablet 12-09 18:06: 32 Yes 50mg Take 50 mg by mouth 2 (two) times daily. [facility] febuxostat 40 mg tablet 12-09 18:06: 32 Yes 40mg Take 40 mg by mouth daily. [facility] gabapentin 300 mg capsule 12-09 18:06: 32 Yes 300mg Take 300 mg by mouth 2 (two) times daily. [facility] amLODIPine 5 mg tablet 12-09 16:42: 30 12-09 00:00 :00 No 5mg Take 5 mg by mouth daily. [facility] atorvastati n 10 mg tablet 12-09 16:42: 30 12-09 00:00 :00 No 10mg Take 10 mg by mouth at bedtime. [facility] nebivoloL (BYSTOLIC) 5 mg tablet 12-09 16:42: 30 12-09 00:00 :00 No 5mg Take 5 mg by mouth daily. [facility] apixaban (ELIQUIS) 2.5 mg tablet 12-09 16:42: 30 12-09 00:00 :00 No 2.5mg Take 2.5 mg by mouth 2 (two) times daily. [facility] esomeprazol e 40 mg capsule 12-09 16:42: 30 12-09 00:00 :00 No 40mg Take 40 mg by mouth daily. [facility] lisinopriL 10 mg tablet 12-09 16:42: 30 12-09 00:00 :00 No 10mg Take 10 mg by mouth daily. [facility] linaGLIPtin (TRADJENTA) 5 mg tablet 12-09 16:42: 30 12-09 00:00 :00 No 1{tbl} Take 1 tablet by mouth daily. [facility] amLODIPine (NORVASC) tablet 10 mg 12-09 15:00: 00 Yes 10mg 10 mg, Oral, DAILY, First dose (after last modificati on) on Mon12/09/21 at 0900, Until Discontinu ed, Routine [facility] omeprazole (PRILOSEC) capsule 40 mg 12-09 15:00: 00 Yes 40mg 40 mg, Oral, DAILY, First dose on Mon12/09/21 at 0900, Until Discontinu ed [facility] aspirin chewable tablet 81 mg 12-09 15:00: 00 Yes 81mg 81 mg, Oral, DAILY, First dose on Mon12/09/21 at 0900, Until Discontinu ed, Routine [facility] Sliding Scale Insulin - Lispro (HumaLOG) + Fsbg Testing 12-09 14:00: 00 Yes Subcutaneo us, TID MEALS, First dose on Mon12/09/21 at 0800, Until Discontinu ed, Routine [facility] apixaban (ELIQUIS) tablet 2.5 mg 12-09 14:00: 00 Yes 2.5mg 2.5 mg, Oral, BID, First dose on Mon12/09/21 at 0800, Until Discontinu ed, Routine
Indicatio ns: Non-Valvul ar Atrial Fibrillati on [facility] NaCl 0.9% (NS) IV infusion 1,000 mL 12-09 06:15: 00 Yes 1000mL at 50 mL/hr, IV Infusion, CONTINUOUS , Starting on Mon12/09/21 at 0015, Until Discontinu ed, Routine [facility] SITagliptin (JANUVIA) tablet 25 mg 12-09 06:15: 00 Yes 25mg 25 mg, Oral, DAILY, First dose on Mon12/09/21 at 0015, Until Discontinu ed [facility] gabapentin (NEURONTIN) capsule 300 mg 12-09 06:15: 00 Yes 300mg 300 mg, Oral, BID, First dose on Mon12/09/21 at 0015, Until Discontinu ed, Routine [facility] traMADoL (ULTRAM) tablet 50 mg 12-09 05:59: 13 Yes 50mg 50 mg, Oral, Q8HPRN, Starting on Mon12/08/21 at 2359, Until Discontinu ed, Routine, Pain (scale 4-6), Pain (scale 7-10) [facility] LORazepam (ATIVAN) tablet 0.5 mg 12-09 05:58: 50 Yes .5mg 0.5 mg, Oral, BIDPRN, Starting on Mon12/08/21 at 2358, Until Discontinu ed, Routine, Anxiety [facility] heparin (porcine) injection 5,000 Units 12-09 04:00: 00 12-09 06:11 :35 No 5000U 5,000 Units, Subcutaneo us, Q8H, First dose on Mon12/08/21 at 2200, Until Discontinu ed, Routine [facility] NaCl 0.9% (NS) IV infusion 1,000 mL 12-09 01:00: 00 12-09 06:12 :07 No 1000mL at 75 mL/hr, IV Infusion, CONTINUOUS , Starting on Mon12/08/21 at 1900, Until Becca 12/09/21 at 0012, Routine [facility] ondansetron (ZOFRAN (PF)) injection 4 mg 12-09 00:51: 57 Yes 4mg 4 mg, Slow IV Push, Q6HPRN, Starting on Mon12/08/21 at 1851, Until Discontinu ed, Routine, Nausea and Vomiting (N/V) [facility] acetaminoph en (TYLENOL) tablet 650 mg 12-09 00:51: 45 Yes 650mg 650 mg, Oral, Q6HPRN, Starting on Mon12/08/21 at 1851, Until Discontinu ed, Routine, Pain (scale 1-3) [facility] apixaban (ELIQUIS) 2.5 mg tablet 12-09 00:00: 00 01-09 04:59 :00 No [id number] 2.5mg Take 1 tablet by mouth 2 (two) times daily for 30 days. Indication s: atrial fibrillati on [facility] atorvastati n 40 mg tablet 12-09 00:00: 00 01-09 04:59 :00 No [id number] 40mg Take 1 tablet by mouth at bedtime for 30 days. [facility] lisinopriL 10 mg tablet 12-09 00:00: 00 01-09 04:59 :00 No [id number] 10mg Take 1 tablet by mouth daily for 30 days. [facility] sulfur hexafluorid e microsphr (LUMASON) injection 5 mL 12-08 20:45: 00 12-08 20:45 :00 No [id number] 5mL 5 mL, Intravenou s, ONCE, 1 dose, On Mon12/08/21 at 1445, Routine
administrative appeals tribunal member approving Restricted medication : ALANIS BOSS [facility] aspirin E.C. (ECOTRIN) tablet 325 mg 12-08 20:30: 00 12-08 19:36 :00 No 325mg 325 mg, Oral, ONCE, 1 dose, On Mon12/08/21 at 1430, STAT [facility] Vital Signs Vital Name Observation Time Observation Value Comments S ource Systolic blood pressure 2022-12-02 19:15:00 158 mm[Hg] [facility] Diastolic blood pressure 2022-12-02 19:15:00 68 mm[Hg] [facility] Heart rate 2022-12-02 19:15:00 64 /min [facility] Body temperature 2022-12-02 19:15:00 36.61 Dena [facility] Respiratory rate 2022-12-02 19:15:00 20 /min [facility] Body height 2022-12-02 19:15:00 157.5 cm [facility] Body weight 2022-12-02 19:15:00 83.008 kg [facility] BMI 2022-12-02 19:15:00 33.47 kg/m2 [facility] Oxygen saturation in Arterial blood by Pulse oximetry 2022-12-02 19:15:00 100 /min [facility] Systolic blood pressure 2021-12-09 21:12:00 170 mm[Hg] [facility] Diastolic blood pressure 2021-12-09 21:12:00 74 mm[Hg] [facility] Heart rate 2021-12-09 21:12:00 52 /min [facility] Body temperature 2021-12-09 21:12:00 36.72 Dena [facility] Respiratory rate 2021-12-09 21:12:00 18 /min [facility] Oxygen saturation in Arterial blood by Pulse oximetry 2021-12-09 21:12:00 97 /min [facility] Body height 2021-12-08 19:58:00 152.4 cm [facility] Body weight 2021-12-08 19:58:00 86.183 kg [facility] BMI 2021-12-08 19:58:00 37.11 kg/m2 [facility] Procedures Procedure Date / Time Performed Performing Clinician Source CONSENT/REFUSAL FOR DIAGNOSIS AND TREATMENT 2022-12-02 18:58:46 Doctor Unassigned, [place] [facility] POCT GLUCOSE (AUTOMATED) 2021-12-09 23:09:00 Eva Carvalho [facility] TROPONIN I 2021-12-09 18:57:00 Piper Cuevas [facility] POCT GLUCOSE (AUTOMATED) 2021-12-09 17:13:00 Melissa Cuevas [facility] MR BRAIN WO CONTRAST 2021-12-09 15:22:00 Piper Cuevas [facility] POCT GLUCOSE (AUTOMATED) 2021-12-09 13:30:00 Melissa Cuevas [facility] CREATININE, URINE RANDOM 2021-12-09 11:38:00 Melissa Cuevas [facility] SODIUM, URINE RANDOM 2021-12-09 11:38:00 Piper Cuevas [facility] URINALYSIS 2021-12-09 11:37:00 Piper Cuevas [facility] PHOSPHORUS 2021-12-09 10:20:00 Anne-Marie Tenorio [facility] CREATINE KINASE 2021-12-09 10:20:00 Anne-Marie Tenorio [facility] URIC ACID 2021-12-09 10:20:00 Anne-Marie Tenorio [facility] MAGNESIUM 2021-12-09 10:20:00 Piper Cuevas [facility] TROPONIN I 2021-12-09 10:20:00 Anne-Marie Tenorio [facility] COMP. METABOLIC PANEL ([id number]) 2021-12-09 10:20:00 Anne-Marie Tenorio [facility] CBC WITH DIFF 2021-12-09 10:20:00 Piper Cuevas [facility] N-TERMINAL PRO-BNP 2021-12-09 10:20:00 [facility] 2021-12-09 10:20:00 [facility] PROTHROMBIN TIME / INR 2021-12-09 10:19:00 Iam Tenorio [facility] XR CHEST 1 VW 2021-12-09 08:02:00 Anne[facility] XR SHOULDER 2+ VW LEFT 2021-12-09 08:02:00 Iam Tenorio [facility] CREATINE KINASE 2021-12-09 05:01:00 Anne-Marie Tenorio [facility] URIC ACID 2021-12-09 05:01:00 Anne-Marie Tenorio [facility] TROPONIN I 2021-12-09 05:01:00 Piper Cuevas [facility] THYROID STIMULATING HORMONE 2021-12-09 05:01:00 [facility] BASIC METABOLIC PANEL (NA, K, CL, CO2, GLUCOSE, BUN, CREATININE, CA) 2021-12-09 05:01:00 Anne-Marie Tenorio [facility] LIPID PANEL ([id number])(TOTAL CHOLESTEROL, TRIGLYCERIDES, HDL) 2021-12-09 05:01:00 [facility] GLYCOSYLATED HEMOGLOBIN (A1C) 2021-12-09 05:01:00 [facility] POCT GLUCOSE (AUTOMATED) 2021-12-08 22:37:00 Melissa Cuevas [facility] COVID-19 (ID NOW RAPID TESTING) 2021-12-08 19:36:00 Viv Marcelo [facility] LAB ONLY COVID INTERPRETATION 2021-12-08 19:36:00 Viv Marcelo [facility] CT HEAD WO CONTRAST 2021-12-08 18:48:07 Pura Marcelo [facility] SEDIMENTATION RATE 2021-12-08 18:11:00 Lm Marcelo [facility] C-REACTIVE PROTEIN 2021-12-08 18:10:00 Lm Marcelo [facility] LIPID PANEL ([id number])(TOTAL CHOLESTEROL, TRIGLYCERIDES, HDL) 2021-12-08 18:10:00 Anne-Marie Tenorio [facility] LIPASE 2021-12-08 18:09:00 Viv Marcelo [facility] TROPONIN I 2021-12-08 18:09:00 Viv Marcelo [facility] COMP. METABOLIC PANEL (87228) 2021-12-08 18:09:00 Viv Marcelo [facility] CBC WITH DIFF 2021-12-08 18:09:00 Viv Marcelo [facility] N-TERMINAL PRO-BNP 2021-12-08 18:09:00 Lm Marcelo [facility] HB ECG ROUTINE & RHYTHM STRIP 2021-12-08 17:23:34 Viv Marcelo [facility] NOTICE OF PRIVACY PRACTICES 2021-12-08 17:02:32 Doctor Unassigned, [place] [facility] Encounters Start Date/Time End Date/Time Encounter Type Admission Type Attending Clinicians Care Facility Care Department Encounter ID Source 2024-08-13 15:45:00 Inpatient Miguelito Rosado [facility] [id number] [facility] 2022-08-01 11:34:12 Outpatient [facility] [id number] [facility] 2022-07-29 10:16:55 Outpatient [facility] [id number] [facility] 2024-08-12 23:45:00 2024-08-14 14:45:00 Inpatient Lianna Zamora [facility]02 [id number] [facility] 2022-12-02 13:17:00 2022-12-02 14:13:00 Emergency X [facility] ERT [id number] [facility] 2022-12-02 13:17:00 2022-12-02 14:13:00 Emergency Singer Bradford [facility] [id number] [facility] 2021-12-10 00:00:00 2021-12-10 00:00:00 Transition of Care Lorena Mcnair [id number] [facility] 2021-12-08 11:18:00 2021-12-09 17:55:00 Emergency Viv Marcelo [place], Jelani [facility] [id number] [facility] 2021-12-08 11:18:00 2021-12-09 17:55:00 Outpatient [facility] [id number] [facility] Results Test Description Test Time Test Comments Results Result Co mments Source GLUCOSE BEDSIDE [id number] 07:57:00* Test Item Value Reference Range Interpretation Comme [facility] GLUCOSE BEDSIDE TESTING (montrell t code = GLUBED) 110 MG/DL 60-99 H GLUCOSE BEDSIDE [id number] 18:29:00* Test Item Value Reference Range Interpretation Comme [facility] GLUCOSE BEDSIDE TESTING (montrell t code = GLUBED) 121 MG/DL 60-99 H GLUCOSE BEDSIDE [id number] 16:15:00* Test Item Value Reference Range Interpretation Comme nts GLUCOSE BEDSIDE TESTING (montrell t code = GLUBED) 120 MG/DL 60-99 H GLUCOSE BEDSIDE [id number] 11:05:00* Test Item Value Reference Range Interpretation Comme nts GLUCOSE BEDSIDE TESTING (montrell t code = GLUBED) 98 MG/DL 60-99 N [id number] 09:08:00* Test Item Value Reference Range Interpretation Comme nts TROPONIN-I (test code = TROPI) 0.058 NG/ML 0.012-0.033 H "Please be aware that bias results for Troponin may occurfor patients who are taking Biotin supplements, causingfalsely low troponin results. Please screen for routineBiotin (Vitamin B7) supplements taken in rizwana doses (greaterthan 100-300mg/day) or beauty supplements." GLUCOSE BEDSIDE [id number] 07:40:00* Test Item Value Reference Range Interpretation [...] mg/dL HIGH.........160-189 mg/dL VERY HIGH.........>/= 190 mg/dL [id number] 07:12:00* Test Item Value Reference Range Interpretation Comme nts PHOSPHOROUS (test code = PHOS) 2.9 MG/DL 2.5-4.5 N [id number] 07:12:00* Test Item Value Reference Range Interpretation Comme [facility] MAGNESIUM (test code = MAG) 1.7 MG/DL 1.6-2.3 N THYROID STIMULATING [id number] 07:12:00* Test Item Value Reference Range Interpretation Comme [facility] THYROID STIMULATING HORMONE (test code = TSH) 0.559 MIU/L 0.465-4.68 N Please be aware that bias results for TSH may occur forpatient who are taking Biotin supplements. [id number] 07:12:00* Test Item Value Reference Range Interpretation Comme [facility] TROPONIN-I (test code = TROPI) 0.049 NG/ML 0.012-0.033 H "Please be aware that bias results for Troponin may occurfor patients who are taking Biotin supplements, causingfalsely low troponin results. Please screen for routineBiotin (Vitamin B7) supplements taken in rizwana doses (greaterthan 100-300mg/day) or beauty supplements." LIPOPROTEIN LDL [id number] 07:12:00* Test Item Value Reference Range Interpretation Comme [facility] LIPOPROTEIN LDL DIRECT (test code = LDLDIR) 100 mg/dL 100-129 N ========= R eference Interval: mg/dL mmol/L -----Optimal <100 <2.6Near/above optimal 100-129 2.6-3.3Borderline High 130-159 3.4-4.1High 160-189 4.1-4.9Very High >=190 >=4.9========= This LDL result is a direct measurement.======== = GLYCOSYLATED HEMOGLOBIN [id number] 04:59:00* Test Item Value Reference Range Interpretation [...] MBG) 126 MG/DL 70-110 H COMPREHENSIVE METABOLIC [id number] 22:59:00* Test Item Value Reference Range Interpretation [...] performed in our lab.Interference testing performed at [facility] determined thatEltrombopag does interfere with Vitros Total [...] code = ALKP) 142 UNITS/L 38-126 H [id number] 22:59:00* Test Item Value Reference Range Interpretation Comme nts TROPONIN-I (test code = TROPI) 0.045 NG/ML 0.012-0.033 H "Please be aware that bias results for Troponin may occurfor patients who are taking Biotin supplements, causingfalsely low troponin results. Please screen for routineBiotin (Vitamin B7) supplements taken in rizwana doses (greaterthan 100-300mg/day) or beauty supplements." CBC W/AUTO [id number] 22:22:00* Test Item Value Reference Range Interpretation [...] Comme nts POCT GLU (test code = 4737115817) 93 mg/dL 70-110 Lab Interpretation (test cod e = 42576-5) Normal [facility] [place] [id number] 19:34:40* Test Item Value Reference Range Interpretation Comments TROPONIN I (test code = 5960358231) 0.063 ng/mL See_Comment H [Automated message] The [...] of biotin. Lab Interpretation (test code = 66838-7) Abnormal [facility]2021-12-09 17:54:18* Test Item Value Reference Range Interpretation Comme nts POCT GLU (test code = 0892049114) 212 mg/dL 70-110 H Lab Interpretation (test cod e = 29991-5) Abnormal [facility]22-[facility]-17 17:06:20* Test Item Value Reference Range Interpretation Comme nts Procalcitonin (test code = 3359542332) 0.05 ng/mL <0.07 IZABELA (test code = [...] lung abscess/empyema. For further information please refer to:[email or web address] Lab Interpretation (test code = 94311-8) Normal [facility]-REACTIVE [id number] 16:15:47* Test Item Value Reference Range Interpretation Comme nts CRP (test code = 2108518170) 1.1 mg/dL <0.8 H Lab Interpretation (test cod e = 81932-4) Abnormal [facility] with [id number] 16:07:33* Test Item Value Reference Range Interpretation [...] 32.1 g/dL 31.6-35.1 RDW-SD (test code = 10910-6) 49.2 fL 39.0-49.9 RDW-CV (test code = 788-0) 15.9 % 12.0-15.5 H PLT (test code = 777-3) See_Comment L [Automated messa ge] The system which generated this result transmitted reference range: 166 - 358 10*3/?L. The reference range was not used to interpret this result as normal/abnormal. MPV (test code = 30028-0) 11.8 fL 9.5-12.9 NRBC/100 WBC (test code = 7034280532) See_Comment [Automated me ssage] The system which generated this result transmitted reference range: 0.0 - 10.0 /100 WBCs. The reference range was not used to interpret this result as normal/abnormal. NRBC x10^3 (test code = 4612278807) <0.01 See_Comment [Automated messa ge] The system which generated this result transmitted reference range: 10*3/?L. The reference range was not used to interpret this result as normal/abnormal. GRAN MAT (NEUT) % (test code = 770-8) 46.8 % IMM GRAN % (test code = 4182756925) 0.30 % LYMPH % (test code = 736-9) 39.3 % MONO % (test code = 5905-5) 10.0 % EOS % (test code = 713-8) 2.8 % BASO % (test code = 706-2) 0.8 % GRAN MAT x10^3(ANC) (test code = 6843007229) 1.87 10*3/uL 1.88-7.09 L IMM GRAN x10^3 (test code = 4076039336) <0.03 0.00-0.06 LYMPH x10^3 (test code = [...] result as normal/abnormal. ELLIPTO/OVAL (test code = 23679-0) 2+ See_Comment A [Automated messa ge] The system which generated this result transmitted reference range: (none). The reference range was not used to interpret this result as normal/abnormal. Lab Interpretation (test code = 24957-6) [facility]2021-12-09 14:06:00* Test Item Value Reference Range Interpretation Comme [facility] POCT GLU (test code = 4067438983) 111 mg/dL 70-110 H Lab Interpretation (test cod e = 73091-7) Abnormal [facility] HospitalPROTHROMBIN TIME / [id number] 11:31:47* Test Item Value Reference Range Interpretation [...] the indications. Lab Interpretation (test code = 79617-8) Normal [facility] HospitalTROPONIN [id number] 11:18:45* Test Item Value Reference Range Interpretation Comments TROPONIN I (test code = 9087650767) 0.061 ng/mL See_Comment H [Automated message] The [...] of biotin. Lab Interpretation (test code = 78455-8) Abnormal [facility] HospitalN-TERMINAL [id number] 11:15:23* Test Item Value Reference Range Interpretation Comme nts NT-proBNP (test code = 5941892300) 657 pg/mL See_Comment H [Automated message] The system which generated this result transmitted reference range: <=125. The reference range was not used to interpret this result as normal/abnormal. IZABELA (test code = IZABELA) Biotin has been reported to cause a negative bias, interpret results relative to patient's use of biotin. Lab Interpretation (test code = 07204-2) Abnormal [facility] HospitalMagnesium [id number] 11:10:21* Test Item Value Reference Range Interpretation Comme nts MAGNESIUM (test code = 5361917899) 1.9 mg/dL 1.7-2.4 Lab Interpretation (test cod e = 39866-9) Normal [facility]. METABOLIC PANEL (14986)2021-12-09 11:10:20* Test Item Value Reference Range Interpretation Comme nts NA (test code = 9712546123) 141 mmol/L 135-145 K (test code = 1137030052) 4.3 mmol/L 3.5-5.0 CL (test code = 8867329031) 116 mmol/L 98-108 H CO2 TOTAL (test code = 0881391102) 23 mmol/L 23-31 AGAP (test code = 2056589788) 2-16 BUN (test code = 4618279965) 43 mg/dL 7-23 H GLUCOSE (test code = 8987507533) 107 mg/dL 70-110 CREATININE (test code = 3336532128) 2.16 mg/dL 0.50-1.04 H TOTAL BILI (test code = 4913207198) 0.3 mg/dL 0.1-1.1 CALCIUM (test code = 2720255256) 10.0 mg/dL 8.6-10.6 T PROTEIN (test code = 9529158546) 6.8 g/dL 6.3-8.2 ALBUMIN (test code = 2132774281) 3.8 g/dL 3.5-5.0 ALK PHOS (test code = 3805359724) 89 U/L 34-122 ALTv (test code = 1742-6) 22 U/L 5-35 AST(SGOT) (test code = 2563179322) 27 U/L 13-40 eGFR (test code = 3977494326) mL/min/1.73m2 IZABELA (test code = IZABELA) Association [...] imaging tests). Lab Interpretation (test code = 82821-1) [facility]normal [facility] HospitalPHOSPHORUS2022-02-17 11:09:40* Test Item Value Reference Range Interpretation Comme nts PHOSPHORUS (test code = 2268458659) 2.9 mg/dL 2.5-5.0 Lab Interpretation (test cod e = 33069-8) Normal [facility] HospitalURIC [id number] 11:09:40* Test Item Value Reference Range Interpretation Comme nts URIC ACID (test code = 0130100800) 3.0 mg/dL 2.9-6.0 Lab Interpretation (test cod e = 03192-0) Normal [facility] HospitalCREATINE [id number] 11:09:20* Test Item Value Reference Range Interpretation Comme nts CK (test code = 1483663927) 77 U/L 33-194 Lab Interpretation (test cod e = 46172-0) Normal [facility] HospitalLIPID PANEL (70554)(TOTAL CHOLESTEROL, TRIGLYCERIDES, HDL)2021-12-09 07:07:05* Test Item Value Reference Range Interpretation Comme nts CHOL (test code = 5731696997) 219 mg/dL 120-200 H HDL (test code = 7934122522) 56 mg/dL >50 HDLC RATIO (test code = 8719352409) See_Comment [Automated [employer]] The system which generated this result transmitted reference range: <=4.5. The reference range was not used to interpret this result as normal/abnormal. TRIG (test code = 9118331672) 117 mg/dL 30-170 LDL CHOL (test code = 19513-0) 140 mg/dL See_Comment [Automated [employer]] The system which generated this result transmitted reference range: <=160. The reference range was not used to interpret this result as normal/abnormal. VLDL (test code = 1395507540) 23 mg/dL 5-60 Lab Interpretation (test code = 05478-8) Abnormal [facility] HospitalURIC [id number] 06:45:44* Test Item Value Reference Range Interpretation Comme nts URIC ACID (test code = 1660402171) 3.1 mg/dL 2.9-6.0 Lab Interpretation (test cod e = 44356-1) Normal [facility] METABOLIC PANEL (NA, K, CL, CO2, GLUCOSE, BUN, CREATININE, CA)2021-12-09 06:45:44* Test Item Value Reference Range Interpretation Comme nts NA (test code = 9407018450) 140 mmol/L 135-145 K (test code = 4586766667) 4.7 mmol/L 3.5-5.0 CL (test code = 4330529347) 114 mmol/L 98-108 H CO2 TOTAL (test code = 6255711765) 23 mmol/L 23-31 AGAP (test code = 7534751093) 2-16 BUN (test code = 0957652051) 45 mg/dL 7-23 H GLUCOSE (test code = 2672962631) 110 mg/dL 70-110 CREATININE (test code = 5283129996) 2.29 mg/dL 0.50-1.04 H CALCIUM (test code = 1701436268) 10.1 mg/dL 8.6-10.6 eGFR (test code = 6582166335) mL/min/1.73m2 IZABELA (test code = IZABELA) Association [...] imaging tests). Lab Interpretation (test code = 78735-3) Abnormal [facility] HospitalCREATINE [id number] 06:44:43* Test Item Value Reference Range Interpretation Comme [facility] CK (test code = 2117831948) 89 U/L 33-194 Lab Interpretation (test cod e = 08651-1) Normal [facility] HospitalGlycosylated Hemoglobin (A1C)2021-12-09 06:41:28* Test Item Value Reference Range Interpretation Comme [facility] HGB A1C (test code = 4548-4) 5.8 % 4.0-5.7 H IZABELA (test code = IZABELA) Reference RangesNormal: <5.7%Prediabetes: 5.7 - 6.4%Diabetes: > 6.5% Lab Interpretation (test code = 58748-0) Abnormal [facility] HospitalThyroid Stimulating Hormone (TSH)2021-12-09 06:08:03* Test Item Value Reference Range Interpretation Comme [facility] TSH (test code = 0278166029) See_Comment [Automated [employer]] The system which generated this result transmitted reference range: 0.45 - 4.70 mIU/L. The reference range was not used to interpret this result as normal/abnormal. Lab Interpretation (test code = 40151-6) Normal [facility] HospitalTroponin [id number] 05:49:19* Test Item Value Reference Range Interpretation Comments TROPONIN I (test code = 6925701996) 0.061 ng/mL See_Comment H [Automated message] The [...] of biotin. Lab Interpretation (test code = 32886-5) Abnormal [facility] HospitalLipid Panel (Total Cholesterol, Triglycerides, HDL)2021-12-09 05:36:42* Test Item Value Reference Range Interpretation Comme nts CHOL (test code = 0067562806) 200 mg/dL 120-200 HDL (test code = 2589422240) 59 mg/dL >50 HDLC RATIO (test code = 5747621656) See_Comment [Automated [employer]] The system which generated this result transmitted reference range: <=4.5. The reference range was not used to interpret this result as normal/abnormal. TRIG (test code = 9861557071) 121 mg/dL 30-170 LDL CHOL (test code = 69141-2) 117 mg/dL See_Comment [Automated [employer]] The system which generated this result transmitted reference range: <=160. The reference range was not used to interpret this result as normal/abnormal. VLDL (test code = 1439990311) 24 mg/dL 5-60 Lab Interpretation (test code = 17334-0) Normal [facility] HospitalPO[facility] GLUCOSE (AUTOMATED)2021-12-08 22:40:15* Test Item Value Reference Range Interpretation Comme nts POCT GLU (test code = 9428909622) 105 mg/dL 70-110 Lab Interpretation (test cod e = 13990-6) Normal [facility] HospitalSEDIMENTATION [id number] 19:08:56* Test Item Value Reference Range Interpretation Comme nts ESR (test code = 3397520319) See_Comment H [Automated [employer]] The system which generated this result transmitted reference range: 0 - 20 mm/HR. The reference range was not used to interpret this result as normal/abnormal. Lab Interpretation (test code = 40221-1) Abnormal [facility] HospitalTROPONIN [id number] 19:05:34* Test Item Value Reference Range Interpretation Comments TROPONIN I (test code = 8844757648) 0.058 ng/mL See_Comment H [Automated message] The [...] of biotin. Lab Interpretation (test code = 45283-6) Abnormal [facility] HospitalN-TERMINAL [id number] 19:02:16* Test Item Value Reference Range Interpretation Comme nts NT-proBNP (test code = 2970798657) 330 pg/mL See_Comment H [Automated message] The system which generated this result transmitted reference range: <=125. The reference range was not used to interpret this result as normal/abnormal. IZABELA (test code = IZABELA) Biotin has been reported to cause a negative bias, interpret results relative to patient's use of biotin. Lab Interpretation (test code = 06225-6) Abnormal [facility] HospitalCOMP. METABOLIC PANEL (41628)2021-12-08 18:53:28* Test Item Value Reference Range Interpretation Comme nts NA (test code = 8574581509) 141 mmol/L 135-145 K (test code = 5585749928) 5.2 mmol/L 3.5-5.0 H CL (test code = 2485174478) 115 mmol/L 98-108 H CO2 TOTAL (test code = 3836794778) 19 mmol/L 23-31 L AGAP (test code = 4833478958) 2-16 BUN (test code = 7158009487) 49 mg/dL 7-23 H GLUCOSE (test code = 9971880056) 115 mg/dL 70-110 H CREATININE (test code = 5275474382) 2.22 mg/dL 0.50-1.04 H TOTAL BILI (test code = 5780922046) 0.4 mg/dL 0.1-1.1 CALCIUM (test code = 3556947733) 10.4 mg/dL 8.6-10.6 T PROTEIN (test code = 2398726089) 8.0 g/dL 6.3-8.2 ALBUMIN (test code = 8802956162) 4.6 g/dL 3.5-5.0 ALK PHOS (test code = 2541062816) 106 U/L 34-122 ALTv (test code = 1742-6) 26 U/L 5-35 AST(SGOT) (test code = 7187962095) 31 U/L 13-40 eGFR (test code = 2907121180) mL/min/1.73m2 IZABELA (test code = IZABELA) Association [...] imaging tests). Lab Interpretation (test code = 53621-2) Abnormal [facility] HospitalLIPASE2022-02-16 18:53:07* Test Item Value Reference Range Interpretation Comme nts LIPASE (test code = 0963633960) 334 U/L 0-220 H Lab Interpretation (test cod e = 87501-8) Abnormal [facility] WITH [id number] 18:41:07* Test Item Value Reference Range Interpretation Comme nts WBC (test code = 6690-2) See_Comment [Automated [employer]] The system which generated this result transmitted reference range: 4.30 - 11.10 10*3/?L. The reference range was not used to interpret this result as normal/abnormal. RBC (test code = 789-8) See_Comment [Automated [employer]] The system which generated this result transmitted [...] g/dL 31.6-35.1 L RDW-SD (test code = 97715-4) 49.6 fL 39.0-49.9 RDW-CV (test code = 788-0) 15.7 % 12.0-15.5 H PLT (test code = 777-3) See_Comment [Automated messa ge] The system which generated this result transmitted reference range: 166 - 358 10*3/?L. The reference range was not used to interpret this result as normal/abnormal. MPV (test code = 66096-1) 11.5 fL 9.5-12.9 NRBC/100 WBC (test code = 5880956976) See_Comment [Automated [employer] ssage] The system which generated this result transmitted reference range: 0.0 - 10.0 /100 WBCs. The reference range was not used to interpret this result as normal/abnormal. NRBC x10^3 (test code = 0075375972) <0.01 See_Comment [Automated messa ge] The system which generated this result transmitted reference range: 10*3/?L. The reference range was not used to interpret this result as normal/abnormal. GRAN MAT (NEUT) % (test code = 770-8) 51.1 % IMM GRAN % (test code = 4787526757) 0.30 % LYMPH % (test code = 736-9) 34.8 % MONO % (test code = 5905-5) 10.9 % EOS % (test code = 713-8) 2.2 % BASO % (test code = 706-2) 0.7 % GRAN MAT x10^3(ANC) (test code = 0524788587) 3.01 10*3/uL 1.88-7.09 IMM GRAN x10^3 (test code = 2565069348) <0.03 0.00-0.06 LYMPH x10^3 (test code = 731-0) 2.05 10*3/uL 1.32-3.29 MONO x10^3 (test code = 742-7) 0.64 10*3/uL 0.33-0.92 EOS x10^3 (test code = 711-2) 0.13 10*3/uL 0.03-0.39 BASO x10^3 (test code = 704-7) 0.04 10*3/uL 0.01-0.07 Lab Interpretation (test code = 63319-9) Abnormal [facility]
[2024-11-13] MEDS ORDERED: KETOROLAC 30 MG/ML INJ ONE (20:06)
[2024-11-13] MEDS ORDERED: methocarbamoL 500 MG TAB ONE (20:06)
[2024-11-13] MEDS ORDERED: ACETAMINOPHEN 500 MG TAB ONE (20:06)
[2024-11-13 20:09] LABS: Absolute Basophils 0.1 K/uL (0-0.5); Absolute Eosinophils 0.1 K/uL (0-0.5); Absolute Lymphocytes (CBC) 2.8 K/uL (0.7-4.9); Absolute Monocytes 0.8 K/uL (0.1-1.3); Absolute Neutrophil 5.1 K/uL (1.8-8.0); Basophils % 1.4 % (0-1.3); Eosinophils % 0.6 % (0-4.4); Hemoglobin 9.1 g/dL (12.0-15.0); Lymphocytes % 31.7 % (15.3-44.8); MCH 26.1 pg (27.0-35.0); MCHC 33.7 g/dL (32.0-36.0); MCV 77.5 fL (80-100); MPV 8.7 fL (7.6-11.3); Monocytes % 9.1 % (3.3-12.3); Neutrophils % 57.2 % (41.7-73.7); Platelets 243 thou/uL (152-406); RBC Red Blood Cell Count 3.49 M/uL (3.86-4.86); Red Cell Distribution Width 16.8 % (12.1-15.2)
[2024-11-13 20:21] LABS: Anion Gap 11.4 mEq/L (5.0-15.0); Potassium 3.4 mEq/L (3.5-5.1)
[2024-11-13 21:38] LABS: ALT/SGPT 16 U/L (13-56); AST/SGOT 12 U/L (15-37); Albumin 3.4 g/dL (3.4-5.0); Albumin/Globulin Ratio 0.7 (1.1-1.8); Alkaline Phosphatase 128 U/L (45-117); Bilirubin Total 0.5 mg/dL (0.2-1.0); Globulin 4.9 g/dL (2.3-3.5); NT PRO-BNP 1027 pg/mL (<450); Protein, Total 8.3 g/dL (6.4-8.2)
[2024-11-13 21:40] LABS: Bilirubin Direct < 0.2 mg/dL (0-0.2); Bilirubin Indirect, Calculated 0.3 mg/dL (0.2-0.8)
--- NOTE | 2024-11-13 21:50 | RAD REPORT ---
EXAM: CT CHEST, ABDOMEN AND PELVIS WITH CONTRAST CLINICAL INDICATION: assess for colon cancer TECHNIQUE: CT chest, abdomen and pelvis was performed, following the administration of contrast, as p er department protocol. Axial, sagittal and coronal reconstructions were obtained. One or more of the following dose reduction techniques were used: Automated exposure control, adjustment of the mA a nd/or kV according to patient size, and/or iterative reconstruction. Unless otherwise specified, incidental findings do not require dedicated imaging follow-up. COMPARISON: 05/16/2024 FINDINGS: LUNGS: No evidence of airspace or interstitial process. No nodules. Mild thyroid goiter. PLEURA: No pleural effusion. No pneumothorax. MEDIASTINUM AND LYMPH NODES: No mediastinal mass or fluid collection. Normal size mediastinal, hilar, and axillary lymph nodes. OSSEOUS STRUCTURES AND CHEST WALL: Intact. LIVER: Normal in size and contour. No focal lesion or biliary dilatation. Grossly unremarkable gallbl adder. PANCREAS: No mass, ductal dilation, or nikky-pancreatic fluid. SPLEEN: Normal size. No focal lesion. ADRENALS: Normal; no mass. KIDNEYS: Normal size and contour. No hydronephrosis. Bilateral renal lesions which are either benign in appearance or too small to accurately characterize but statistically benign. URINARY BLADDER: Normal contour. GASTROINTESTINAL TRACT: No bowel obstruction, free air, significant free fluid or abscess. Sigmoid diverticulosis coli without diverticulitis. Focal circumferential wall thickening measuring 2.5 cm in the rectum. APPENDIX: Normal appendix. LYMPH NODES: No lymphadenopathy. MUSCULOSKELETAL: No acute or suspicious osseous abnormality. OTHER: IMPRESSION: 2.5 cm circumferential wall thickening of the rectum could be neoplastic or spasm. Recommend follow-u p colonoscopy for direct visualization. Sigmoid diverticulosis coli without diverticulitis. Mild thyroid goiter.
[2024-11-13] MEDS ORDERED: ONDANSETRON 4 MG/2 ML VIAL ONE (21:58)
[2024-11-13] MEDS ORDERED: MORPHINE 2 MG/ML SYR ONE (21:58)
[2024-11-13] MEDS ORDERED: NA CHLORIDE 0.9% 500 ML ONE (21:59)
--- NOTE | 2024-11-13 22:45 | ER ---
Nurse's Notes [facility] Name: Patti Frey Age: 79 yrs Sex: Female : 1945 Arrival Date: 11/13/2024 Time: 19:18 Bed 13 Private MD: Diagnosis: NSTEMI, diffuse generalized pain, acute generalized weakness Presentation: 11/13 19:24 Chief complaint: EMS states: Pt called EMS reporting that the tramadol she was jb4 prescribed for pain is not working and that she is in more pain than normal. Coronavirus screen: At this time, the client does not indicate any symptoms associated with coronavirus-19. Ebola Screen: No symptoms or risks identified at this time. Risk Assessment: Do you want to hurt yourself or someone else? Patient reports no desire to harm self or others. Onset of symptoms was November 13, 2024. Transition of care: patient was not received from another setting of care. 19:24 Method Of Arrival: EMS: [facility] jb4 19:24 Acuity: EMELIA 4 jb4 19:24 Initial Sepsis Screen: Does the patient meet any 2 criteria? No. Patient's initial vc1 sepsis screen is negative. Does the patient have a suspected source of infection? No. Patient's initial sepsis screen is negative. Historical: - Allergies: 19:26 Codeine; jb4 19:26 Iodine; jb4 - PMHx: 19:26 Arthritis; BURSITIS; Diabetes - NIDDM; Hypertension; Atrial Fib; Gout; jb4 - PSHx: 19:26 Total abdominal hysterectomy; jb4 - Immunization history:: Adult Immunizations up to date. - Infectious Disease History:: Denies. - Social history:: Smoking status: Patient denies any tobacco usage or history of. Screenin:00 [facility] ED Fall Risk Assessment (Adult) History of falling in the last 3 months, vc1 including since admission Yes- fall prone (multiple falls) (3 pts) Confusion or Disorientation No (0 pts) Intoxicated or Sedated No (0 pts) Impaired Gait Yes (1 pt) Mobility Assist Device Used Yes (1 pt) Altered Elimination Yes (1 pt) Score/Fall Risk Level 3 or more points = High Risk Oriented to surroundings, Maintained a safe environment, Educated pt \T\ family on fall prevention, incl call for assistance when getting out of bed, Assessed \T\ reinforced patient's understanding of fall precautions, Offered frequent toileting (1:1 observation), Utilized family, sitter, or virtual resin remover as indicated. 11/14 01:12 [facility] ED Fall Risk Assessment (Adult). cp4 01:16 Abuse screen: Denies threats or abuse. Nutritional screening: No deficits noted. vc1 Tuberculosis screening: No symptoms or risk factors identified. Assessment: 11/13 19:30 General: Appears in no apparent distress. uncomfortable, Behavior is calm, cooperative, jb4 appropriate for age. Pain: Complains of pain in pain all over Pain does not radiate. Pain currently is 10 out of 10 on a pain scale. Neuro: Level of Consciousness is awake, alert, obeys commands, Oriented to person, place, time, situation. Cardiovascular: Patient's skin is warm and dry. Respiratory: Airway is patent Respiratory effort is even, unlabored, Respiratory pattern is regular, symmetrical. Derm: Skin is intact, Skin is dry, Skin is normal, Skin temperature is warm. Musculoskeletal: Circulation, motion, and sensation intact. Range of motion: intact in all extremities. 20:30 Reassessment: Patient appears in no apparent distress at this time. Patient and/or jb4 family updated on plan of care and expected duration. Pain level reassessed. Patient is alert, oriented x 3, equal unlabored respirations, skin warm/dry/pink. 21:30 Reassessment: Patient appears in no apparent distress at this time. Patient and/or jb4 family updated on plan of care and expected duration. Pain level reassessed. Patient is alert, oriented x 3, equal unlabored respirations, skin warm/dry/pink. 22:30 Reassessment: Patient appears in no apparent distress at this time. Patient and/or jb4 family updated on plan of care and expected duration. Pain level reassessed. Patient is alert, oriented x 3, equal unlabored respirations, skin warm/dry/pink. 23:23 Reassessment: Patient appears in no apparent distress at this time. Patient and/or jb4 family updated on plan of care and expected duration. Pain level reassessed. Patient is alert, oriented x 3, equal unlabored respirations, skin warm/dry/pink. Vital Signs: 19:49 BP 174 / 81; Pulse 81; Resp 16; Temp 98.2(O); Pulse Ox 100% on R/A; Weight 78.02 kg jb4 (R); Height 4 ft. 11 in. ; 21:00 BP 164 / 83; Pulse 82; Resp 16; Pulse Ox 99% on R/A; jb4 22:00 BP 152 / 76; Pulse 72; Resp 16; Pulse Ox 99% on R/A; jb4 23:00 BP 161 / 72; Pulse 73; Resp 16; Pulse Ox 96% on R/A; jb4 19:49 Body Mass Index 34.74 (78.02 kg, 149.86 cm) jb4 ED Course: 19:21 Patient arrived in ED. vc1 19:26 Triage completed. jb4 19:26 Arm band placed on right wrist. jb4 19:26 Patient has correct armband on for positive identification. Bed in low position. Call vc1 light in reach. Pulse ox on. NIBP on. 19:26 Provided Education on: call light. vc1 19:27 Ilan Ontiveros MD is Attending Physician. ec2 20:03 CBC with Diff Sent. jb4 20:03 BMP Sent. jb4 20:09 Attending Physician role handed off by Ilan Ontiveros MD sp4 20:09 Rishabh Petit MD is Attending Physician. sp4 21:48 CT Chest, Abdomen, Pelvis - W/Contrast In Process Unspecified. EDMS 22:43 Devang Rowe MD is Hospitalizing Provider. sp4 23:[address] rv1 11/14 01:12 No provider procedures requiring assistance completed. Patient admitted, IV remains in cp4 place. Administered Medications: 11/13 20:14 Drug: Acetaminophen PO 1000 mg PO once Route: PO; jb4 21:00 Follow up: Response: No adverse reaction; Marked relief of symptoms jb4 20:14 Drug: Ketorolac IVP 15 mg IVP once Route: IVP; Site: right forearm; jb4 21:00 Follow up: Response: No adverse reaction; Marked relief of symptoms jb4 20:14 Drug: Methocarbamol PO 500 mg PO once Route: PO; jb4 21:00 Follow up: Response: No adverse reaction; Marked relief of symptoms jb4 22:18 Drug: NS 0.9% IV 500 ml 500 ml IV at 1 bolus once; to be given as a bolus over 30 jb4 minutes Volume: 500 ml; Route: IV; Rate: 1 bolus; Site: right forearm; 22:48 Follow up: Response: No adverse reaction; IV Status: Completed infusion; IV Intake: jb4 500ml 22:18 Drug: morphine IVP or IV 2 mg IVP once over 4 mins Route: IVP; Infused Over: 4 mins; jb4 Site: right forearm; 23:08 Follow up: Response: No adverse reaction; Marked relief of symptoms; Pain is decreased; jb4 RASS: Alert and Calm (0) 22:18 Drug: Ondansetron IVP 4 mg IVP once; over 2 minutes Route: IVP; Site: right forearm; jb4 22:48 Follow up: Response: No adverse reaction vc1 23:08 Follow up: Response: No adverse reaction; Marked relief of symptoms jb4 23:08 Drug: Enoxaparin Sub-Q 80 mg Sub-Q once Route: Sub-Q; Site: right lower abdomen; jb4 23:59 Follow up: Response: No adverse reaction jb4 11/14 00:05 Drug: LORazepam PO 0.5 mg PO once Route: PO; jb4 01:00 Follow up: Response: No adverse reaction; Marked relief of symptoms vc1 Medication: 01:12 VIS not applicable for this client. cp4 Intake: 11/13 22:48 IV: 500ml; Total: 500ml. jb4 Outcome: 22:45 Decision to Hospitalize by Provider. sp4 11/14 01:12 Admitted to Med/surg accompanied by tech, via stretcher, with chart, cp4 Condition: stable Instructed on the need for admit, 01:17 Patient left the ED. vc1 Signatures: Dispatcher [employer] Epifanio Martinez RN RN jb4 Yuliet Galeano RN RN vc1 Talisha Lafleur Sergey, MD MD sp4 Ilan Ontiveros MD MD Huong Chen [facility]
--- NOTE | 2024-11-13 22:45 | EDPHYS ---
Physician Documentation [facility] Name: Patti Frey Age: 79 yrs Sex: Female : 1945 Arrival Date: 11/13/2024 Time: 19:18 Bed 13 Private MD: ED Physician Rishabh Petit HPI: 11/13 19:33 This 79 yrs old Black Female presents to ER via EMS with complaints of whole body pain. ec2 19:33 Patient arrives today for generalized body pain. Patient has chronic pain, pain has ec2 been progressively worsening. Takes tramadol and gabapentin for pain.. 21:00 . sp4 22:38 Patient care assumed from Dr. Singleton at 8 PM. Patient's medications include sp4 gabapentin, lorazepam, linagliptin, amlodipine, cetirizine, probenecid, topiramate, tramadol, lisinopril, aspirin, atorvastatin, clopidogrel, melatonin, metoprolol, lisinopril.. Historical: - Allergies: 19:26 Codeine; jb4 19:26 Iodine; jb4 - PMHx: 19:26 Arthritis; BURSITIS; Diabetes - NIDDM; Hypertension; Atrial Fib; Gout; jb4 - PSHx: 19:26 Total abdominal hysterectomy; jb4 - Immunization history:: Adult Immunizations up to date. - Infectious Disease History:: Denies. - Social history:: Smoking status: Patient denies any tobacco usage or history of. ROS: 19:33 Constitutional: as per hpi ec2 Exam: 19:33 Constitutional: GEN: NAD Head: atraumatic Eyes: EOMI Ears: External ears are ec2 normal. CV: regular rate LUNGS: no respiratory distress ABD: non-distended SKIN: no evidence of rashes MSK: no evidence of trauma 22:45 Constitutional: Frail elderly female, diffuse generalized weakness, physical sp4 deconditioning, patient is blind Head/Face: Normocephalic, atraumatic. Eyes: Pupils equal, patient appears to have bilateral moderate to severe cataracts. Patient is legally blind. Extraocular movements intact ENT: Nares patent. No nasal discharge, no septal abnormalities noted. Tympanic membranes are normal and external auditory canals are clear. Oropharynx with no redness, swelling, or masses, exudates, or evidence of obstruction, uvula midline. Mucous membranes moist. Neck: Trachea midline, no thyromegaly or masses palpated, and no cervical lymphadenopathy. Supple, full range of motion without nuchal rigidity, or vertebral point tenderness. Chest/axilla: Normal chest wall appearance and motion. Nontender with no deformity. No lesions are appreciated. Cardiovascular: Regular rate and rhythm with a normal S1 and S2. No gallops, murmurs, or rubs. Normal PMI, no JVD. No pulse deficits. Respiratory: Lungs have equal breath sounds bilaterally, clear to auscultation and percussion. No rales, rhonchi or wheezes noted. No increased work of breathing, no retractions or nasal flaring. Abdomen/GI: Soft, with normal bowel sounds. No distension or tympany. No guarding or rebound. No evidence of tenderness throughout. Back: No spinal tenderness. No costovertebral tenderness. Female : Normal external genitalia. 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 Rectal exam reveals no melena, no blood, no hemorrhoids, no mass, normal anal tone., No fissures, no fistula Skin: Warm, dry with normal turgor. Normal color with no rashes, no lesions, and no evidence of cellulitis. MS/ Extremity: Pulses equal, no cyanosis. Neurovascular intact. Full, normal range of motion. Neuro: Awake and alert, GCS 15, oriented to person, place, time, and situation. Cranial nerves II-XII grossly intact. Motor strength 5/5 in all extremities. Sensory grossly intact. Psych: Awake, alert, with orientation to person, place and time. Behavior, mood, and affect are within normal limits Vital Signs: 19:49 BP 174 / 81; Pulse 81; Resp 16; Temp 98.2(O); Pulse Ox 100% on R/A; Weight 78.02 kg jb4 (R); Height 4 ft. 11 in. ; 21:00 BP 164 / 83; Pulse 82; Resp 16; Pulse Ox 99% on R/A; jb4 22:00 BP 152 / 76; Pulse 72; Resp 16; Pulse Ox 99% on R/A; jb4 23:00 BP 161 / 72; Pulse 73; Resp 16; Pulse Ox 96% on R/A; jb4 19:49 Body Mass Index 34.74 (78.02 kg, 149.86 cm) jb4 MDM: 19:32 Medical Screening Exam initiated ec2 19:33 Data reviewed: vital signs, nurses notes. ED course: Patient arrives today for whole ec2 body pain. Examination is unrevealing. Will obtain basic lab work and urine studies to see if there is any underlying cause for the patient's interval worsening pain. Will give the patient Tylenol, Toradol as well as methocarbamol for her chronic pain.. 22:36 ED course: COMPARISON: 05/16/2024 FINDINGS: LUNGS: No evidence of airspace or sp4 interstitial process. No nodules. Mild thyroid goiter. PLEURA: No pleural effusion. No pneumothorax. MEDIASTINUM AND LYMPH NODES: No mediastinal mass or fluid collection. Normal size mediastinal, hilar, and axillary lymph nodes. OSSEOUS STRUCTURES AND CHEST WALL: Intact. LIVER: Normal in size and contour. No focal lesion or biliary dilatation. Grossly unremarkable gallbladder. PANCREAS: No mass, ductal dilation, or nikky-pancreatic fluid. SPLEEN: Normal size. No focal lesion. ADRENALS: Normal; no mass. KIDNEYS: Normal size and contour. No hydronephrosis. Bilateral renal lesions which are either benign in appearance or too small to accurately characterize but statistically benign. URINARY BLADDER: Normal contour. GASTROINTESTINAL TRACT: No bowel obstruction, free air, significant free fluid or abscess. Sigmoid diverticulosis coli without diverticulitis. Focal circumferential wall thickening measuring 2.5 cm in the rectum. APPENDIX: Normal appendix. LYMPH NODES: No lymphadenopathy. MUSCULOSKELETAL: No acute or suspicious osseous abnormality. OTHER: IMPRESSION: 2.5 cm circumferential wall thickening of the rectum could be neoplastic or spasm. Recommend follow-up colonoscopy for direct visualization. Sigmoid diverticulosis coli without diverticulitis. Mild thyroid goiter. Dictated By: Sergio Diamond MD 11/13/24 2141. 11/14 04:02 Differential Diagnosis altered mental status, sepsis, flu, Pneumonia. Consideration of sp4 Admission/Observation Patient was admitted/placed on observation. Escalation of care including admission/observation considered. Management of patient was discussed with the following: Hospitalist: Jae WATSON . ED course: Stable for admission. Patient's family were advised to seek outpatient colonoscopy for abnormal findings on the CAT scan.. 11/13 19:33 Order name: CBC with Diff; Complete Time: 21:08 ec2 11/13 19:33 Order name: BMP; Complete Time: 21:08 ec2 11/13 19:33 Order name: UAM ec2 11/13 21:00 Order name: LFT's; Complete Time: 22:08 sp4 11/13 21:00 Order name: Troponin High Sensitivity; Complete Time: 22:08 sp4 11/13 21:00 Order name: BNP; Complete Time: 22:08 sp4 11/13 21:00 Order name: TSH; Complete Time: 22:08 sp4 11/13 21:00 Order name: T4 Free; Complete Time: 22:08 sp4 11/13 23:27 Order name: Urinalysis w/ reflexes EDMS 11/13 23:27 Order name: CBC with Automated Diff EDMS 11/13 23:27 Order name: CBC with Automated Diff EDMS 11/13 23:27 Order name: Comprehensive Metabolic Panel EDMS 11/13 23:27 Order name: Comprehensive Metabolic Panel EDMS 11/13 23:27 Order name: Troponin High Sensitivity EDMS 11/13 23:27 Order name: Troponin High Sensitivity EDMS 11/13 23:27 Order name: Troponin High Sensitivity EDMS 11/13 23:27 Order name: Troponin High Sensitivity EDMS 11/13 20:59 Order name: CT Chest, Abdomen, Pelvis - W/Contrast; Complete Time: 22:08 4 11/13 22:35 Order name: EKG; Complete Time: 22:35 [facility] 11/13 19:33 Order name: IV; Complete Time: 20:03 2 11/13 22:35 Order name: EKG - Nurse/Tech; Complete Time: 23:07 [facility] Administered Medications: 11/13 20:14 Drug: Acetaminophen PO 1000 mg PO once Route: PO; jb4 21:00 Follow up: Response: No adverse reaction; Marked relief of symptoms jb4 20:14 Drug: Ketorolac IVP 15 mg IVP once Route: IVP; Site: right forearm; jb4 21:00 Follow up: Response: No adverse reaction; Marked relief of symptoms jb4 20:14 Drug: Methocarbamol PO 500 mg PO once Route: PO; jb4 21:00 Follow up: Response: No adverse reaction; Marked relief of symptoms jb4 22:18 Drug: NS 0.9% IV 500 ml 500 ml IV at 1 bolus once; to be given as a bolus over 30 jb4 minutes Volume: 500 ml; Route: IV; Rate: 1 bolus; Site: right forearm; 22:48 Follow up: Response: No adverse reaction; IV Status: Completed infusion; IV Intake: jb4 500ml 22:18 Drug: morphine IVP or IV 2 mg IVP once over 4 mins Route: IVP; Infused Over: 4 mins; jb4 Site: right forearm; 23:08 Follow up: Response: No adverse reaction; Marked relief of symptoms; Pain is decreased; jb4 RASS: Alert and Calm (0) 22:18 Drug: Ondansetron IVP 4 mg IVP once; over 2 minutes Route: IVP; Site: right forearm; jb4 22:48 Follow up: Response: No adverse reaction vc1 23:08 Follow up: Response: No adverse reaction; Marked relief of symptoms jb4 23:08 Drug: Enoxaparin Sub-Q 80 mg Sub-Q once Route: Sub-Q; Site: right lower abdomen; jb4 23:59 Follow up: Response: No adverse reaction 4 11/14 00:05 Drug: LORazepam PO 0.5 mg PO once Route: PO; jb4 01:00 Follow up: Response: No adverse reaction; Marked relief of symptoms vc1 Disposition Summary: 11/13/24 22:45 Hospitalization Ordered Notes: Hospitalization Status: Inpatient Admission sp4 Provider: Devang Rowe Location: Telemetry/[facility] (Inpatient) sp4 Condition: Fair sp4 Problem: new sp4 Symptoms: have improved sp4 Bed/Room Type: Standard sp4 Room Assignment: 209(11/13/24 23:52) rv1 Diagnosis - NSTEMI, diffuse generalized pain, acute generalized weakness sp4 Forms: - Medication Reconciliation Form sp4 - SBAR form sp4 - Leadership Thank You Letter sp4 Signatures: Dispatcher [employer] Epifanio Martinez RN RN jb4 Talisha Lafleur rv1 Rishabh Petit MD MD sp4 Ilan Ontiveros MD MD ec2 Yuliet Galeano RN vc1 Corrections: (The following items were deleted from the chart) 11/13 21:00 21:00 HEPATIC FUNCTION+C.LAB.BRZ ordered. EDGA EDMS 21:00 21:00 Troponin High Sensitivity+C.LAB.BRZ ordered. EDMS EDMS 21:00 21:00 PROBNP+C.LAB.BRZ ordered. EDMS EDMS 21:00 21:00 THYROID STIMULAT HORMONE+C.LAB.BRZ ordered. EDMS EDMS 21:00 21:00 T4 FREE+C.LAB.BRZ ordered. EDMS EDMS 23:52 22:45 sp4 rv1
[2024-11-13] MEDS ORDERED: ENOXAPARIN 80 MG/0.8 ML SQ ONE (22:52)
[2024-11-13] MEDS ORDERED: ALBUTEROL 2.5 MG/3 ML NEB SOL NEB PRN (23:21)
[2024-11-13] MEDS ORDERED: ONDANSETRON 4 MG/2 ML VIAL IV PRN (23:21)
--- NOTE | 2024-11-13 23:21 | P.HP ---
Certification for Inpatient Patient admitted to: Inpatient With expected LOS: >2 Midnights Practitioner: I am a practitioner with admitting privileges, knowledge of patient current condition, hospital course, and medical plan of care. Services: Services provided to patient in accordance with Admission requirements found in Title 42 Section 412.3 of the Code of Federal Regulations Patient History Date of Service: 11/14/24 Reason for admission: Generalized body pain/chest pain History of Present Illness: 79 yrs old Female with past medical history of diabetes, hypertension, hyperlipidemia, arthritis, bursitis, atrial fibrillation, gout, who presented to the ER with generalized body pain. Patient has chronic pain but has been progressively worsening and feels increasing. Has been taking tramadol and gabapentin for pain Patient also complains of chest pain which is retrosternal pressure-like, associated with no diaphoresis or shortness of breath. Started few days ago and has been possibly worsening. Complains of generalized weakness. Patient was assessed in the ER and is admitted for further management of NSTEMI and generalized body pain Allergies No Known Allergies Allergy (Verified 05/16/24 21:02) Home medications list reviewed: Yes Home Medications: Gabapentin 300 mg PO BID 06/16/19 LORazepam [Ativan*] 0.5 mg PO BID PRN 06/16/19 Linagliptin [Tradjenta] 5 mg PO DAILY 06/16/19 Amlodipine [Norvasc*] 10 mg PO DAILY 05/17/24 Cetirizine HCl [Zyrtec] 10 mg PO DAILY 05/17/24 Probenecid 500 mg PO DAILY 05/17/24 Topiramate [Topamax] 50 mg PO BEDTIME 05/17/24 Tramadol HCl [Ultram] 50 mg PO BIDP PRN 05/17/24 lisinopriL [Lisinopril] 20 mg PO DAILY 05/17/24 Aspirin [Aspirin EC] 81 mg PO DAILY #30 tab 05/18/24 Atorvastatin Calcium [Lipitor] 40 mg PO BEDTIME 30 Days #30 tab 05/18/24 Clopidogrel Bisulfate [Plavix*] 75 mg PO DAILY 30 Days #30 tab 05/18/24 Melatonin 10 mg PO BEDTIME 05/18/24 Metoprolol Tartrate [Lopressor*] 50 mg PO BID 30 Days #60 tab 05/18/24 lisinopriL [Prinivil*] 10 mg PO DAILY tab 05/18/24 lisinopriL [Prinivil*] 20 mg PO DAILY tab 05/18/24 - Past Medical/Surgical History Diabetic: Yes Past Medical History: Reviewed- Non-Contributory -: MD -: BACK PAIN -: GOUT -: HTN -: DM- NIDDM -: ARTHRITIS -: NEUROPATHY -: Surgical menopause Past Surgical History: Reviewed- Non-Contributory -: Hysterectomy -: APPENDECTOMY -: EYE SURGERY- LEFT EYRITIS UVITIS Psychosocial/ Personal History: - Family History Father -: Hypertension, Lung disease, Cancer Mother -: Heart disease, Hypertension, Other (see notes) Notes: of heart attack Brother -: Diabetes, Other (see notes) Notes: heart defibrillator Sister -: Diabetes, Other (see notes) Notes: 2 heart transplant - Social History Smoking Status: Never smoker Alcohol use: No CD- Drugs: No Caffeine use: Yes Review of Systems 10-point ROS is otherwise unremarkable Physical Examination - Vital Signs Temperature: 98.2 F Blood Pressure: 174/81 Pulse: 82 Respirations: 18 Pulse Ox (%): 94 - Physical Exam General: Alert, Oriented x3, Mild distress HEENT: Atraumatic, Normocephalic Neck: Supple Respiratory: Clear to auscultation bilaterally, Normal air movement Cardiovascular: Regular rate/rhythm, Normal S1 S2 Capillary refill: <2 Seconds Gastrointestinal: Soft and benign, W/out hepatosplenomegaly Musculoskeletal: No clubbing Integumentary: No rashes Neurological: Other (Alert awake) Lymphatics: No axilla or inguinal lymphadenopathy - Studies Laboratory Data (last 24 hrs) 11/13/24 11/13/24 11/13/24 20:00 20:00 20:00 WBC 8.90 Hgb 9.1 L Hct 27.0 L Plt Count 243 Sodium 140 Potassium 3.4 L BUN 19 H Creatinine 1.49 H Glucose 102 Total Bilirubin 0.5 AST 12 L ALT 16 Alkaline Phosphatase 128 H Assessment and Plan - Plan NSTEMI possibly type II Will trend cardiac enzymes Will monitor telemetry Started on aspirin and statin EKG did not show any acute changes suggestive of ischemia Patient denies any chest pain at the time of interview Cardiology consult Hypokalemia Electrolytes monitor and replace accordingly Rectal wall thickening Needs follow-up with GI as outpatient for colonoscopy Constipation Started on MiraLAX and senna Hypertension Antihypertensives titrated Continue home medications and titrate as needed Hyperlipidemia Continue statin CKD stage II Monitor renal parameters Electrolytes monitor and replace accordingly Diabetes Insulin sliding scale Accu-Chek before every meal and at bedtime Anemia of chronic disease Monitor H&H closely No overt bleeding at this time Generalized body pain Pain control Continue home medications GI/DVT prophylaxis Advanced directive full code Discharge Plan: Home Plan to discharge in: 48 Hours - Advance Directives Does patient have a Living Will: No Does patient have a Durable POA for Healthcare: No - Code Status/Comfort Care Code Status: Full Code Time Spent Managing Pts Care (In Minutes): 48
[2024-11-14] MEDS ORDERED: LORAZEPAM 0.5 MG TABLET ONE (00:03)
[2024-11-14 01:48] VITALS: BMI 34.7
[2024-11-14] MEDS: IPRATROPIUM BROM 0.5MG/2.5ML NEB SCH (01:55)
[2024-11-14] MEDS: ALBUTEROL 2.5 MG/3 ML NEB SOL NEB SCH (01:55)
[2024-11-14] MEDS: HEPARIN 5000 UNIT/ML 1 ML VIAL SQ SCH (01:57)
[2024-11-14 04:25] LABS: Absolute Basophils 0.1 K/uL (0-0.5); Absolute Eosinophils 0.1 K/uL (0-0.5); Absolute Lymphocytes (CBC) 2.7 K/uL (0.7-4.9); Absolute Monocytes 0.7 K/uL (0.1-1.3); Absolute Neutrophil 3.5 K/uL (1.8-8.0); Basophils % 1.2 % (0-1.3); Eosinophils % 1.2 % (0-4.4); Hematocrit 25.6 % (36.0-45.0); Hemoglobin 8.4 g/dL (12.0-15.0); Lymphocytes % 38.4 % (15.3-44.8); MCH 25.8 pg (27.0-35.0); MCHC 32.7 g/dL (32.0-36.0); MPV 8.9 fL (7.6-11.3); Monocytes % 9.4 % (3.3-12.3); Neutrophils % 49.8 % (41.7-73.7); Nucleated Red Blood Cells % 0.1 % (0-0); Platelets 193 thou/uL (152-406); RBC Red Blood Cell Count 3.25 M/uL (3.86-4.86); Red Cell Distribution Width 16.7 % (12.1-15.2)
[2024-11-14 04:59] LABS: Albumin/Globulin Ratio 0.8 (1.1-1.8); Alkaline Phosphatase 108 U/L (45-117); Anion Gap 7.5 mEq/L (5.0-15.0); BUN Blood Urea Nitrogen 20 mg/dL (7-18); Bicarbonate 22 mEq/L (21-32); Bilirubin Total 0.4 mg/dL (0.2-1.0); Glomerular Filtration Rate 35 ml/min (=/>90); Glucose Level 113 mg/dL (74-106); Potassium 3.5 mEq/L (3.5-5.1); Sodium Level 141 mEq/L (136-145)
[2024-11-14 05:01] LABS: ALT/SGPT < 14 U/L (13-56); AST/SGOT < 10 U/L (15-37)
[2024-11-14] MEDS ORDERED: D10W 125 ML IV PRN (05:22)
[2024-11-14] MEDS ORDERED: GLUCAGON 1 MG/VIAL IM PRN (05:22)
[2024-11-14 05:54] LABS: Absolute Eosinophils 0.1 K/uL (0-0.5); Absolute Lymphocytes (CBC) 2.7 K/uL (0.7-4.9); Absolute Monocytes 0.7 K/uL (0.1-1.3); Absolute Neutrophil 3.7 K/uL (1.8-8.0); Basophils % 0.6 % (0-1.3); Eosinophils % 1.1 % (0-4.4); Hematocrit 25.4 % (36.0-45.0); Hemoglobin 8.3 g/dL (12.0-15.0); Lymphocytes % 37.7 % (15.3-44.8); MCH 25.7 pg (27.0-35.0); MCHC 32.7 g/dL (32.0-36.0); MCV 78.7 fL (80-100); Monocytes % 9.6 % (3.3-12.3); Platelets 187 thou/uL (152-406); RBC Red Blood Cell Count 3.23 M/uL (3.86-4.86)
[2024-11-14 06:15] LABS: Albumin 2.9 g/dL (3.4-5.0); Albumin/Globulin Ratio 0.7 (1.1-1.8); Alkaline Phosphatase 110 U/L (45-117); Anion Gap 8.6 mEq/L (5.0-15.0); BUN Blood Urea Nitrogen 20 mg/dL (7-18); Bicarbonate 21 mEq/L (21-32); Bilirubin Total 0.4 mg/dL (0.2-1.0); Globulin 4.2 g/dL (2.3-3.5); Glomerular Filtration Rate 32 ml/min (=/>90); Glucose Level 115 mg/dL (74-106); Phosphorus 3.7 mg/dL (2.5-4.9); Potassium 3.6 mEq/L (3.5-5.1); Protein, Total 7.1 g/dL (6.4-8.2); Sodium Level 140 mEq/L (136-145)
[2024-11-14 06:18] LABS: ALT/SGPT < 14 U/L (13-56); AST/SGOT < 10 U/L (15-37)
[2024-11-14] MEDS: INSULIN REGULAR (HUMAN) 100 UNIT/ML SQ SCH (07:30)
[2024-11-14] MEDS: GABAPENTIN 300 MG CAP PO SCH (08:23)
[2024-11-14] MEDS: ASPIRIN EC 81 MG TAB PO SCH (08:23)
[2024-11-14] MEDS: lisinopriL 20 MG TAB PO SCH (08:23)
[2024-11-14] MEDS: AMLODIPINE 10 MG TAB PO SCH (08:23)
[2024-11-14] MEDS: CLOPIDOGREL 75 MG TABLET PO SCH (08:23)
--- NOTE | 2024-11-14 11:48 | P.CNS ---
Date of Consult: 11/14/24 Chief Complaint: Generalized body pain/chest pain History of Present Illness: Patient with PMH of CAD s/p PCI RCA, HTN, HLD, presented with generalized body aches, denies having chest pain, no palpitations, no syncope, no PAEZ. Allergies No Known Allergies Allergy (Verified 05/16/24 21:02) Home medications list reviewed: Yes Home Medications: Gabapentin 300 mg PO BID 06/16/19 LORazepam [Ativan*] 0.5 mg PO BID PRN 06/16/19 Linagliptin [Tradjenta] 5 mg PO DAILY 06/16/19 Amlodipine [Norvasc*] 10 mg PO DAILY 05/17/24 Cetirizine HCl [Zyrtec] 10 mg PO DAILY 05/17/24 Probenecid 500 mg PO DAILY 05/17/24 Topiramate [Topamax] 50 mg PO BEDTIME 05/17/24 Tramadol HCl [Ultram] 50 mg PO BIDP PRN 05/17/24 lisinopriL [Lisinopril] 20 mg PO DAILY 05/17/24 Aspirin [Aspirin EC] 81 mg PO DAILY #30 tab 05/18/24 Atorvastatin Calcium [Lipitor] 40 mg PO BEDTIME 30 Days #30 tab 05/18/24 Clopidogrel Bisulfate [Plavix*] 75 mg PO DAILY 30 Days #30 tab 05/18/24 Melatonin 10 mg PO BEDTIME 05/18/24 Metoprolol Tartrate [Lopressor*] 50 mg PO BID 30 Days #60 tab 05/18/24 lisinopriL [Prinivil*] 10 mg PO DAILY tab 05/18/24 lisinopriL [Prinivil*] 20 mg PO DAILY tab 05/18/24 - Past Medical/Surgical History Diabetic: Yes -: RI -: BACK PAIN -: GOUT -: HTN -: DM- NIDDM -: ARTHRITIS -: NEUROPATHY -: Surgical menopause -: Hysterectomy -: APPENDECTOMY -: EYE SURGERY- LEFT EYRITIS UVITIS Psychosocial/ Personal History: - Family History Father Medical History: Hypertension, Lung disease, Cancer Mother Medical History: Heart disease, Hypertension, Other (see notes) Notes: of heart attack Brother Medical History: Diabetes, Other (see notes) Notes: heart defibrillator Sister Medical History: Diabetes, Other (see notes) Notes: 2 heart transplant - Social History Smoking Status: Unknown if ever smoked Alcohol use: No CD- Drugs: No Caffeine use: Yes Review of Systems 10-point ROS is otherwise unremarkable Physical Examination Temp Pulse Resp BP Pulse Ox 97.9 F 80 16 121/55 L 97 11/14/24 08:00 11/14/24 08:00 11/14/24 08:00 11/14/24 08:00 11/14/24 08:00 General: Alert, In no apparent distress HEENT: Atraumatic, PERRLA, Mucous membr. moist/pink, EOMI, Sclerae nonicteric Neck: Supple, 2+ carotid pulse no bruit, No LAD, Without JVD or thyroid abnormality Respiratory: Clear to auscultation bilaterally, Normal air movement Cardiovascular: Regular rate/rhythm, Normal S1 S2 Gastrointestinal: Normal bowel sounds, No tenderness Musculoskeletal: No tenderness Integumentary: No rashes Neurological: Normal gait, Normal speech, Normal tone, Normal affect Lymphatics: No axilla or inguinal lymphadenopathy Laboratory Data (last 24 hrs) 11/13/24 11/13/24 11/13/24 20:00 20:00 20:00 WBC 8.90 Hgb 9.1 L Hct 27.0 L Plt Count 243 Sodium 140 Potassium 3.4 L BUN 19 H Creatinine 1.49 H Glucose 102 Total Bilirubin 0.5 AST 12 L ALT 16 Alkaline Phosphatase 128 H - Problems (1) HLD (hyperlipidemia) Current Visit: Yes Status: Acute Plan: continue lipitor 40 mg daily lipid panel in 2 months (2) NSTEMI (non-ST elevated myocardial infarction) Current Visit: No Status: Acute Plan: troponin mild elevated with no significant delta, patient is s/p PCI RCA and has been complaint with medications, patient still got OM2/OM3 disease but arteries are too small for intervention which can be the reason for chronic troponin leak. Continue ASA 81 mg daily Continue Plavix 75 mg daily suggest adding Coreg 3.125 mg po BID Continue Linsiopril 20 mg daily (3) HTN (hypertension) Current Visit: No Status: Chronic Plan: adjust medications as above.
[2024-11-14 12:16] LABS: Sqamous Epithelial <5 /HPF (None Seen); Urine Bacteria None Seen /HPF (<20); Urine Bilirubin NEGATIVE (Negative); Urine Blood Negative (Negative); Urine Clarity Clear (Clear); Urine Color Light-Yellow (Yellow); Urine Culture Reflex Order NOT NEEDED; Urine Glucose NEGATIVE (Negative); Urine Ketones NEGATIVE (Negative); Urine Microscopic Reflex YN ORDER UMIC; Urine Mucus Slight /HPF (None Seen); Urine Nitrite NEGATIVE (Negative); Urine Protein 1+ (Negative); Urine RBC <5 /HPF (None Seen); Urine Urobilinogen Normal (Normal); Urine WBC <5 /HPF (<5)
[2024-11-14 12:17] LABS: Specific Gravity > 1.030 (1.005-1.030)
[2024-11-14] MEDS: POLYETHYL GLY 3350 17 GM/DOSE PO ONE (13:42)
[2024-11-14] MEDS: DOCUSATE NA 100 MG CAP PO ONE (13:42)
--- NOTE | 2024-11-14 17:03 | P.PN ---
Date of Service: 11/14/24 subjective No reported chest pain or shortness of breath, does not look overloaded Review of Systems 10-point ROS is otherwise unremarkable Physical Examination - Vital Signs reviewed - Physical Exam General: Alert, Oriented x3, HEENT: Atraumatic, Normocephalic Neck: Supple Respiratory: Clear to auscultation bilaterally, Normal air movement Cardiovascular: Regular rate/rhythm, Normal S1 S2 Capillary refill: <2 Seconds Gastrointestinal: Soft and benign, W/out hepatosplenomegaly Musculoskeletal: No clubbing Integumentary: No rashes Neurological: Other (Alert awake) Lymphatics: No axilla or inguinal lymphadenopathy - Assessment and Plan - Plan NSTEMI possibly type II Will trend cardiac enzymes Will monitor telemetry Started on aspirin and statin EKG did not show any acute changes suggestive of ischemia Patient denies any chest pain at the time of interview Cardiology consult CT of the chest abdomen pelvis 2.5 cm circumferential wall thickening of the rectum could be neoplastic or spasm. Recommend follow-up colonoscopy for direct visualization. Sigmoid diverticulosis coli without diverticulitis Cardiology Continue ASA 81 mg daily Continue Plavix 75 mg daily suggest adding Coreg 3.125 mg po BID Continue Linsiopril 20 mg daily continue lipitor 40 mg daily Hypokalemia Electrolytes monitor and replace accordingly Rectal wall thickening Needs follow-up with GI as outpatient for colonoscopy Constipation Started on MiraLAX and senna Hypertension Antihypertensives titrated Continue home medications and titrate as needed Hyperlipidemia Continue statin CKD stage II Monitor renal parameters Electrolytes monitor and replace accordingly Diabetes Insulin sliding scale Accu-Chek before every meal and at bedtime Anemia of chronic disease Monitor H&H closely No overt bleeding at this time Generalized body pain Pain control Continue home medications GI/DVT prophylaxis Advanced directive full code Discharge Plan: Home Plan to discharge in: 48 Hours - Advance Directives Does patient have a Living Will: No Does patient have a Durable POA for Healthcare: No - Code Status/Comfort Care Code Status: Full Code Time Spent Managing Pts Care (In Minutes): 35
[2024-11-14] MEDS: ACETAMINOPHEN 325 MG TABLET PO PRN (18:37)
[2024-11-14] MEDS: ENSURE HIGH PROTEIN 237 ML CAN PO SCH (20:07)
[2024-11-14] MEDS: DOCUSATE NA 100 MG CAP PO SCH (20:07)
[2024-11-14] MEDS: ATORVASTATIN 40 MG TAB PO SCH (20:07)
[2024-11-15 06:26] LABS: Absolute Eosinophils 0.1 K/uL (0-0.5); Absolute Monocytes 0.4 K/uL (0.1-1.3); Absolute Neutrophil 3.2 K/uL (1.8-8.0); Basophils % 0.4 % (0-1.3); Eosinophils % 1.9 % (0-4.4); Hematocrit 24.7 % (36.0-45.0); Hemoglobin 8.1 g/dL (12.0-15.0); Lymphocytes % 34.2 % (15.3-44.8); MCH 26.1 pg (27.0-35.0); MCV 79.1 fL (80-100); Monocytes % 7.7 % (3.3-12.3); Neutrophils % 55.8 % (41.7-73.7); Platelets 184 thou/uL (152-406); RBC Red Blood Cell Count 3.12 M/uL (3.86-4.86); Red Cell Distribution Width 17.1 % (12.1-15.2)
[2024-11-15 07:02] LABS: Carcinoembryonic Antigen 1.4 ng/mL (0-5.0)
[2024-11-15 07:17] LABS: ALT/SGPT < 14 U/L (13-56); AST/SGOT < 10 U/L (15-37); Albumin 2.9 g/dL (3.4-5.0); Albumin/Globulin Ratio 0.7 (1.1-1.8); Alkaline Phosphatase 101 U/L (45-117); Anion Gap 6.2 mEq/L (5.0-15.0); BUN Blood Urea Nitrogen 21 mg/dL (7-18); Bicarbonate 24 mEq/L (21-32); Bilirubin Total 0.3 mg/dL (0.2-1.0); Globulin 4.1 g/dL (2.3-3.5); Glomerular Filtration Rate 33 ml/min (=/>90); Glucose Level 94 mg/dL (74-106); HDL Cholesterol 45 mg/dL (40-60); LDL Cholesterol, Calculated 51 mg/dL (<130); LDL Cholesterol,Calc NonReport 51; Potassium 4.2 mEq/L (3.5-5.1); Sodium Level 142 mEq/L (136-145); Thyroid Stimulating Hormone 0.521 uIU/mL (0.358-3.740)
[2024-11-15] MEDS: METHYLPREDNISOLONE 40 MG INJ IV ONE (13:23)
--- NOTE | 2024-11-15 13:23 | RAD REPORT ---
EXAMINATION: Hip Bilateral With Pelvis CLINICAL INDICATION: Female, 79 years old. hip pain COMPARISON: No prior exam. FINDINGS: No acute fracture. No malalignment/dislocation. Mild bilateral hip degenerative changes. Partially imaged degenerative changes are present in the low er spine. Other: n/a IMPRESSION: No acute osseous abnormality involving either hip or bony pelvis. No dislocation. Mild bilateral acet abular degenerative changes.
--- NOTE | 2024-11-15 15:00 | P.DS ---
Admission Date: 11/13/24 Discharge Date: 11/16/24 Disposition: DC HOME/HOME HEALTH CARE Discharge Condition: GOOD Reason for Admission: Generalized body pain/chest pain Brief History of Present Illness: 79 yrs old Female with past medical history of diabetes, hypertension, hyperlipidemia, arthritis, bursitis, atrial fibrillation, gout, who presented to the ER with generalized body pain. Patient has chronic pain but has been progre ssively worsening and feels increasing. Has been taking tramadol and gabapentin for pain Patient also complains of chest pain which is retrosternal pressure-like, associated with no diaphoresis or shortness of breath. Started few days ago and has been possibly worsening. Complains of generalized weakness. Patient was assessed in the ER and is admitted for further management of NSTEMI and generalized body pain - Physical Exam General: Alert, Oriented x3, Mild distress HEENT: Atraumatic, Normocephalic Neck: Supple Respiratory: Clear to auscultation bilaterally, Normal air movement Cardiovascular: Regular rate/rhythm, Normal S1 S2 Capillary refill: <2 Seconds Gastrointestinal: Soft and benign, W/out hepatosplenomegaly Musculoskeletal: No clubbing Integumentary: No rashes Neurological: Other (Alert awake) Hospital Course: 79 yrs old Female with past medical history of diabetes, hypertension, hype rlipidemia, arthritis, bursitis, atrial fibrillation, gout, who presented to the ER with generalized body pain. Patient has chronic pain but has been progressively worsening and feels increasing. Has been taking tramadol and gabapentin for pain Patient also complains of chest pain which is retrosternal pressure-like, associated with no diaphoresis or shortness of breath. Started few days ago and has been possibly worsening. Complains of generalized weakness. Patient was assessed in the ER and is admitted for further management of NSTEMI and generalized body pain. She was admitted for elevated troponin, evaluated by cardiology while in inpatient. Will need to follow-up with cardiology after discharge Resume home health after discharge, PT, retirement Follow-up with cardiology after discharge Follow-up with GI after discharge for colonoscopy, Cardiology discharge medications Continue ASA 81 mg daily Continue Plavix 75 mg daily suggest adding Coreg 3.125 mg po BID Continue Linsiopril 20 mg daily continue lipitor 40 mg daily Assessment NSTEMI, [place] type II elevated troponin,-no recommended intervention by cardiology, no reported chest pain, shortness of breath Hypokalemia, electrolytes replaced while inpatient Rectal wall thickening patient will need to follow-up with GI outpatient for colonoscopy. Constipation resume home stool softeners after discharge Hypertension, hyperlipidemia, resume home meds after discharge CKD stage II, stable, Diabetes, resume home meds after discharge Anemia of chronic disease, H&H stable Generalized body pain, as needed analgesics after discharge GOAL: Clear understanding of disease process INSTRUCTIONS: Physician Discharge Instructions: -Follow-up with cardiology after discharge -Follow-up with GI after discharge for colonoscopy -Follow-up with PCP in 1 to 2 weeks -Please call Dr. Murcia at [phone] if any questions regarding hospital stay -Please call nursing station at [phone] if any nursing or medication questions -Return to the emergency room if symptoms worsen Diet: ADA, low sodium Activity: Fall precautions Vital Signs/Physical Exam: Temp Pulse Resp BP Pulse Ox 98.3 F 86 16 140/68 98 11/15/24 12:00 11/15/24 12:00 11/15/24 12:00 11/15/24 12:00 11/15/24 12:00 Laboratory Data at Discharge: WBC 5.70 thou/uL (4.3-10.9) 11/15/24 06:02 Hgb 8.1 g/dL (12.0-15.0) L 11/15/24 06:02 Hct 24.7 % (36.0-45.0) L 11/15/24 06:02 Plt Count 184 thou/uL (152-406) 11/15/24 06:02 Sodium 142 mEq/L (136-145) 11/15/24 06:02 Potassium 4.2 mEq/L (3.5-5.1) D 11/15/24 06:02 BUN 21 mg/dL (7-18) H 11/15/24 06:02 Creatinine 1.60 mg/dL (0.55-1.02) H 11/15/24 06:02 Glucose 94 mg/dL (74-106) 11/15/24 06:02 Phosphorus 3.7 mg/dL (2.5-4.9) 11/14/24 05:32 Magnesium 1.8 mg/dL (1.6-2.4) 11/14/24 05:32 Total Bilirubin 0.3 mg/dL (0.2-1.0) 11/15/24 06:02 AST < 10 U/L (15-37) L 11/15/24 06:02 ALT < 14 U/L (13-56) 11/15/24 06:02 Alkaline Phosphatase 101 U/L (45-117) 11/15/24 06:02 Triglycerides 102 mg/dL (<150) 11/15/24 06:02 Cholesterol 116 mg/dL (<200) 11/15/24 06:02 HDL Cholesterol 45 mg/dL (40-60) 11/15/24 06:02 Cholesterol/HDL Ratio 2.58 11/15/24 06:02 Home Medications: Gabapentin 300 mg PO BID 06/16/19 LORazepam [Ativan*] 0.5 mg PO BID PRN 06/16/19 Linagliptin [Tradjenta] 5 mg PO DAILY 06/16/19 Amlodipine [Norvasc*] 10 mg PO DAILY 05/17/24 Cetirizine HCl [Zyrtec] 10 mg PO DAILY 05/17/24 Tramadol HCl [Ultram] 50 mg PO BIDP PRN 05/17/24 Aspirin [Aspirin EC] 81 mg PO DAILY #30 tab 05/18/24 Melatonin 10 mg PO BEDTIME 05/18/24 lisinopriL [Prinivil*] 20 mg PO DAILY tab 05/18/24 Atorvastatin Calcium [Lipitor] 40 mg PO BEDTIME tab 11/15/24 Docusate [Colace Cap*] 100 mg PO BID cap 11/15/24 carvediloL [Coreg] 3.125 mg PO BID 30 Days #60 tab 11/15/24 New Medications: carvediloL [Coreg] 3.125 mg PO BID 30 Days #60 tab Physician Discharge Instructions: 79 yrs old Female with past medical history of diabetes, hypertension, hyperlipidemia, arthritis, bursitis, atrial fibrillation, gout, who presented to the ER with generalized body pain. Patient has chronic pain but has been progressively worsening and feels increasing. Has been taking tramadol and gabapentin for pain Patient also complains of chest pain which is retrosternal pressure-like, associated with no diaphoresis or shortness of breath. Started few days ago and has been possibly worsening. Complains of generalized weakness. Patient was assessed in the ER and is admitted for further management of NSTEMI and generalized body pain. She was admitted for elevated troponin, evaluated by cardiology while in inpatient. Will need to follow-up with cardiology after discharge Resume home health after discharge, PT, retirement Follow-up with cardiology after discharge Follow-up with GI after discharge for colonoscopy, Cardiology discharge medications Continue ASA 81 mg daily Continue Plavix 75 mg daily suggest adding Coreg 3.125 mg po BID Continue Linsiopril 20 mg daily continue lipitor 40 mg daily Assessment NSTEMI, [place] type II elevated troponin,-no recommended intervention by cardiology, no reported chest pain, shortness of breath Hypokalemia, electrolytes replaced while inpatient Rectal wall thickening patient will need to follow-up with GI outpatient for colonoscopy. Constipation resume home stool softeners after discharge Hypertension, hyperlipidemia, resume home meds after discharge CKD stage II, stable, Diabetes, resume home meds after discharge Anemia of chronic disease, H&H stable Generalized body pain, as needed analgesics after discharge GOAL: Clear understanding of disease process INSTRUCTIONS: Physician Discharge Instructions: -Follow-up with cardiology after discharge -Follow-up with GI after discharge for colonoscopy -Follow-up with PCP in 1 to 2 weeks -Please call Dr. Murcia at [phone] if any questions regarding hospital stay -Please call nursing station at [phone] if any nursing or medication questions -Return to the emergency room if symptoms worsen Diet: ADA, low sodium Activity: Fall precautions Followup: Javid Purcell MD [Primary Care Provider] -
--- NOTE | 2024-11-15 15:10 | EKG ---
Test Date: 2024-11-13 Test Time: 23:00:00 Mft: RV MEASUREMENT RESULTS: Intervals: Rate: 73 RI: 148 QRSD: 128 QT: 416 QTc: 458 [place]: P: 10 RI: 148 QRS: -38 T: 128 INTERPRETIVE STATEMENTS: Normal sinus rhythm Left axis deviation Right bundle branch block Left ventricular hypertrophy with repolarization abnormality Cannot rule out Septal infarct, age undetermined Abnormal ECG Compared to ECG 08/12/2024 13:02:10 Early repolarization now present Myocardial infarct finding now present Atrial premature complex(es) no longer present Electronically Signed On 11-15-24 15:06:59 WARRANTY MANAGER by Malik Bravo
[2024-11-15] MEDS: LACTULOSE 20 GM/30 ML UCUP PO ONE (16:29)
[2024-11-15] MEDS: METHYLPREDNISOLONE 40 MG INJ IV SCH (18:07)
--- NOTE | 2024-11-15 18:49 | PN ---
Date of Progress Note: 11/15/2024 Subjective: Seen by bedside, no chest pain. She claimed of not having any chest pain since admissio n. Review of Systems: No chest pain, shortness of breath, orthopnea, cough. No nausea, vomiting, diarrhea. All other syst ems reviewed were negative. Physical Examination: Vital Signs: Reviewed. Head and Neck: Pupils are equal, reactive to light. Intact eye movements. No JVD, no cervical lymp hadenopathy. Neck: Supple. Thyroid is not enlarged. Lungs: Clear to auscultation bilaterally. No rhonchi, wheezing, or crackles. No accessory muscle u se. Heart: Regular rate and rhythm. No extra sounds. Abdomen: Soft, nontender. Bowel sounds positive. No organomegaly. No masses or hernia. No rigidi ty or rebound. Extremities: No edema, clubbing, cyanosis. Intact pulses. Skin: No rash. Neurologic: Alert, awake, and oriented x3. No acute process appreciated. Investigations: Troponin is trending down and BUN is 21, creatinine 1.60, and hemoglobin is 8.1. Assessment/recommendation: 1.Elevated troponin, but there is no chest pain. This is likely demand; however the patient will ne ed a stress test. She is following up with a air sealing technician in [place]. I asked her to follow up imm ediately next week post discharge to obtain exercise nuclear stress test. Meanwhile, continue aspiri n, Plavix, and Coreg. 2.Hypertension and blood pressure is controlled. Continue current therapy. 3.Dyslipidemia. Continue Lipitor. Cardiology will sign off as the patient is asymptomatic. SR/MODL Voice ID: [id number] Report ID: [id number]
[2024-11-15] MEDS: FLEET ENEMA ADULT PR ONE (22:09)
[2024-11-16] MEDS: LORAZEPAM 0.5 MG TABLET PO PRN (03:38)
[2024-11-16 07:37] LABS: Albumin 3.1 g/dL (3.4-5.0); Albumin/Globulin Ratio 0.7 (1.1-1.8); Anion Gap 9.5 mEq/L (5.0-15.0); Bilirubin Total 0.2 mg/dL (0.2-1.0); Globulin 4.7 g/dL (2.3-3.5); Potassium 4.5 mEq/L (3.5-5.1); Protein, Total 7.8 g/dL (6.4-8.2)
[2024-11-16 07:39] LABS: Troponin High Sensitivity 162.9 pg/mL (<58.9)
--- NOTE | 2024-11-16 07:52 | P.PN ---
Date of Service: 11/15/24 subjective No reported chest pain, troponin trending down, Review of Systems 10-point ROS is otherwise unremarkable Physical Examination - Vital Signs reviewed - Physical Exam General: Alert, Oriented x3, afebrile HEENT: Atraumatic, Normocephalic Neck: Supple Respiratory: Clear to auscultation bilaterally, unlabored Cardiovascular: Regular rate/rhythm, Normal S1 S2 Capillary refill: <2 Seconds Gastrointestinal: Soft and benign, W/out hepatosplenomegaly Musculoskeletal: No clubbing Integumentary: No rashes Neurological: Other (Alert awake) Lymphatics: No axilla or inguinal lymphadenopathy - Assessment and Plan - Plan NSTEMI possibly type II Will trend cardiac enzymes Will monitor telemetry Started on aspirin and statin EKG did not show any acute changes suggestive of ischemia Patient denies any chest pain at the time of interview Cardiology consult CT of the chest abdomen pelvis 2.5 cm circumferential wall thickening of the rectum could be neoplastic or spasm. Recommend follow-up colonoscopy for direct visualization. Sigmoid diverticulosis coli without diverticulitis Cardiology Continue ASA 81 mg daily Continue Plavix 75 mg daily suggest adding Coreg 3.125 mg po BID Continue Linsiopril 20 mg daily continue lipitor 40 mg daily Hypokalemia Electrolytes monitor and replace accordingly Rectal wall thickening Needs follow-up with GI as outpatient for colonoscopy Constipation Started on MiraLAX and senna Hypertension Antihypertensives titrated Continue home medications and titrate as needed Hyperlipidemia Continue statin CKD stage II Monitor renal parameters Electrolytes monitor and replace accordingly Diabetes Insulin sliding scale Accu-Chek before every meal and at bedtime Anemia of chronic disease Monitor H&H closely No overt bleeding at this time Generalized body pain Pain control Continue home medications GI/DVT prophylaxis Advanced directive full code Discharge Plan: Home Plan to discharge in: 48 Hours - Advance Directives Does patient have a Living Will: No Does patient have a Durable POA for Healthcare: No - Code Status/Comfort Care Code Status: Full Code Time Spent Managing Pts Care (In Minutes): 25
[2024-11-16 09:16] VITALS: O2SAT 99
[2024-11-16 14:38] VITALS: BP 139/71; TEMP 97.3
== END 2024-11-16 14:58 | disposition home health service (06) | DRG 282 ==
LOC: ER 19:18 → ERHOLD 23:21 → 2ND 11-14 00:15
PROVIDERS: ADMIT Family Medicine; ATTEND Hospitalist
DX: R07.89 Other chest pain (principal); I21.A1 Myocardial infarction type 2; I12.9 Hypertensive chronic kidney disease with stage 1 through stage 4 chronic kidney disease, or unspecified chronic kidney disease; N18.2 Chronic kidney disease, stage 2 (mild); E11.22 Type 2 diabetes mellitus with diabetic chronic kidney disease; D63.1 Anemia in chronic kidney disease; D63.8 Anemia in other chronic diseases classified elsewhere; I48.91 Unspecified atrial fibrillation; E78.5 Hyperlipidemia, unspecified; E87.6 Hypokalemia; K59.00 Constipation, unspecified; M19.90 Unspecified osteoarthritis, unspecified site; G89.29 Other chronic pain; M10.9 Gout, unspecified; K57.30 Diverticulosis of large intestine without perforation or abscess without bleeding; I25.10 Atherosclerotic heart disease of native coronary artery without angina pectoris; Z88.5 Allergy status to narcotic agent; Z79.82 Long term (current) use of aspirin; Z79.02 Long term (current) use of antithrombotics/antiplatelets; Z90.49 Acquired absence of other specified parts of digestive tract; Z79.899 Other long term (current) drug therapy; Z90.710 Acquired absence of both cervix and uterus
CPT/HCPCS: 36415; 71260; 73521; 74177; 80048; 80053; 80061; 80076; 81001; 82378; 82533; 82550; 82607; 82947; 83735; 83880; 84100; 84439; 84443; 84484; 85025; 86140; 93005; 94640; 94760; 96372; 96374; 96375; 99285; J1644; J2270; J2405; J2919; J7040; J7613; J7644; Q9967

== ENCOUNTER 2025-01-13 10:13 | Day surgery (SDC) | payer OTHER ==
[2025-01-13] MEDS ORDERED: NA CHLORIDE 0.9% 1,000 ML ONE (10:35)
[2025-01-13] MEDS ORDERED: propofoL 200 MG/20 ML VIAL IV ONE (11:52)
[2025-01-13 13:04] VITALS: O2SAT 98
[2025-01-13 15:18] VITALS: BP 161/69; TEMP 97.4
== END 2025-01-13 13:35 | disposition home or self-care (01) ==
LOC: OR 10:13
PROVIDERS: ATTEND Surgery
PROC: 0DBN8ZX Excision of Sigmoid Colon, Via Natural or Artificial Opening Endoscopic, Diagnostic (ICD-10-PCS; principal; 2025-01-13 12:30)
DX: Z12.11 Encounter for screening for malignant neoplasm of colon (principal); K64.8 Other hemorrhoids; K57.30 Diverticulosis of large intestine without perforation or abscess without bleeding; D12.5 Benign neoplasm of sigmoid colon
CPT/HCPCS: 82947; 88305; 45385; J2704; J7030

== ENCOUNTER 2025-01-18 17:30 | Emergency (ER) | payer OTHER ==
--- OUTSIDE RECORDS SUMMARY | 2025-01-18 17:35 | XMS REPORT | Continuity of Care Document ---
Author Name Unknown Address [address] [facility] [address] [place] [address] Organization [facility] [place] Address [address] [facility] [address] [place] [address] Care Team Providers Care It Recruiter Name Role Phone Avel Jesu Irizarry Primary Care Physician [phone] Miguelito Calixto Attending Clinician Unavailable Lianna Soto Attending Clinician Unavailable BRADFORD ZHOU Attending Clinician Unavailable Bradford Zhou DO Attending Clinician [phone] Lorena Mcnair RN Attending Clinician [phone] Viv Butterfield Attending Clinician [phone] Piper Cuevas DO Attending Clinician [phone] Lennox Carvalho MD Attending Clinician [phone] LENNOX CARVALHO Attending Clinician Unavailable Miguelito Calixto Admitting Clinician Unavailable Lianna Soto Admitting Clinician Unavailable Piper Cuevas DO Admitting Clinician [phone] PIPER CUEVAS Admitting Clinician Unavailable Payers Payer Name Policy Type Policy Number Effective Date Expirati on Date Source MEDICARE PART A AND B [id number] 2012 00:00:00 MEDICARE PART A \\T\\ B [id number] 2012 00:00:00 MEDICAID [place] [id number] 2022 00:00:00 Problems Condition Name Condition Details Condition Category Status Onset Date Resolution Date Last Treatment Date Treating Clinician Comments Source PAEZ (dyspnea on exertion) PAEZ (dyspnea on exertion) Disease Active 12-09 00:00: 00 [facility] Essential hypertensi on Essential hypertensi on Disease Active 17 00:00: 00 [facility] Dyslipidem ia Dyslipidem ia Disease Active 12-09 00:00: 00 [facility] PAF (paroxysma l atrial fibrillati on) PAF (paroxysma l atrial fibrillati on) Disease Active 12-09 00:00: 00 [facility] 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 17 00:00: 00 [facility] Stage 4 chronic kidney disease Stage 4 chronic kidney disease Disease Active 17 00:00: 00 [facility] Atypical chest pain Atypical chest pain Disease Active 16 00:00: 00 [facility] Chest pain in adult Chest pain in adult Disease Active 12-08 00:00: 00 [facility] Allergies, Adverse Reactions, Alerts Allergy Name Allergy Type Status Severity Reaction(s) Onset Date Inactive Date Treating Clinician Comments Source No Known Allergie s DA Active U 2023-10 0-21 00:00: 00 [facility] SHRIMP DRUG INGREDI Active High ITCHING -16 00:00: 00 [facility] Codeine Propensi ty to adverse reaction s Active Anxiety -16 00:00: 00 [facility] Iodine Propensi ty to adverse reaction s Active Other - See comments - 00:00: 00 Burning [facility] Shrimp Propensi ty to adverse reaction s Active Itching 12-08 00:00: 00 [facility] CODEINE DRUG INGREDI Active Anxiety 12-08 00:00: 00 [facility] IODINE DRUG INGREDI Active Other-Cmnt 12-08 00:00: 00 [facility] NO KNOWN ALLERGIE S Drug Class Active [facility] Social History Social Habit Start Date Stop Date Quantity Comments Source History of tobacco use Current smoker [facility] Exposure to SARS-CoV-2 (event) 2022-11-22 00:00:00 2022-12-02 13:14:00 Not sure [facility] Tobacco use and exposure 2021-12-08 00:00:00 2021-12-08 00:00:00 Smokeless tobacco non-user [facility] Alcohol intake 2021-12-08 00:00:00 2021-12-08 00:00:00 Ex-drinker (finding) [facility] Tobacco Comment 2021-12-08 00:00:00 2021-12-08 00:00:00 back the 80's [facility] Sex Assigned At 1945 00:00:00 1945 00:00:00 [facility] Smoking Status Start Date Stop Date Source Ex-smoker 2021-12-08 00:00:00 2021-12[facility]08 [facility] Ordered Medication Name Filled Medication Name Start Date Stop Date Current Medication? Ordering Clinician Indication Dosage Frequency Signature (SIG) Comments Components Source methocarbam oL 500 mg tablet 12-02 00:00: 00 12-08 05:59 :00 No [id number] 500mg Take 1 tablet by mouth in the morning and 1 tablet at noon and 1 tablet in the evening. Do all this for 5 days. [facility] lactulose (CEPHULAC) solution 30 mL 12-10 15:00: 00 Yes 30mL 30 mL, Oral, DAILY, First dose on Mon12/10/21 at 0900, Until Discontinu ed, Routine [facility] atorvastati n (LIPITOR) tablet 40 mg 12-10 03:00: 00 Yes 40mg 40 mg, Oral, QHS, First dose (after last modificati on) on Becca 12/09/21 at 2100, Until Discontinu ed, Routine [facility] epoetin bharti-epbx (RETACRIT) injection 10,000 Units 12-10 02:00: 00 12-10 13:59 :00 No [id number] 10,000 Units, Subcutaneo us, ONCE AT 2000, 1 dose, On Becca 12/09/21 at 2000, Routine
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 [facility] aspirin 81 mg chewable tablet 12-10 00:00: 00 01-10 04:59 :00 No [id number] 81mg Take 1 tablet by mouth daily for 30 days. [facility] omeprazole 40 mg capsule 12-10 00:00: 00 01-10 04:59 :00 No [id number] 40mg Take 1 capsule by mouth daily for 30 days. [facility] SITagliptin 25 mg tablet 12-10 00:00: 00 01-10 04:59 :00 No [id number] 25mg Take 1 tablet by mouth daily for 30 days. [facility] prednisoLON E acetate, PF, 1 % DrpS 12-09 18:06: 32 Yes 1[drp] Place 1 Drop in each eye 2 (two) times daily. Both eyes [facility] bromfenac (PROLENSA) 0.07 % drops 12-09 18:06: 32 Yes 1[drp] Place 1 Drop in left eye daily. PRN for pain [facility] LORazepam 0.5 mg tablet 12-09 18:06: 32 Yes .5mg Take 0.5 mg by mouth 2 (two) times daily. [facility] traMADoL 50 mg tablet 12-09 18:06: 32 Yes 50mg Take 50 mg by mouth 2 (two) times daily. [facility] febuxostat 40 mg tablet 12-09 18:06: 32 Yes 40mg Take 40 mg by mouth daily. [facility] gabapentin 300 mg capsule 12-09 18:06: 32 Yes 300mg Take 300 mg by mouth 2 (two) times daily. [facility] amLODIPine 5 mg tablet 12-09 16:42: 30 12-09 00:00 :00 No 5mg Take 5 mg by mouth daily. [facility] atorvastati n 10 mg tablet 12-09 16:42: 30 12-09 00:00 :00 No 10mg Take 10 mg by mouth at bedtime. [facility] nebivoloL (BYSTOLIC) 5 mg tablet 12-09 16:42: 30 12-09 00:00 :00 No 5mg Take 5 mg by mouth daily. [facility] apixaban (ELIQUIS) 2.5 mg tablet 12-09 16:42: 30 12-09 00:00 :00 No 2.5mg Take 2.5 mg by mouth 2 (two) times daily. [facility] esomeprazol e 40 mg capsule 12-09 16:42: 30 12-09 00:00 :00 No 40mg Take 40 mg by mouth daily. [facility] lisinopriL 10 mg tablet 12-09 16:42: 30 12-09 00:00 :00 No 10mg Take 10 mg by mouth daily. [facility] linaGLIPtin (TRADJENTA) 5 mg tablet 12-09 16:42: 30 12-09 00:00 :00 No 1{tbl} Take 1 tablet by mouth daily. [facility] amLODIPine (NORVASC) tablet 10 mg 12-09 15:00: 00 Yes 10mg 10 mg, Oral, DAILY, First dose (after last modificati on) on Mon12/09/21 at 0900, Until Discontinu ed, Routine [facility] omeprazole (PRILOSEC) capsule 40 mg 12-09 15:00: 00 Yes 40mg 40 mg, Oral, DAILY, First dose on Mon12/09/21 at 0900, Until Discontinu ed [facility] aspirin chewable tablet 81 mg 12-09 15:00: 00 Yes 81mg 81 mg, Oral, DAILY, First dose on Mon12/09/21 at 0900, Until Discontinu ed, Routine [facility] Sliding Scale Insulin - Lispro (HumaLOG) + Fsbg Testing 12-09 14:00: 00 Yes Subcutaneo us, TID MEALS, First dose on Mon12/09/21 at 0800, Until Discontinu ed, Routine [facility] apixaban (ELIQUIS) tablet 2.5 mg 12-09 14:00: 00 Yes 2.5mg 2.5 mg, Oral, BID, First dose on Mon12/09/21 at 0800, Until Discontinu ed, Routine
Indicatio ns: Non-Valvul ar Atrial Fibrillati on [facility] NaCl 0.9% (NS) IV infusion 1,000 mL 12-09 06:15: 00 Yes 1000mL at 50 mL/hr, IV Infusion, CONTINUOUS , Starting on Mon12/09/21 at 0015, Until Discontinu ed, Routine [facility] SITagliptin (JANUVIA) tablet 25 mg 12-09 06:15: 00 Yes 25mg 25 mg, Oral, DAILY, First dose on Mon12/09/21 at 0015, Until Discontinu ed [facility] gabapentin (NEURONTIN) capsule 300 mg 12-09 06:15: 00 Yes 300mg 300 mg, Oral, BID, First dose on Mon12/09/21 at 0015, Until Discontinu ed, Routine [facility] traMADoL (ULTRAM) tablet 50 mg 12-09 05:59: 13 Yes 50mg 50 mg, Oral, Q8HPRN, Starting on Mon12/08/21 at 2359, Until Discontinu ed, Routine, Pain (scale 4-6), Pain (scale 7-10) [facility] LORazepam (ATIVAN) tablet 0.5 mg 12-09 05:58: 50 Yes .5mg 0.5 mg, Oral, BIDPRN, Starting on Mon12/08/21 at 2358, Until Discontinu ed, Routine, Anxiety [facility] heparin (porcine) injection 5,000 Units 12-09 04:00: 00 12-09 06:11 :35 No 5000U 5,000 Units, Subcutaneo us, Q8H, First dose on Mon12/08/21 at 2200, Until Discontinu ed, [facility] 0.9% (NS) IV infusion 1,000 mL 12-09 01:00: 00 12-09 06:12 :07 No 1000mL at 75 mL/hr, IV Infusion, CONTINUOUS , Starting on Mon12/08/21 at 1900, Until Becca 12/09/21 at 0012, Routine [facility] ondansetron (ZOFRAN (PF)) injection 4 mg 12-09 00:51: 57 Yes 4mg 4 mg, Slow IV Push, Q6HPRN, Starting on Mon12/08/21 at 1851, Until Discontinu ed, Routine, Nausea and Vomiting (N/V) [facility] acetaminoph en (TYLENOL) tablet 650 mg 12-09 00:51: 45 Yes 650mg 650 mg, Oral, Q6HPRN, Starting on Mon12/08/21 at 1851, Until Discontinu ed, Routine, Pain (scale 1-3) [facility] apixaban (ELIQUIS) 2.5 mg tablet 12-09 00:00: 00 01-09 04:59 :00 No [id number] 2.5mg Take 1 tablet by mouth 2 (two) times daily for 30 days. Indication s: atrial fibrillati on [facility] atorvastati n 40 mg tablet 12-09 00:00: 00 01-09 04:59 :00 No [id number] 40mg Take 1 tablet by mouth at bedtime for 30 days. [facility] lisinopriL 10 mg tablet 12-09 00:00: 00 01-09 04:59 :00 No [id number] 10mg Take 1 tablet by mouth daily for 30 days. [facility] sulfur hexafluorid e microsphr (LUMASON) injection 5 mL 12-08 20:45: 00 12-08 20:45 :00 No [id number] 5mL 5 mL, Intravenou s, ONCE, 1 dose, On Mon12/08/21 at 1445, Routine
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 (ECOTRIN) tablet 325 mg 12-08 20:30: 00 12-08 19:36 :00 No 325mg 325 mg, Oral, ONCE, 1 dose, On Mon12/08/21 at 1430, STAT [facility] Vital Signs Vital Name Observation Time Observation Value Comments S ource Systolic blood pressure 2022-12-02 19:15:00 158 mm[Hg] [facility] Diastolic blood pressure 2022-12-02 19:15:00 68 mm[Hg] [facility] Heart rate 2022-12-02 19:15:00 64 /min [facility] Body temperature 2022-12-02 19:15:00 36.61 Dena [facility] Respiratory rate 2022-12-02 19:15:00 20 /min [facility] Body height 2022-12-02 19:15:00 157.5 cm [facility] Body weight 2022-12-02 19:15:00 83.008 kg [facility] BMI 2022-12-02 19:15:00 33.47 kg/m2 [facility] Oxygen saturation in Arterial blood by Pulse oximetry 2022-12-02 19:15:00 100 /min [facility] Systolic blood pressure 2021-12-09 21:12:00 170 mm[Hg] [facility] Diastolic blood pressure 2021-12-09 21:12:00 74 mm[Hg] [facility] Heart rate 2021-12-09 21:12:00 52 /min [facility] Body temperature 2021-12-09 21:12:00 36.72 Dena [facility] Respiratory rate 2021-12-09 21:12:00 18 /min [facility] Oxygen saturation in Arterial blood by Pulse oximetry 2021-12-09 21:12:00 97 /min [facility] Body height 2021-12-08 19:58:00 152.4 cm [facility] Body weight 2021-12-08 19:58:00 86.183 kg [facility] BMI 2021-12-08 19:58:00 37.11 kg/m2 [facility] Procedures Procedure Date / Time Performed Performing Clinician Source CONSENT/REFUSAL FOR DIAGNOSIS AND TREATMENT 2022-12-02 18:58:46 Doctor Unassigned, [place] [facility] POCT GLUCOSE (AUTOMATED) 2021-12-09 23:09:00 Eva Carvalho [facility] TROPONIN I 2021-12-09 18:57:00 Piper Cuevas [facility] POCT GLUCOSE (AUTOMATED) 2021-12-09 17:13:00 Melissa Cuevas [facility] MR BRAIN WO CONTRAST 2021-12-09 15:22:00 Piper Cuevas [facility] POCT GLUCOSE (AUTOMATED) 2021-12-09 13:30:00 Melissa Cuevas [facility] CREATININE, URINE RANDOM 2021-12-09 11:38:00 Melissa Cuevas [facility] SODIUM, URINE RANDOM 2021-12-09 11:38:00 Piper Cuevas [facility] URINALYSIS 2021-12-09 11:37:00 Piper Cuevas [facility] PHOSPHORUS 2021-12-09 10:20:00 Anne-Marie Tenorio [facility] CREATINE KINASE 2021-12-09 10:20:00 Anne-Marie Tenorio [facility] URIC ACID 2021-12-09 10:20:00 Anne-Marie Tenorio [facility] MAGNESIUM 2021-12-09 10:20:00 Piper Cuevas [facility] TROPONIN I 2021-12-09 10:20:00 Anne-Marie Tenorio [facility] COMP. METABOLIC PANEL ([id number]) 2021-12-09 10:20:00 Anne-Marie Tenorio [facility] CBC WITH DIFF 2021-12-09 10:20:00 Piper Cuevas [facility] N-TERMINAL PRO-BNP 2021-12-09 10:20:00 Coby [facility] PROCALCITONIN 2021-12-09 10:20:00 Anne-Marie Tenorio [facility] PROTHROMBIN TIME / INR 2021-12-09 10:19:00 Iam Tenorio [facility] XR CHEST 1 VW 2021-12-09 08:02:00 Anne-Marie Tenorio [facility] XR SHOULDER 2+ VW LEFT 2021-12-09 08:02:00 Iam Tenorio [facility] CREATINE KINASE 2021-12-09 05:01:00 Anne-Marie Tenorio [facility] URIC ACID 2021-12-09 05:01:00 Anne-Marie Tenorio [facility] TROPONIN I 2021-12-09 05:01:00 Piper Cuevas [facility] THYROID STIMULATING HORMONE 2021-12-09 05:01:00 Wallace [facility] BASIC METABOLIC PANEL (NA, K, CL, CO2, GLUCOSE, BUN, CREATININE, CA) 2021-12-09 05:01:00 Coby cheri [facility] LIPID PANEL ([id number])(TOTAL CHOLESTEROL, TRIGLYCERIDES, HDL) 2021-12-09 05:01:00 Wallace [facility] GLYCOSYLATED HEMOGLOBIN (A1C) 2021-12-09 05:01:00 Wallace [facility] POCT GLUCOSE (AUTOMATED) 2021-12-08 22:37:00 Melissa Cuevas [facility] COVID-19 (ID NOW RAPID TESTING) 2021-12-08 19:36:00 Viv Marcelo [facility] LAB ONLY COVID INTERPRETATION 2021-12-08 19:36:00 Viv Marcelo [facility] CT HEAD WO CONTRAST 2021-12-08 18:48:07 Pura Marcelo [facility] SEDIMENTATION RATE 2021-12-08 18:11:00 Lm Marcelo [facility] C-REACTIVE PROTEIN 2021-12-08 18:10:00 Lm Marcelo [facility] LIPID PANEL (72554)(TOTAL CHOLESTEROL, TRIGLYCERIDES, HDL) 2021-12-08 18:10:00 Anne-Marie Tenorio [facility] LIPASE 2021-12-08 18:09:00 Viv Marcelo [facility] TROPONIN I 2021-12-08 18:09:00 Viv Marcelo U [facility] COMP. METABOLIC PANEL ([id number]) 2021-12-08 18:09:00 Viv Marcelo [facility] CBC WITH DIFF 2021-12-08 18:09:00 Viv Marcelo [facility] N-TERMINAL PRO-BNP 2021-12-08 18:09:00 Lm Marcelo [facility] HB ECG ROUTINE & RHYTHM STRIP 2021-12-08 17:23:34 Viv Marcelo [facility] NOTICE OF PRIVACY PRACTICES 2021-12-08 17:02:32 Doctor Unassigned, [place] [facility] Encounters Start Date/Time End Date/Time Encounter Type Admission Type Attending Clinicians Care Facility Care Department Encounter ID Source 2024-08-13 15:45:00 Inpatient Miguelito Rosado [facility] 3DAY [id number] [facility] 2022-08-01 11:34:12 Outpatient [facility] [id number] [facility] 2022-07-29 10:16:55 Outpatient [facility] [id number] [facility] 2024-08-12 23:45:00 2024-08-14 14:45:00 Inpatient Lianna Zamora [facility] INTE.02 [id number] [facility] 2022-12-02 13:17:00 2022-12-02 14:13:00 Emergency Denzel ZHOU BRADFORD [facility] ERT [id number] [facility] 2022-12-02 13:17:00 2022-12-02 14:13:00 Emergency Singer Bradford [facility] [id number] [facility] 2021-12-10 00:00:00 2021-12-10 00:00:00 Transition of Care Lorena Mcnair [id number] [facility] 2021-12-08 11:18:00 2021-12-09 17:55:00 Emergency Viv Marcelo [place], Jelani [facility] [id number] [facility] 2021-12-08 11:18:00 2021-12-09 17:55:00 Outpatient LENNOX CHENEY [facility] [id number] [facility] Results Test Description Test Time Test Comments Results Result Co mments Source GLUCOSE BEDSIDE [id number] 07:57:00* Test Item Value Reference Range Interpretation Comme [facility] GLUCOSE BEDSIDE TESTING (montrell t code = GLUBED) 110 MG/DL 60-99 H GLUCOSE BEDSIDE [id number] 18:29:00* Test Item Value Reference Range Interpretation Comme nts GLUCOSE BEDSIDE TESTING (montrell t code = GLUBED) 121 MG/DL 60-99 H GLUCOSE BEDSIDE [id number] 16:15:00* Test Item Value Reference Range Interpretation Comme nts GLUCOSE BEDSIDE TESTING (montrell t code = GLUBED) 120 MG/DL 60-99 H GLUCOSE BEDSIDE [id number] 11:05:00* Test Item Value Reference Range Interpretation Comme nts GLUCOSE BEDSIDE TESTING (montrell t code = GLUBED) 98 MG/DL 60-99 N [id number] 09:08:00* Test Item Value Reference Range Interpretation Comme nts TROPONIN-I (test code = TROPI) 0.058 NG/ML 0.012-0.033 H "Please be aware that bias results for Troponin may occurfor patients who are taking Biotin supplements, causingfalsely low troponin results. Please screen for routineBiotin (Vitamin B7) supplements taken in rizwana doses (greaterthan 100-300mg/day) or beauty supplements." GLUCOSE BEDSIDE [id number] 07:40:00* Test Item Value Reference Range Interpretation [...] mg/dL HIGH.........160-189 mg/dL VERY HIGH.........>/= 190 mg/dL [id number] 07:12:00* Test Item Value Reference Range Interpretation Comme nts PHOSPHOROUS (test code = PHOS) 2.9 MG/DL 2.5-4.5 N [id number] 07:12:00* Test Item Value Reference Range Interpretation Comme [facility] MAGNESIUM (test code = MAG) 1.7 MG/DL 1.6-2.3 N THYROID STIMULATING [id number] 07:12:00* Test Item Value Reference Range Interpretation Comme [facility] THYROID STIMULATING HORMONE (test code = TSH) 0.559 MIU/L 0.465-4.68 N Please be aware that bias results for TSH may occur forpatient who are taking Biotin supplements. [id number] 07:12:00* Test Item Value Reference Range Interpretation Comme [facility] TROPONIN-I (test code = TROPI) 0.049 NG/ML 0.012-0.033 H "Please be aware that bias results for Troponin may occurfor patients who are taking Biotin supplements, causingfalsely low troponin results. Please screen for routineBiotin (Vitamin B7) supplements taken in rizwana doses (greaterthan 100-300mg/day) or beauty supplements." LIPOPROTEIN LDL [id number] 07:12:00* Test Item Value Reference Range Interpretation Comme [facility] LIPOPROTEIN LDL DIRECT (test code = LDLDIR) 100 mg/dL 100-129 N ========= R eference Interval: mg/dL mmol/L -----Optimal <100 <2.6Near/above optimal 100-129 2.6-3.3Borderline High 130-159 3.4-4.1High 160-189 4.1-4.9Very High >=190 >=4.9========= This LDL result is a direct measurement.======== = GLYCOSYLATED HEMOGLOBIN [id number] 04:59:00* Test Item Value Reference Range Interpretation [...] MBG) 126 MG/DL 70-110 H COMPREHENSIVE METABOLIC [id number] 22:59:00* Test Item Value Reference Range Interpretation [...] performed in our lab.Interference testing performed at [facility] determined thatEltrombopag does interfere with Vitros [...] code = ALKP) 142 UNITS/L 38-126 H [id number] 22:59:00* Test Item Value Reference Range Interpretation Comme nts TROPONIN-I (test code = TROPI) 0.045 NG/ML 0.012-0.033 H "Please be aware that bias results for Troponin may occurfor patients who are taking Biotin supplements, causingfalsely low troponin results. Please screen for routineBiotin (Vitamin B7) supplements taken in rizwana doses (greaterthan 100-300mg/day) or beauty supplements." CBC W/AUTO [id number] 22:22:00* Test Item Value Reference Range Interpretation [...] Comme nts POCT GLU (test code = 3262636340) 93 mg/dL 70-110 Lab Interpretation (test cod e = 00081-4) Normal [id number] 19:34:40* Test Item Value Reference Range Interpretation Comments TROPONIN I (test code = 8084688243) 0.063 ng/mL See_Comment H [Automated message] The [...] of biotin. Lab Interpretation (test code = 21967-8) Abnormal [facility]2021-12-09 17:54:18* Test Item Value Reference Range Interpretation Comme nts POCT GLU (test code = 1224195894) 212 mg/dL 70-110 H Lab Interpretation (test cod e = 08102-6) Abnormal [facility]17 17:06:20* Test Item Value Reference Range Interpretation Comme nts Procalcitonin (test code = 9842087445) 0.05 ng/mL <0.07 IZABELA (test code = [...] lung abscess/empyema. For further information please refer to:[email or web address] Lab Interpretation (test code = 86457-2) Normal [facility]-REACTIVE [id number] 16:15:47* Test Item Value Reference Range Interpretation Comme nts CRP (test code = 7460396589) 1.1 mg/dL <0.8 H Lab Interpretation (test cod e = 96239-8) Abnormal [facility] with [id number] 16:07:33* Test Item Value Reference Range Interpretation [...] 32.1 g/dL 31.6-35.1 RDW-SD (test code = 67566-5) 49.2 fL 39.0-49.9 RDW-CV (test code = 788-0) 15.9 % 12.0-15.5 H PLT (test code = 777-3) See_Comment L [Automated messa ge] The system which generated this result transmitted reference range: 166 - 358 10*3/?L. The reference range was not used to interpret this result as normal/abnormal. MPV (test code = 63727-3) 11.8 fL 9.5-12.9 NRBC/100 WBC (test code = 0715501651) See_Comment [Automated me ssage] The system which generated this result transmitted reference range: 0.0 - 10.0 /100 WBCs. The reference range was not used to interpret this result as normal/abnormal. NRBC x10^3 (test code = 5121713698) <0.01 See_Comment [Automated messa ge] The system which generated this result transmitted reference range: 10*3/?L. The reference range was not used to interpret this result as normal/abnormal. GRAN MAT (NEUT) % (test code = 770-8) 46.8 % IMM GRAN % (test code = 9574175782) 0.30 % LYMPH % (test code = 736-9) 39.3 % MONO % (test code = 5905-5) 10.0 % EOS % (test code = 713-8) 2.8 % BASO % (test code = 706-2) 0.8 % GRAN MAT x10^3(ANC) (test code = 0364985112) 1.87 10*3/uL 1.88-7.09 L IMM GRAN x10^3 (test code = 1215225663) <0.03 0.00-0.06 LYMPH x10^3 (test code = [...] result as normal/abnormal. ELLIPTO/OVAL (test code = 20929-4) 2+ See_Comment A [Automated messa ge] The system which generated this result transmitted reference range: (none). The reference range was not used to interpret this result as normal/abnormal. Lab Interpretation (test code = 61440-5) [facility]normal [facility]2021-12-09 14:06:00* Test Item Value Reference Range Interpretation Comme [facility] POCT GLU (test code = 9484994007) 111 mg/dL 70-110 H Lab Interpretation (test cod e = 23927-7) Abnormal [facility] AustinPROTHROMBIN TIME / [id number] 11:31:47* Test Item Value Reference Range Interpretation [...] the indications. Lab Interpretation (test code = 53964-9) Normal [facility] AustinTROPONIN [id number] 11:18:45* Test Item Value Reference Range Interpretation Comments TROPONIN I (test code = 2693133424) 0.061 ng/mL See_Comment H [Automated message] The [...] of biotin. Lab Interpretation (test code = 74780-8) Abnormal [facility] AustinN-TERMINAL [id number] 11:15:23* Test Item Value Reference Range Interpretation Comme nts NT-proBNP (test code = 9397580335) 657 pg/mL See_Comment H [Automated message] The system which generated this result transmitted reference range: <=125. The reference range was not used to interpret this result as normal/abnormal. IZABELA (test code = IZABELA) Biotin has been reported to cause a negative bias, interpret results relative to patient's use of biotin. Lab Interpretation (test code = 37306-6) Abnormal [facility] AustinMagnesium [id number] 11:10:21* Test Item Value Reference Range Interpretation Comme nts MAGNESIUM (test code = 3819900059) 1.9 mg/dL 1.7-2.4 Lab Interpretation (test cod e = 97726-6) Normal [facility]. METABOLIC PANEL (74330)2021-12-09 11:10:20* Test Item Value Reference Range Interpretation Comme nts NA (test code = 8664572021) 141 mmol/L 135-145 K (test code = 5542189363) 4.3 mmol/L 3.5-5.0 CL (test code = 6545529695) 116 mmol/L 98-108 H CO2 TOTAL (test code = 5030378289) 23 mmol/L 23-31 AGAP (test code = 8406166751) 2-16 BUN (test code = 6471628043) 43 mg/dL 7-23 H GLUCOSE (test code = 9645415767) 107 mg/dL 70-110 CREATININE (test code = 8079390453) 2.16 mg/dL 0.50-1.04 H TOTAL BILI (test code = 8944278208) 0.3 mg/dL 0.1-1.1 CALCIUM (test code = 2989457780) 10.0 mg/dL 8.6-10.6 T PROTEIN (test code = 7958482155) 6.8 g/dL 6.3-8.2 ALBUMIN (test code = 3209491135) 3.8 g/dL 3.5-5.0 ALK PHOS (test code = 4346268418) 89 U/L 34-122 ALTv (test code = 1742-6) 22 U/L 5-35 AST(SGOT) (test code = 3573936636) 27 U/L 13-40 eGFR (test code = 1110280051) mL/min/1.73m2 IZABELA (test code = IZABELA) Association [...] imaging tests). Lab Interpretation (test code = 04024-5) Abnormal [facility] AustinPHOSPHORUS2022-02-17 11:09:40* Test Item Value Reference Range Interpretation Comme nts PHOSPHORUS (test code = 3361408137) 2.9 mg/dL 2.5-5.0 Lab Interpretation (test cod e = 80534-8) Normal [facility] AustinURIC [id number] 11:09:40* Test Item Value Reference Range Interpretation Comme nts URIC ACID (test code = 3901499894) 3.0 mg/dL 2.9-6.0 Lab Interpretation (test cod e = 69287-3) Normal [facility] AustinCREATINE [id number] 11:09:20* Test Item Value Reference Range Interpretation Comme nts CK (test code = 1788291667) 77 U/L 33-194 Lab Interpretation (test cod e = 79208-2) Normal [facility] AustinLIPID PANEL (78428)(TOTAL CHOLESTEROL, TRIGLYCERIDES, HDL)2021-12-09 07:07:05* Test Item Value Reference Range Interpretation Comme nts CHOL (test code = 9810434308) 219 mg/dL 120-200 H HDL (test code = 6108035625) 56 mg/dL >50 HDLC RATIO (test code = 9871245768) See_Comment [Automated [employer]] The system which generated this result transmitted reference range: <=4.5. The reference range was not used to interpret this result as normal/abnormal. TRIG (test code = 5794243011) 117 mg/dL 30-170 LDL CHOL (test code = 15834-3) 140 mg/dL See_Comment [Automated [employer]] The system which generated this result transmitted reference range: <=160. The reference range was not used to interpret this result as normal/abnormal. VLDL (test code = 9920417450) 23 mg/dL 5-60 Lab Interpretation (test code = 24613-6) Abnormal [facility] AustinURIC [id number] 06:45:44* Test Item Value Reference Range Interpretation Comme nts URIC ACID (test code = 5651070251) 3.1 mg/dL 2.9-6.0 Lab Interpretation (test cod e = 79586-9) Normal [facility] (NA, K, CL, CO2, GLUCOSE, BUN, CREATININE, CA)2021-12-09 06:45:44* Test Item Value Reference Range Interpretation Comme nts NA (test code = 3550732803) 140 mmol/L 135-145 K (test code = 1361225106) 4.7 mmol/L 3.5-5.0 CL (test code = 6487451953) 114 mmol/L 98-108 H CO2 TOTAL (test code = 5308976781) 23 mmol/L 23-31 AGAP (test code = 2401422826) 2-16 BUN (test code = 8740369138) 45 mg/dL 7-23 H GLUCOSE (test code = 2263099411) 110 mg/dL 70-110 CREATININE (test code = 1962869140) 2.29 mg/dL 0.50-1.04 H CALCIUM (test code = 9354573381) 10.1 mg/dL 8.6-10.6 eGFR (test code = 3342512460) mL/min/1.73m2 IZABELA (test code = IZABELA) Association [...] imaging tests). Lab Interpretation (test code = 29514-6) Abnormal [facility] AustinCREATINE [id number] 06:44:43* Test Item Value Reference Range Interpretation Comme [facility] CK (test code = 9015827143) 89 U/L 33-194 Lab Interpretation (test cod e = 11008-3) Normal [facility] AustinGlycosylated Hemoglobin (A1C)2021-12-09 06:41:28* Test Item Value Reference Range Interpretation Comme [facility] HGB A1C (test code = 4548-4) 5.8 % 4.0-5.7 H IZABELA (test code = IZABELA) Reference RangesNormal: <5.7%Prediabetes: 5.7 - 6.4%Diabetes: > 6.5% Lab Interpretation (test code = 81164-1) Abnormal [facility] AustinThyroid Stimulating Hormone (TSH)2021-12-09 06:08:03* Test Item Value Reference Range Interpretation Comme [facility] TSH (test code = 5006672455) See_Comment [Automated [employer]] The system which generated this result transmitted reference range: 0.45 - 4.70 mIU/L. The reference range was not used to interpret this result as normal/abnormal. Lab Interpretation (test code = 76408-0) Normal [facility] AustinTroponin [id number] 05:49:19* Test Item Value Reference Range Interpretation Comments TROPONIN I (test code = 0516435622) 0.061 ng/mL See_Comment H [Automated message] The [...] of biotin. Lab Interpretation (test code = 05189-1) Abnormal [facility] AustinLipid Panel (Total Cholesterol, Triglycerides, HDL)2021-12-09 05:36:42* Test Item Value Reference Range Interpretation Comme nts CHOL (test code = 5489437305) 200 mg/dL 120-200 HDL (test code = 5708600266) 59 mg/dL >50 HDLC RATIO (test code = 8345339129) See_Comment [Automated [employer]] The system which generated this result transmitted reference range: <=4.5. The reference range was not used to interpret this result as normal/abnormal. TRIG (test code = 8861334098) 121 mg/dL 30-170 LDL CHOL (test code = 89079-1) 117 mg/dL See_Comment [Automated [employer]] The system which generated this result transmitted reference range: <=160. The reference range was not used to interpret this result as normal/abnormal. VLDL (test code = 3586370782) 24 mg/dL 5-60 Lab Interpretation (test code = 42290-0) Normal [facility] AustinPOCT GLUCOSE (AUTOMATED)2021-12-08 22:40:15* Test Item Value Reference Range Interpretation Comme nts POCT GLU (test code = 0686536405) 105 mg/dL 70-110 Lab Interpretation (test cod e = 09495-8) Normal [facility] AustinSEDIMENTATION [id number] 19:08:56* Test Item Value Reference Range Interpretation Comme nts ESR (test code = 3323280385) See_Comment H [Automated messa ge] The system which generated this result transmitted reference range: 0 - 20 mm/HR. The reference range was not used to interpret this result as normal/abnormal. Lab Interpretation (test code = 79285-3) Abnormal [facility] AustinTROPONIN [id number] 19:05:34* Test Item Value Reference Range Interpretation Comments TROPONIN I (test code = 8609044636) 0.058 ng/mL See_Comment H [Automated message] The [...] of biotin. Lab Interpretation (test code = 57716-4) Abnormal [facility] AustinN-TERMINAL [id number] 19:02:16* Test Item Value Reference Range Interpretation Comme nts NT-proBNP (test code = 2488394477) 330 pg/mL See_Comment H [Automated message] The system which generated this result transmitted reference range: <=125. The reference range was not used to interpret this result as normal/abnormal. IZABELA (test code = IZABELA) Biotin has been reported to cause a negative bias, interpret results relative to patient's use of biotin. Lab Interpretation (test code = 57288-9) Abnormal [facility] AustinCOMP. METABOLIC PANEL (33128)2021-12-08 18:53:28* Test Item Value Reference Range Interpretation Comme nts NA (test code = 2198664055) 141 mmol/L 135-145 K (test code = 2235847207) 5.2 mmol/L 3.5-5.0 H CL (test code = 3954459443) 115 mmol/L 98-108 H CO2 TOTAL (test code = 7149715360) 19 mmol/L 23-31 L AGAP (test code = 3544098155) 2-16 BUN (test code = 3920731444) 49 mg/dL 7-23 H GLUCOSE (test code = 3772862744) 115 mg/dL 70-110 H CREATININE (test code = 1860160857) 2.22 mg/dL 0.50-1.04 H TOTAL BILI (test code = 8770882665) 0.4 mg/dL 0.1-1.1 CALCIUM (test code = 5829621211) 10.4 mg/dL 8.6-10.6 T PROTEIN (test code = 6299514051) 8.0 g/dL 6.3-8.2 ALBUMIN (test code = 7023185906) 4.6 g/dL 3.5-5.0 ALK PHOS (test code = 4637006048) 106 U/L 34-122 ALTv (test code = 1742-6) 26 U/L 5-35 AST(SGOT) (test code = 6423245228) 31 U/L 13-40 eGFR (test code = 6608147170) mL/min/1.73m2 IZABELA (test code = IZABELA) Association [...] imaging tests). Lab Interpretation (test code = 95826-7) Abnormal [facility] AustinLIPASE2022-02-16 18:53:07* Test Item Value Reference Range Interpretation Comme nts LIPASE (test code = 0055751743) 334 U/L 0-220 H Lab Interpretation (test cod e = 69429-0) Abnormal [facility] WITH [id number] 18:41:07* Test Item Value Reference Range Interpretation Comme nts WBC (test code = 6690-2) See_Comment [Automated [employer]] The system which generated this result transmitted reference range: 4.30 - 11.10 10*3/?L. The reference range was not used to interpret this result as normal/abnormal. RBC (test code = 789-8) See_Comment [Automated [employer]] The system which generated this result transmitted [...] g/dL 31.6-35.1 L RDW-SD (test code = 54347-8) 49.6 fL 39.0-49.9 RDW-CV (test code = 788-0) 15.7 % 12.0-15.5 H PLT (test code = 777-3) See_Comment [Automated messa ge] The system which generated this result transmitted reference range: 166 - 358 10*3/?L. The reference range was not used to interpret this result as normal/abnormal. MPV (test code = 38438-2) 11.5 fL 9.5-12.9 NRBC/100 WBC (test code = 0095789614) See_Comment [Automated [employer]] The system which generated this result transmitted reference range: 0.0 - 10.0 /100 WBCs. The reference range was not used to interpret this result as normal/abnormal. NRBC x10^3 (test code = 3421823191) <0.01 See_Comment [Automated messa ge] The system which generated this result transmitted reference range: 10*3/?L. The reference range was not used to interpret this result as normal/abnormal. GRAN MAT (NEUT) % (test code = 770-8) 51.1 % IMM GRAN % (test code = 0080650168) 0.30 % LYMPH % (test code = 736-9) 34.8 % MONO % (test code = 5905-5) 10.9 % EOS % (test code = 713-8) 2.2 % BASO % (test code = 706-2) 0.7 % GRAN MAT x10^3(ANC) (test code = 4588647653) 3.01 10*3/uL 1.88-7.09 IMM GRAN x10^3 (test code = 5385380755) <0.03 0.00-0.06 LYMPH x10^3 (test code = 731-0) 2.05 10*3/uL 1.32-3.29 MONO x10^3 (test code = 742-7) 0.64 10*3/uL 0.33-0.92 EOS x10^3 (test code = 711-2) 0.13 10*3/uL 0.03-0.39 BASO x10^3 (test code = 704-7) 0.04 10*3/uL 0.01-0.07 Lab Interpretation (test code = 66087-1) Abnormal [facility] Notes Date/Time Note Provider Source 2024-08-14 20:08:00 [facility] ([facility]) Hospitalist Discharge Summary REPORT#:[id number] REPORT STATUS: Signed REPORT INITIALIZATION DATE:08/14/24 TIME: 2007 PATIENT: CASSIE HUBER UNIT #: [id number] ROOM/BED: Z363-A : 47 AGE: 78 SEX: F ATTEND: Lianna Soto MD ADM AUTHOR: Lianna Soto MD REPT SERVICE DT/TIME: 08/14/242007 * ALL edits or amendments must be made on the electronic/computer document * General Information Date of admission: Observation Start Date: Date of admission: 08/12/24 Discharge date: 08/14/24 Discharge diagnosis: #Palpitations-in sinus rhythm #Borderline troponin #Paroxysmal A-fib #Coronary artery disease status post PTCA and stent #Hypertension. #Hyperlipidemia. #Probable acute on CKD, unknown stage #DM type II #Obesity #Anemia, unknown type and chronicity Hospital course: 78-year-old female with past medical history of diabetes, A-fib, osteoarthritis, blindness, chronic back pain and hypertension presented for evaluation of palpitations and shortness of breath. Symptoms worse with exertion. Denies associated chest pain. Patient was seen in outside ED and transferred here for further management. Outside ED workup: Hypertensive with BP as high as 169/81. Pulse 70s. Labs remarkable for creatinine 1.72, BUN 28, GFR 30, hemoglobin 8.5, BNP 549 and high -sensitivity troponin 145.5. Flu and COVID-negative. UA unremarkable. No acute findings on chest x-ray. Patient given Tylenol prior to transfer Hypertensive in ED. Labs remarkable for mildly elevated troponin, elevated BUN/ creatinine and anemia. Admitted for further management. Pt was evaluated by cardiology. echo showed The estimated ejection fraction is 50-54%. Wall motion is normal; there are no regional wall motion abnormalities. Grade I diastolic dysfunction. Pt remained chest pain free. sob and palpitations resolved Consultants: cardiology Pt. condition on discharge: stable Allergies: Allergies: No Known Allergies (Coded, 08/12/24) Free Text DxA P Notes Free text DxA P notes: Assessment/Plan #Palpitations #Elevated troponin #Dyspnea #Hx CAD s/p stent #Hypertension #Paroxysmal A-fib Pt reports having palpitations and dyspnea over the past 1 day. Elevated troponin on workup. No acute ischemic changes on EKG. Pt with elevated BP on presentation Consult cardiology, await further recommendations Continue to trend troponin Order TSH, lipid panel hemoglobin A1c Keep on telemetry Given ASA 325 mg x 1. Resume daily ASA 81 mg, statin, metoprolol and amlodipine As needed hydralazine for elevated BP #Probable acute on CKD, unknown stage Patient reports having abnormal renal function a while back but unsure if it recovered. She has never been told about chronic renal disease. Creatinine 1.72 at outside facility, 1.6 here Encourage p.o. hydration Monitor renal labs Caution with nephrotoxic medications #Acute on chronic lower back pain Acutely associated with radiation to groin Order L-spine CT As needed [place] for pain #DM type II Resume Tradjenta. Start SSI #Obesity [employer] on diet and lifestyle modifications #Anemia, unknown type and chronicity Monitor hemoglobin, transfuse for hemoglobin less than 7 VTE ppx: Lovenox Pt is full Code. Pt has advance directive documents. BERTIN Daughter Ilana # [phone] Dispo: likely dc home, pending clinical improvement Med Rec Med Rec Discharge meds: Continue taking these medications: PROBENECID (BENEMID) 500 MG TAB 0.5 GRAM ORAL DAILY. Comments: TAKE 1 TABLET BY MOUTH EVERY DAY; #30 - SIG Obtained From [facility] PANTOPRAZOLE DR (PROTONIX) 40 MG TAB.DR 40 MILLIGRAM ORAL DAILY. Comments: #90 - SIG Obtained From [facility] traMADol (ULTRAM) 50 MG TAB 50 MILLIGRAM ORAL EVERY 12 HR NEEDED. as needed for pain Comments: TAKE 1 TABLET BY MOUTH EVERY 12 HOURS NEEDED; #60 - SIG Obtained From [facility] LINAGLIPTIN (TRADJENTA) 5 MG TAB 5 MILLIGRAM ORAL DAILY. Comments: TAKE 1 TABLET BY MOUTH EVERY DAY; #90 - SIG Obtained From First amLODIPine (NORVASC) 2.5 MG TAB 2.5 MILLIGRAM ORAL DAILY. Comments: TAKE 1 TABLET BY MOUTH EVERY DAY FOR 90 DAYS; #90 - SIG Obtained From First METOPROLOL TARTRATE (LOPRESSOR) 50 MG TAB 50 MILLIGRAM ORAL TWICE DAILY. Comments: TAKE 1 TABLET BY MOUTH TWICE A DAY; #60 - SIG Obtained From First ASPIRIN EC (ECOTRIN) 81 MG TAB.EC 81 MILLIGRAM ORAL DAILY. Comments: TAKE 1 TABLET BY MOUTH EVERY DAY; #30 - SIG Obtained From [facility] ATORVASTATIN (LIPITOR) 40 MG TAB 40 MILLIGRAM ORAL BEDTIME. Comments: TAKE 1 TABLET BY MOUTH EVERY DAY FOR 30 DAYS; #90 - SIG Obtained From [facility] Objective VS/I O Last Documented: Result Date Time Temp 97.7 08/14 1123 B/P 153/67 08/14 1100 B/P Mean 96 08/14 1100 Pulse 54 08/14 1100 Resp 21 08/14 1100 Pulse Ox 100 08/14 0201 General appearance: awake Head/Eyes: abnormal cornea, atraumatic, normal conjunctiva/sclera, normocephalic ENT: moist mucosal membranes, normal ear left, normal ear right, normal nose Neck: non-tender, supple/no meningismus, no masses or swelling Cardiovascular: normal capillary refill, normal heart sounds, regular rate rhythm Respiratory: aerating well, clear to auscultation, symmetric expansion, no distress Abdomen: non-tender, normal bowel sounds, soft Extremities: moves all, no calf tenderness, no cyanosis Musculoskeletal: normal inspection, no CVA tenderness, no muscle spasm, bilateral back muscle tenderness, lumbar midline tenderness Neuro/HUMAN RESOURCES HR GENERALIST: alert, oriented X 3, normal speech, no motor deficits, no sensory deficits Skin: dry, normal color, normal temperature Psychiatry: normal affect, normal judgment/insight, normal mood Discharge Instructions PCP PCP follow-up: PCP: Napoleon Pineda MD Discharge to: Home/Self Care Additional Discharge Routines: PCP Follow-Up, Vial Gauger Follow-Up Diet: Cardiac Prescriptions: e-prescribe Discharge management: greater than 30 mins, face to face encounter Time spent: Time spent on patient care (minutes): 36 >50% spent on counseling/coordination of care: yes Follow-up Appointments PCP follow-up: PCP: No Primary or Family Physician PCP follow up timeframe: In 1-2 weeks Consulting provider 1: Provider 1: Cyril Patel MD Cardiology Specialty: CardiologyInterventional Consult follow up timeframe: In 1-2 weeks Quality: Discharge Advanced Care Plan 65 or Older Discussed with: patient Current Medications Current medication review: I attest that the foregoing medication list in the medical record is true, accurate, and complete to the best of my knowledge. BMI Screening > 25 or < 18.5 BMI status/follow-up: abnl BMI, pt to F/U w/PCP at 0047 RPT #:[id number] END OF REPORT [facility] 2024-08-14 07:50:00 [phone] [place] [id number] PATIENT NAME: CASSIE HUBER ADMIT DATE: 08/12/24 ACCOUNT NO: [id number] ROOM NO: Z.363 AGE: 78 REPORT TYPE: ELECTROCARDIOGRAM SEX: F ADMITTING PHYSICIAN:Lianna Soto MD ATTENDING PHYSICIAN:Lianna Soto MD Order: [id number] Test Reason : CAD Test Date/Time Stamp: MonAug 14 2024 07:50:08 Blood Pressure : / mmHG Vent. Rate : 055 BPM Atrial Rate : 055 BPM P-R Int : 154 ms QRS Dur : 146 ms QT Int : 500 ms P-R-T Axes : -11 -39 -54 degrees QTc Int : 478 ms Sinus bradycardia Left axis deviation Right bundle branch block Voltage criteria for left ventricular hypertrophy Cannot rule out Septal infarct , age undetermined T wave abnormality, consider inferolateral ischemia Abnormal ECG No previous ECGs available Confirmed by CYRIL PATEL ([id number]) on 08/14/2024 5:20:58 PM Referred By: Self Referred Confirmed by:CYRIL PATEL at 1720 PATIENT NAME: CASSIE HUBER [facility] 2024-08-14 06:18:00 [id number] [place] [id number] PATIENT NAME: CASSIE HUBER ADMIT DATE: 08/12/24 ACCOUNT NO: [id number] ROOM NO: Z.363 AGE: 78 REPORT TYPE: ECHOCARDIOGRAM SEX: F ADMITTING PHYSICIAN:Lianna Soto MD ATTENDING PHYSICIAN:Lianna Soto MD *[facility]* [address] [place] [address] Transthoracic Echocardiogram Patient: Cassie Huber Study Date: 08/13/2024 BP: 167 / 100 URN: [id number] Location: : 1945 Age: 78 Gender: F Height: 59 in / 149.9 cm Weight: 180 lb / 81.6 kg BMI/BSA: 36.4 kg/m 2 / 1.89 m 2 *Ordering Physician: * Napoleon Pineda MD *Interpreting Physician: * Cyril Patel MD *Car Racer: * Justin Fong Indications: CAD. Study data: Transthoracic echocardiogram. Procedure: A transthoracic echocardiogram was performed. Images were obtained using a [employer] cardiac ultrasound machine. Image quality was adequate. M-mode, complete 2D, complete spectral Doppler, and color Doppler. Location: Bedside. Patient status: Inpatient. Patient room number: 363. Study status: Routine. Findings Left ventricle: The cavity size is normal. Wall thickness is normal. Systolic function is at the lower limits of normal. The estimated ejection fraction is 50-54%. Wall motion is normal; there are no regional wall motion abnormalities. Grade I diastolic dysfunction. PATIENT NAME: CASSIE HUBER Right ventricle: The cavity size is normal. Wall thickness is normal. Systolic function is normal. Left atrium: The atrium is normal in size. Right atrium: The atrium is normal in size. Aorta: Aorta: The aorta is normal-sized. Aortic valve: The valve is trileaflet. The leaflets are normal thickness. There is trace regurgitation. Mitral valve: The leaflets are normal thickness. There is no significant regurgitation. Tricuspid valve: The leaflets are normal thickness. There is no significant regurgitation. Pulmonic valve: The leaflets are normal thickness. There is trace regurgitation. Pericardium: There is no pericardial effusion. Systemic veins: Inferior vena cava: The IVC is normal-sized. Measurements Left ventricle Value Ref PIPPA, LAX 3.5 cm 3.8 - 5.2 ESD, LAX 2.8 cm 2.2 - 3.5 FS, LAX 19 % 27 - 45 IVS, ED 1.5 cm 0.6 - 0.9 IVS, ES 1.9 cm --------- PW, ED 1.5 cm 0.6 - 0.9 PW, ES 1.9 cm --------- IVS/PW, ED 1.02 --------- EF 40 % 54 - 74 LVOT Value Ref Diam, S 2.13 cm --------- Area 3.6 cm 2 --------- Peak renee, S 0.85 m/sec --------- Mean renee, S 0.58 m/sec --------- VTI, S 16.9 cm --------- Peak grad, S 3 mm Hg --------- Mean grad, S 2 mm Hg --------- SV 60 ml --------- Qs 3.58 L/min --------- Qs/bsa 1.9 L/(min-m 2) --------- SV/bsa 32 ml/m 2 --------- Right ventricle Value Ref PIPPA, LAX 2.8 cm --------- RVOT Value Ref Peak v, S 0.73 m/sec --------- Peak grad, S 2 mm Hg --------- Left atrium Value Ref AP dim, ES 3.9 cm 2.7 - 3.8 PATIENT NAME: DAVID HUBERLA DILLAN Aortic valve Value Ref Peak v, S 1.3 m/sec --------- Mean v, S 0.9 m/sec --------- VTI, S 32.2 cm --------- Mean grad, S 4 mm Hg --------- Peak grad, S 7.1 mm Hg --------- LVOT/AV, VTI ratio 0.52 --------- BRINA, VTI 1.86 cm 2 --------- LVOT/AV, Vpeak ratio 0.64 --------- BRINA, Vmax 2.28 cm 2 --------- AR peak v 3.06 m/sec --------- AR decel 129.76 cm/s 2 --------- AR decel time 3113 ms --------- AR PHT 903 ms --------- AR peak grad 38 mm Hg --------- Mitral valve Value Ref Mean v, D 0.52 m/sec --------- Peak E 0.49 m/sec --------- Peak A 0.93 m/sec --------- VTI leaflet coapt 26.6 cm --------- MiV/LVOT VTI 1.6 --------- Decel time 159 ms --------- Mean grad, D 1 mm Hg --------- Peak grad, D 3.8 mm Hg --------- Peak E/A ratio 0.52 --------- Tricuspid valve Value Ref TR peak v 1.2 m/sec <=2.8 Peak RV-RA grad, S 5 mm Hg --------- Aortic root Value Ref Root diam 3.7 cm 2.6 - 4.0 Conclusions Summary: Left ventricle: The cavity size is normal. Wall thickness is normal. Systolic function is at the lower limits of normal. The estimated ejection fraction is 50-54%. Wall motion is normal; there are no regional wall motion abnormalities. Grade I diastolic dysfunction. Electronically signed by Cyril Patel MD 08/14/2024 06:18 at 0618 PATIENT NAME: CASSIE HUBER [facility] 2024-08-14 05:31:00 [facility] Cardiology Progress Note REPORT#:[id number] REPORT STATUS: Signed REPORT INITIALIZATION DATE:08/14/24 TIME: 530 PATIENT: CASSIE HUBER UNIT #: [id number] ROOM/BED: [address] : 47 AGE: 78 SEX: F ATTEND: Lianna Soto MD ADM AUTHOR: Napoleon Pineda MD REPT SERVICE DT/TIME: 08/14/24 0531 * ALL edits or amendments must be made on the electronic/computer document * Subjective Patient reports: No: chest pain, palpitations, shortness of breath. Objective General VS/I O: Vital Signs: Date Time Temp Pulse Resp B/P B/P Pulse O2 O2 Flow FiO2 Mean Ox Delivery Rate 08/14 0517 98.1 08/14 0401 49 18 125/60 86 08/14 0300 52 14 151/66 95 08/14 0201 55 17 143/67 96 100 08/14 0101 55 19 129/60 86 98 08/14 0030 98.2 08/14 0000 57 15 146/70 101 08/13 2300 56 11 149/72 104 95 08/13 2201 63 16 155/74 107 95 08/13 1901 73 17 111/76 89 97 08/13 1832 97.9 08/13 1801 68 39 160/59 85 94 08/13 1701 69 26 157/88 114 94 08/13 1615 97.7 08/13 1600 66 21 96 08/13 1407 64 20 167/72 103 96 08/13 1300 57 19 97 08/13 1224 57 20 167/73 105 98 08/13 1105 97.9 08/13 1100 57 17 165/74 106 96 08/13 1000 64 14 159/86 115 96 08/13 0900 74 14 166/79 113 97 08/13 0801 65 15 97 08/13 0731 98.1 08/13 0706 69 13 150/81 110 08/13 0612 75 14 PATIENT WEIGHT: Weight (lb): Weight (oz): Weight (kg): 81.818 Medications: Active Meds + DC'd Last 24 Hrs Atorvastatin Calcium (LIPITOR) 40 MG BEDTIME PO Enoxaparin Sodium (LOVENOX) 40 MG Q24H SUBQ Amlodipine Besylate (NORVASC) 2.5 MG DAILY PO Aspirin (ASPIRIN EC) 81 MG DAILY PO Linagliptin (TRADJENTA) 5 MG DAILY PO Metoprolol Tartrate (LOPRESSOR) 50 MG BID PO Pantoprazole (PROTONIX) 40 MG DAILY PO Probenecid (BENEMID) 500 MG DAILY PO Hydralazine HCl (APRESOLINE) 10 MG Q4H PRN PRN IV Hydrocodone Bitart/Acetaminophen (NORCO 5/325 TABLET (C-II)) 1 TAB Q6H PRN PRN PO Insulin Human Lispro (ADMELOG) LOW DOSE SLIDING SCALE AC HS SUBQ Dextrose/Water (DEXTROSE 50% IN WATER) 12.5 GM ASDIR PRN IV Dextrose/Water (DEXTROSE 50% IN WATER) 25 GM ASDIR PRN IV Dextrose/Water (DEXTROSE 50% IN WATER) 25 GM ASDIR PRN IV Glucagon (GLUCAGON) 1 MG ASDIR PRN IM Acetaminophen (TYLENOL) 650 MG Q4H PRN PRN RECTAL Melatonin (MELATONIN) 3 MG BEDTIME PRN PRN PO Nitroglycerin (NITROSTAT) 0.4 MG Q5M PRN PRN SL Ondansetron HCl (ZOFRAN) 4 MG Q6H PRN PRN IV Physical Exam General appearance: alert, awake, oriented Head/Eyes: atraumatic, normocephalic ENT: moist mucosal membranes Neck: no JVD Cardiovascular: CV assessment: regular rate and rhythm Respiratory: clear to auscultation, no distress Lower extremity: LE assessment: no edema Musculoskeletal: full range of motion Neuro/HUMAN RESOURCES HR GENERALIST: alert, oriented X 3, CN II-XII intact Skin: dry, intact Results Findings/Data: Laboratory Tests 08/13 08/13 08/13 08/13 08/13 1828 1614 1105 0748 0732 Chemistry POC Glucose (60 - 99 MG/DL) 121 H 120 H 98 98 Troponin I (0.012 - 0.033 NG/ML) 0.058 H Diagnosis, Assessment Plan Free Text DxA P Notes Free Text DxA P Notes: IMPRESSION: 1. Palpitations. The patient is maintaining sinus rhythm. 2. Coronary artery disease status post PTCA and stent in April 2024. 3. Hypertension. 4. Hyperlipidemia. 5. Borderline troponin. No chest pain. PLAN: Review Echo d/c planning. at 0944 [facility] #:[id number] END OF REPORT [facility] 2024-08-13 08:19:00 [id number] [place] [address] PATIENT NAME: CASSIE HUBER ADMIT DATE: 08/12/24 ACCOUNT NO: [id number] ROOM NO: [facility] AGE: 78 REPORT TYPE: CONSULTATION REPORT SEX: F ADMITTING PHYSICIAN:Lianna Soto MD ATTENDING PHYSICIAN:Lianna Soto MD CONSULTATION DATE: 08/13/2024 REFERRING PHYSICIAN: Dr. Ga. REASON FOR CONSULTATION: We were asked to evaluate this patient for abnormal troponin. HISTORY OF PRESENT ILLNESS: This is a 78-year-old female with a history of coronary artery disease, status post PTCA and stent in April 2024, diabetes, hypertension, and hyperlipidemia. She was brought to the [place] [facility] yesterday afternoon via EMS after developing acute onset of rapid palpitations. She denies chest pain. She has not had palpitations similar to this before. She is feeling better today. She has no complaints of chest pain, palpitations, or shortness of breath. PAST MEDICAL HISTORY: 1. Coronary artery disease, status post PTCA and stent in April 2024. 2. Hypertension. 3. Hyperlipidemia. 4. Diabetes. FAMILY HISTORY: Positive for heart disease in her siblings and parents. SOCIAL HISTORY: No tobacco. No alcohol. ALLERGIES: NKDA. HOME MEDICATIONS: Amlodipine, atorvastatin, metoprolol, aspirin, tramadol p.r.n., probenecid, pantoprazole, and Trajenta. REVIEW OF SYSTEMS: CONSTITUTIONAL: No complaints of fever or chills. ENMT: No complaints of headache. EYES: No complaints of blurred vision. RESPIRATORY: No shortness of breath. CARDIOVASCULAR: Palpitations prior to admission. GASTROINTESTINAL: No complaints of nausea or vomiting. GENITOURINARY: No complaints urinary frequency or dysuria. MUSCULOSKELETAL: No complaints of joint pain. SKIN: No complaints of skin rash. NEUROLOGIC: No complaints of focal weakness. PATIENT NAME: CASSIE HUBER PHYSICAL EXAMINATION: GENERAL: Elderly female, in no acute distress. VITAL SIGNS: Temperature 98.1, blood pressure 167/100, pulse 75, respiratory rate 14, and O2 sats 98%. ENMT: Atraumatic, normocephalic. RESPIRATORY: Normal effort. Clear to auscultation bilaterally. CARDIOVASCULAR: Normal S1 and S2. No S3 or S4. NECK: JVP is normal. No carotid bruits. ABDOMEN: Soft and nontender. EXTREMITIES: No edema. NEUROLOGIC: Cranial nerves II-XII are intact. No focal motor deficits noted. LABORATORY DATA: White blood cell count 5.7, hemoglobin 9.4, and platelets 194. Sodium 142, potassium 4.6, chloride 113, CO2 of 20, BUN 26, creatinine 1.6, glucose 101, calcium 11.5, and magnesium 1.7. Troponin I 0.045 and 0.049, triglycerides 118. LDL 100. TSH 0.559. EKG pending. IMPRESSION: 1. Palpitations. The patient is maintaining sinus rhythm. 2. Coronary artery disease status post PTCA and stent in April 2024. 3. Hypertension. 4. Hyperlipidemia. 5. Borderline troponin. No chest pain. RECOMMENDATIONS: 1. Review EKG. 2. Continue telemetry. 3. Home medications. 4. 2D echocardiogram. Dictated By: Napoleon Pineda MD Date Dictated: 08/13/2024 08:19:00 Date Transcribed: 08/13/2024 08:56:13 P/LRS Receipt ID: [id number] Authenticated and Edited by Napoleon Pineda MD On 08/13/24 4:00:39 PM at 0401 PATIENT NAME: CASSIE HUBER [facility] 2024-08-13 00:53:00 [facility] ([facility] Hospitalist History Physical REPORT#:[id number] REPORT STATUS: Signed REPORT INITIALIZATION DATE:08/13/24 TIME: 52 PATIENT: CASSIE HUBER UNIT #: [id number] ROOM/BED: [address] : 47 AGE: 78 SEX: F ATTEND: Lianna Soto MD ADM AUTHOR: Elida Mireles REPT SERVICE DT/TIME: 08/13/2452 * ALL edits or amendments must be made on the electronic/computer document * Elida Mireles 08/13/2452: History of Present Illness HPI Chief complaint: palpitations PCP: PCP: Dr Purcell HPI: 78-year-old female with past medical history of diabetes, A-fib, osteoarthritis, blindness, chronic back pain and hypertension presented for evaluation of palpitations and shortness of breath that began this morning when she woke up. Symptoms worse with exertion. Denies associated chest pain. Patient also reports having chronic lower back pain without radiculopathy for several years but in the past day has had stabbing pressure-like pain with radiation to the groin. Denies acute trauma. Patient was seen in outside ED and transferred here for further management. Outside ED workup: Hypertensive with BP as high as 169/81. Pulse 70s. Labs remarkable for creatinine 1.72, BUN 28, GFR 30, hemoglobin 8.5, BNP 549 and high -sensitivity troponin 145.5. Flu and COVID-negative. UA unremarkable. No acute findings on chest x-ray. Patient given Tylenol prior to transfer Hypertensive in ED. Labs remarkable for mildly elevated troponin, elevated BUN/ creatinine and anemia. Admitted for further management. History Additional medical history: diabetes, A-fib, osteoarthritis, blindness, chronic back pain and hypertension Past surgical history: Reports: Eye surgery, PCI (stent). Family history: Reports: Heart disease. Alcohol use: Denies EtOH use Drug use: Denies recreational drugs Smoking status for patients 13 years old or older: Never Smoker Medication/Allergy-Vaccine Hx Medications: Home Medications: Medication Dose/Rte/Freq Days Qty Entered Last Max Daily Dose Reviewed PROBENECID (BENEMID) 0.5 GM PO DAILY 08/13/24 Strength: 500 MG TAB [address] 40 MG PO DAILY 08/13/24 (PROTONIX) 0606 Strength: 40 MG TAB. traMADol (ULTRAM) 50 MG PO 08/13/24 Strength: 50 MG TAB Q12H PRN PRN pain 0607 LINAGLIPTIN (TRADJENTA) 5 MG PO DAILY 08/13/24 Strength: 5 MG TAB 0624 amLODIPine (NORVASC) 2.5 MG PO DAILY 08/13/24 Strength: 2.5 MG TAB 0624 METOPROLOL TARTRATE 50 MG PO BID 08/13/24 (LOPRESSOR) 0625 Strength: 50 MG TAB ASPIRIN EC (ECOTRIN) 81 MG PO DAILY 08/13/24 Strength: 81 MG TAB.EC 0625 ATORVASTATIN (LIPITOR) 40 MG PO BEDTIME 08/13/24 Strength: 40 MG TAB 0625 Current Hospital Medications: Cardiovascular Drugs Sig/Tavo Start time Last Medication Dose Route Stop Time Status Admin Atorvastatin Calcium 40 MG BEDTIME 08/13 2100 UNV (LIPITOR) PO 09/12 2101 Amlodipine Besylate 2.5 MG DAILY 08/13 0900 UNV (NORVASC) PO 09/12 901 Metoprolol Tartrate 50 MG BID 08/13 900 UNV (LOPRESSOR) PO 09/12 901 Nitroglycerin 0.4 MG Q5M PRN PRN 08/13 55 AC (NITROSTAT) SL 09/12 56 Central Nervous System Agents Sig/Tavo Start time Last Medication Dose Route Stop Time Status Admin Aspirin 81 MG DAILY 08/13 900 UNV (ASPIRIN EC) PO 09/12 901 Aspirin 324 MG ONCE ONE 08/13 115 DC 08/13 (CHILDREN'S ASPIRIN) CHEW 08/13 116 0140 Acetaminophen 650 MG Q4H PRN PRN 08/13 55 AC (TYLENOL) RECTAL 09/12 56 Morphine Sulfate 4 MG X1ED STA 08/12 2127 DC (morphine SULFATE (C- IV 08/12 2128 II)) Electrolytic, Caloric, And Shruthi Sig/Tavo Start time Last Medication Dose Route Stop Time Status Admin Probenecid 500 MG DAILY 08/13 900 UNV (BENEMID) PO 09/12 901 Dextrose/Water 12.5 GM ASDIR PRN 08/13 630 UNV (DEXTROSE 50% IN IV 09/12 631 WATER) Dextrose/Water 25 GM ASDIR PRN 08/13 630 UNV (DEXTROSE 50% IN IV 09/12 631 WATER) Dextrose/Water 25 GM ASDIR PRN 08/13 630 UNV (DEXTROSE 50% IN IV 09/12 631 WATER) Gastrointestinal Drugs Sig/Tavo Start time Last Medication Dose Route Stop Time Status Admin Pantoprazole 40 MG DAILY 08/13 900 UNV (PROTONIX) PO 09/12 901 Ondansetron HCl 4 MG Q6H PRN PRN 08/13 55 AC (ZOFRAN) IV 09/12 56 Hormones And Synthetic Substit Sig/Tavo Start time Last Medication Dose Route Stop Time Status Admin Linagliptin 5 MG DAILY 08/13 900 UNV (TRADJENTA) PO 09/12 901 Insulin Human Lispro See Dose AC HS 08/13 730 UNV (HumaLOG) Insts (1) SUBQ 09/12 731 Glucagon 1 MG ASDIR PRN 08/13 630 UNV (GLUCAGON) IM 09/12 631 Miscellaneous Therapeutic Agen Sig/Tavo Start time Last Medication Dose Route Stop Time Status Admin Melatonin 3 MG BEDTIME PRN PRN 08/13 55 AC (MELATONIN) PO 09/12 56 Dose Instructions: (1)Insulin Human Lispro (HumaLOG): LOW DOSE SLIDING SCALE Allergies: Coded Allergies: No Known Allergies (08/12/24) Review of Systems Constitutional: Denies: fever, generalized weakness, lethargy. Skin: Denies: diaphoresis, ecchymosis, itching. Allergy/Immun: Denies: hives, itching, rhinorrhea. Eyes: Denies: visual loss/blurred, diplopia, swelling. ENT: Denies: nasal congestion, sore throat, voice change. Respiratory: Reports: SOB. Denies: non productive cough, wheezing. Cardiovascular: palpitations. Denies: chest pain, edema. GI: Denies: abdominal pain, nausea, vomiting. : Denies: dysuria, flank pain, frequency, hematuria. Musculoskeletal: lumbar pain. Denies: extremity pain, extremity swelling, myalgias. Neuro: Denies: headache, lightheaded, numbness. Psych: Denies: confusion, delusional, depression. Objective General VS/I O: Vital Signs: Date Time Temp Pulse Resp B/P B/P Pulse O2 O2 Flow FiO2 Mean Ox Delivery Rate 08/13 0003 36.7 75 15 156/86 109 96 08/12 2300 82 16 164/90 114 98 08/12 2100 68 188/82 118 93 08/12 1930 82 170/91 122 08/12 1854 80 19 138/85 102 97 24 hour I O ending at 0700: 08/13 0700 08/12 1900 Intake Total Output Total Balance Patient 81.818 kg Weight Weight Stated/Reported Measurement Method PATIENT WEIGHT: Weight (lb): Weight (oz): Weight (kg): 81.818 Physical Exam General appearance: alert, awake, oriented, pleasant Head/Eyes: abnormal cornea, atraumatic, normal conjunctiva/sclera, normocephalic ENT: moist mucosal membranes, normal ear left, normal ear right, normal nose Neck: non-tender, supple/no meningismus, no masses or swelling Cardiovascular: normal capillary refill, normal heart sounds, regular rate rhythm Respiratory: aerating well, clear to auscultation, symmetric expansion, no distress Abdomen: non-tender, normal bowel sounds, soft Extremities: moves all, no calf tenderness, no cyanosis Musculoskeletal: normal inspection, no CVA tenderness, no muscle spasm, bilateral back muscle tenderness, lumbar midline tenderness Neuro/HUMAN RESOURCES HR GENERALIST: alert, oriented X 3, normal speech, no motor deficits, no sensory deficits Skin: dry, normal color, normal temperature Psychiatry: normal affect, normal judgment/insight, normal mood Results Findings/Data: Laboratory Tests 08/12 2156 Chemistry Sodium (137 - 145 MMOL/L) 142 Potassium (3.5 - 5.1 MMOL/L) 4.6 Chloride (98 - 107 MMOL/L) 113 H Carbon Dioxide (22 - 30 MMOL/L) 20 L BUN (7 - 17 MG/DL) 26 H Creatinine (0.52 - 1.04 MG/DL) 1.60 H Glomerular Filtr Rate 33 Glucose (74 - 106 MG/DL) 101 Calcium (8.4 - 10.2 MG/DL) 11.5 H Total Bilirubin (0.2 - 1.3 MG/DL) 0.4 AST (14 - 36 UNITS/L) 21 ALT (0 - 34 UNITS/L) 10 Total Alk Phosphatase (38 - 126 UNITS/L) 142 H Troponin I (0.012 - 0.033 NG/ML) 0.045 H Total Protein (6.3 - 8.2 G/DL) 8.6 H Albumin (3.5 - 5.0 G/DL) 4.3 Laboratory Tests 08/12 2156 Hematology WBC (3.8 - 9.8 K/MM3) 5.7 RBC (3.58 - 4.97 M/MM3) 3.62 Hgb (11.2 - 14.9 G/DL) 9.4 L Hct (33.2 - 43.5 %) 29.8 L MCV (80.7 - 99.1 fL) 82 MCH (27.0 - 34.1 pg) 26.0 L MCHC (32.2 - 35.7 %) 31.5 L RDW (12.1 - 15.2 %) 15.0 Plt Count (129 - 368 K/MM3) 194 MPV (7.4 - 10.4 fl) 11.1 H Neut % (Auto) (43 - 75 %) 60.7 Lymph % (Auto) (14 - 44 %) 29.5 Robeson % (Auto) (4 - 13 %) 7.4 Eos % (Auto) (0 - 6 %) 1.4 Baso % (Auto) (0 - 2 %) 0.5 Neut # (Auto) (2.0 - 7.6 K/mm3) 3.43 Lymph # (Auto) (1.0 - 3.8 K/mm3) 1.67 Robeson # (Auto) (0.1 - 0.8 K/mm3) 0.42 Eos # (Auto) (0.0 - 0.2 K/mm3) 0.08 Baso # (Auto) (0.0 - 0.2 K/mm3) 0.03 Immature Gran % (0.0 - 2.0 %) 0.5 Nucleated RBC % (0 - 1.0 %) 0.0 Nucleated RBCs # (Man) (0.0 - 0.1 K/mm3) 0.00 Diagnosis, Assessment Plan Problem List/A P: 1. Non-insulin dependent diabetes mellitus 2. Obesity 3. DM type 2 (diabetes mellitus, type 2) 4. ACUTE ON CHRONIC LOWER BACK PAIN 5. PROBABLE ACUTE ON CKD 6. CAD (coronary artery disease) 7. Paroxysmal A-fib 8. Essential hypertension 9. Elevated troponin 10. Dyspnea 11. Palpitations 12. Stented coronary artery Free Text DxA P Notes Free Text DxA P Notes: Assessment/Plan #Palpitations #Elevated troponin #Dyspnea #Hx CAD s/p stent #Hypertension #Paroxysmal A-fib Pt reports having palpitations and dyspnea over the past 1 day. Elevated troponin on workup. No acute ischemic changes on EKG. Pt with elevated BP on presentation Consult cardiology, await further recommendations Continue to trend troponin Order TSH, lipid panel hemoglobin A1c Keep on telemetry Given ASA 325 mg x 1. Resume daily ASA 81 mg, statin, metoprolol and amlodipine As needed hydralazine for elevated BP #Probable acute on CKD, unknown stage Patient reports having abnormal renal function a while back but unsure if it recovered. She has never been told about chronic renal disease. Creatinine 1.72 at outside facility, 1.6 here Encourage p.o. hydration Monitor renal labs Caution with nephrotoxic medications #Acute on chronic lower back pain Acutely associated with radiation to groin Order L-spine CT As needed [place] for pain #DM type II Resume Tradjenta. Start SSI #Obesity [employer] on diet and lifestyle modifications #Anemia, unknown type and chronicity Monitor hemoglobin, transfuse for hemoglobin less than 7 VTE ppx: Lovenox Pt is full Code. Pt has advance directive documents. BERTIN Daughter Ilana # [phone] Dispo: likely dc home, pending clinical improvement Quality: Gen [facility] Crit Care VTE Prophylaxis VTE prophylaxis initiated: yes Current Medications Current medication review: I attest that the foregoing medication list in the medical record is true, accurate, and complete to the best of my knowledge. Advanced Care Plan 65 or Older Discussed with: patient Discussion included: living will, power of litigation attorney, code status BMI Screening > 25 or < 18.5 Patient's BMI: Current BMI: 36.4 BMI status/follow-up: abnl BMI, pt to F/U w/PCP Lianna Soto 08/13/24 1926: Attestations Physician Attestation Agree w/findings plan: I performed a history and physical examination of the patient on 08/13/24. I have reviewed the PA's note and . . . agree with the findings and plan as documented in the note. at 0821 at 0046 RPT #:[id number] END OF REPORT [facility] 2024-08-13 00:42:00 [facility] ([facility]) EMERGENCY PROVIDER REPORT REPORT#:[id number] REPORT STATUS: Signed DATE:08/13/24 TIME: 41 PATIENT: CASSIE HUBER UNIT #: [id number] ROOM/BED: [address] : 47 AGE: 78 SEX: F PCP PHYS: Napoleon Pineda MD SERVICE AUTHOR: Zuly Saldana MD LOCATION: [facility] REP V REP [facility] TM: 0042 * ALL edits or amendments must be made on the electronic/computer document * HPI-General Illness Free Text HPI Notes Free Text HPI Notes 78 yo F transferred for NSTEMI, currently CP free. General Initial Greet Date/Time 08/12/242125 Presentation Chief Complaint NSTEMI Review of Systems ROS Statements All systems rev neg except as marked. Past Medical History - Adult Stated Complaint NSTEMI Allergies Coded Allergies: No Known Allergies (08/12/24) Home Medications Reported Medications PROBENECID (BENEMID) 0.5 GM PO DAILY PANTOPRAZOLE DR (PROTONIX) 40 MG PO DAILY traMADol (ULTRAM) 50 MG PO Q12H PRN PRN pain LINAGLIPTIN (TRADJENTA) 5 MG PO DAILY amLODIPine (NORVASC) 2.5 MG PO DAILY METOPROLOL TARTRATE (LOPRESSOR) 50 MG PO BID ASPIRIN EC (ECOTRIN) 81 MG PO DAILY ATORVASTATIN (LIPITOR) 40 MG PO BEDTIME Smoking status for patients 13 years old or older: Unknown,if ever smoked Physical Exam Vital Signs Vital Signs First Documented: Result Date Time Pulse Ox 97 08/12 1854 B/P 138/85 08/12 1854 B/P Mean 102 08/12 1854 Pulse 80 08/12 1854 Resp 19 08/12 1854 Last Documented: Result Date Time Pulse Ox 98 08/12 2300 B/P 164/90 08/12 2300 B/P Mean 114 08/12 2300 Pulse 82 08/12 2300 Resp 16 08/12 2300 Review of Vital Signs Reviewed Free Text PE Notes Free Text PE Notes General: NAD, awake Head: Atraumatic, Normocephalic Eyes: EOMI, PERRL b/l Neck: Full ROM, no midline tenderness to palpation CV: regular rate, regular rhythm Resp: CTAB, no wheezes Abd: No tenderness to palpation, no distension Skin: No lacerations, no abrasions Interpretation Diagnostics Lab Results Interpretation Considerations Independ review imaging, Reviewed prior records Results Laboratory Tests 08/12/242155: [Embedded Image Not Available] Laboratory Tests: 08/12 2156 Chemistry Sodium (137 - 145 MMOL/L) 142 Potassium (3.5 - 5.1 MMOL/L) 4.6 Chloride (98 - 107 MMOL/L) 113 H Carbon Dioxide (22 - 30 MMOL/L) 20 L BUN (7 - 17 MG/DL) 26 H Creatinine (0.52 - 1.04 MG/DL) 1.60 H Glomerular Filtr Rate 33 Glucose (74 - 106 MG/DL) 101 Calcium (8.4 - 10.2 MG/DL) 11.5 H Total Bilirubin (0.2 - 1.3 MG/DL) 0.4 AST (14 - 36 UNITS/L) 21 ALT (0 - 34 UNITS/L) 10 Total Alk Phosphatase (38 - 126 UNITS/L) 142 H Troponin I (0.012 - 0.033 NG/ML) 0.045 H Total Protein (6.3 - 8.2 G/DL) 8.6 H Albumin (3.5 - 5.0 G/DL) 4.3 Hematology WBC (3.8 - 9.8 K/MM3) 5.7 RBC (3.58 - 4.97 M/MM3) 3.62 Hgb (11.2 - 14.9 G/DL) 9.4 L Hct (33.2 - 43.5 %) 29.8 L MCV (80.7 - 99.1 fL) 82 MCH (27.0 - 34.1 pg) 26.0 L MCHC (32.2 - 35.7 %) 31.5 L RDW (12.1 - 15.2 %) 15.0 Plt Count (129 - 368 K/MM3) 194 MPV (7.4 - 10.4 fl) 11.1 H Neut % (Auto) (43 - 75 %) 60.7 Lymph % (Auto) (14 - 44 %) 29.5 Robeson % (Auto) (4 - 13 %) 7.4 Eos % (Auto) (0 - 6 %) 1.4 Baso % (Auto) (0 - 2 %) 0.5 Neut # (Auto) (2.0 - 7.6 K/mm3) 3.43 Lymph # (Auto) (1.0 - 3.8 K/mm3) 1.67 Robeson # (Auto) (0.1 - 0.8 K/mm3) 0.42 Eos # (Auto) (0.0 - 0.2 K/mm3) 0.08 Baso # (Auto) (0.0 - 0.2 K/mm3) 0.03 Immature Gran % (0.0 - 2.0 %) 0.5 Nucleated RBC % (0 - 1.0 %) 0.0 Nucleated RBCs # (Man) (0.0 - 0.1 K/mm3) 0.00 Lab Imaging Statement Laboratory radiographic studies reviewed and considered in the medical decision-making. Re-Evaluation MDM Free Text MDM Notes Free Text MDM Notes no stemi on repeat ekg, Dr. Pineda from cards consulted, agrees to see pt, admitted to medicine. ED Course Medication(s) Ordered Medication(s) Ordered: Central Nervous System Agents Sig/Tavo Start time Last Medication Dose Route Stop Time Status Admin Morphine Sulfate 4 MG X1ED STA 08/12 2127 DC IV 08/12 2128 Patient Discharge Departure Vital Signs/Condition Vital Signs First Documented: Result Date Time Pulse Ox 97 08/12 1854 B/P 138/85 08/12 1854 B/P Mean 102 08/12 1854 Pulse 80 08/12 1854 Resp 19 08/12 1854 Last Documented: Result Date Time Pulse Ox 98 08/12 2300 B/P 164/90 08/120 B/P Mean 114 08/120 Pulse 82 08/12 230 Resp 16 08/12 2300 All vital signs available at the time of this entry have been reviewed. Clinical Impression Clinical Impression Primary Impression: NSTEMI (non-ST elevated myocardial infarction) Disposition Decision Hospitalize )( Accepts Hospitalization Yes )( Reason for Hospitalization nstemi )( Accepted Time 0043 )( Accepted Date 08/13/24 Call Information will see patient, agrees with eval, agrees with plan at 0533 RPT #:[id number] END OF REPORT [facility]
--- NOTE | 2025-01-18 18:55 | RAD REPORT ---
EXAMINATION: XR RIGHT SHOUDLER CLINICAL INDICATION: Female, 79 years old. PAIN RIGHT TECHNIQUE:Two view radiograph of the right shoulder were obtained. COMPARISON: 09/05/2022 FINDINGS: No acute bone or joint abnormality detected. Mild AC joint and glenohumeral joint degenerat ward changes. Surrounding soft tissues are unremarkable. Visualized aspects of the lungs are unremarkable apart from mild right basilar atelectasis. IMPRESSION: No acute osseous abnormalities. Mild degenerative changes.
--- NOTE | 2025-01-18 19:24 | ER ---
Nurse's Notes [facility] Name: Patti Frey Age: 79 yrs Sex: Female : 1945 Arrival Date: 01/18/2025 Time: 17:30 Bed DX3 Private MD: Diagnosis: Pain in right shoulder Presentation: 01/18 18:06 Chief complaint: Patient states: RIGHT SHOULDER PAIN THAT HAS BEEN ONGOING SINCE LAST cm10 YEAR. PT STATES THAT THE PAIN GOT WORSE A FEW WEEKS AGO. Coronavirus screen: Client denies travel out of the [place] in the last 14 days. Ebola Screen: Patient denies travel to an Ebola-affected area in the 21 days before illness onset. Initial Sepsis Screen: Does the patient meet any 2 criteria? No. Patient's initial sepsis screen is negative. Does the patient have a suspected source of infection? No. Patient's initial sepsis screen is negative. Risk Assessment: Do you want to hurt yourself or someone else? Patient reports no desire to harm self or others. Onset of symptoms is unknown. 18:06 Method Of Arrival: Wheelchair cm10 18:06 Acuity: EMELIA 4 cm10 Triage Assessment: 18:08 General: Appears in no apparent distress. comfortable, Behavior is calm, cooperative. cm10 Pain: Complains of pain in anterior aspect of right shoulder Pain radiates to right arm Pain currently is 8 out of 10 on a pain scale. Pain began years ago. Neuro: No deficits noted. Level of Consciousness is awake, alert, obeys commands, Oriented to person, place, time, situation, Appropriate for age. Respiratory: No deficits noted. Airway is patent Respiratory effort is even, unlabored, Respiratory pattern is regular, symmetrical. Historical: - Allergies: 18:07 Iodine; cm10 18:07 Codeine; cm10 - PMHx: 18:07 Arthritis; Atrial Fib; BURSITIS; Diabetes - NIDDM; Gout; Hypertension; cm10 - PSHx: 18:07 Total abdominal hysterectomy; cm10 - Immunization history:: Adult Immunizations up to date. - Infectious Disease History:: Denies. - Social history:: Smoking status: unknown. Screenin:42 [facility] ED Fall Risk Assessment (Adult) History of falling in the last 3 months, lg3 including since admission No falls in past 3 months (0 pts) Confusion or Disorientation No (0 pts) Intoxicated or Sedated No (0 pts) Impaired Gait Yes (1 pt) Mobility Assist Device Used Yes (1 pt) Altered Elimination No (0 pt) Score/Fall Risk Level 0 - 2 = Low Risk Oriented to surroundings, Maintained a safe environment, Educated pt \T\ family on fall prevention, incl call for assistance when getting out of bed, Assessed \T\ reinforced patient's understanding of fall precautions. Abuse screen: Denies threats or abuse. Denies injuries from another. Nutritional screening: No deficits noted. Tuberculosis screening: No symptoms or risk factors identified. Assessment: 19:42 General: Appears in no apparent distress. comfortable, Behavior is calm, cooperative. lg3 Pain: Complains of pain in right shoulder. Neuro: No deficits noted. Cohen Agitation-Sedation Scale (RASS): 0 - Alert and Calm Level of Consciousness is awake, alert, obeys commands, Oriented to person, place, time, situation. Cardiovascular: No deficits noted. Denies chest pain, shortness of breath, Capillary refill < 3 seconds Clubbing of nail beds is absent JVD is absent Patient's skin is warm and dry. Respiratory: No deficits noted. Airway is patent Respiratory effort is even, unlabored, Respiratory pattern is regular, symmetrical. GI: No deficits noted. No signs and/or symptoms were reported involving the gastrointestinal system. : No signs and/or symptoms were reported regarding the genitourinary system. EENT: No deficits noted. No signs and/or symptoms were reported regarding the EENT system. Derm: No deficits noted. No signs and/or symptoms reported regarding the dermatologic system. Skin is intact, is healthy with good turgor, Skin is dry, Skin is normal, Skin temperature is warm. Musculoskeletal: Circulation, motion, and sensation intact. Range of motion: intact in all extremities, Reports pain in right shoulder. Vital Signs: 18:07 BP 150 / 68; Pulse 66; Resp 15; Temp 97.3; Pulse Ox 100% on R/A; Weight 78.02 kg; cm10 Height 4 ft. 11 in. ; Pain 8/10; 19:42 BP 141 / 74; Pulse 69; Resp 16 S; Pulse Ox 100% on R/A; lg3 18:07 Body Mass Index 34.74 (78.02 kg, 149.86 cm) cm10 18:07 Pain Scale: Adult cm10 ED Course: 17:34 Patient arrived in ED. sj2 17:47 Victor Hugo Paniagua PA is PHCP. cp 17:47 Masood Bobo MD is Attending Physician. cp 18:07 Triage completed. cm10 18:08 Arm band placed on right wrist. Patient placed in waiting room. cm10 18:49 XRAY Shoulder RIGHT 2 view In Process Unspecified. EDMS 19:24 Wesley Ash MD is Referral Physician. cp 19:42 Patient has correct armband on for positive identification. lg3 19:42 No provider procedures requiring assistance completed. Patient did not have IV access lg3 during this emergency room visit. Administered Medications: 19:44 Drug: Acetaminophen PO 1000 mg PO once Route: PO; lg3 19:50 Follow up: Response: No adverse reaction lg3 19:44 Drug: traMADol PO 50 mg PO once Route: PO; lg3 19:50 Follow up: Response: No adverse reaction lg3 19:44 Drug: Methocarbamol PO 750 mg PO once Route: PO; lg3 19:50 Follow up: Response: No adverse reaction lg3 Medication: 19:42 VIS not applicable for this client. lg3 Outcome: 19:24 Discharge ordered by MD. 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 medication usage, Demonstrated understanding of instructions, follow-up care, medications, Prescriptions given X 2, 19:50 Patient left the ED. lg3 Signatures: Dispatcher [employer] EDOH Victor Hugo Paniagua PA PA cp Able, Lacie, RN RN lg3 Ilana Sams, RN RN cm10 Abraham Callahan sj2
--- NOTE | 2025-01-18 19:24 | EDPHYS ---
Physician Documentation [facility] Name: Patti Frey Age: 79 yrs Sex: Female : 1945 Arrival Date: 01/18/2025 Time: 17:30 Bed DX3 Private MD: ED Physician Masood Bobo HPI: 01/18 18:20 This 79 yrs old Black Female presents to ER via Wheelchair with complaints of Shoulder cp Pain. 18:20 The patient or guardian complains of pain, that is chronic. right shoulder. cp 18:20 Context: resulted from an unknown reason, The patient experiences decreased range of cp motion, when attempts to raise arm, The patient reports no obvious deformity. Onset: The symptoms/episode began/occurred for over 1 year. Associated signs and symptoms: Pertinent negatives: chest pain, Numbness in right hand and right arm Weakness in right hand and right arm. Severity of symptoms: in the emergency department the symptoms are unchanged, despite home interventions. 18:20 Treatment prior to arrival includes: no previous treatment. cp Historical: - Allergies: 18:07 Iodine; cm10 18:07 Codeine; cm10 - PMHx: 18:07 Arthritis; Atrial Fib; BURSITIS; Diabetes - NIDDM; Gout; Hypertension; cm10 - PSHx: 18:07 Total abdominal hysterectomy; cm10 - Immunization history:: Adult Immunizations up to date. - Infectious Disease History:: Denies. - Social history:: Smoking status: unknown. ROS: 18:25 MS/extremity: Positive for decreased range of motion, pain, tenderness, of the right cp shoulder, Negative for injury or acute deformity, 18:25 Constitutional: Negative for body aches, chills, fever, poor PO intake, cp 18:25 Neck: Negative for pain with movement, pain at rest, stiffness, 18:25 Cardiovascular: Negative for chest pain, edema, palpitations, 18:25 Back: Negative for injury or acute deformity, pain at rest, pain with movement, 18:25 Neuro: Negative for headache, numbness, tingling, weakness, 18:25 All other systems are negative, Exam: 18:30 Constitutional: The patient appears in no acute distress, alert, non-diaphoretic, cp non-toxic, well developed, well nourished, uncomfortable, 18:30 Head/Face: Normocephalic, atraumatic. cp 18:30 Neck: ROM/movement: is normal, is supple, without pain, no range of motions limitations, 18:30 Chest/axilla: Inspection: normal, Palpation: is normal, no crepitus, no tenderness, 18:30 Cardiovascular: Rate: normal, Pulses: Pulses are 2+ in right radial artery. 18:30 Respiratory: the patient does not display signs of respiratory distress, Respirations: normal, no use of accessory muscles, no retractions, labored breathing, is not present, Breath sounds: are clear throughout, no decreased breath sounds, no stridor, no wheezing, 18:30 Abdomen/GI: Inspection: abdomen appears normal, 18:30 Back: pain, that is moderate, of the right trapezius and right scapular area, 18:30 Musculoskeletal/extremity: Extremities: noted in the right shoulder: decreased ROM, pain, There is no evidence of deformity, ROM: limited passive range of motion due to pain, in the right shoulder, the right hand and right arm Sensation intact. 18:30 Skin: cellulitis, is not appreciated, no rash present. 18:30 Neuro: Orientation: to person, place \T\ time. Mentation: is normal, Vital Signs: 18:07 BP 150 / 68; Pulse 66; Resp 15; Temp 97.3; Pulse Ox 100% on R/A; Weight 78.02 kg; cm10 Height 4 ft. 11 in. ; Pain 8/10; 19:42 BP 141 / 74; Pulse 69; Resp 16 S; Pulse Ox 100% on R/A; lg3 18:07 Body Mass Index 34.74 (78.02 kg, 149.86 cm) cm10 18:07 Pain Scale: Adult cm10 MDM: 19:00 Differential diagnosis: tendonitis, bursitis, rotator cuff injury, frozen shoulder. cp 19:24 Medical Screening Exam initiated 19:24 Data reviewed: vital signs, nurses notes, radiologic studies, plain films, and as a cp result, I will discharge patient. 19:24 I considered the following discharge prescriptions or medication management in the emergency department Medications were administered in the Emergency Department. See MAR. Care significantly affected by the following chronic conditions: Diabetes, Hypertension. Counseling: I had a detailed discussion with the patient and/or guardian regarding the historical points, exam findings, and any diagnostic results supporting the discharge/admit diagnosis, radiology results, the need for outpatient follow up, for definitive care, a orthopedic surgeon, to return to the emergency department if symptoms worsen or persist or if there are any questions or concerns that arise at home. Response to treatment: the patient's symptoms have mildly improved after treatment, and as a result, I will discharge patient. 01/18 18:11 Order name: XRAY Shoulder RIGHT 2 view; Complete Time: 19:20 cp 01/18 19:20 Interpretation: Reviewed. cp 01/18 19:20 Order name: Sling; Complete Time: 19:44 cp Administered Medications: 19:44 Drug: Acetaminophen PO 1000 mg PO once Route: PO; lg3 19:50 Follow up: Response: No adverse reaction lg3 19:44 Drug: traMADol PO 50 mg PO once Route: PO; lg3 19:50 Follow up: Response: No adverse reaction lg3 19:44 Drug: Methocarbamol PO 750 mg PO once Route: PO; lg3 19:50 Follow up: Response: No adverse reaction lg3 Disposition: 01/19 19:19 Chart complete. cp Disposition Summary: 01/18/25 19:24 Discharge Ordered Notes: Location: Home cp Problem: chronic cp Symptoms: have improved cp Condition: Stable cp Diagnosis - Pain in right shoulder cp Followup: cp - With: Wesley Ash MD - When: 5 - 6 days - Reason: Recheck today's complaints Discharge Instructions: - Discharge Summary Sheet cp - Shoulder Pain cp - Shoulder Range of Motion Exercises cp Forms: - Medication Reconciliation Form cp - Antibiotic Education cp - Prescription Opioid Use cp - Patient Portal Instructions cp - Leadership Thank You Letter cp Prescriptions: - diclofenac sodium 3 % Topical gel - apply 1 application TOPICAL route every 12 hours for 8-10 days apply to right cp shoulder as directed; 60 gram; Refills: 0, Product Selection Permitted - methocarbamol 750 mg Oral tablet - take 1 tablet ORAL route 3 times per day; 30 tablet; Refills: 0, Product cp Selection Permitted Signatures: Dispatcher [employer] EDVictor Hugo Suazo PA PA cp Able, Lacie, RN RN lg3 Ilana Sams RN RN cm10
[2025-01-18] MEDS ORDERED: ACETAMINOPHEN 500 MG TAB ONE (19:37)
[2025-01-18] MEDS ORDERED: methocarbamoL 750 MG TAB ONE (19:38)
[2025-01-18] MEDS ORDERED: TRAMADOL HCL 50 MG TAB ONE (19:38)
[2025-01-18 19:55] VITALS: TEMP 97.3; O2SAT 100
[2025-01-18 19:56] VITALS: BP 141/74
== END 2025-01-18 19:50 | disposition home or self-care (01) ==
LOC: ER 17:30
DX: M25.511 Pain in right shoulder (principal)
CPT/HCPCS: 99283

== ENCOUNTER 2025-02-09 18:02 | Emergency (ER) | payer OTHER ==
--- OUTSIDE RECORDS SUMMARY | 2025-02-09 18:05 | XMS REPORT | Continuity of Care Document ---
Author Name Unknown Address [address] [facility] [address] [place] [address] [facility] Address [address] [facility] 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 Name Role Phone Miguelito Calixto Attending Clinician Unavailable Lianna Soto Attending Clinician Unavailable Miguelito Calixto Admitting Clinician Unavailable Lianna Soto Admitting Clinician Unavailable Payers Payer Name Policy Type Policy Number Effective Date Expirati on Date Source Allergies, Adverse Reactions, Alerts Allergy Name Allergy Type Status Severity Reaction(s) Onset Date Inactive Date Treating Clinician Comments Source No Known Allergie s DA Active U 2023-10 00:00: 00 [facility] Encounters Start Date/Time End Date/Time Encounter Type Admission Type Attending Clinicians Care Facility Care Department Encounter ID Source 2024-08-13 15:45:00 [facility] [id number] [facility] 2024-08-12 23:45:00 2024-08-14 14:45:00 [facility] [id number] [facility] Results Test Description Test Time Test Comments Results Result Co mments Source GLUCOSE BEDSIDE [id number] 07:57:00* Test Item Value Reference Range Interpretation Comme nts GLUCOSE BEDSIDE TESTING (montrell t code = GLUBED) 110 MG/DL 60-99 H GLUCOSE BEDSIDE [id number] 18:29:00* Test Item Value Reference Range Interpretation Comme nts GLUCOSE BEDSIDE TESTING (montrell t code = GLUBED) 121 MG/DL 60-99 H GLUCOSE BEDSIDE [id number] 16:15:00* Test Item Value Reference Range Interpretation Comme nts GLUCOSE BEDSIDE TESTING (montrell t code = GLUBED) 120 MG/DL 60-99 H GLUCOSE BEDSIDE [id number] 11:05:00* Test Item Value Reference Range Interpretation Comme nts GLUCOSE BEDSIDE TESTING (montrell t code = GLUBED) 98 MG/DL 60-99 N [id number] 09:08:00* Test Item Value Reference Range Interpretation Comme nts TROPONIN-I (test code = TROPI) 0.058 NG/ML 0.012-0.033 H "Please be aware that bias results for Troponin may occurfor patients who are taking Biotin supplements, causingfalsely low troponin results. Please screen for routineBiotin (Vitamin B7) supplements taken in rizwana doses (greaterthan 100-300mg/day) or beauty supplements." GLUCOSE BEDSIDE [id number] 07:40:00* Test Item Value Reference Range Interpretation [...] mg/dL HIGH.........160-189 mg/dL VERY HIGH.........>/= 190 mg/dL [id number] 07:12:00* Test Item Value Reference Range Interpretation Comme nts PHOSPHOROUS (test code = PHOS) 2.9 MG/DL 2.5-4.5 N [id number] 07:12:00* Test Item Value Reference Range Interpretation Comme nts MAGNESIUM (test code = MAG) 1.7 MG/DL 1.6-2.3 N THYROID STIMULATING [id number] 07:12:00* Test Item Value Reference Range Interpretation Comme nts THYROID STIMULATING HORMONE (test code = TSH) 0.559 MIU/L 0.465-4.68 N Please be aware that bias results for TSH may occur forpatient who are taking Biotin supplements. [id number] 07:12:00* Test Item Value Reference Range Interpretation Comme nts TROPONIN-I (test code = TROPI) 0.049 NG/ML 0.012-0.033 H "Please be aware that bias results for Troponin may occurfor patients who are taking Biotin supplements, causingfalsely low troponin results. Please screen for routineBiotin (Vitamin B7) supplements taken in rizwana doses (greaterthan 100-300mg/day) or beauty supplements." LIPOPROTEIN LDL [id number] 07:12:00* Test Item Value Reference Range Interpretation Comme nts LIPOPROTEIN LDL DIRECT (test code = LDLDIR) 100 mg/dL 100-129 N ========= R eference Interval: mg/dL mmol/L -----Optimal <100 <2.6Near/above optimal 100-129 2.6-3.3Borderline High 130-159 3.4-4.1High 160-189 4.1-4.9Very High >=190 >=4.9========= This LDL result is a direct measurement.======== = GLYCOSYLATED HEMOGLOBIN [id number] 04:59:00* Test Item Value Reference Range Interpretation [...] MBG) 126 MG/DL 70-110 H COMPREHENSIVE METABOLIC [id number] 22:59:00* Test Item Value Reference Range Interpretation [...] calculation forGFR is based on the CKD-EPI (2020) calculation. This formulais race indifferent and is [...] code = ALKP) 142 UNITS/L 38-126 H [id number] 22:59:00* Test Item Value Reference Range Interpretation Comme nts TROPONIN-I (test code = TROPI) 0.045 NG/ML 0.012-0.033 H "Please be aware that bias results for Troponin may occurfor patients who are taking Biotin supplements, causingfalsely low troponin results. Please screen for routineBiotin (Vitamin B7) supplements taken in rizwana doses (greaterthan 100-300mg/day) or beauty supplements." CBC W/AUTO [id number] 22:22:00* Test Item Value Reference Range Interpretation [...] code = NRBC#) 0.00 K/mm3 0.0-0.1 N Notes Date/Time Note Provider Source 2024-08-14 20:08:00 [facility] ([facility]) Hospitalist Discharge Summary REPORT#:[id number] REPORT STATUS: Signed REPORT INITIALIZATION DATE:08/14/24 TIME: 2007 PATIENT: CASSIE HUBER UNIT #: [id number] ROOM/BED: [address] : [address] AGE: 78 SEX: F [...] to groin Order L-spine CT As needed [place] for pain #DM type II Resume Tradjenta. Start SSI #Obesity Oil Changer on diet and lifestyle modifications #Anemia, unknown type and chronicity Monitor hemoglobin, transfuse for hemoglobin less than 7 VTE ppx: Lovenox Pt is full Code. Pt has advance directive documents. BERTIN Daughter Ilana # [phone] Dispo: likely dc home, pending clinical improvement Med Rec Med Rec Discharge meds: Continue taking these medications: PROBENECID (BENEMID) 500 MG TAB 0.5 GRAM ORAL DAILY. Comments: TAKE 1 TABLET BY MOUTH EVERY DAY; #30 - SIG Obtained From [facility] PANTOPRAZOLE DR (PROTONIX) 40 MG TAB.DR 40 MILLIGRAM ORAL DAILY. Comments: #90 - SIG Obtained From [facility] traMADol (ULTRAM) 50 MG TAB 50 MILLIGRAM ORAL EVERY 12 HR NEEDED. as needed for pain Comments: TAKE 1 TABLET BY MOUTH EVERY 12 HOURS NEEDED; #60 - SIG Obtained From [facility] LINAGLIPTIN (TRADJENTA) 5 MG TAB 5 MILLIGRAM ORAL DAILY. Comments: TAKE 1 TABLET BY MOUTH EVERY DAY; #90 - SIG Obtained From [facility] amLODIPine (NORVASC) 2.5 MG TAB 2.5 MILLIGRAM [...] EVERY DAY; #30 - SIG Obtained From [facility] ATORVASTATIN (LIPITOR) 40 MG TAB 40 MILLIGRAM ORAL BEDTIME. Comments: TAKE 1 TABLET BY MOUTH EVERY DAY FOR 30 DAYS; #90 - SIG Obtained From [facility] Objective VS/I O Last Documented: Result Date [...] bilateral back muscle tenderness, lumbar midline tenderness Neuro/DECORATING MACHINE OPERATOR: alert, oriented X 3, normal speech, no motor deficits, no sensory deficits Skin: dry, normal color, normal temperature Psychiatry: normal affect, normal judgment/insight, normal mood Discharge Instructions PCP PCP follow-up: PCP: Napoleon Pineda MD Discharge to: Home/Self Care Additional Discharge Routines: PCP Follow-Up, Ve Teacher Follow-Up Diet: Cardiac Prescriptions: e-prescribe Discharge management: greater than 30 mins, face to face encounter Time spent: Time spent on patient care (minutes): 36 >50% spent on counseling/coordination of care: yes Follow-up Appointments PCP follow-up: PCP: No Primary or Family Physician PCP follow up timeframe: In 1-2 weeks Consulting provider 1: Provider 1: Cyril Gale MD Cardiology Specialty: CardiologyInterventional Consult follow up [...] BMI, pt to F/U w/PCP at 0047 [facility] #:[id number] END OF REPORT [facility] 2024-08-14 07:50:00 [id number] [address] PATIENT NAME: CASSIE HUBER ADMIT DATE: 08/12/24 ACCOUNT NO: [id number] ROOM NO: Z.363 AGE: 78 REPORT TYPE: ELECTROCARDIOGRAM SEX: F ADMITTING PHYSICIAN:Lianna Soto MD ATTENDING PHYSICIAN:Lianna Soto MD Order: [id number] Test Reason : CAD Test Date/Time Stamp: [...] No previous ECGs available Confirmed by CYRIL GALE ([id number]) on 08/14/2024 5:20:58 PM Referred By: Self Referred Confirmed by:CYRIL GALE at 1720 PATIENT NAME: CASSIE HUBER [facility] 2024-08-14 06:18:00 [id number] [address] PATIENT NAME: CASSIE HUBER ADMIT DATE: 08/12/24 ACCOUNT NO: [id number] ROOM NO: Z.363 AGE: 78 REPORT TYPE: ECHOCARDIOGRAM SEX: F ADMITTING PHYSICIAN:Lianna Soto MD ATTENDING PHYSICIAN:Lianna Soto MD *[facility]* [address] [place], [place] [id number] Transthoracic Echocardiogram Patient: Cassie Huber Study Date: 08/13/2024 BP: 167 / 100 URN: [id number] Location: : 1945 Age: 78 Gender: F Height: 59 in / 149.9 cm Weight: 180 lb / 81.6 kg BMI/BSA: 36.4 kg/m 2 / 1.89 m 2 *Ordering Physician: Napoleon Gaytan MD *Interpreting Physician: * Cyril Gale MD *Food Products Tester: * Justin Fong Indications: CAD. Study data: Transthoracic echocardiogram. Procedure: A transthoracic echocardiogram was performed. Images were obtained using a [employer] cardiac ultrasound machine. Image quality was adequate. [...] 3.9 cm 2.7 - 3.8 PATIENT NAME: CASSIE HUBER Aortic valve Value Ref Peak v, S [...] I diastolic dysfunction. Electronically signed by Cyril Gale MD 08/14/2024 06:18 at 0618 PATIENT NAME: CASSIE HUBER [facility] 2024-08-14 05:31:00 [facility] Cardiology Progress Note REPORT#:[id number] REPORT STATUS: Signed REPORT INITIALIZATION DATE:08/14/24 TIME: 530 PATIENT: CASSIE HUBER UNIT #: [id number] ROOM/BED: [address] : 47 AGE: 78 SEX: F ATTEND: Lianna Soto MD ADM AUTHOR: Napoleon Pineda MD REPT SERVICE DT/TIME: 08/14/24530 * ALL edits or amendments must be made on the electronic/computer document * Subjective Patient reports: No: chest pain, palpitations, shortness of breath. Objective General VS/I O: Vital Signs: Date Time Temp Pulse Resp B/P B/P Pulse O2 O2 Flow FiO2 Mean Ox Delivery Rate 08/14 517 98.1 08/14 401 49 18 125/60 86 08/14 0300 52 [...] no edema Musculoskeletal: full range of motion Neuro/DECORATING MACHINE OPERATOR: alert, oriented X 3, CN II-XII intact [...] PLAN: Review Echo d/c planning. at 0944 [facility] #:[id number] END OF REPORT [facility] 2024-08-13 08:19:00 [id number] [place] [address] PATIENT NAME: CASSIE HUBER ADMIT DATE: 08/12/24 ACCOUNT NO: [id number] ROOM NO: [facility] AGE: 78 REPORT TYPE: CONSULTATION REPORT [...] and hyperlipidemia. She was brought to the [place] [facility] yesterday afternoon via EMS after [...] Dictated: 08/13/2024 08:19:00 Date Transcribed: 08/13/2024 08:56:13 GSP/LRS Receipt ID: [id number] Authenticated and Edited by Napoleon Pineda MD On 08/13/24 4:00:39 PM at 0401 PATIENT NAME: CASSIE HUBER [facility] 2024-08-13 00:53:00 [facility] Hospitalist History Physical REPORT#:[id number] REPORT STATUS: Signed REPORT INITIALIZATION DATE:08/13/24 TIME: 52 PATIENT: CASSIE HUBER UNIT #: [id number] ROOM/BED: [address] : 47 AGE: 78 SEX: F ATTEND: Lianna Soto MD ADM AUTHOR: Elida Mireles REPT SERVICE DT/TIME: 08/13/2452 * ALL edits or amendments must be made on the electronic/computer document * Elida Mireles 08/13/243: History of Present Illness HPI Chief complaint: [...] DAILY 08/13/24 (PROTONIX) 0606 Strength: 40 MG TAB.DR traMADol (ULTRAM) 50 MG PO 08/13/24 Strength: [...] 2101 Amlodipine Besylate 2.5 MG DAILY 08/13 900 UNV (NORVASC) PO 09/12 901 Metoprolol Tartrate 50 MG BID 08/13 900 UNV (LOPRESSOR) PO 09/12 901 Nitroglycerin 0.4 MG Q5M PRN PRN 08/13 0055 AC (NITROSTAT) SL 09/12 005 Central Nervous System Agents Sig/Tavo Start time [...] bilateral back muscle tenderness, lumbar midline tenderness Neuro/DECORATING MACHINE OPERATOR: alert, oriented X 3, normal speech, no [...] % (Auto) (14 - 44 %) 29.5 Warrick % (Auto) (4 - 13 %) 7.4 Eos % (Auto) (0 - 6 %) 1.4 Baso % (Auto) (0 - 2 %) 0.5 Neut # (Auto) (2.0 - 7.6 K/mm3) 3.43 Lymph # (Auto) (1.0 - 3.8 K/mm3) 1.67 Warrick # (Auto) (0.1 - 0.8 K/mm3) 0.42 [...] to groin Order L-spine CT As needed [place] for pain #DM type II Resume Tradjenta. Start SSI #Obesity Oil Changer on diet and lifestyle modifications #Anemia, unknown type and chronicity Monitor hemoglobin, transfuse for hemoglobin less than 7 VTE ppx: Lovenox Pt is full Code. Pt has advance directive documents. BERTIN Daughter Ilana # [phone] Dispo: likely dc home, pending clinical improvement Quality: Gen Med Crit Care VTE Prophylaxis VTE prophylaxis initiated: yes Current Medications Current medication review: I attest that the foregoing medication list in the medical record is true, accurate, and complete to the best of my knowledge. Advanced Care Plan 65 or Older Discussed with: patient Discussion included: living will, power of assistant district attorney, code status BMI Screening > 25 [...] the note. at 0821 at 0046 RPT #:[id number] END OF REPORT [facility] 2024-08-13 00:42:00 [facility] ([facility]) EMERGENCY PROVIDER REPORT REPORT#:[id number] REPORT STATUS: Signed DATE:08/13/24 TIME: 41 PATIENT: CASSIE HUBER UNIT #: [id number] ROOM/BED: [address] : 47 AGE: 78 SEX: F PCP PHYS: Napoleon Pineda MD SERVICE AUTHOR: Zuly Saldana MD LOCATION: [facility] TM: 0042 * ALL edits or [...] % (Auto) (14 - 44 %) 29.5 [place]rick % (Auto) (4 - 13 %) 7.4 Eos % (Auto) (0 - 6 %) 1.4 Baso % (Auto) (0 - 2 %) 0.5 Neut # (Auto) (2.0 - 7.6 K/mm3) 3.43 Lymph # (Auto) (1.0 - 3.8 K/mm3) 1.67 Warrick # (Auto) (0.1 - 0.8 K/mm3) 0.42 [...] 82 08/12 2300 Resp 16 08/12 2300 All vital signs available at the time of this entry have been reviewed. Clinical Impression Clinical Impression Primary Impression: NSTEMI (non-ST elevated myocardial infarction) Disposition Decision Hospitalize )( Accepts Hospitalization Yes )( Reason for Hospitalization nstemi )( Accepted Time 0043 )( Accepted Date 08/13/24 Call Information will see patient, agrees with eval, agrees with plan at 0533 RPT #:[id number] END OF REPORT [facility]
--- NOTE | 2025-02-09 19:31 | RAD REPORT ---
Procedure: Chest Single View HISTORY: Cough COMPARISON: 2023 FINDINGS: The lungs appear clear of acute infiltrate. No significant pleural effusion noted. The heart is moderately enlarged. IMPRESSION: No acute abnormality is displayed.
--- NOTE | 2025-02-09 19:32 | RAD REPORT ---
Exam:Forearm Right Clinical history: Right forearm pain Findings: No fracture is seen. No bony lesion noted. Negative ulnar variance present.
[2025-02-09] MEDS ORDERED: ACETAMINOPHEN 325 MG TABLET ONE (20:18)
[2025-02-09] MEDS ORDERED: VANCOMYCIN 1 GM/VIAL ONE (20:18)
[2025-02-09] MEDS ORDERED: ONDANSETRON 4 MG/2 ML VIAL ONE (20:18)
[2025-02-09] MEDS ORDERED: NA CHLORIDE 0.9% 250 ML ONE (20:19)
[2025-02-09] MEDS ORDERED: FAMOTIDINE 20 MG/2 ML VIAL IV ONE (20:19)
[2025-02-09] MEDS ORDERED: NA CHLORIDE 0.9% 2,000 ML ONE (20:20)
[2025-02-09] MEDS ORDERED: CEFEPIME 1 GM/VIAL ONE (20:20)
[2025-02-09] MEDS ORDERED: NA CHLORIDE 0.9% 100 ML ONE (20:20)
[2025-02-09] MEDS ORDERED: FENTANYL CITR 100 MCG/2 ML ONE (20:27)
[2025-02-09 21:02] LABS: Absolute Basophils 0.1 K/uL (0-0.5); Absolute Eosinophils 0.1 K/uL (0-0.5); Absolute Lymphocytes (CBC) 2.1 K/uL (0.7-4.9); Absolute Monocytes 0.7 K/uL (0.1-1.3); Absolute Neutrophil 5.3 K/uL (1.8-8.0); Basophils % 0.8 % (0-1.3); Eosinophils % 1.5 % (0-4.4); Hematocrit 26.8 % (36.0-45.0); Hemoglobin 8.9 g/dL (12.0-15.0); Lymphocytes % 24.9 % (15.3-44.8); MCH 26.1 pg (27.0-35.0); MCHC 33.4 g/dL (32.0-36.0); MCV 78.2 fL (80-100); MPV 8.3 fL (7.6-11.3); Monocytes % 8.6 % (3.3-12.3); Neutrophils % 64.2 % (41.7-73.7); Platelets 247 thou/uL (152-406); RBC Red Blood Cell Count 3.42 M/uL (3.86-4.86)
[2025-02-09 21:08] LABS: PT Prothrombin Time 14.2 SECONDS (10-13.0); Protime INR 1.26
[2025-02-09 21:09] LABS: Specific Gravity 1.009 (1.005-1.030); Sqamous Epithelial <5 /HPF (None Seen); Urine Bacteria <20 /HPF (<20); Urine Bilirubin NEGATIVE (Negative); Urine Blood Trace (Negative); Urine Clarity Turbid (Clear); Urine Color Light-Yellow (Yellow); Urine Culture Reflex Order NOT NEEDED; Urine Glucose NEGATIVE (Negative); Urine Ketones NEGATIVE (Negative); Urine Microscopic Reflex YN ORDER UMIC; Urine Mucus Slight /HPF (None Seen); Urine Nitrite NEGATIVE (Negative); Urine Protein 1+ (Negative); Urine RBC <5 /HPF (None Seen); Urine Urobilinogen Normal (Normal); Urine WBC <5 /HPF (<5); Urine Yeast (Budding) Trace /HPF (None Seen); Urine pH 5.5 (5.0-7.0)
[2025-02-09 21:26] LABS: Albumin/Globulin Ratio 0.6 (1.1-1.8); Alkaline Phosphatase 135 U/L (45-117); Anion Gap 7.8 mEq/L (5.0-15.0); BUN Blood Urea Nitrogen 27 mg/dL (7-18); Bicarbonate 25 mEq/L (21-32); Bilirubin Total 0.3 mg/dL (0.2-1.0); Glomerular Filtration Rate 31 ml/min (=/>90); Glucose Level 108 mg/dL (74-106); Lipase 36 U/L (13-75); NT PRO-BNP 651 pg/mL (<450); Potassium 3.8 mEq/L (3.5-5.1); Sodium Level 139 mEq/L (136-145); Troponin High Sensitivity 164.4 pg/mL (<58.9); Uric Acid 7.7 mg/dL (2.6-6.0)
[2025-02-09 21:27] LABS: ALT/SGPT < 14 U/L (13-56); AST/SGOT < 10 U/L (15-37); Bilirubin Direct < 0.2 mg/dL (0-0.2); Bilirubin Indirect, Calculated 0.1 mg/dL (0.2-0.8)
--- NOTE | 2025-02-09 22:35 | RAD REPORT ---
EXAMINATION: UPPER EXTREMITY VENOUS UNILATE CLINICAL INDICATION: Arm pain TECHNIQUE: Complete bilateral duplex sonography of the right upper extremity veins was performed. The examination included compression for vein patency, color Doppler imaging and flow augmentation in response to distal compression of the internal jugular,, subclavian, axillary, brachial, radial, ulna r, cephalic and basilic veins. .Grayscale, color and spectral analysis performed on all vessels COMPARISON: No prior exam. FINDINGS: The internal jugular, subclavian, axillary, brachial, basilic, cephalic, radial and ulnar veins are g enerally compressible and demonstrate augmentation. Color Doppler demonstrates good flow. IMPRESSION: No evidence of venous thrombus right upper extremity
--- NOTE | 2025-02-09 23:07 | EDPHYS ---
Physician Documentation [facility] Name: Patti Frey Age: 79 yrs Sex: Female : 1945 Arrival Date: 02/09/2025 Time: 18:02 Bed 17 Private MD: ED Physician Rishabh Petit HPI: 02/09 19:11 This 79 yrs old Black Female presents to ER via EMS with complaints of red arm . sp4 19:16 Patient presents with 4 days of right hand wrist and forearm redness swelling sp4 tenderness and pain. 02/10 22:10 . sp4 Historical: - Allergies: 02/09 18:13 Codeine; ll1 18:13 Iodine; ll1 - PMHx: 18:13 Arthritis; BURSITIS; Diabetes - NIDDM; Atrial Fib; Gout; Hypertension; ll1 - PSHx: 18:13 Total abdominal hysterectomy; ll1 - Immunization history:: Adult Immunizations up to date. - Infectious Disease History:: Denies. - Social history:: Smoking status: Patient denies any tobacco usage or history of. - Family history:: not pertinent. ROS: 02/10 22:10 Constitutional: Negative for fever, chills, and weight loss, positive for right hand sp4 and wrist forearm redness swelling tenderness All other systems are negative, Exam: 22:10 Constitutional: Frail elderly female, legally blind, able to discriminate light a nd sp4 dark. Patient has right hand wrist forearm redness swelling tenderness. Moderate physical deconditioning secondary to immobility Head/Face: Normocephalic, atraumatic. Eyes: Pupils equal round and reactive to light patient is able to discriminate light and dark. Otherwise patient is blind ENT: Nares patent. No nasal discharge, no septal abnormalities noted. Tympanic membranes are normal and external auditory canals are clear. Oropharynx with no redness, swelling, or masses, exudates, or evidence of obstruction, uvula midline. Mucous membranes moist. Neck: Trachea midline, no thyromegaly or masses palpated, and no cervical lymphadenopathy. Supple, full range of motion without nuchal rigidity, or vertebral point tenderness. Chest/axilla: Normal chest wall appearance and motion. Nontender with no deformity. No lesions are appreciated. Cardiovascular: Regular rate and rhythm with a normal S1 and S2. No gallops, murmurs, or rubs. Normal PMI, no JVD. No pulse deficits. Respiratory: Lungs have equal breath sounds bilaterally, clear to auscultation and percussion. No rales, rhonchi or wheezes noted. No increased work of breathing, no retractions or nasal flaring. Abdomen/GI: Soft, with normal bowel sounds. No distension or tympany. No guarding or rebound. No evidence of tenderness throughout. Back: No spinal tenderness. No costovertebral tenderness. Skin: Warm, dry with normal turgor. Normal color with no rashes, no lesions, positive right hand cellulitic changes MS/ Extremity: Pulses equal, no cyanosis. Neurovascular intact. Full, normal range of motion. Positive right hand forearm and wrist redness tenderness and swelling consistent with cellulitis. Neuro: Awake and alert, GCS 15, oriented to person, place, patient is blindness limits exam. No new neurologic deficits reported. Vital Signs: 02/09 18:11 BP 166 / 69; Pulse 67; Resp 17; Temp 99.5; Pulse Ox 100% on R/A; Weight 78.02 kg; ll1 Height 4 ft. 11 in. ; Pain 10/10; 20:30 BP 164 / 70; Pulse 60; Resp 20; Pulse Ox 98% on R/A; kj2 21:30 BP 158 / 68; Pulse 58; Resp 18; Pulse Ox 100% ; kj2 22:44 BP 115 / 73; Pulse 72; Resp 20; Pulse Ox 100% ; kj2 23:52 BP 143 / 74; Pulse 70; Resp 18; Temp 98; Pulse Ox 100% ; kj2 18:11 Body Mass Index 34.74 (78.02 kg, 149.86 cm) ll1 18:11 Pain Scale: Adult ll1 [place] Coma Score: 02/10 22:10 Eye Response: spontaneous(4). Motor Response: obeys commands(6). Verbal Response: sp4 oriented(5). Total: 15. MDM: 02/09 18:47 Medical Screening Exam initiated zaria 02/10 22:10 Differential diagnosis: abscess, allergic reaction, cellulitis, insect bite. Data sp4 reviewed: vital signs, nurses notes, lab test result(s), radiologic studies. 22:15 Consideration of Admission/Observation Escalation of care including sp4 admission/observation considered. ED course: Radiologic exam today are unremarkable. No DVT. Troponin is at patient's baseline. Patient is stable for discharge home with p.o. Bactrim and Keflex.. 02/09 18:50 Order name: Basic Metabolic Panel; Complete Time: 22:47 [facility] 02/09 18:50 Order name: CBC with Diff; Complete Time: 22:47 [facility] 02/09 18:50 Order name: LFT's; Complete Time: 22:47 02/09 18:50 Order name: Magnesium; Complete Time: 22:47 zaria 02/09 18:50 Order name: NT PRO-BNP; Complete Time: 22:47 zaria 02/09 18:50 Order name: PT-INR; Complete Time: 22:47 zaria 02/09 18:50 Order name: Troponin HS; Complete Time: 22:47 [facility] 02/09 18:50 Order name: Lipase; Complete Time: 22:47 [facility] 02/09 18:50 Order name: Lactate w/ 2H reflex if indic.; Complete Time: 22:47 [facility] 02/09 18:50 Order name: Blood Culture Adult (2) [facility] 02/09 18:50 Order name: Uric Acid; Complete Time: 22:47 [facility] 02/09 18:50 Order name: Urinalysis w/ reflexes; Complete Time: 22:47 zaria 02/09 18:50 Order name: XRAY Chest (1 view); Complete Time: 22:47 [facility] 02/09 18:52 Order name: Forearm Right XRAY; Complete Time: 22:47 [facility] 02/09 21:35 Order name: UPPER EXTREMITY VENOUS UNILATE; Complete Time: 22:47 EDMS 02/09 18:50 Order name: EKG; Complete Time: 18:51 [facility] 02/09 18:50 Order name: Cardiac monitoring; Complete Time: 21:01 [facility] 02/09 18:50 Order name: EKG - Nurse/Tech; Complete Time: 22:30 [facility] 02/09 18:50 Order name: IV Saline Lock; Complete Time: 21:01 [facility] 02/09 18:50 Order name: Labs collected and sent; Complete Time: 21:01 [facility] 02/09 18:50 Order name: O2 Per Protocol; Complete Time: 21:01 [facility] 02/09 18:50 Order name: O2 Sat Monitoring; Complete Time: 21:01 zaria Administered Medications: 02/09 20:59 Drug: Ondansetron IVP 4 mg IVP once; over 2 minutes Route: IVP; Site: Other; kj2 23:49 Follow up: Response: No adverse reaction kj2 21:00 Drug: Acetaminophen PO 650 mg PO once Route: PO; kj2 23:50 Follow up: Response: No adverse reaction kj2 21:00 Drug: Famotidine IVP 20 mg IVP once; dilute with 10 mL 0.9% NaCl; give over 2 minutes kj2 Route: IVP; Site: Other; 23:50 Follow up: Response: No adverse reaction kj2 21:00 Not Given (Duplicate Order): fentanyl (pf)25 mcg IVP once kj2 21:00 Drug: fentaNYL (PF) IVP 25 mcg IVP once Route: IVP; Site: Other; kj2 23:49 Follow up: Response: No adverse reaction kj2 21:01 Drug: Cefepime IVPB 1 grams IVPB at 200 ml/hr once over 30 mins; (mix in NS 100 mL) kj2 Route: IVPB; Rate: 200 ml/hr; Infused Over: 30 mins; Site: Other; 23:50 Follow up: IV Status: Completed infusion; IV Intake: 100ml kj2 21:02 Drug: NS 0.9% IV (30 ml/kg) 30 ml/kg IV at bolus once; Sepsis Protocol; to be given as kj2 a bolus over 90 minutes Route: IV; Rate: bolus; Site: left jugular; 22:35 Drug: vancoMYCIN IVPB 1 grams IVPB once over 2 hrs Route: IVPB; Infused Over: 2 hrs; kj2 Site: left jugular; 23:50 Follow up: IV Status: Completed infusion; IV Intake: 250ml kj2 23:40 Drug: predniSONE PO 60 mg PO once Route: PO; kj2 23:40 Follow up: Response: Medication administered at discharge. kj2 23:40 Drug: HYDROcodone-acetaminophen PO 5 mg-325 mg 1 tabs PO once Route: PO; kj2 23:40 Follow up: Response: Medication administered at discharge. kj2 Disposition Summary: 02/09/25 23:07 Discharge Ordered Notes: Location: Home sp4 Problem: new sp4 Symptoms: have improved sp4 Condition: Stable sp4 Diagnosis - Cellulitis of right upper limb sp4 - Acute cellulitis right upper extremity, acute cellulitis of right hand and right sp4 wrist Followup: sp4 - With: Private Physician - When: 7 - 10 days - Reason: Recheck today's complaints Discharge Instructions: - Discharge Summary Sheet sp4 - Cellulitis, Adult sp4 Forms: - Patient Portal Instructions sp4 Prescriptions: - Cephalexin 500 mg Oral Capsule - take 1 capsule ORAL route every 12 hours for 10 days; 20 capsule; Refills: 0, sp4 Product Selection Permitted - Tramadol 50 mg Oral tablet - take 1 tablet ORAL route every 8 hours as needed; 30 tablet; Refills: 0, sp4 Product Selection Permitted - Bactrim DS 800-160 mg Oral Tablet - take 1 tablet ORAL route every 12 hours for 10 days; 20 tablet; Refills: 0, sp4 Product Selection Permitted - Prednisone 20 mg Oral Tablet - take 2 tablets ORAL route once daily for 5 days; 10 tablet; Refills: 0, Product sp4 Selection Permitted - ondansetron 8 mg Oral Tablet,disintegrating - take 1 tablet ORAL route every 8 hours; 30 tablet; Refills: 0, Product sp4 Selection Permitted Addendum: 02/11/2025 21:51 Addendum: EKG at 2219 EKG dated 02/09/2025 , normal sinus rhythm rate 70, left axis s p4 deviation, right bundle branch block, left ventricular hypertrophy, no ST elevation or depression, no ectopy, no signs of acute ischemia.. Signatures: Dispatcher [employer] EDMS Victor Hugo Lilly MD MD cha Lewis, Lynsay, RN RN ll1 Rishabh Petit MD MD sp4 Gloria Real RN RN kj2 Corrections: (The following items were deleted from the chart) 02/09 18:51 18:51 BASIC METABOLIC PANEL+C.LAB.BRZ ordered. EDMS EDMS 18:51 18:51 CBC+H.LAB.BRZ ordered. EDMS EDMS 18:51 18:51 HEPATIC FUNCTION+C.LAB.BRZ ordered. EDMS EDMS 18:51 18:51 MAGNESIUM+C.LAB.BRZ ordered. EDMS EDMS 18:51 18:51 PROBNP+C.LAB.BRZ ordered. EDMS EDMS 18:51 18:51 PROTIME (+INR)+COAG.LAB.BRZ ordered. EDMS EDMS 18:51 18:51 Troponin High Sensitivity+C.LAB.BRZ ordered. EDMS EDMS 18:51 18:51 LIPASE+C.LAB.BRZ ordered. EDMS EDMS 18:51 18:51 LACTATE+C.LAB.BRZ ordered. EDMS EDMS 18:51 18:51 BLOOD CULTURE*+BA.LAB.BRZ ordered. EDMS EDMS 18:51 18:51 URIC ACID+C.LAB.BRZ ordered. EDMS EDMS 18:51 18:51 Urinalysis+U.LAB.BRZ ordered. EDMS EDMS 21:35 18:51 Extremity Venous Uni Ltd+US.RAD.BRZ ordered. EDMS EDMS
--- NOTE | 2025-02-09 23:07 | ER ---
Nurse's Notes [facility] Name: Patti Frey Age: 79 yrs Sex: Female : 1945 Arrival Date: 02/09/2025 Time: 18:02 Bed 17 Private MD: Diagnosis: Cellulitis of right upper limb;Acute cellulitis right upper extremity, acute cellulitis of right hand and right wrist Presentation: 02/09 18:11 Chief complaint: Patient states: Pain to R shoulder, R back, and R leg for 3 days. RUE ll1 swelling, hot to touch now. Chief complaint: EMS states: fingerstick 130, BP 140/94. Coronavirus screen: Client denies travel out of the [place] in the last 14 days. At this time, the client does not indicate any symptoms associated with coronavirus-19. Ebola Screen: Patient denies travel to an Ebola-affected area in the 21 days before illness onset. Initial Sepsis Screen: Does the patient meet any 2 criteria? No. Patient's initial sepsis screen is negative. Does the patient have a suspected source of infection? No. Patient's initial sepsis screen is negative. Risk Assessment: Do you want to hurt yourself or someone else? Patient reports no desire to harm self or others. Onset of symptoms was February 07, 2025. 18:11 Method Of Arrival: EMS: [facility] 18:11 Acuity: EMELIA 3 ll1 Triage Assessment: 18:10 General: Appears uncomfortable, Behavior is calm, cooperative, appropriate for age. ll1 Pain: Complains of pain in R shoulder, R back, and R leg Pain currently is 10 out of 10 on a pain scale. Quality of pain is described as aching. Musculoskeletal: Reports swelling, severe pain RUE. Historical: - Allergies: 18:13 Codeine; ll1 18:13 Iodine; ll1 - PMHx: 18:13 Arthritis; BURSITIS; Diabetes - NIDDM; Atrial Fib; Gout; Hypertension; ll1 - PSHx: 18:13 Total abdominal hysterectomy; ll1 - Immunization history:: Adult Immunizations up to date. - Infectious Disease History:: Denies. - Social history:: Smoking status: Patient denies any tobacco usage or history of. - Family history:: not pertinent. Screenin:36 [facility] ED Fall Risk Assessment (Adult) History of falling in the last 3 months, kj2 including since admission No falls in past 3 months (0 pts) Confusion or Disorientation No (0 pts) Intoxicated or Sedated No (0 pts) Impaired Gait Yes (1 pt) Mobility Assist Device Used Yes (1 pt) Altered Elimination No (0 pt) Score/Fall Risk Level 0 - 2 = Low Risk Maintained a safe environment, Hourly rounding (assess needs \T\ fall precautionary measures) done. Abuse screen: Denies threats or abuse. Denies injuries from another. Nutritional screening: No deficits noted. Tuberculosis screening: No symptoms or risk factors identified. Assessment: 18:35 General: Appears in no apparent distress. Behavior is calm, cooperative. Pain: kj2 Complains of pain in right upper arm Pain currently is 5 out of 10 on a pain scale. Cardiovascular: Capillary refill < 3 seconds Patient's skin is warm and dry. Respiratory: Airway is patent Respiratory effort is unlabored. GI: No signs and/or symptoms were reported involving the gastrointestinal system. : No signs and/or symptoms were reported regarding the genitourinary system. 19:35 Reassessment: Patient appears in no apparent distress at this time. Patient and/or kj2 family updated on plan of care and expected duration. Pain level reassessed. Patient is alert, oriented x 3, equal unlabored respirations, skin warm/dry/pink. 20:30 Reassessment: Patient appears in no apparent distress at this time. Patient and/or kj2 family updated on plan of care and expected duration. Pain level reassessed. Patient is alert, oriented x 3, equal unlabored respirations, skin warm/dry/pink. 20:30 Reassessment: 20g IV into Left Jugular inserted by . kj2 21:30 Reassessment: Patient appears in no apparent distress at this time. Patient and/or kj2 family updated on plan of care and expected duration. Pain level reassessed. Patient is alert, oriented x 3, equal unlabored respirations, skin warm/dry/pink. 22:45 Reassessment: Patient appears in no apparent distress at this time. Patient and/or kj2 family updated on plan of care and expected duration. Pain level reassessed. Patient is alert, oriented x 3, equal unlabored respirations, skin warm/dry/pink. 23:51 Reassessment: Patient appears in no apparent distress at this time. Patient and/or kj2 family updated on plan of care and expected duration. Pain level reassessed. Patient is alert, oriented x 3, equal unlabored respirations, skin warm/dry/pink. Vital Signs: 18:11 BP 166 / 69; Pulse 67; Resp 17; Temp 99.5; Pulse Ox 100% on R/A; Weight 78.02 kg; ll1 Height 4 ft. 11 in. ; Pain 10/10; 20:30 BP 164 / 70; Pulse 60; Resp 20; Pulse Ox 98% on R/A; kj2 21:30 BP 158 / 68; Pulse 58; Resp 18; Pulse Ox 100% ; kj2 22:44 BP 115 / 73; Pulse 72; Resp 20; Pulse Ox 100% ; kj2 23:52 BP 143 / 74; Pulse 70; Resp 18; Temp 98; Pulse Ox 100% ; kj2 18:11 Body Mass Index 34.74 (78.02 kg, 149.86 cm) ll1 18:11 Pain Scale: Adult ll1 [place] Coma Score: 02/10 22:10 Eye Response: spontaneous(4). Motor Response: obeys commands(6). Verbal Response: sp4 oriented(5). Total: 15. ED Course: 02/09 18:10 Patient arrived in ED. ll1 18:13 Triage completed. ll1 18:16 Arm band placed on. ll1 18:35 Gloria Real, RN is Primary Nurse. kj2 18:37 Patient has correct armband on for positive identification. Bed in low position. Call kj2 light in reach. Adult w/ patient. Provided Education on: call light. 18:47 Victor Hugo Lilly MD is Attending Physician. zaria 19:11 Attending Physician role handed off by Victor Hugo Lilly MD sp4 19:11 Rishabh Petit MD is Attending Physician. sp4 19:12 XRAY Chest (1 view) In Process Unspecified. EDMS 19:12 Forearm Right XRAY In Process Unspecified. EDMS 22:24 UPPER EXTREMITY VENOUS UNILATE In Process Unspecified. EDMS 23:53 No provider procedures requiring assistance completed. kj2 23:55 IV discontinued, intact, bleeding controlled, No redness/swelling at site. Pressure kj2 dressing applied. Administered Medications: 20:59 Drug: Ondansetron IVP 4 mg IVP once; over 2 minutes Route: IVP; Site: Other; kj2 23:49 Follow up: Response: No adverse reaction kj2 21:00 Drug: Acetaminophen PO 650 mg PO once Route: PO; kj2 23:50 Follow up: Response: No adverse reaction kj2 21:00 Drug: Famotidine IVP 20 mg IVP once; dilute with 10 mL 0.9% NaCl; give over 2 minutes kj2 Route: IVP; Site: Other; 23:50 Follow up: Response: No adverse reaction kj2 21:00 Not Given (Duplicate Order): fentanyl (pf)25 mcg IVP once kj2 21:00 Drug: fentaNYL (PF) IVP 25 mcg IVP once Route: IVP; Site: Other; kj2 23:49 Follow up: Response: No adverse reaction kj2 21:01 Drug: Cefepime IVPB 1 grams IVPB at 200 ml/hr once over 30 mins; (mix in NS 100 mL) kj2 Route: IVPB; Rate: 200 ml/hr; Infused Over: 30 mins; Site: Other; 23:50 Follow up: IV Status: Completed infusion; IV Intake: 100ml kj2 21:02 Drug: NS 0.9% IV (30 ml/kg) 30 ml/kg IV at bolus once; Sepsis Protocol; to be given as kj2 a bolus over 90 minutes Route: IV; Rate: bolus; Site: left jugular; 22:35 Drug: vancoMYCIN IVPB 1 grams IVPB once over 2 hrs Route: IVPB; Infused Over: 2 hrs; kj2 Site: left jugular; 23:50 Follow up: IV Status: Completed infusion; IV Intake: 250ml kj2 23:40 Drug: predniSONE PO 60 mg PO once Route: PO; kj2 23:40 Follow up: Response: Medication administered at discharge. kj2 23:40 Drug: HYDROcodone-acetaminophen PO 5 mg-325 mg 1 tabs PO once Route: PO; kj2 23:40 Follow up: Response: Medication administered at discharge. kj2 Medication: 18:37 VIS not applicable for this client. kj2 Intake: 23:50 IV: 250ml; Total: 250ml. kj2 23:50 IV: 100ml; Total: 350ml. kj2 Outcome: 23:07 Discharge ordered by MD. sp4 23:55 Discharged to home via wheelchair, kj2 23:55 Condition: stable 23:55 Discharge instructions given to patient, family, Instructed on discharge instructions, follow up and referral plans. Demonstrated understanding of instructions, follow-up care, 23:56 Patient left the ED. kj2 Signatures: Dispatcher [employer] EDVictor Hugo Valladares MD MD cha Lewis, Lynsay, RN RN ll1 Rishabh Petit MD MD sp4 Gloria Real RN RN kj2
[2025-02-09] MEDS ORDERED: predniSONE 20 MG TAB ONE (23:21)
[2025-02-09] MEDS ORDERED: HYDROCODONE/APAP 5/325 MG TAB ONE (23:22)
[2025-02-10 00:15] VITALS: O2SAT 100
[2025-02-10 00:18] VITALS: BP 143/74; TEMP 98
--- NOTE | 2025-02-12 12:45 | EKG ---
Test Date: 2025-02-09 Test Time: 22:19:26 Flat Machine Cutter: MALATHI MEASUREMENT RESULTS: Intervals: Rate: 70 AR: 168 QRSD: 140 QT: 446 QTc: 481 [place]: P: 66 AR: 168 QRS: -35 T: 78 INTERPRETIVE STATEMENTS: Normal sinus rhythm Left axis deviation Right bundle branch block Voltage criteria for left ventricular hypertrophy T wave abnormality, consider lateral ischemia Abnormal ECG Compared to ECG 11/13/2024 23:00:00 T-wave abnormality now present Possible ischemia now present Early repolarization no longer present Myocardial infarct finding no longer present Electronically Signed On 02-12-25 12:40:18 CDT by Rodger Locke
== END 2025-02-09 23:56 | disposition home or self-care (01) ==
LOC: ER 18:02
DX: L03.113 Cellulitis of right upper limb (principal)
CPT/HCPCS: 93005; 87040 ×2; 85025; 81001; 80048; 36415; 83735; 85610; 80076; 84550; 83605; 84484; 83690; 83880; 71045; 73090; 93971; 99284; J7512; J3010; J3370; J2405; J7050; J7030; J0692